=== PATIENT | female | born 1965 | race Hispanic/Latino ===

== ENCOUNTER 2017-02-19 20:52 | Observation (INO) | payer MEDICARE, MEDICAID ==
[2017-02-19 20:52] VITALS: BMI 30.9
[2017-02-19] MEDS ORDERED: Oxycodone/Acetaminophen 5/325 mg Tab PO STA (22:34)
[2017-02-19] MEDS ORDERED: Albuterol-Ipratrop 3 mg / 0.5 (3 ml) UD INH STA ×2 (22:35→23:42)
[2017-02-19] MEDS ORDERED: Oxycodone/Acetaminophen 5/325 mg Tab ONE (22:56)
[2017-02-19 23:09] LABS: BASO % 0.3 % (0.0-2.0); EOS # 0.6 K/uL (0.0-0.7); EOS % 5.7 % (0.0-4.0); LYMPH # 0.7 K/uL (1.0-4.3); LYMPH % 6.2 % (20.0-40.0); MEAN CORPUSCULAR HGB CONC 32.5 g/dL (33.0-37.0); MEAN PLATELET VOLUME 7.1 fL (7.2-11.7); MONO # 0.9 K/uL (0.0-0.8); MONO % 8.3 % (0.0-10.0); RED CELL DISTRIBUTION WIDTH 14.9 % (11.5-14.5)
[2017-02-19 23:12] LABS: CHLORIDE 90 mmol/L (98-107); INR 6.5; SODIUM 133 mmol/L (132-148)
[2017-02-19 23:13] LABS: POTASSIUM 3.2 mmol/L (3.6-5.2)
[2017-02-19 23:14] LABS: MEAN CELL VOLUME 83.1 fL (81.0-99.0); PLATELET COUNT 343 K/uL (130-400); WHITE BLOOD COUNT 11.1 K/uL (4.8-10.8)
[2017-02-19 23:15] LABS: ALKALINE PHOSPHATASE 54 U/L (38-126); ALT/SGPT 61 U/L (9-52); AST/SGOT 49 U/L (14-36); BILIRUBIN,TOTAL 0.8 mg/dL (0.2-1.3); BLOOD UREA NITROGEN 14 mg/dL (7-17); CALCIUM 8.7 mg/dl (8.6-10.4); CARBON DIOXIDE 32 mmol/L (22-30); GFR AFRICAN-AMERICAN > 60; GLUCOSE,RANDOM 78 mg/dL (65-105); TOTAL PROTEIN 7.8 g/dL (6.3-8.3)
--- NOTE | 2017-02-19 23:17 | C.PDOC ---
History Of Present Illness 51 year old female pt c/o RLQ abdominal pain for 2 days. Pt had a CT scan today and was referred by Dr. Quiñones to ED for possible bleeding. Pt has a 10 by 10 cm hematoma in the lower abdominal wall. Pt denies any nausea, vomiting, diarrhea, fever, chills, or any other complaints. Time Seen by Provider: 02/19/17 22:29 Chief Complaint (Nursing): Abdominal Pain History Per: Patient Onset/Duration Of Symptoms: Days Current Symptoms Are (Timing): Still Present Severity: Mild Location Of Pain/Discomfort: RLQ Associated Symptoms: denies: Fever, Chills, Nausea, Vomiting, Diarrhea Past Medical History Reviewed: Historical Data, Nursing Documentation, Vital Signs Vital Signs: Last Vital Signs Temp 97.9 F 02/20/17 01:01 Pulse 73 02/20/17 01:01 Resp 18 02/20/17 01:01 BP 108/73 02/20/17 01:01 Pulse Ox 96 02/20/17 01:01 - Medical History PMH: Anxiety (Per pt off medication), Arthritis, Asthma, Back Problems, Depression (per pt off medication), Deep Vein Thrombosis (2011), Fibromyalgia, HTN, Pulmonary Embolism (2011) Denies: Chronic Kidney Disease - [facility] Procedures ARTIF RUPT MEMBRANES NEC (05/12/99) DIATHER/CRYO TURBINECTOM (11/10/13) ESOPHAGOGASTRODUODENOSCOPY [EGD] W/CLOSED BIOPSY (03/28/14) ETHMOIDECTOMY (11/10/13) FASCIOTOMY (01/19/14) INTRANASAL ANTROTOMY (11/10/13) LAPAROSCOP APPENDECTOMY (03/16/05) LOW CERVICAL (05/12/99) UMBIL HERNIA REPAIR-GRFT (03/16/05) Family History: States: Unknown Family Hx - Social History Hx Tobacco Use: No Hx Alcohol Use: Yes Hx Substance Use: No - Immunization History Hx Tetanus Toxoid Vaccination: Yes Hx Influenza Vaccination: Yes Hx Pneumococcal Vaccination: Yes Review Of Systems Except As Marked, All Systems Reviewed And Found Negative. Constitutional: Negative for: Fever, Chills Gastrointestinal: Positive for: Abdominal Pain (RLQ pain. 10/10 hematoma lower abdominal wall). Negative for: Nausea, Vomiting, Diarrhea Physical Exam - Physical Exam Appears: Non-toxic, No Acute Distress Skin: Warm, Dry Head: Atraumatic, Normacephalic Cardiovascular: Rhythm Regular Respiratory: Normal Breath Sounds, No Rales, No Rhonchi, No Wheezing Gastrointestinal/Abdominal: Tenderness (Right lower pannicular area), Other ( Obese abdomen) Neurological/Psych: Oriented x3, Normal Speech ED Course And Treatment - Laboratory Results Result Diagrams: 02/19/17 22:58 02/19/17 22:58 O2 Sat by Pulse Oximetry: 96 (Room air) Pulse Ox Interpretation: Normal Medical Decision Making Medical Decision Making: impression: 51 year old female referred by Dr. Quiñones c/o RLQ abdominal pain. Plan: -EKG -Labs -CXR -Oxycodone -SOLU-Medrol -Albuterol -Nebulizer treatment -Reassess and disposition Disposition Doctor Will See Patient In The: Hospital Counseled Patient/Family Regarding: Studies Performed, Diagnosis - Disposition Disposition: HOSPITALIZED Disposition Time: 23:00 Condition: GOOD - Clinical Impression Clinical Impression: Abdominal wall hematoma, Poisoning by warfarin sodium - Scribe Statement The provider has reviewed the documentation as recorded by the Scribmary ellen wyatt All medical record entries made by the Cherriibmary ellen were at my direction and personally dictated by me. I have reviewed the chart and agree that the record accurately reflects my personal performance of the history, physical exam, medical decision making, and the department course for this patient. I have also personally directed, reviewed, and agree with the discharge instructions and disposition.
[2017-02-19] MEDS ORDERED: Albuterol-Ipratrop 3 mg / 0.5 (3 ml) UD ONE (23:50)
[2017-02-19 23:53] LABS: EOSINOPHIL 6 % (0-4); MYELOCYTE 1 % (0-0); NEUTROPHIL 75 % (50-75); TOTAL CELLS COUNTED 100
[2017-02-20] MEDS: Azithromycin 500mg/250ML NS 250 ML IVPB SCH ×2 (01:34→23:12)
[2017-02-20 01:52] LABS: RBC URINE 3 /hpf (0-3); URINE BACTERIA FEW (<OCC); URINE BILIRUBIN NEGATIVE (NEGATIVE); URINE BLOOD 2+ (NEGATIVE); URINE COLOR Yellow (YELLOW); URINE GLUCOSE (UA) NORMAL (Normal); URINE KETONE NEGATIVE (NEGATIVE); URINE LEUKOCYTE ESTERASE NEG Leu/uL (Negative); URINE PROTEIN NEGATIVE (NEGATIVE); URINE UROBILINOGEN NORMAL mg/dL (0.2-1.0); WBC URINE 2 /hpf (0-5)
[2017-02-20] MEDS: Oxymetazoline 0.05% Nasal Spray (30 ml) NS SCH ×3 (02:23→23:14)
[2017-02-20 07:21] LABS: CHLORIDE 90 mmol/L (98-107)
[2017-02-20 07:22] LABS: HEMATOCRIT 27.6 % (34.0-47.0); MEAN CELL VOLUME 83.2 fL (81.0-99.0); MEAN CORPUSCULAR HGB CONC 32.5 g/dL (33.0-37.0); MEAN PLATELET VOLUME 7.1 fL (7.2-11.7); POTASSIUM 3.6 mmol/L (3.6-5.2); RED CELL DISTRIBUTION WIDTH 15.1 % (11.5-14.5); SODIUM 134 mmol/L (132-148); WHITE BLOOD COUNT 8.6 K/uL (4.8-10.8)
[2017-02-20 07:24] LABS: AST/SGOT 36 U/L (14-36); BILIRUBIN,TOTAL 0.9 mg/dL (0.2-1.3); CARBON DIOXIDE 32 mmol/L (22-30); GFR AFRICAN-AMERICAN > 60
[2017-02-20 07:25] LABS: ALB/GLOB RATIO 1.2 (1.0-2.1); ALKALINE PHOSPHATASE 62 U/L (38-126); ALT/SGPT 44 U/L (9-52); BLOOD UREA NITROGEN 14 mg/dL (7-17); GLUCOSE,RANDOM 119 mg/dL (65-105); TOTAL PROTEIN 6.8 g/dL (6.3-8.3)
[2017-02-20 07:36] LABS: INR 3.6
[2017-02-20] MEDS: Fluticasone Nasal 50 mcg/Spray NS SCH (10:40)
[2017-02-20] MEDS: MethylPREDNISolone 40 mg Vial IVP SCH (10:40)
[2017-02-20] MEDS: Vitamin B Complex/Vitamin C Tab PO SCH (10:40)
[2017-02-20] MEDS: Oxybutynin XL 10 mg Tab PO SCH (10:42)
--- NOTE | 2017-02-20 14:27 | RAD ---
PROCEDURE: CHEST RADIOGRAPH, 1 VIEW HISTORY: abd pain COMPARISON: 02/19/2017 at 10:05 a.m. FINDINGS: LUNGS: Clear. PLEURA: No pneumothorax or pleural fluid seen. CARDIOVASCULAR: Normal. OSSEOUS STRUCTURES: No significant abnormalities. VISUALIZED UPPER ABDOMEN: Normal. OTHER FINDINGS: None. IMPRESSION: No active disease.
--- NOTE | 2017-02-20 23:41 | CP.PCM.HP ---
History of Present Illness - History of Present Illness History of Present Illness: Chief complaint: Abdominal pain History present illness: 51-year-old female with a history of lupus disease, hypercoagulable state, on antibiotic regulation, history of DVT PE, hypertension, hypercoagulable state, fibromyalgia, bronchial asthma, reactive airway disease, came to the office with the symptoms of cough. Patient was being managed as an outpatient for possibility of acute bronchitis, with antibiotic of Zithromax as well as broncho-dilators. But the patient's cough progressively got worse, associate with the increasing abdominal discomfort. Patient came to the office with the lower abdominal pain, and the swelling, noted to have a large masslike lesions in the lower abdominal area, I advised the patient go to the emergency room. During the evaluation, patient was noted to have a possibility of hematoma in the lower abdominal area. Patient needed further management She still continues to cough, mostly progressively worsening, associated with a dry cough, but the mucus production noted the mildly. She does have any fever, no chills noted, denies any nausea vomiting, but lower abdominal pain noted Past medical history as noted above Past surgical history: IVC filter. Currently on anticoagulation Allergies: No known drug allergy Personal history: Lifelong nonsmoker nonalcoholic Family history noncontributory Review of system: Denies any headache, no visual symptom, and cough noted, with the chest pain associated with the cough. Mucus production mild Lower abdominal pain noted, urine discomfort negative, bowel movements are normal On examination: Vital signs stable, chest bilateral good air entry no wheezing noted, regular heart sound, abdomen lower abdominal masslike lesions noted in the right lower quadrant region, associated with tenderness. The consistency is firm Labs reviewed Elevated INR noted, 6.7. Hemoglobin is stable otherwise Assessment and recommendation: 51-year-old female admitted to the hospital with the possibility of acute hematoma, from the anticoagulation, with the uncontrolled to Coumadin toxicity. Possibility that antibiotic made it worse. Patient is currently off anticoagulation, will monitor the INR. FFP given today. We'll continue to monitor. Hemoglobin to be monitored. We'll start the patient on anti-biotic. CT of the chest ordered and will follow the patient. Present on Admission - Present on Admission Any Indicators Present on Admission: No History of DVT/PE: No History of Uncontrolled Diabetes: No Urinary Catheter: No Decubitus Ulcer Present: No Past Patient History - Past Medical History & Family History Past Medical History?: Yes - Past Social History Smoking Status: Never Smoked - CARDIAC Hx Hypertension: Yes - PULMONARY Hx Asthma: Yes Hx Pulmonary Embolism: Yes (2011) - NEUROLOGICAL Hx Neurological Disorder: No - HEENT Hx HEENT Problems: Yes (NASAL SEPTUM REPAIR) Other/Comment: uses glasses - RENAL Hx Chronic Kidney Disease: No - ENDOCRINE/METABOLIC Hx Endocrine Disorders: Yes Hx Systemic Lupus Erythematosus: Yes - HEMATOLOGICAL/ONCOLOGICAL Hx Blood Disorders: No - INTEGUMENTARY Hx Dermatological Problems: Yes (ULCER ON SCALP) - MUSCULOSKELETAL/RHEUMATOLOGICAL Hx Arthritis: Yes Hx Falls: No - GASTROINTESTINAL Hx Gastrointestinal Disorders: Yes (GASTRIC BANDING 2009/ HIATAL HERNIA REPAIR) Hx Gastroesophageal Reflux: Yes - GENITOURINARY/GYNECOLOGICAL Hx Incontinence: Yes (OVER ACTIVE BLADDER) - PSYCHIATRIC Hx Anxiety: Yes (Per pt off medication) Hx Depression: Yes (per pt off medication) Hx Substance Use: No - SURGICAL HISTORY Hx Surgeries: Yes Hx Section: Yes (x2) - ANESTHESIA Hx Anesthesia: Yes Hx Anesthesia Reactions: No Hx Malignant Hyperthermia: No Has any member of the family had a problem w/ anesthesia?: No Meds Allergies/Adverse Reactions: Allergies Allergy/AdvReac Type Severity Reaction Status Date / Time No Known Allergies Allergy Verified 02/19/17 21:19 Results - Vital Signs Recent Vital Signs: Last Vital Signs Temp 98.1 F 02/20/17 16:10 Pulse 93 H 02/20/17 16:10 Resp 20 02/20/17 16:10 BP 118/76 02/20/17 16:10 Pulse Ox 94 L 02/20/17 16:10 - Labs Result Diagrams: 02/21/17 20:05 02/20/17 07:08 Labs: Laboratory Results - last 24 hr 02/19/17 02/20/17 02/20/17 23:41 00:41 01:45 WBC RBC Hgb Hct MCV MCH MCHC RDW Plt Count MPV PT INR APTT Sodium Potassium Chloride Carbon Dioxide Anion Gap BUN Creatinine Est GFR ( Amer) Est GFR (Non-Af Amer) Random Glucose Calcium Total Bilirubin AST ALT Alkaline Phosphatase Total Protein Albumin Globulin Albumin/Globulin Ratio Urine Color Yellow Urine Clarity Hazy Urine pH 6.0 Ur Specific [place] 1.008 Urine Protein Negative Urine Glucose (UA) Normal Urine Ketones Negative Urine Blood 2+ H Urine Nitrate Negative Urine Bilirubin Negative Urine Urobilinogen Normal Ur Leukocyte Esterase Neg Urine WBC (Auto) 2 Urine RBC (Auto) 3 Ur Squamous Epith Cells 35 H Urine Bacteria Few H Blood Type B POSITIVE Blood Type Confirm B POSITIVE Antibody Screen Negative 02/20/17 07:08 WBC 8.6 RBC 3.32 L Hgb 9.0 L Hct 27.6 L MCV 83.2 MCH 27.0 MCHC 32.5 L RDW 15.1 H Plt Count 278 MPV 7.1 L PT 42.0 H* D INR 3.6 D APTT 56 H D Sodium 134 Potassium 3.6 Chloride 90 L Carbon Dioxide 32 H Anion Gap 16 BUN 14 Creatinine 0.6 L Est GFR ( Amer) > 60 Est GFR (Non-Af Amer) > 60 Random Glucose 119 H Calcium 8.0 L Total Bilirubin 0.9 AST 36 D ALT 44 Alkaline Phosphatase 62 Total Protein 6.8 Albumin 3.7 Globulin 3.1 Albumin/Globulin Ratio 1.2 Urine Color Urine Clarity Urine pH Ur Specific [place] Urine Protein Urine Glucose (UA) Urine Ketones Urine Blood Urine Nitrate Urine Bilirubin Urine Urobilinogen Ur Leukocyte Esterase Urine WBC (Auto) Urine RBC (Auto) Ur Squamous Epith Cells Urine Bacteria Blood Type Blood Type Confirm Antibody Screen
--- NOTE | 2017-02-20 23:47 | CP.PCM.PN ---
Subjective - Date & Time of Evaluation Date of Evaluation: 02/20/17 Time of Evaluation: 23:41 - Subjective Subjective: pt got 2 units of ffp abd pain noted still having cough and no mucus no fever Temp Pulse Resp BP Pulse Ox 98.1 F 93 H 20 118/76 94 L 02/20/17 16:10 02/20/17 16:10 02/20/17 16:10 02/20/17 16:10 02/20/17 16:10 chest good air entry regular hs abd soft lower abd swelling noted hematoma noted will check the pt and inr 02/20/17 07:08 02/20/17 07:08 inr 3.4 will monitor the inr abd hematoma coagulopathy coumadin toxicity pneumonia continue the zithromax and steroid check hb Objective - Vital Signs/Intake and Output Vital Signs (last 24 hours): Temp Pulse Resp BP Pulse Ox 98.1 F 93 H 20 118/76 94 L 02/20/17 16:10 02/20/17 16:10 02/20/17 16:10 02/20/17 16:10 02/20/17 16:10 Intake and Output: 02/20/17 02/21/17 18:59 06:59 Intake Total 480 Balance 480 - Medications Medications: Current Medications Duloxetine HCl (Cymbalta) 30 mg PO DAILY [facility] Last Admin: 02/20/17 10:40 Dose: 30 mg Fluticasone Propionate (Flonase) 1 spr NS DAILY [facility] Last Admin: 02/20/17 10:40 Dose: 1 spr Hydrochlorothiazide (Hydrodiuril) 25 mg PO DAILY [facility] Last Admin: 02/20/17 10:41 Dose: 25 mg Hydroxychloroquine Sulfate (Plaquenil) 400 mg PO DAILY [facility] Last Admin: 02/20/17 10:41 Dose: 400 mg Azithromycin (Zithromax 500mg In Ns Addvantage) 250 mls @ 167 mls/hr IVPB Q24H [facility] Last Admin: 02/20/17 23:12 Dose: 167 mls/hr Methylprednisolone (Solu-Medrol) 40 mg IVP DAILY [facility] Last Admin: 02/20/17 10:40 Dose: 40 mg Montelukast Sodium (Singulair) 10 mg PO DAILY [facility] Last Admin: 02/20/17 10:41 Dose: 10 mg Oxybutynin Chloride (Ditropan Xl) 10 mg PO DAILY [facility] Last Admin: 02/20/17 10:42 Dose: 10 mg Oxymetazoline HCl (Afrin 0.05%) 1 ml NS Q12H [facility] Last Admin: 02/20/17 23:14 Dose: 1 drop Pregabalin (Lyrica) 75 mg PO TID [facility] Last Admin: 02/20/17 17:17 Dose: 75 mg Vitamin B Complex/Vitamin C (Berocca) 1 tab PO DAILY [facility] Last Admin: 02/20/17 10:40 Dose: 1 tab - Labs Labs: 02/20/17 07:08 02/20/17 07:08 PT 42.0 SECONDS (9.7-12.2) H* D 02/20/17 07:08 INR 3.6 D 02/20/17 07:08 APTT 56 SECONDS (21-34) H D 02/20/17 07:08
[2017-02-21] MEDS ORDERED: Iodixanol 320 MG/ML 100 ML BOTTLE IV ONE (06:44)
[2017-02-21 07:12] LABS: BASO % 0.2 % (0.0-2.0); EOS # 0.2 K/uL (0.0-0.7); EOS % 1.5 % (0.0-4.0); HEMATOCRIT 27.9 % (34.0-47.0); LYMPH # 0.8 K/uL (1.0-4.3); LYMPH % 6.9 % (20.0-40.0); MEAN CELL VOLUME 82.2 fL (81.0-99.0); MEAN CORPUSCULAR HGB CONC 32.9 g/dL (33.0-37.0); MEAN PLATELET VOLUME 7.1 fL (7.2-11.7); MONO # 0.9 K/uL (0.0-0.8); MONO % 7.9 % (0.0-10.0); PLATELET COUNT 321 K/uL (130-400); RED CELL DISTRIBUTION WIDTH 15.2 % (11.5-14.5); WHITE BLOOD COUNT 11.7 K/uL (4.8-10.8)
[2017-02-21 07:35] LABS: INR 4.7
[2017-02-21] MEDS: Promethazine/Cod 6.25mg-10mg/5ml Syr UD PO SCH ×4 (08:25→23:09)
[2017-02-21 09:45] LABS: EOSINOPHIL 1 % (0-4); METAMYELOCYTE 1 % (0-0); NEUTROPHIL 85 % (50-75); TOTAL CELLS COUNTED 100
--- NOTE | 2017-02-21 09:53 | CT ---
PROCEDURE: CT Chest without contrast HISTORY: pneumonia COMPARISON: 07/25/2014 TECHNIQUE: Contiguous axial images were obtained through the chest without intravenous contrast enhancement. Sagittal and coronal reconstructions were performed. Radiation dose (DLP): 446.09 mGy-cm. FINDINGS: LUNGS: Multifocal pulmonary opacities, most prominently in the apical posterior left upper lobe. Lesser opacities are seen throughout all lobes bilaterally. This may represent an infectious or inflammatory process. No bernardo pulmonary mass. MEDIASTINUM: Unremarkable thoracic aorta. No aneurysm. Normal sized heart. Main pulmonary artery unremarkable. No vascular congestion. No lymphadenopathy. Small hiatal hernia. Fluid-filled lower esophagus with air-fluid level. Possible secondary to reflux. PLEURA: No pleural fluid. No pneumothorax. BONES: No fracture. No destructive lesion. UPPER ABDOMEN: Status post gastric band placement. Inferior vena caval filter noted. OTHER FINDINGS: None. IMPRESSION: Multi lobar, multifocal patchy ground-glass opacities bilaterally, nonspecific. This may be a but infectious or inflammatory etiology. Small hiatal hernia. Fluid in distended esophagus may reflect gastroesophageal reflux. Status post gastric band procedure. Inferior vena caval filter.
[2017-02-21] MEDS: Oxybutynin XL 10 mg Tab PO SCH (10:23)
[2017-02-21] MEDS: Fluticasone Nasal 50 mcg/Spray NS SCH (10:23)
[2017-02-21] MEDS: Vitamin B Complex/Vitamin C Tab PO SCH (10:23)
[2017-02-21] MEDS: MethylPREDNISolone 40 mg Vial IVP SCH (10:24)
[2017-02-21] MEDS: Oxymetazoline 0.05% Nasal Spray (30 ml) NS SCH (11:38)
[2017-02-21] MEDS: cefTRIAXone IV 1 gm in Dextros 50 ML IVPB SCH (14:04)
--- NOTE | 2017-02-21 14:35 | US ---
PROCEDURE: Limited abdominal ultrasound exam in a HISTORY: Rectus sheath hematoma on CT examination COMPARISON: CT abdomen/ pelvis 02/19/2017 TECHNIQUE: Limited abdominal ultrasound examination was performed in the right lower anterior abdominal wall FINDINGS: There is a heterogeneous mass/collection identified measuring 10.8 x 6.5 x 8.4 cm corresponding to the rectus sheath hematoma demonstrated on CT examination. The heterogeneity of the echotexture likely reflects blood products. IMPRESSION: Heterogeneous anterior abdominal wall mass/ collection, 10.8 cm greatest dimension.
[2017-02-21 20:22] LABS: HEMATOCRIT 28.1 % (34.0-47.0)
[2017-02-21 23:48] VITALS: O2SAT 99
[2017-02-22] MEDS: Promethazine/Cod 6.25mg-10mg/5ml Syr UD PO SCH ×2 (05:33→12:19)
--- NOTE | 2017-02-22 08:03 | CP.PCM.PN ---
Subjective - Date & Time of Evaluation Date of Evaluation: 02/21/17 Time of Evaluation: 08:02 - Subjective Subjective: Patient still having cough, cough with mucus production. CAT scan was done. Showing evidence of bronchopneumonia. We'll add Rocephin. INR is slightly elevated. Off Coumadin. No anticoagulation. We'll repeat the hemoglobin. Abdominal pain still persistently noted We'll continue to monitor INR, if possible, if it is stable, possible discharge plan tomorrow will follow the patient Objective - Vital Signs/Intake and Output Vital Signs (last 24 hours): Temp Pulse Resp BP Pulse Ox 98.4 F 80 20 120/80 99 02/21/17 23:47 02/22/17 00:00 02/21/17 23:47 02/21/17 23:47 02/21/17 23:47 - Medications Medications: Current Medications Acetaminophen (Tylenol 325mg Tab) 650 mg PO Q6 PRN PRN Reason: Pain, moderate (4-7) Last Admin: 02/21/17 23:10 Dose: 650 mg Duloxetine HCl (Cymbalta) 30 mg PO DAILY [facility] Last Admin: 02/21/17 10:23 Dose: 30 mg Fluticasone Propionate (Flonase) 1 spr NS DAILY [facility] Last Admin: 02/21/17 10:23 Dose: 1 spr Hydrochlorothiazide (Hydrodiuril) 25 mg PO DAILY [facility] Last Admin: 02/21/17 10:23 Dose: 25 mg Hydroxychloroquine Sulfate (Plaquenil) 400 mg PO DAILY [facility] Last Admin: 02/21/17 10:23 Dose: 400 mg Ceftriaxone Sodium (Rocephin Iv 1 Gm Duplex) 50 mls @ 50 mls/30 min IVPB DAILY [facility] Last Admin: 02/21/17 14:04 Dose: 50 mls/30 min Methylprednisolone (Solu-Medrol) 40 mg IVP DAILY [facility] Last Admin: 02/21/17 10:24 Dose: 40 mg Montelukast Sodium (Singulair) 10 mg PO DAILY [facility] Last Admin: 02/21/17 10:24 Dose: 10 mg Oxybutynin Chloride (Ditropan Xl) 10 mg PO DAILY [facility] Last Admin: 02/21/17 10:23 Dose: 10 mg Oxymetazoline HCl (Afrin 0.05%) 1 ml NS Q12H [facility] Last Admin: 02/21/17 11:38 Dose: 1 drop Pregabalin (Lyrica) 75 mg PO TID [facility] Last Admin: 02/21/17 17:19 Dose: 75 mg Promethazine HCl/Codeine (Phenergan/Codeine Oral Syrup) 5 ml PO Q6 [facility] Last Admin: 02/22/17 05:33 Dose: 5 ml Vitamin B Complex/Vitamin C (Berocca) 1 tab PO DAILY [facility] Last Admin: 02/21/17 10:23 Dose: 1 tab - Labs Labs: 02/21/17 20:05 02/20/17 07:08 PT 55.6 SECONDS (9.7-12.2) H* D 02/21/17 06:58 INR 4.7 D 02/21/17 06:58 APTT 50 SECONDS (21-34) H D 02/21/17 06:58
[2017-02-22 08:42] LABS: BASO # 0.1 K/uL (0.0-0.2); BASO % 0.7 % (0.0-2.0); EOS # 0.4 K/uL (0.0-0.7); EOS % 3.1 % (0.0-4.0); HEMATOCRIT 27.3 % (34.0-47.0); LYMPH # 1.1 K/uL (1.0-4.3); LYMPH % 9.4 % (20.0-40.0); MEAN CELL VOLUME 83.1 fL (81.0-99.0); MEAN CORPUSCULAR HEMOGLOBIN 27.6 pg (27.0-31.0); MEAN CORPUSCULAR HGB CONC 33.2 g/dL (33.0-37.0); MEAN PLATELET VOLUME 6.6 fL (7.2-11.7); MONO % 8.4 % (0.0-10.0); PLATELET COUNT 337 K/uL (130-400); RED CELL DISTRIBUTION WIDTH 15.1 % (11.5-14.5)
[2017-02-22 08:53] LABS: INR 3.2
[2017-02-22 08:54] VITALS: BP 110/72; PULSE 76; RESP 18; TEMP 98
[2017-02-22 09:21] LABS: EOSINOPHIL 2 % (0-4); NEUTROPHIL 83 % (50-75); TOTAL CELLS COUNTED 100
[2017-02-22] MEDS: Vitamin B Complex/Vitamin C Tab PO SCH (09:44)
[2017-02-22] MEDS: MethylPREDNISolone 40 mg Vial IVP SCH (09:44)
[2017-02-22] MEDS: Oxybutynin XL 10 mg Tab PO SCH (09:44)
[2017-02-22] MEDS: cefTRIAXone IV 1 gm in Dextros 50 ML IVPB SCH (09:45)
[2017-02-22] MEDS: Fluticasone Nasal 50 mcg/Spray NS SCH (09:45)
[2017-02-22] MEDS: Oxymetazoline 0.05% Nasal Spray (30 ml) NS SCH (12:20)
== END 2017-02-22 14:52 | disposition home or self-care (01) ==
LOC: C.ER 20:52 → C.5T 23:26
PROVIDERS: ADMIT Internal Medicine; ATTEND Internal Medicine
DX: T42.0X5A Adverse effect of hydantoin derivatives, initial encounter (principal); J45.909 Unspecified asthma, uncomplicated; I10 Essential (primary) hypertension
CPT/HCPCS: 36415; 36430; 71010; 71250; 76705; 80053; 81001; 83690; 84484; 85014; 85018; 85025; 85027; 85610; 85730; 86850; 86900; 94640; 96374; 99285; G0378; J0456; J0696; J2920; J2930; P9017

== ENCOUNTER 2017-09-16 06:50 | Day surgery (SDC) | payer MEDICARE, MEDICAID ==
[2017-09-16 07:38] VITALS: BMI 35.4
[2017-09-16] MEDS ORDERED: Propofol 10 mg/ml Inj (20 ML) ONE ×4 (08:41→10:28)
[2017-09-16] MEDS ORDERED: Midazolam 2 MG/2 ML VIAL ONE ×2 (08:41→10:12)
--- NOTE | 2017-09-16 08:46 | CP.SDSHP ---
Same Day Surgery H & P - History Proposed Procedure: endoscopy, colonosocpy - Previous Medical/Surgical History Comments: SLE, DVT - Allergies Allergies: Allergies No Known Allergies Allergy (Verified 02/19/17 21:19) - Physical Exam Vital Signs: Vital Signs 09/16/17 08:06 Temperature 97 F L Pulse Rate 80 Respiratory 16 Rate Blood Pressure 142/79 O2 Sat by Pulse 98 Oximetry Mental Status: Alert & Oriented x3 Neuro: WNL Heart: WNL Lungs: WNL GI: WNL - {Optional Preform as Required} Abdomen: WNL - Impression Impression: reflux, screen Pt. Evaluated Today:Candidate for Anesthesia & Procedure: Yes - Date & Time Date: 09/16/17 Time: 08:47 Short Stay Discharge - Short Stay Discharge Admitting Diagnosis/Reason for Visit: SCREENING / ESOPHAGEAL REFLUX Disposition: HOME/ ROUTINE Referrals: Myles Quiñones MD [Primary Care Provider] -
[2017-09-16 09:18] LABS: INR 1.2
[2017-09-16 12:31] VITALS: TEMP 97.1; O2SAT 100
[2017-09-16 12:50] VITALS: BP 128/73; PULSE 77; RESP 16
== END 2017-09-16 12:30 | disposition home or self-care (01) ==
LOC: C.ENDO 06:50
PROVIDERS: ATTEND Internal Medicine Gastroenterology
DX: D12.0 Benign neoplasm of cecum (principal); K64.8 Other hemorrhoids; K57.90 Diverticulosis of intestine, part unspecified, without perforation or abscess without bleeding; K29.70 Gastritis, unspecified, without bleeding
CPT/HCPCS: 36415; 43239; 45388; 84703; 85610; 88305; 88342; J2250; J2704; J3010

== ENCOUNTER 2017-11-01 09:21 | Inpatient (IN) | payer MEDICARE, MEDICAID ==
[2017-11-01 09:22] VITALS: BMI 35.4
[2017-11-01] MEDS ORDERED: Lactated Ringer's 1,000 ML IV STA (10:09)
--- NOTE | 2017-11-01 10:09 | C.PDOC ---
History Of Present Illness 52 year old female with a PMHx of Asthma presents to the ED with complaints of persistent cough and subjective fever for 2 weeks. Patient also reports right pleuritic pain. Patient was referred to the ED by PMD for admission for persistent cough that has not improved with ZPAK, unknown other anitibiotics, or Prednisone for 2 weeks. Patient is status post CT chest on 10/28/2017 and pneumonia. Patient denies sick contacts, recent travel, leg swelling, or other complaints at this time. REFERRED BY PMD FOR ADMISSION. PS PERSIST COUGH X 2 WEEKS, NO IMPROVE W ZPAK, UNK OTHER ABX AND PREDNISONE X 2 WEEKS. SUBJ FEVER. HO ASTHMA. +R PLEURITIC PAIN. S/P CT CHEST 10/28 +PNEUMONIA EXAM MILD DIST NONTOXIC HEENT NEG LUNGS +RHONCHI L SIDE +WET COUGH +RETRACTION CV RRR SINUS TACH REMAINDER NEG Time Seen by Provider: 11/01/17 09:47 Chief Complaint (Nursing): Cough, Cold, Congestion History Per: Patient History/Exam Limitations: no limitations Onset/Duration Of Symptoms: Persistent (2 weeks ) Current Symptoms Are (Timing): Still Present Sick Contacts (Context): None Associated Symptoms: Fever (subjective), Cough. denies: Vomiting, Diarrhea Ear Symptoms: Bilateral: None Recent travel outside of the [place]: No Additional History Per: Prior Records (PMD records) Past Medical History Reviewed: Historical Data, Nursing Documentation, Vital Signs Vital Signs: Last Vital Signs Temp 98.7 F 11/01/17 09:31 Pulse 94 H 11/01/17 10:54 Resp 19 11/01/17 10:54 BP 110/61 11/01/17 10:54 Pulse Ox 94 L 11/01/17 10:54 - Medical History PMH: Arthritis, Asthma, Back Problems, Colonic Polyps, Deep Vein Thrombosis ( 2011), Fibromyalgia, HTN, Pulmonary Embolism (2011), Sleep Apnea (ON CPAP AT HOME) Surgical History: Appendectomy, Endoscopy - [facility] Procedures ARTIF RUPT MEMBRANES NEC (05/12/99) DIATHER/CRYO TURBINECTOM (11/10/13) ESOPHAGOGASTRODUODENOSCOPY [EGD] W/CLOSED BIOPSY (03/28/14) ETHMOIDECTOMY (11/10/13) FASCIOTOMY (01/19/14) INTRANASAL ANTROTOMY (11/10/13) LAPAROSCOP APPENDECTOMY (03/16/05) LOW CERVICAL (05/12/99) UMBIL HERNIA REPAIR-GRFT (03/16/05) Family History: States: Unknown Family Hx - Social History Hx Tobacco Use: No Hx Alcohol Use: No Hx Substance Use: No - Immunization History Hx Tetanus Toxoid Vaccination: No Hx Influenza Vaccination: Yes Hx Pneumococcal Vaccination: No Review Of Systems Constitutional: Positive for: Fever (subjective fever). Negative for: Chills Cardiovascular: Positive for: Other (right pleuritic pain). Negative for: Palpitations Respiratory: Positive for: Cough. Negative for: Shortness of Breath Gastrointestinal: Negative for: Nausea, Vomiting, Abdominal Pain Neurological: Negative for: Weakness, Numbness Physical Exam - Physical Exam Appears: Non-toxic, In Acute Distress Skin: Warm, Dry, No Rash Head: Atraumatic, Normacephalic, No Tenderness Eye(s): bilateral: Normal Inspection, PERRL, EOMI Ear(s): Bilateral: Normal Nose: Normal, No Discharge Oral Mucosa: Moist Throat: Normal, No Erythema, No Exudate Neck: Supple Chest: Symmetrical, No Deformity Cardiovascular: Rhythm Regular, No Murmur, Other (Patient is tachycardic ) Respiratory: Rhonchi (left sided ), Other (+ retraction; + wet cough) Gastrointestinal/Abdominal: Soft, No Tenderness, No Distention, No Guarding, No Rebound Extremity: Normal ROM, No Tenderness, No Pedal Edema, No Calf Tenderness, Capillary Refill (<2 seconds ), No Deformity, No Swelling Neurological/Psych: Oriented x3, Normal Speech, Normal Cognition, Normal Cranial Nerves, No Cerebellar Signs ED Course And Treatment - Laboratory Results Result Diagrams: 11/01/17 10:26 11/01/17 10:26 ECG: Interpreted By Me, Viewed By Me ECG Rhythm: Sinus Rhythm Rate From EC O2 Sat by Pulse Oximetry: 93 Pulse Ox Interpretation: Abnormal - Radiology CXR: Interpreted by Me, Viewed By Me CXR Interpretation: Yes: Infiltrates (left infiltrate ) Progress Note: EKG, VBG, CXR, labs, and blood work were ordered. Patient was given Toradol, Vancomycin, Zosyn, and Lactated Ringer's Solution. Progress - Re-Evaluation Re-evaluation Note: 11/01/17 10:35 d/sumanth quiñones will admit - Data Reviewed Data Reviewed: Lab, Diagnostic imaging, EKG, Old records Disposition Counseled Patient/Family Regarding: Studies Performed, Diagnosis - Disposition Disposition: HOSPITALIZED Disposition Time: 10:36 Condition: STABLE - POA Present On Arrival: None - Clinical Impression Clinical Impression: Pneumonia, Hypoxia - Scribe Statement The provider has reviewed the documentation as recorded by the Scribe Patricia Moran All medical record entries made by the Scribe were at my direction and personally dictated by me. I have reviewed the chart and agree that the record accurately reflects my personal performance of the history, physical exam, medical decision making, and the department course for this patient. I have also personally directed, reviewed, and agree with the discharge instructions and disposition. Decision To Admit - Pt Status Changed To: Hospital Disposition Of: Inpatient - Admit Certification Admit to Inpatient:: After my assessment, the patient will require hospitalization for at least two midnights. This is because of the severity of symptoms shown, intensity of services needed, and/or the medical risk in this patient being treated as an outpatient. - InPatient: Physician Admission Certification: I certify that this patient requires 2 or more midnights of care for the following reason:: SEE NOTE - . Bed Request Type: Regular Admitting Physician: Myles Quiñones Patient Diagnosis: Pneumonia, Hypoxia
[2017-11-01] MEDS ORDERED: Lactated Ringer's 1,000 ML IV ONE (10:11)
[2017-11-01] MEDS ORDERED: Piperacill/Tazo 3.375gm in Dex 3.375 GM/50 ML BAG IV STA (10:20)
[2017-11-01] MEDS ORDERED: Lactated Ringer's 1,000 ML ONE ×2 (10:31→12:02)
[2017-11-01 10:34] LABS: HEMATOCRIT 36.1 % (34.0-47.0); MEAN CELL VOLUME 83.7 fL (81.0-99.0); MEAN CORPUSCULAR HEMOGLOBIN 27.5 pg (27.0-31.0); MEAN CORPUSCULAR HGB CONC 32.9 g/dL (33.0-37.0); MEAN PLATELET VOLUME 6.9 fL (7.2-11.7); PLATELET COUNT 301 K/uL (130-400); RED CELL DISTRIBUTION WIDTH 15.9 % (11.5-14.5)
[2017-11-01 10:37] LABS: URINE BILIRUBIN NEGATIVE (NEGATIVE); URINE BLOOD 1+ (NEGATIVE); URINE COLOR Yellow (YELLOW); URINE GLUCOSE (UA) NORMAL (Normal); URINE KETONE NEGATIVE (NEGATIVE); URINE LEUKOCYTE ESTERASE NEG Leu/uL (Negative); URINE PROTEIN NEGATIVE (NEGATIVE); URINE UROBILINOGEN NORMAL mg/dL (0.2-1.0)
[2017-11-01 10:42] LABS: WHITE BLOOD COUNT 21.5 K/uL (4.8-10.8)
[2017-11-01 10:54] LABS: RBC URINE 1 /hpf (0-3)
[2017-11-01 10:57] LABS: ALKALINE PHOSPHATASE 58 U/L (38-126); ALT/SGPT 34 U/L (9-52); AST/SGOT 29 U/L (14-36); BILIRUBIN,TOTAL 0.6 mg/dL (0.2-1.3); BLOOD UREA NITROGEN 17 mg/dL (7-17); CALCIUM 8.3 mg/dl (8.6-10.4); CARBON DIOXIDE 28 mmol/L (22-30); CHLORIDE 98 mmol/L (98-107); GFR AFRICAN-AMERICAN > 60; GLUCOSE,RANDOM 113 mg/dL (65-105); POTASSIUM 3.5 mmol/L (3.6-5.2); SODIUM 134 mmol/L (132-148); TOTAL PROTEIN 7.4 g/dL (6.3-8.3)
[2017-11-01 11:01] LABS: LYMPH # 0.2 K/uL (1.0-4.3); MONO # 0.2 K/uL (0.0-0.8)
[2017-11-01 11:03] LABS: VENOUS BLOOD GAS BASE EXCESS 5.8 mmol/L (0.0-2.0); VENOUS BLOOD GAS PCO2 40 mmHg (40-60); VENOUS BLOOD PH 7.48 (7.32-7.43)
--- NOTE | 2017-11-01 11:03 | RAD ---
HISTORY: Pneumonia COMPARISON: Chest x-ray performed 07/30/17 TECHNIQUE: Chest PA and lateral FINDINGS: LUNGS: Patchy left lower lobe opacity compute stent with pneumonia. Mild interstitial prominence may reflect infection or edema. Please note that chest x-ray has limited sensitivity for the detection of pulmonary masses. PLEURA: No significant pleural effusion identified. No definite pneumothorax . CARDIOVASCULAR: Cardiomegaly. OSSEOUS STRUCTURES: Degenerative changes. VISUALIZED UPPER ABDOMEN: Unremarkable. OTHER FINDINGS: None. IMPRESSION: Patchy left lower lobe opacity compute stent with pneumonia. Mild interstitial prominence may reflect infection or edema.
[2017-11-01 11:07] LABS: NEUTROPHIL 89 % (50-75); TOTAL CELLS COUNTED 100
[2017-11-01 11:27] LABS: INR 3.9
[2017-11-01] MEDS: Albuterol-Ipratrop 3 mg / 0.5 (3 ml) UD INH SCH ×2 (13:39→19:20)
[2017-11-01] MEDS: Promethazine/Cod 6.25mg-10mg/5ml Syr UD PO PRN ×2 (14:50→20:07)
[2017-11-01] MEDS: Pantoprazole 40 mg EC Tab PO SCH (17:54)
[2017-11-01] MEDS: Fluticasone Nasal 50 mcg/Spray NAS SCH (17:54)
--- NOTE | 2017-11-01 18:49 | CP.PCM.HP ---
History of Present Illness - History of Present Illness History of Present Illness: Chief complaint: progressively worsening cough History present illness: 52-year-old female with a history of lupus disease, hypercoagulable state, on antibiotic regulation, history of DVT PE, hypertension, hypercoagulable state, fibromyalgia, bronchial asthma, reactive airway disease, came to the office with the symptoms of cough. Patient was seen by me in the office almost to 3 weeks ago for the similar symptoms. Patient was given outpatient antibiotic treatment, including prednisone. And also receiving intravenous corticosteroid, without any improvement. Mild improvement in the beginning, but she started having increasing cough, especially at nighttime. Cough associated with some wheezing, and shortness of breath, and dizziness. In January 2017 patient had a similar problem, and at that time she developed significant hematoma involving the right groin region and also elevated INR. Patient underwent outpatient CAT scan returned showing significant pneumonia, and I advised the patient to go to the emergency room father possible intravenous antibiotic, and further management. Patient finally came to the emergency room today, with increasing cough, and hypoxia. Highly elevated WBC also noted. Still feeling not well, cough noted, sore throat present. Wheezing present. No fever. No diarrhea She still continues to cough, mostly progressively worsening, associated with a dry cough, but the mucus production noted the mildly also mild hemoptysis also noted She does have any fever, no chills noted, denies any nausea vomiting, but lower abdominal pain noted Past medical history as noted above Past surgical history: IVC filter. Currently on anticoagulation Allergies: No known drug allergy Personal history: Lifelong nonsmoker nonalcoholic Family history noncontributory Review of system: Denies any headache, no visual symptom, and cough noted, with the chest pain associated with the cough. Mucus production mild Lower abdominal pain noted, urine discomfort negative, bowel movements are normal On examination: Vital signs stable, hypoxia Vital signs reviewed No neck vein distention noted chest bilateral wheezing CVS regular heart sound, no murmur noted Abdomen soft, nontender. 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 WBC elevated CAT scan of the chest is showing diffuse pneumonia, involving left lung. Hemoglobin is stable otherwise Assessment and recommendation: 52-year-old female admitted to the hospital with the possibility of acute pneumonia, involving left lung, and also bronchopneumonia. Atypical pneumonia. Hemoptysis, associated bladder cannot be ruled out. Patient is hypercoagulable state. She is on anti-coagulation. Hypertension. Will continue to monitor the oxygen. Hypoxia. We'll start the patient on antibiotic, intravenous corticosteroid. Bronchodilators. Cough medication. Will follow the patient.. Present on Admission - Present on Admission Any Indicators Present on Admission: No History of DVT/PE: No History of Uncontrolled Diabetes: No Urinary Catheter: No Decubitus Ulcer Present: No Past Patient History - Past Medical History & Family History Past Medical History?: Yes - Past Social History Smoking Status: Never Smoked - CARDIAC Hx Hypertension: Yes Hx Peripheral Edema: Yes - PULMONARY Hx Asthma: Yes Hx Pulmonary Embolism: Yes (2011) Hx Sleep Apnea: Yes (ON CPAP AT HOME) - NEUROLOGICAL Hx Neurological Disorder: Yes - HEENT Hx HEENT Problems: Yes - RENAL Hx Chronic Kidney Disease: No - ENDOCRINE/METABOLIC Hx Endocrine Disorders: Yes Hx Systemic Lupus Erythematosus: Yes - HEMATOLOGICAL/ONCOLOGICAL Hx Blood Disorders: No - INTEGUMENTARY Hx Dermatological Problems: No - MUSCULOSKELETAL/RHEUMATOLOGICAL Hx Arthritis: Yes Hx Falls: No Hx Herniated Disk: Yes - GASTROINTESTINAL Hx Gastrointestinal Disorders: Yes Hx Gastroesophageal Reflux: Yes - GENITOURINARY/GYNECOLOGICAL Hx Genitourinary Disorders: Yes Hx Incontinence: Yes (OVER ACTIVE BLADDER) - PSYCHIATRIC Hx Depression: Yes (post depression) Hx Substance Use: No - SURGICAL HISTORY Hx Appendectomy: Yes Hx Section: Yes (x2) Other/Comment: IVC filter - ANESTHESIA Hx Anesthesia: Yes Hx Anesthesia Reactions: No Hx Malignant Hyperthermia: No Meds Allergies/Adverse Reactions: Allergies Allergy/AdvReac Type Severity Reaction Status Date / Time No Known Allergies Allergy Verified 11/01/17 09:34 Results - Vital Signs Recent Vital Signs: Last Vital Signs Temp 97.9 F 11/01/17 15:00 Pulse 80 11/01/17 15:00 Resp 21 11/01/17 15:00 BP 104/70 11/01/17 15:00 Pulse Ox 96 11/01/17 15:00 - Labs Result Diagrams: 11/01/17 10:26 11/01/17 10:26 Labs: Laboratory Results - last 24 hr 11/01/17 11/01/17 11/01/17 10:26 10:26 10:26 WBC 21.5 H D RBC 4.32 Hgb 11.9 Hct 36.1 MCV 83.7 MCH 27.5 MCHC 32.9 L RDW 15.9 H Plt Count 301 MPV 6.9 L Neut % (Auto) 98.0 H Lymph % (Auto) 1.0 L [place] % (Auto) 1.0 Eos % (Auto) 0.0 Baso % (Auto) 0.0 Neut # 21.0 H Lymph # 0.2 L [place] # 0.2 Eos # 0.0 Baso # 0.0 Neutrophils % (Manual) 89 H Band Neutrophils % 10 H Lymphocytes % (Manual) 1 L Monocytes % (Manual) TEST NOT PERFORMED Platelet Estimate Normal Polychromasia Slight Hypochromasia (manual) Slight Anisocytosis (manual) Slight Ovalocytes Slight PT INR APTT pO2 VBG pH VBG pCO2 VBG HCO3 VBG Total CO2 VBG O2 Sat (Calc) VBG Base Excess VBG Potassium Glucose Lactate Sodium 134 Potassium 3.5 L Chloride 98 Carbon Dioxide 28 Anion Gap 12 BUN 17 Creatinine 0.8 Est GFR ( Amer) > 60 Est GFR (Non-Af Amer) > 60 Random Glucose 113 H Calcium 8.3 L Total Bilirubin 0.6 AST 29 ALT 34 Alkaline Phosphatase 58 Lactate Dehydrogenase 630 H Total Protein 7.4 Albumin 3.7 Globulin 3.7 Albumin/Globulin Ratio 1.0 Venous Blood Potassium Urine Color Yellow Urine Clarity Clear Urine pH 7.0 Ur Specific [place] 1.008 Urine Protein Negative Urine Glucose (UA) Normal Urine Ketones Negative Urine Blood 1+ H Urine Nitrate Negative Urine Bilirubin Negative Urine Urobilinogen Normal Ur Leukocyte Esterase Neg Urine RBC (Auto) 1 11/01/17 11/01/17 10:45 11:12 WBC RBC Hgb Hct MCV MCH MCHC RDW Plt Count MPV Neut % (Auto) Lymph % (Auto) [place] % (Auto) Eos % (Auto) Baso % (Auto) Neut # Lymph # [place] # Eos # Baso # Neutrophils % (Manual) Band Neutrophils % Lymphocytes % (Manual) Monocytes % (Manual) Platelet Estimate Polychromasia Hypochromasia (manual) Anisocytosis (manual) Ovalocytes PT 47.0 H* INR 3.9 APTT 44 H pO2 52 VBG pH 7.48 H VBG pCO2 40 VBG HCO3 29.2 VBG Total CO2 31.0 H VBG O2 Sat (Calc) 93.3 H VBG Base Excess 5.8 H VBG Potassium 3.4 L Glucose 120 H Lactate 1.1 Sodium 137.0 Potassium Chloride 102.0 Carbon Dioxide Anion Gap BUN Creatinine Est GFR ( Amer) Est GFR (Non-Af Amer) Random Glucose Calcium Total Bilirubin AST ALT Alkaline Phosphatase Lactate Dehydrogenase Total Protein Albumin Globulin Albumin/Globulin Ratio Venous Blood Potassium 3.4 L Urine Color Urine Clarity Urine pH Ur Specific [place] Urine Protein Urine Glucose (UA) Urine Ketones Urine Blood Urine Nitrate Urine Bilirubin Urine Urobilinogen Ur Leukocyte Esterase Urine RBC (Auto)
[2017-11-01] MEDS: Piperacill/Tazo 2.25gm in Dex 2.25 GM/50 ML BAG IVPB SCH (21:58)
[2017-11-02 00:46] VITALS: RESP 20
[2017-11-02] MEDS: Albuterol-Ipratrop 3 mg / 0.5 (3 ml) UD INH SCH ×4 (01:23→20:40)
[2017-11-02] MEDS: Piperacill/Tazo 2.25gm in Dex 2.25 GM/50 ML BAG IVPB SCH ×4 (01:34→19:14)
[2017-11-02] MEDS: Promethazine/Cod 6.25mg-10mg/5ml Syr UD PO PRN ×3 (03:39→19:14)
[2017-11-02] MEDS: Fluticasone Nasal 50 mcg/Spray NAS SCH (09:00)
[2017-11-02] MEDS: Pantoprazole 40 mg EC Tab PO SCH ×2 (09:08→18:10)
[2017-11-02] MEDS: Oxybutynin XL 10 mg Tab PO SCH (09:09)
[2017-11-02 11:33] LABS: BASO % 0.2 % (0.0-2.0); EOS # 0.4 K/uL (0.0-0.7); EOS % 3.4 % (0.0-4.0); LYMPH # 0.5 K/uL (1.0-4.3); LYMPH % 4.8 % (20.0-40.0); MEAN CELL VOLUME 82.4 fL (81.0-99.0); MEAN CORPUSCULAR HEMOGLOBIN 27.4 pg (27.0-31.0); MEAN CORPUSCULAR HGB CONC 33.2 g/dL (33.0-37.0); MEAN PLATELET VOLUME 6.9 fL (7.2-11.7); MONO # 0.4 K/uL (0.0-0.8); MONO % 3.8 % (0.0-10.0); PLATELET COUNT 263 K/uL (130-400); RED CELL DISTRIBUTION WIDTH 16.3 % (11.5-14.5); WHITE BLOOD COUNT 10.8 K/uL (4.8-10.8)
[2017-11-02 11:45] LABS: ALB/GLOB RATIO 1.3 (1.0-2.1); ALKALINE PHOSPHATASE 59 U/L (38-126); ALT/SGPT 36 U/L (9-52); AST/SGOT 24 U/L (14-36); BILIRUBIN,TOTAL 0.7 mg/dL (0.2-1.3); BLOOD UREA NITROGEN 13 mg/dL (7-17); CALCIUM 7.6 mg/dl (8.6-10.4); CARBON DIOXIDE 33 mmol/L (22-30); CHLORIDE 99 mmol/L (98-107); GFR AFRICAN-AMERICAN > 60; GLUCOSE,RANDOM 97 mg/dL (65-105); POTASSIUM 3.4 mmol/L (3.6-5.2); SODIUM 136 mmol/L (132-148); TOTAL PROTEIN 5.6 g/dL (6.3-8.3)
[2017-11-02 11:47] LABS: INR 3.2
[2017-11-02 12:13] LABS: BASOPHIL 1 % (0-2); EOSINOPHIL 3 % (0-4); NEUTROPHIL 83 % (50-75); TOTAL CELLS COUNTED 100
--- NOTE | 2017-11-02 21:56 | CARD ---
APPROVED REPORT EKG Measurement Heart [id number] <Conclusion> Normal sinus rhythm Normal ECG
[2017-11-03] MEDS: Piperacill/Tazo 2.25gm in Dex 2.25 GM/50 ML BAG IVPB SCH ×4 (01:00→20:34)
[2017-11-03] MEDS: Albuterol-Ipratrop 3 mg / 0.5 (3 ml) UD INH SCH ×4 (02:22→19:20)
[2017-11-03 06:37] LABS: ALB/GLOB RATIO 1.2 (1.0-2.1); ALKALINE PHOSPHATASE 49 U/L (38-126); ALT/SGPT 37 U/L (9-52); AST/SGOT 19 U/L (14-36); BILIRUBIN,TOTAL 0.8 mg/dL (0.2-1.3); BLOOD UREA NITROGEN 11 mg/dL (7-17); CALCIUM 7.7 mg/dl (8.6-10.4); CARBON DIOXIDE 34 mmol/L (22-30); CHLORIDE 99 mmol/L (98-107); GFR AFRICAN-AMERICAN > 60; GLUCOSE,RANDOM 86 mg/dL (65-105); POTASSIUM 3.6 mmol/L (3.6-5.2); SODIUM 138 mmol/L (132-148); TOTAL PROTEIN 6.3 g/dL (6.3-8.3)
[2017-11-03 06:46] LABS: BASO % 0.2 % (0.0-2.0); EOS # 0.4 K/uL (0.0-0.7); EOS % 5.3 % (0.0-4.0); HEMATOCRIT 34.2 % (34.0-47.0); LYMPH # 0.5 K/uL (1.0-4.3); LYMPH % 7.2 % (20.0-40.0); MEAN CELL VOLUME 83.1 fL (81.0-99.0); MEAN CORPUSCULAR HEMOGLOBIN 27.4 pg (27.0-31.0); MEAN CORPUSCULAR HGB CONC 32.9 g/dL (33.0-37.0); MEAN PLATELET VOLUME 6.9 fL (7.2-11.7); MONO # 0.5 K/uL (0.0-0.8); MONO % 7.5 % (0.0-10.0); PLATELET COUNT 297 K/uL (130-400); RED CELL DISTRIBUTION WIDTH 15.7 % (11.5-14.5)
[2017-11-03 06:49] LABS: INR 2.2
[2017-11-03] MEDS: Fluticasone Nasal 50 mcg/Spray NAS SCH (07:50)
[2017-11-03] MEDS: Oxybutynin XL 10 mg Tab PO SCH (09:45)
[2017-11-03] MEDS: Pantoprazole 40 mg EC Tab PO SCH ×2 (09:46→18:13)
[2017-11-03 10:08] LABS: EOSINOPHIL 5 % (0-4); NEUTROPHIL 80 % (50-75); TOTAL CELLS COUNTED 100
[2017-11-03] MEDS: Promethazine/Cod 6.25mg-10mg/5ml Syr UD PO PRN (20:31)
[2017-11-04] MEDS: Piperacill/Tazo 2.25gm in Dex 2.25 GM/50 ML BAG IVPB SCH ×3 (01:03→14:10)
[2017-11-04] MEDS: Promethazine/Cod 6.25mg-10mg/5ml Syr UD PO PRN ×2 (01:08→08:14)
[2017-11-04] MEDS ORDERED: Vancomycin 1 gm/NS 200 ml 1 GM/200 ML BAG IVPB SCH (01:15)
[2017-11-04 07:35] LABS: INR 1.6
[2017-11-04] MEDS: Albuterol-Ipratrop 3 mg / 0.5 (3 ml) UD INH SCH ×2 (07:41→13:41)
[2017-11-04] MEDS: Fluticasone Nasal 50 mcg/Spray NAS SCH (08:18)
[2017-11-04] MEDS: Pantoprazole 40 mg EC Tab PO SCH (09:20)
[2017-11-04] MEDS: Oxybutynin XL 10 mg Tab PO SCH (09:20)
[2017-11-04] MEDS ORDERED: Enoxaparin 80 mg Syringe SC ONE (09:30)
[2017-11-04] MEDS ORDERED: MethylPREDNISolone 40 mg Vial IVP SCH (10:00)
[2017-11-04] MEDS ORDERED: Pneumococcal 23-Valent Vaccine IM ONE (10:00)
[2017-11-04 16:55] VITALS: BP 118/79; PULSE 78; TEMP 98.1; O2SAT 99
--- NOTE | 2017-11-04 17:28 | CP.PCM.PN ---
Subjective - Date & Time of Evaluation Date of Evaluation: 11/04/17 Time of Evaluation: 11:00 - Subjective Subjective: Alert, orientedx3, no sob or chest pains , no wheezing, NAD. Objective - Vital Signs/Intake and Output Vital Signs (last 24 hours): Temp Pulse Resp BP Pulse Ox 98.1 F 78 20 118/79 99 11/04/17 16:53 11/04/17 16:53 11/04/17 16:53 11/04/17 16:53 11/04/17 16:53 Intake and Output: 11/04/17 11/04/17 06:59 18:59 Intake Total 950 Balance 950 - Medications Medications: Current Medications Albuterol/Ipratropium (Duoneb 3 Mg/0.5 Mg (3 Ml) Ud) 3 ml INH RQ6 [facility] Last Admin: 11/04/17 13:41 Dose: 3 ml Amlodipine Besylate (Norvasc) 5 mg PO DAILY [facility] Last Admin: 11/04/17 09:20 Dose: 5 mg Duloxetine HCl (Cymbalta) 30 mg PO DAILY [facility] Last Admin: 11/04/17 09:19 Dose: 30 mg Fluticasone Propionate (Flonase) 1 spr VIRGILIO RQD [facility] Last Admin: 11/04/17 08:18 Dose: 1 spray Hydroxychloroquine Sulfate (Plaquenil) 200 mg PO BID [facility] Last Admin: 11/04/17 09:20 Dose: 200 mg Piperacillin Sod/Tazobactam Sod (Zosyn 2.25 Gm Iv Premix) 2.25 gm in 50 mls @ 100 mls/hr IVPB Q6H [facility] Last Admin: 11/04/17 14:10 Dose: 100 mls/hr Loratadine (Claritin) 10 mg PO DAILY [facility] Last Admin: 11/04/17 09:19 Dose: 10 mg Methylprednisolone (Solu-Medrol) 40 mg IVP BID [facility] Last Admin: 11/04/17 09:21 Dose: 40 mg Montelukast Sodium (Singulair) 10 mg PO HS [facility] Last Admin: 11/03/17 22:03 Dose: 10 mg Oxybutynin Chloride (Ditropan Xl) 10 mg PO DAILY [facility] Last Admin: 11/04/17 09:20 Dose: 10 mg Pantoprazole Sodium (Protonix Ec Tab) 40 mg PO BID [facility] Last Admin: 11/04/17 09:20 Dose: 40 mg Pregabalin (Lyrica) 75 mg PO TID [facility] Last Admin: 11/04/17 14:10 Dose: 75 mg Promethazine HCl/Codeine (Phenergan/Codeine Oral Syrup) 5 ml PO Q4 PRN PRN Reason: Cough Last Admin: 11/04/17 08:14 Dose: 5 ml Sucralfate (Carafate Tab) 1 gm PO QID [facility] Last Admin: 11/04/17 14:10 Dose: 1 gm Warfarin Sodium (Coumadin) 7.5 mg PO 1800 [facility] Stop: 11/04/17 18:01 - Labs Labs: 11/03/17 06:16 11/03/17 06:16 PT 18.0 SECONDS (9.7-12.2) H D 11/04/17 06:57 INR 1.6 D 11/04/17 06:57 APTT 42 SECONDS (21-34) H 11/04/17 06:57 Assessment and Plan - Assessment and Plan (Free Text) Assessment: Patient is seen and examined. Alert and orientedx3, says feeling much better, no sob or wheezing. Cough is improving, O2 sats 95% on room air. D/W DR Quiñones, plan to discharge home on augmentin, bacid , diflucan and tapering dose of prednisone. Advised to follow up in the office in 1 week.
--- NOTE | 2017-11-05 19:58 | CP.PCM.PN ---
Subjective - Date & Time of Evaluation Date of Evaluation: 11/02/17 Time of Evaluation: 19:58 Objective - Vital Signs/Intake and Output Vital Signs (last 24 hours): Temp Pulse Resp BP Pulse Ox 98.1 F 78 20 118/79 99 11/04/17 16:53 11/04/17 16:53 11/04/17 16:53 11/04/17 16:53 11/04/17 16:53 - Labs Labs: 11/03/17 06:16 11/03/17 06:16 PT 18.0 SECONDS (9.7-12.2) H D 11/04/17 06:57 INR 1.6 D 11/04/17 06:57 APTT 42 SECONDS (21-34) H 11/04/17 06:57
--- NOTE | 2017-11-05 19:59 | CP.PCM.DIS ---
Provider - Provider Date of Admission: 11/01/17 10:36 Attending physician: Myles Quiñones MD Hospital Course - Lab Results Lab Results: Micro Results 11/01/17 10:25 Blood Blood Culture - Preliminary NO GROWTH AFTER 4 DAYS 11/01/17 10:05 Blood Blood Culture - Preliminary NO GROWTH AFTER 4 DAYS 11/02/17 11:30 Sputum Gram Stain - Final 11/02/17 11:30 Sputum Sputum Culture - Final Yeast Species 11/01/17 10:09 Urine Urine Culture - Final No Growth (<1,000 CFU/ML) Most Recent Lab Values WBC 7.0 K/uL (4.8-10.8) 11/03/17 06:16 RBC 4.12 Mil/uL (3.80-5.20) 11/03/17 06:16 Hgb 11.3 g/dL (11.0-16.0) 11/03/17 06:16 Hct 34.2 % (34.0-47.0) 11/03/17 06:16 MCV 83.1 fL (81.0-99.0) 11/03/17 06:16 MCH 27.4 pg (27.0-31.0) 11/03/17 06:16 MCHC 32.9 g/dL (33.0-37.0) L 11/03/17 06:16 RDW 15.7 % (11.5-14.5) H 11/03/17 06:16 Plt Count 297 K/uL (130-400) 11/03/17 06:16 MPV 6.9 fL (7.2-11.7) L 11/03/17 06:16 Neut % (Auto) 79.8 % (50.0-75.0) H 11/03/17 06:16 Lymph % (Auto) 7.2 % (20.0-40.0) L 11/03/17 06:16 [place] % (Auto) 7.5 % (0.0-10.0) 11/03/17 06:16 Eos % (Auto) 5.3 % (0.0-4.0) H 11/03/17 06:16 Baso % (Auto) 0.2 % (0.0-2.0) 11/03/17 06:16 Neut # 5.6 K/uL (1.8-7.0) 11/03/17 06:16 Lymph # 0.5 K/uL (1.0-4.3) L 11/03/17 06:16 [place] # 0.5 K/uL (0.0-0.8) 11/03/17 06:16 Eos # 0.4 K/uL (0.0-0.7) 11/03/17 06:16 Baso # 0.0 K/uL (0.0-0.2) 11/03/17 06:16 Neutrophils % (Manual) 80 % (50-75) H 11/03/17 06:16 Band Neutrophils % 5 % (0-2) H 11/02/17 11:19 Lymphocytes % (Manual) 10 % (20-40) L 11/03/17 06:16 Monocytes % (Manual) 5 % (0-10) 11/03/17 06:16 Eosinophils % (Manual) 5 % (0-4) H 11/03/17 06:16 Basophils % (Manual) 1 % (0-2) 11/02/17 11:19 Platelet Estimate Normal (NORMAL) 11/03/17 06:16 Polychromasia Slight 11/01/17 10:26 Hypochromasia (manual) Slight 11/01/17 10:26 Anisocytosis (manual) Slight 11/03/17 06:16 Ovalocytes Slight 11/01/17 10:26 PT 18.0 SECONDS (9.7-12.2) H D 11/04/17 06:57 INR 1.6 D 11/04/17 06:57 APTT 42 SECONDS (21-34) H 11/04/17 06:57 pO2 52 mm/Hg (30-55) 11/01/17 10:45 VBG pH 7.48 (7.32-7.43) H 11/01/17 10:45 VBG pCO2 40 mmHg (40-60) 11/01/17 10:45 VBG HCO3 29.2 mmol/L 11/01/17 10:45 VBG Total CO2 31.0 mmol/L (22-28) H 11/01/17 10:45 VBG O2 Sat (Calc) 93.3 % (40-65) H 11/01/17 10:45 VBG Base Excess 5.8 mmol/L (0.0-2.0) H 11/01/17 10:45 VBG Potassium 3.4 mmol/L (3.6-5.2) L 11/01/17 10:45 Sodium 137.0 mmol/l (132-148) 11/01/17 10:45 Chloride 102.0 mmol/L (98-107) 11/01/17 10:45 Glucose 120 mg/dl (65-105) H 11/01/17 10:45 Lactate 1.1 mmol/L (0.7-2.1) 11/01/17 10:45 Sodium 138 mmol/L (132-148) 11/03/17 06:16 Potassium 3.6 mmol/L (3.6-5.2) 11/03/17 06:16 Chloride 99 mmol/L (98-107) 11/03/17 06:16 Carbon Dioxide 34 mmol/L (22-30) H 11/03/17 06:16 Anion Gap 9 (10-20) L 11/03/17 06:16 BUN 11 mg/dL (7-17) 11/03/17 06:16 Creatinine 0.8 mg/dL (0.7-1.2) 11/03/17 06:16 Est GFR ( Amer) > 60 11/03/17 06:16 Est GFR (Non-Af Amer) > 60 11/03/17 06:16 Random Glucose 86 mg/dL (65-105) 11/03/17 06:16 Calcium 7.7 mg/dl (8.6-10.4) L 11/03/17 06:16 Total Bilirubin 0.8 mg/dL (0.2-1.3) 11/03/17 06:16 AST 19 U/L (14-36) 11/03/17 06:16 ALT 37 U/L (9-52) 11/03/17 06:16 Alkaline Phosphatase 49 U/L (38-126) 11/03/17 06:16 Lactate Dehydrogenase 630 U/L (313-618) H 11/01/17 10:26 Total Protein 6.3 g/dL (6.3-8.3) 11/03/17 06:16 Albumin 3.5 g/dL (3.5-5.0) 11/03/17 06:16 Globulin 2.8 gm/dL (2.2-3.9) 11/03/17 06:16 Albumin/Globulin Ratio 1.2 (1.0-2.1) 11/03/17 06:16 Venous Blood Potassium 3.4 mmol/L (3.6-5.2) L 11/01/17 10:45 Urine Color Yellow (YELLOW) 11/01/17 10:26 Urine Clarity Clear (Clear) 11/01/17 10:26 Urine pH 7.0 (5.0-8.0) 11/01/17 10:26 Ur Specific [place] 1.008 (1.003-1.030) 11/01/17 10:26 Urine Protein Negative mg/dL (NEGATIVE) 11/01/17 10:26 Urine Glucose (UA) Normal mg/dL (Normal) 11/01/17 10:26 Urine Ketones Negative mg/dL (NEGATIVE) 11/01/17 10:26 Urine Blood 1+ (NEGATIVE) H 11/01/17 10:26 Urine Nitrate Negative (NEGATIVE) 11/01/17 10:26 Urine Bilirubin Negative (NEGATIVE) 11/01/17 10:26 Urine Urobilinogen Normal mg/dL (0.2-1.0) 11/01/17 10:26 Ur Leukocyte Esterase Neg [place]/uL (Negative) 11/01/17 10:26 Urine RBC (Auto) 1 /hpf (0-3) 11/01/17 10:26 Vancomycin Trough < 5.0 ug/mL (5.0-10.0) L 11/04/17 00:30 Discharge Plan - Discharge Medications Prescriptions: Amoxicillin/Clavulanate [Augmentin 875 MG-125 MG] 1 tab PO BID #14 tab Lactobacillus Acidophilus [Bacid Acidophilus] 0 cap PO BID #14 cap Fluconazole [Diflucan] 100 mg PO DAILY #7 tab predniSONE [Prednisone] 10 mg PO DAILY #19 tab - Follow Up Plan Condition: STABLE Disposition: HOME/ ROUTINE Instructions: Prednisone (By mouth), Amoxicillin/Clavulanate Potassium (By mouth), Fluconazole (By mouth), Hypoxia (GEN), Pneumonia (DC) Referrals: Myles Quiñones MD [Staff Provider] -
--- NOTE | 2017-11-05 19:59 | CP.PCM.PN ---
Subjective - Date & Time of Evaluation Date of Evaluation: 11/03/17 Time of Evaluation: 19:58 Objective - Vital Signs/Intake and Output Vital Signs (last 24 hours): Temp Pulse Resp BP Pulse Ox 98.1 F 78 20 118/79 99 11/04/17 16:53 11/04/17 16:53 11/04/17 16:53 11/04/17 16:53 11/04/17 16:53 - Labs Labs: 11/03/17 06:16 11/03/17 06:16 PT 18.0 SECONDS (9.7-12.2) H D 11/04/17 06:57 INR 1.6 D 11/04/17 06:57 APTT 42 SECONDS (21-34) H 11/04/17 06:57
== END 2017-11-04 18:35 | disposition home or self-care (01) | DRG 194 ==
LOC: C.ER 09:21 → C.9E 10:36 → C.3T 12:32
PROVIDERS: ADMIT Internal Medicine; ATTEND Internal Medicine
DX: J18.0 Bronchopneumonia, unspecified organism (principal); D68.59 Other primary thrombophilia; M32.9 Systemic lupus erythematosus, unspecified; J45.909 Unspecified asthma, uncomplicated; I10 Essential (primary) hypertension; Z86.718 Personal history of other venous thrombosis and embolism; Z86.711 Personal history of pulmonary embolism; R09.02 Hypoxemia; M79.7 Fibromyalgia

== ENCOUNTER 2018-04-05 08:53 | Inpatient (IN) | payer MEDICARE, MEDICAID ==
[2018-04-05 08:53] VITALS: BMI 35.4
[2018-04-05 10:20] LABS: BASO % 0.3 % (0.0-2.0); EOS # 0.1 K/uL (0.0-0.7); EOS % 0.5 % (0.0-4.0); HEMOGLOBIN 12.8 g/dL (11.0-16.0); LYMPH # 0.2 K/uL (1.0-4.3); LYMPH % 1.7 % (20.0-40.0); MEAN CORPUSCULAR HEMOGLOBIN 27.6 pg (27.0-31.0); MEAN CORPUSCULAR HGB CONC 34.3 g/dL (33.0-37.0); MEAN PLATELET VOLUME 7.2 fL (7.2-11.7); MONO # 0.4 K/uL (0.0-0.8); MONO % 3.4 % (0.0-10.0); NEUT # 10.2 K/uL (1.8-7.0); NEUT % 94.1 % (50.0-75.0); NRBC % 0.1 % (0.0-2.0); PLATELET COUNT 258 K/uL (130-400); RBC 4.64 Mil/uL (3.80-5.20); RED CELL DISTRIBUTION WIDTH 15.5 % (11.5-14.5)
[2018-04-05 10:21] LABS: MEAN CELL VOLUME 80.6 fL (81.0-99.0); WHITE BLOOD COUNT 10.8 K/uL (4.8-10.8)
[2018-04-05 10:37] LABS: INR 1.6; PROTHROMBIN TIME 17.6 SECONDS (9.7-12.2)
[2018-04-05 10:45] LABS: ALB/GLOB RATIO 1.2 (1.0-2.1); ALBUMIN 4.2 g/dL (3.5-5.0); ALT/SGPT 37 U/L (9-52); AST/SGOT 41 U/L (14-36); BLOOD UREA NITROGEN 20 mg/dL (7-17); CALCIUM 9.2 mg/dl (8.6-10.4); GFR AFRICAN-AMERICAN > 60; GFR NON-AFRICAN AMERICAN > 60
[2018-04-05 10:53] LABS: ANISOCYTOSIS SLIGHT; BANDS 16 % (0-2); BASOPHIL 1 % (0-2); EOSINOPHIL 1 % (0-4); LYMPHOCYTE 2 % (20-40); MONOCYTE 3 % (0-10); NEUTROPHIL 77 % (50-75); OVALOCYTES SLIGHT; PLATELET ESTIMATE NORMAL (NORMAL); TOTAL CELLS COUNTED 100
[2018-04-05 10:55] LABS: B-TYPE NATRIURETIC PEPTIDE 35.7 pg/mL (0-900); CK-MB 1.89 ng/mL (0.0-3.38)
[2018-04-05] MEDS ORDERED: Iodixanol 320 MG/ML 100 ML BOTTLE IV ONE (11:24)
--- NOTE | 2018-04-05 12:13 | C.PDOC ---
History Of Present Illness 52-year-old female, PMHx includes PE and DVT, presents to the emergency department with complaints shortness of breath for the last two days with an associated non-productive cough for the past few weeks. Patient also notes associated pleuritic right sided chest pain that is non-radiating. Patient has an IVC filter. Time Seen by Provider: 04/05/18 09:08 Chief Complaint (Nursing): Shortness Of Breath History Per: Patient History/Exam Limitations: no limitations Current Symptoms Are (Timing): Still Present Past Medical History Reviewed: Historical Data, Nursing Documentation, Vital Signs Vital Signs: Last Vital Signs Temp 97.9 F 04/05/18 08:58 Pulse 86 04/05/18 09:05 Resp 22 04/05/18 09:05 BP 138/75 04/05/18 09:05 Pulse Ox 96 04/05/18 12:19 - Medical History PMH: Arthritis, Asthma, Back Problems, Colonic Polyps, Depression (post depression), Deep Vein Thrombosis (2011), Fibromyalgia, HTN, Peripheral Edema, Pulmonary Embolism (2011), Sleep Apnea Denies: Chronic Kidney Disease Surgical History: Appendectomy, Endoscopy - [facility] Procedures ARTIF RUPT MEMBRANES NEC (05/12/99) DIATHER/CRYO TURBINECTOM (11/10/13) ESOPHAGOGASTRODUODENOSCOPY [EGD] W/CLOSED BIOPSY (03/28/14) ETHMOIDECTOMY (11/10/13) FASCIOTOMY (01/19/14) INTRANASAL ANTROTOMY (11/10/13) LAPAROSCOP APPENDECTOMY (03/16/05) LOW CERVICAL (05/12/99) UMBIL HERNIA REPAIR-GRFT (03/16/05) Family History: States: No Known Family Hx - Social History Hx Tobacco Use: No Hx Alcohol Use: No Hx Substance Use: No - Immunization History Hx Tetanus Toxoid Vaccination: No Hx Influenza Vaccination: Yes Hx Pneumococcal Vaccination: Yes (2016) Review Of Systems Constitutional: Negative for: Fever Cardiovascular: Negative for: Chest Pain Respiratory: Positive for: Cough, Shortness of Breath, Pleuritic Pain Gastrointestinal: Negative for: Nausea, Vomiting, Abdominal Pain Physical Exam - Physical Exam Appears: Non-toxic, No Acute Distress, Other (speaking in full sentences) Skin: Warm, Dry, No Rash Head: Normacephalic Eye(s): bilateral: PERRL Nose: Normal Oral Mucosa: Moist Lips: Normal Appearing Neck: Normal ROM Cardiovascular: Rhythm Regular, No Murmur Respiratory: No Accessory Muscle Use, No Rales, No Rhonchi, Wheezing (Mild, expiratory) Gastrointestinal/Abdominal: Soft, No Tenderness, No Distention, No Guarding, No Rebound Extremity: Normal ROM, Pedal Edema (+1), No Deformity, Other (chronic skin changes to lower extremity.) Neurological/Psych: Oriented x3, Normal Speech ED Course And Treatment - Laboratory Results Result Diagrams: 04/05/18 10:16 04/05/18 10:16 O2 Sat by Pulse Oximetry: 96 (RA) Pulse Ox Interpretation: Normal Progress Note: CT Chest and bloodwork ordered and reviewed Disposition - Disposition Forms: [employer] (Fijian) - Scribe Statement The provider has reviewed the documentation as recorded by the Scribe (Eladia Ross) All medical record entries made by the Scribe were at my direction and personally dictated by me. I have reviewed the chart and agree that the record accurately reflects my personal performance of the history, physical exam, medical decision making, and the department course for this patient. I have also personally directed, reviewed, and agree with the discharge instructions and disposition.
--- NOTE | 2018-04-05 12:31 | CT ---
PROCEDURE: CT Chest with contrast (Pulmonary Angiogram) HISTORY: SOB, H/O PE COMPARISON: 10/28/2017 TECHNIQUE: Axial computed tomography images were obtained of the chest in the pulmonary arterial phase of enhancement. Coronal and sagittal reformatted images were created and reviewed. Intravenous contrast dose: 100 mL Visipaque 320 Radiation dose: Total exam DLP = 550.61 mGy-cm. This CT exam was performed using one or more of the following dose reduction techniques: Automated exposure control, adjustment of the mA and/or kV according to patient size, and/or use of iterative reconstruction technique. FINDINGS: PULMONARY ARTERIES: Unremarkable. No pulmonary embolism. AORTA: No acute findings. No thoracic aortic aneurysm. LUNGS: Extensive patchy multi lobar pulmonary infiltrates involving right upper, middle and lower lobe and left lower lobe. Left upper lobe spared. No pulmonary mass. PLEURAL SPACES: Unremarkable. No effusion or pneuomothorax. HEART: Unremarkable. No cardiomegaly. No significant pericardial effusion. The esophagus is distended with fluid. This may be due to the gastric band noted at the gastroesophageal junction level. LYMPH NODES: Mediastinal and right hilar lymphadenopathy. BONES, CHEST WALL: Unremarkable. No fracture or destructive lesion OTHER FINDINGS: Unremarkable. IMPRESSION: Multilobar pulmonary infiltrates. No evidence pulmonary embolism. Fluid-distended esophagus possibly due to gastric band.
[2018-04-05] MEDS ORDERED: cefTRIAXone IV 1 gm in Dextros 50 ML IV STA (14:14)
[2018-04-05] MEDS ORDERED: Azithromycin 500 MG in Sodium Chloride 0.9% 250 ML IVPB STA (14:15)
[2018-04-05] MEDS ORDERED: cefTRIAXone IV 1 gm in Dextros 50 ML IVPB ONE (14:48)
--- NOTE | 2018-04-05 17:45 | CP.PCM.HP ---
History of Present Illness - History of Present Illness History of Present Illness: Chief come and go Cough shortness of breath HPI: 52-year-old female with a history of lupus, hypertension, DVT, pulmonary embolism, hypercoagulable state, on anticoagulations with the Coumadin, fibromyalgia, bronchial asthma, reactive airway disease. Patient also has a chronic sinusitis, recently hospitalized 6 months ago with the non-resolving pneumonia, symptoms got better after intravenous antibiotic and prednisone. Patient started having the symptoms again for the last 1-2 weeks, as an outpatient I suggested to have a CAT scan, but the patient was unable to do it, and her symptoms started worsening. Patient came to the emergency room with increasing symptoms of cough, shortness of breath, cough associated with mucus percussion, but very scanty. She did not have any fever. Shortness of breath on exertion noted. Denies any chest pain. Unable to sleep because of the cough. No blood in the mucus noted, patient had a history of hemoptysis in the past. Patient came to the emergency room, and in the emergency room patient had a CT of the chest with contrast, no pulmonary embolism but evidence of diffuse interstitial lung changes noted, underlying pneumonia likely, and she needed hospitalization. Present on Admission - Present on Admission Any Indicators Present on Admission: No History of DVT/PE: Yes History of Uncontrolled Diabetes: No Urinary Catheter: No Decubitus Ulcer Present: No Review of Systems - Review of Systems All systems: reviewed and no additional remarkable complaints except Review of Systems: Denies any headache, no visual symptom, and cough noted, with the chest pain associated with the cough. Mucus production mild Lower abdominal pain noted, urine discomfort negative, bowel movements are normal Past Patient History - Infectious Disease Hx of Infectious Diseases: None - Tetanus Immunizations Tetanus Immunization: Up to Date - Past Medical History & Family History Past Medical History?: Yes - Past Social History Smoking Status: Never Smoked Chewing Tobacco Use: No Cigar Use: No Alcohol: None Drugs: Denies Home Situation {Lives}: With Family - CARDIAC Hx Hypertension: Yes Hx Peripheral Edema: Yes - PULMONARY Hx Asthma: Yes Hx Pulmonary Embolism: Yes (2011) Hx Sleep Apnea: Yes - NEUROLOGICAL Hx Neurological Disorder: Yes - HEENT Hx HEENT Problems: Yes - RENAL Hx Chronic Kidney Disease: No - ENDOCRINE/METABOLIC Hx Endocrine Disorders: Yes Hx Systemic Lupus Erythematosus: Yes - HEMATOLOGICAL/ONCOLOGICAL Hx Blood Disorders: No - INTEGUMENTARY Hx Dermatological Problems: No - MUSCULOSKELETAL/RHEUMATOLOGICAL Hx Arthritis: Yes - GASTROINTESTINAL Hx Gastrointestinal Disorders: Yes Hx Gastroesophageal Reflux: Yes - GENITOURINARY/GYNECOLOGICAL Hx Genitourinary Disorders: Yes Hx Incontinence: Yes (OVER ACTIVE BLADDER) - PSYCHIATRIC Hx Depression: Yes (post depression) Hx Substance Use: No - SURGICAL HISTORY Hx Appendectomy: Yes - ANESTHESIA Hx Anesthesia: Yes Hx Anesthesia Reactions: No Hx Malignant Hyperthermia: No Meds Allergies/Adverse Reactions: Allergies Allergy/AdvReac Type Severity Reaction Status Date / Time No Known Allergies Allergy Verified 04/05/18 08:58 Physical Exam - Constitutional Additional comments: Vital signs stable, hypoxia Vital signs reviewed No neck vein distention noted chest bilateral wheezing CVS regular heart sound, no murmur noted Abdomen soft, nontender. Extremities no pedal edema [employer] alert awake oriented -3, no functional neurological deficit Results - Vital Signs Recent Vital Signs: Last Vital Signs Temp 99 F 04/05/18 17:35 Pulse 90 04/05/18 17:35 Resp 20 04/05/18 17:35 BP 132/77 04/05/18 17:35 Pulse Ox 94 L 04/05/18 17:35 - Labs Result Diagrams: 04/05/18 10:16 04/05/18 10:16 Labs: Laboratory Results - last 24 hr 04/05/18 04/05/18 04/05/18 10:16 10:16 10:16 WBC 10.8 D RBC 4.64 Hgb 12.8 Hct 37.4 MCV 80.6 L D MCH 27.6 MCHC 34.3 RDW 15.5 H Plt Count 258 MPV 7.2 Neut % (Auto) 94.1 H Lymph % (Auto) 1.7 L [place] % (Auto) 3.4 Eos % (Auto) 0.5 Baso % (Auto) 0.3 Neut # (Auto) 10.2 H Lymph # (Auto) 0.2 L [place] # (Auto) 0.4 Eos # (Auto) 0.1 Baso # (Auto) 0.0 Neutrophils % (Manual) 77 H Band Neutrophils % 16 H* Lymphocytes % (Manual) 2 L Monocytes % (Manual) 3 Eosinophils % (Manual) 1 Basophils % (Manual) 1 Platelet Estimate Normal Anisocytosis (manual) Slight Ovalocytes Slight PT 17.6 H INR 1.6 APTT 67 H Sodium 140 Potassium 3.8 Chloride 97 L Carbon Dioxide 29 Anion Gap 17 BUN 20 H Creatinine 0.8 Est GFR ( Amer) > 60 Est GFR (Non-Af Amer) > 60 Random Glucose 96 Calcium 9.2 Total Bilirubin 0.6 AST 41 H D ALT 37 Alkaline Phosphatase 70 Total Creatine Kinase 123 CK-MB (Mass) 1.89 Troponin I 0.0140 NT-Pro-B Natriuret Pep 35.7 Total Protein 7.9 Albumin 4.2 Globulin 3.7 Albumin/Globulin Ratio 1.2 - Impressions Impression: CAT scan of the chest is showing evidence of diffuse pulmonary infiltrative changes, I'll complain mostly in the lower lung hawkins bronchopneumonia type noted. No PE Assessment & Plan (1) Acute bronchopneumonia Assessment and Plan: 52-year-old female admitted to the hospital with the possibility of acute pneumonia, involving left lung, and also bronchopneumonia. Atypical pneumonia. Hemoptysis, associated bladder cannot be ruled out. Patient is hypercoagulable state. She is on anti-coagulation. Hypertension. Will continue to monitor the oxygen. Hypoxia. We'll start the patient on antibiotic, intravenous corticosteroid. Bronchodilators. Cough medication. Will follow the patient.. Status: Acute (2) Interstitial pneumonitis Status: Acute (3) Lupus (systemic lupus erythematosus) Status: Acute
[2018-04-05] MEDS ORDERED: Promethazine 6.25 MG/5 ML CUP PO PRN (19:09)
[2018-04-05] MEDS ORDERED: Fluticasone-Salmeterol 250-50mcg Diskus INH SCH (20:00)
[2018-04-05] MEDS: Albuterol-Ipratrop 3 mg / 0.5 (3 ml) UD INH SCH (20:01)
[2018-04-06] MEDS: Albuterol-Ipratrop 3 mg / 0.5 (3 ml) UD INH SCH ×3 (01:12→13:21)
[2018-04-06 06:20] LABS: BASO % 0.1 % (0.0-2.0); EOS # 0.2 K/uL (0.0-0.7); HEMOGLOBIN 11.1 g/dL (11.0-16.0); LYMPH # 0.5 K/uL (1.0-4.3); LYMPH % 4.9 % (20.0-40.0); MEAN CELL VOLUME 80.7 fL (81.0-99.0); MEAN CORPUSCULAR HEMOGLOBIN 27.1 pg (27.0-31.0); MEAN CORPUSCULAR HGB CONC 33.6 g/dL (33.0-37.0); MEAN PLATELET VOLUME 7.3 fL (7.2-11.7); MONO # 0.7 K/uL (0.0-0.8); MONO % 5.9 % (0.0-10.0); NEUT # 9.8 K/uL (1.8-7.0); NEUT % 87.1 % (50.0-75.0); PLATELET COUNT 213 K/uL (130-400); RED CELL DISTRIBUTION WIDTH 15.9 % (11.5-14.5); WHITE BLOOD COUNT 11.2 K/uL (4.8-10.8)
[2018-04-06 06:49] LABS: INR 2.5; PROTHROMBIN TIME 27.8 SECONDS (9.7-12.2)
[2018-04-06 06:57] LABS: ALB/GLOB RATIO 1.1 (1.0-2.1); ALBUMIN 3.5 g/dL (3.5-5.0); ALT/SGPT 33 U/L (9-52); AST/SGOT 27 U/L (14-36); BLOOD UREA NITROGEN 10 mg/dL (7-17); CALCIUM 8.4 mg/dl (8.6-10.4); GFR AFRICAN-AMERICAN > 60; GFR NON-AFRICAN AMERICAN > 60
[2018-04-06 07:56] VITALS: BP 121/78; PULSE 77; RESP 18; TEMP 97.5; O2SAT 96
[2018-04-06] MEDS ORDERED: Azithromycin 500 MG in Sodium Chloride 0.9% 250 ML IVPB SCH ×2 (08:00→10:00)
[2018-04-06 08:21] LABS: LYMPHOCYTE 7 % (20-40); MONOCYTE 5 % (0-10); NEUTROPHIL 88 % (50-75); PLATELET ESTIMATE NORMAL (NORMAL); TOTAL CELLS COUNTED 100
[2018-04-06 08:32] LABS: ANISOCYTOSIS SLIGHT; HYPOCHROMIC SLIGHT; POIKILOCYTOSIS SLIGHT
[2018-04-06] MEDS ORDERED: Oxybutynin XL 10 mg Tab PO SCH (10:00)
[2018-04-06] MEDS ORDERED: Fluticasone Nasal 50 mcg/Spray NS SCH (10:00)
[2018-04-06] MEDS ORDERED: Pantoprazole 40 mg EC Tab PO SCH (10:00)
--- NOTE | 2018-04-06 12:30 | CP.PCM.PN ---
Subjective - Date & Time of Evaluation Date of Evaluation: 04/06/18 Time of Evaluation: 12:29 - Subjective Subjective: PT SEEN BY DR. MESSER THIS MORNING AND CLEARED FOR D/C HOME THIS AFTERNOON. RX GIVEN FOR LEVAQUIN AND PREDNISONE, BOTH X7 DAYS PER DR. BURGESS. PT WILL F/U WITH DR. BURGESS IN THE OFFICE ON WEDNESDAY, SHE ALREADY HAS A SCHEDULED APPT. PT VERBALIZES UNDERSTANDING OF ALL MEDS, D/C AND F/U PLAN AND SHE IS IN AGREEMENT. NO FURTHER ORDERS AT THIS TIME. -FOLLOW UP WITH DR. MESSER IN THE OFFICE ALREADY SCHEDULED FOR THIS WEDNESDAY AT 5:30 PM. -CONTINUE YOUR HOME MEDICATIONS USUAL. -NEW MEDICATIONS SENT TO YOUR PHARMACY INCLUDE THE FOLLOWIN) LEVAQUIN (ANTIBIOTIC) 750 MG (TAKE 1 TABLET) BY MOUTH ONCE A DAY FOR 7 DAYS- --START THIS ON 04/07/18. 2) PREDNISONE (STEROID) 40 MG (TAKE 2 TABLETS OF 20 MG) BY MOUTH ONCE A DAY FOR 7 DAYS---START THIS ON 04/07/18. -FOR FURTHER CONCERNS OR QUESTIONS, CONTACT DR. MESSER'S OFFICE. Objective - Vital Signs/Intake and Output Vital Signs (last 24 hours): Temp Pulse Resp BP Pulse Ox 97.5 F L 77 18 121/78 96 04/06/18 07:00 04/06/18 07:00 04/06/18 07:00 04/06/18 07:00 04/06/18 07:00 Intake and Output: 04/06/18 04/06/18 06:59 18:59 Intake Total 570 Balance 570 - Medications Medications: Current Medications Albuterol/Ipratropium (Duoneb 3 Mg/0.5 Mg (3 Ml) Ud) 3 ml INH RQ6 [facility] Last Admin: 04/06/18 07:30 Dose: 3 ml Amlodipine Besylate (Norvasc) 5 mg PO DAILY [facility] Last Admin: 04/06/18 10:47 Dose: 5 mg Fluticasone Propionate (Flonase) 1 spr NS DAILY [facility] Last Admin: 04/06/18 10:50 Dose: 1 spray Hydroxychloroquine Sulfate (Plaquenil) 200 mg PO DAILY [facility]; Protocol PRN Reason: Taper Ceftriaxone Sodium 1 gm/ (Sodium Chloride) 100 mls @ 100 mls/hr IVPB Q12H [facility] PRN Reason: Protocol Last Admin: 04/06/18 06:05 Dose: 100 mls/hr Azithromycin 500 mg/ Sodium (Chloride) 250 mls @ 250 mls/hr IVPB DAILY [facility] PRN Reason: Protocol Last Admin: 04/06/18 10:51 Dose: 250 mls/hr Montelukast Sodium (Singulair) 10 mg PO DAILY [facility] Last Admin: 04/06/18 10:47 Dose: 10 mg Oxybutynin Chloride (Ditropan Xl) 10 mg PO DAILY [facility] Last Admin: 04/06/18 10:47 Dose: 10 mg Pantoprazole Sodium (Protonix Ec Tab) 40 mg PO DAILY [facility] Last Admin: 04/06/18 10:47 Dose: 40 mg Pregabalin (Lyrica) 75 mg PO Q12 [facility] Last Admin: 04/06/18 10:47 Dose: 75 mg Promethazine HCl (Phenergan Syrup) 6.25 mg PO Q6 PRN PRN Reason: Cough Last Admin: 04/05/18 19:46 Dose: 6.25 mg Fluticasone/Salmeterol (Advair Diskus 250/50) 1 puff INH RQ12 [facility] - Labs Labs: 04/06/18 06:14 04/06/18 06:14 PT 27.8 SECONDS (9.7-12.2) H D 04/06/18 06:14 INR 2.5 D 04/06/18 06:14 APTT 56 SECONDS (21-34) H D 04/06/18 06:14
--- NOTE | 2018-04-06 19:21 | CARD ---
APPROVED REPORT EKG Measurement Heart [id number] <Conclusion> Normal sinus rhythm Normal ECG
== END 2018-04-06 14:07 | disposition home or self-care (01) | DRG 194 ==
LOC: C.ER 08:53 → C.6T 14:20 → C.9E 14:20
PROVIDERS: ADMIT Internal Medicine; ATTEND Internal Medicine
DX: J18.0 Bronchopneumonia, unspecified organism (principal); J84.89 Other specified interstitial pulmonary diseases; R09.02 Hypoxemia; D68.59 Other primary thrombophilia; J32.9 Chronic sinusitis, unspecified; J45.909 Unspecified asthma, uncomplicated; I10 Essential (primary) hypertension; M32.9 Systemic lupus erythematosus, unspecified; M79.7 Fibromyalgia; G47.30 Sleep apnea, unspecified; K21.9 Gastro-esophageal reflux disease without esophagitis; N32.81 Overactive bladder; Z79.01 Long term (current) use of anticoagulants; Z86.711 Personal history of pulmonary embolism; Z86.718 Personal history of other venous thrombosis and embolism; Z86.010 Personal history of colon polyps; Z90.49 Acquired absence of other specified parts of digestive tract

== ENCOUNTER 2018-04-29 23:19 | Inpatient (IN) | payer MEDICARE, MEDICAID ==
[2018-04-29 23:20] VITALS: BMI 35.4
--- NOTE | 2018-04-29 23:59 | C.PDOC ---
History Of Present Illness <MarioWolfgangRandell - Last Filed: 04/30/18 01:36> <Sharmaine Rene - Last Filed: 04/30/18 05:32> 52 year old female presents to the emergency department after being referred by Dr. Quiñones after her CXR from this morning showed free air under right hemodiaphragm. Patient denies abdominal pain, and states that she has been eating normally today. Patient has a history of anticoagulation for DVT and lupus. (Dave Martin) History Per: Patient History/Exam Limitations: no limitations Onset/Duration Of Symptoms: Hrs Associated Symptoms: denies: Other (abdominal pain) <MarioWolfgangRandell - Last Filed: 04/30/18 01:36> <Sharmaine Rene - Last Filed: 04/30/18 05:32> Time Seen by Provider: 04/29/18 23:52 Chief Complaint (Nursing): Shortness Of Breath Past Medical History Reviewed: Historical Data, Nursing Documentation, Vital Signs - Medical History PMH: Arthritis, Asthma, Back Problems, Bronchitis, Colonic Polyps, Depression ( post depression), Deep Vein Thrombosis (2011), Fibromyalgia, HTN, Migraine, Peripheral Edema, Pneumonia ("multiple times"), Pulmonary Embolism ( 2011), Sleep Apnea Denies: Chronic Kidney Disease Surgical History: Appendectomy, Endoscopy Family History: States: No Known Family Hx - Social History Hx Tobacco Use: No Hx Alcohol Use: No Hx Substance Use: No - Immunization History Hx Tetanus Toxoid Vaccination: No Hx Influenza Vaccination: Yes Hx Pneumococcal Vaccination: Yes (2016) <MarioWolfgangRandell - Last Filed: 04/30/18 01:36> Vital Signs: Last Vital Signs Temp 98.5 F 04/29/18 23:27 Pulse 86 04/29/18 23:27 Resp 18 04/29/18 23:46 BP 136/81 04/29/18 23:27 Pulse Ox 95 04/30/18 01:40 - [facility] Procedures ARTIF RUPT MEMBRANES NEC (05/12/99) DIATHER/CRYO TURBINECTOM (11/10/13) ESOPHAGOGASTRODUODENOSCOPY [EGD] W/CLOSED BIOPSY (03/28/14) ETHMOIDECTOMY (11/10/13) FASCIOTOMY (01/19/14) INTRANASAL ANTROTOMY (11/10/13) LAPAROSCOP APPENDECTOMY (03/16/05) LOW CERVICAL (05/12/99) UMBIL HERNIA REPAIR-GRFT (03/16/05) Review Of Systems Except As Marked, All Systems Reviewed And Found Negative. Gastrointestinal: Negative for: Abdominal Pain <Dave Martin Last Filed: 04/30/18 01:36> Physical Exam - Physical Exam Appears: Non-toxic, No Acute Distress, Other (obese white female) Skin: Warm, Dry Head: Atraumatic, Normacephalic Eye(s): bilateral: Normal Inspection Oral Mucosa: Moist Neck: Normal, Supple Chest: Symmetrical Cardiovascular: Rhythm Regular, No Murmur Respiratory: Normal Breath Sounds, No Rales, No Rhonchi, No Wheezing Gastrointestinal/Abdominal: Soft, No Tenderness, No Guarding, No Rebound, Other (obese) Extremity: Normal ROM Extremity: Bilateral: Atraumatic Neurological/Psych: Oriented x3, Normal Speech, Normal Cognition <Dave Martin Last Filed: 04/30/18 01:36> ED Course And Treatment - Laboratory Results Result Diagrams: 04/29/18 11:58 04/29/18 11:58 Lab Interpretation: Normal O2 Sat by Pulse Oximetry: 95 (RA) Pulse Ox Interpretation: Normal - Radiology CXR: Interpreted by Sd CXR Interpretation: Yes: No Acute Disease (free air under R HD from 10 AM today) , Other Reevaluation Time: 00:26 Reassessment Condition: Improved - Physician Consult Information Outcome Of Conversation: d/w Surgical Miky- will consult. 2330: d/w Dr. Shaw prior to pt arrival. <Dave Martin - Last Filed: 04/30/18 01:36> - Laboratory Results Result Diagrams: 04/29/18 11:58 04/29/18 11:58 Pulse Ox Interpretation: Normal <Sharmaine Rene - Last Filed: 04/30/18 05:32> Medical Decision Making <Dave Martin - Last Filed: 04/30/18 01:36> <Sharmaine Rene - Last Filed: 04/30/18 05:32> Medical Decision Making: free air under R HD prob related to gastric sleeve CT ABD pending. Plan: CT Abdomen and Pelvis with IV Contrast CMP Lipase CBC INR Ancef 500mg IVBP Urinalysis (Dave Martin) Disposition - Disposition Disposition Time: 01:00 <Dave Martin - Last Filed: 04/30/18 01:36> Discussed With DrKarlo: Myles Quiñones Comment: accepted the pt on his service and took over the care at 5:30 AM Doctor Will See Patient In The: Hospital Counseled Patient/Family Regarding: Studies Performed, Diagnosis <Sharmaine Rene - Last Filed: 04/30/18 05:32> - Disposition Disposition: HOSPITALIZED Condition: CRITICAL Forms: [facility] (Telugu) - Clinical Impression Clinical Impression: Intra-abdominal free air of unknown etiology - Scribe Statement The provider has reviewed the documentation as recorded by the Scribe (Ken Ottvi) <Dave Martin - Last Filed: 04/30/18 01:36> <Sharmaine Rene - Last Filed: 04/30/18 05:32> - Scribe Statement Provider Attestation: All medical record entries made by the Scribe were at my direction and personally dictated by me. I have reviewed the chart and agree that the record accurately reflects my personal performance of the history, physical exam, medical decision making, and the department course for this patient. I have also personally directed, reviewed, and agree with the discharge instructions and disposition. (Dave Martin) Physician Patient Turnover Patient Signed Over To: Sharmaine Rene Handoff Comments: follow-up CT and adm to Dr. Morgan <Dave Martin - Last Filed: 04/30/18 01:36> Decision To Admit <Dave Martin - Last Filed: 04/30/18 01:36> - Pt Status Changed To: Hospital Disposition Of: Inpatient - Admit Certification Admit to Inpatient:: After my assessment, the patient will require hospitalization for at least two midnights. This is because of the severity of symptoms shown, intensity of services needed, and/or the medical risk in this patient being treated as an outpatient. - InPatient: Physician Admission Certification: I certify that this patient requires 2 or more midnights of care for the following reason:: After my assessment, the patient will require hospitalization for at least two midnights. This is because of the severity of symptoms shown, intensity of services needed, and/or the medical risk in this patient being treated as an outpatient. - . Bed Request Type: Regular Admitting Physician: Myles Quiñones <Sharmaine Rene - Last Filed: 04/30/18 05:32> - . Patient Diagnosis: Intra-abdominal free air of unknown etiology
[2018-04-30 00:01] LABS: BASO % 0.2 % (0.0-2.0); EOS % 0.2 % (0.0-4.0); HEMOGLOBIN 11.8 g/dL (11.0-16.0); LYMPH # 0.2 K/uL (1.0-4.3); LYMPH % 2.1 % (20.0-40.0); MEAN CELL VOLUME 81.1 fL (81.0-99.0); MEAN CORPUSCULAR HEMOGLOBIN 27.4 pg (27.0-31.0); MEAN CORPUSCULAR HGB CONC 33.8 g/dL (33.0-37.0); MEAN PLATELET VOLUME 6.9 fL (7.2-11.7); MONO # 0.4 K/uL (0.0-0.8); MONO % 4.9 % (0.0-10.0); NEUT # 8.3 K/uL (1.8-7.0); NEUT % 92.6 % (50.0-75.0); PLATELET COUNT 256 K/uL (130-400); RBC 4.29 Mil/uL (3.80-5.20); RED CELL DISTRIBUTION WIDTH 16.5 % (11.5-14.5)
[2018-04-30 00:14] LABS: ALB/GLOB RATIO 1.1 (1.0-2.1); ALBUMIN 3.6 g/dL (3.5-5.0); ALT/SGPT 32 U/L (9-52); AST/SGOT 44 U/L (14-36); BLOOD UREA NITROGEN 17 mg/dL (7-17); CALCIUM 8.7 mg/dl (8.6-10.4); GFR AFRICAN-AMERICAN > 60; GFR NON-AFRICAN AMERICAN > 60; LIPASE 74 U/L (23-300)
[2018-04-30] MEDS ORDERED: Iohexol 240 (50 ml) PO ONE (00:29)
--- NOTE | 2018-04-30 01:13 | CP.PCM.PN ---
<Kee Strauss - Last Filed: 04/30/18 01:04> Subjective - Date & Time of Evaluation Date of Evaluation: 04/30/18 Time of Evaluation: 01:05 - Subjective Subjective: General Surgery Consult Note for Dr. Brown This is a 52F with a PMH of SLE, Hypercoaguable state, PE, a chronic DVT on coumadin since 2012, HTN, Fibromyalgia, Asthma and reactive airway disease. She went to her Primary care doctor for management of her chronic pneumonia. At that time her PCP ordered a Chest x-ray which was significant for free air under the diaphragm. The patient denies any abdominal pain, any nausea, vomiting , fevers. However she does report chills. She reports she has not passed gas in over a week and that her last BM was 3 days ago. PMH: SLE, Hypercoaguable state, PE, a chronic DVT on coumadin since 2012, HTN, Fibromyalgia, Asthma and reactive airway disease PSH: Lap Luciana, Lap Appy, Laparoscopic Banding (10 years ago), C- Section, Umbilical hernia repair ALL: NKDA Social: Denies any drugs, etoh, or tobacco Objective - Vital Signs/Intake and Output Vital Signs (last 24 hours): Temp Pulse Resp BP Pulse Ox 98.5 F 86 18 136/81 95 04/29/18 23:27 04/29/18 23:27 04/29/18 23:46 04/29/18 23:27 04/30/18 00:30 - Labs Labs: 04/29/18 11:58 04/29/18 11:58 - Constitutional Appears: Non-toxic, No Acute Distress - Head Exam Head Exam: ATRAUMATIC, NORMOCEPHALIC - Eye Exam Eye Exam: EOMI, Normal appearance - ENT Exam ENT Exam: Mucous Membranes Moist - Respiratory Exam Respiratory Exam: NORMAL BREATHING PATTERN - Cardiovascular Exam Cardiovascular Exam: REGULAR RHYTHM, +S1, +S2 - GI/Abdominal Exam GI & Abdominal Exam: Soft. absent: Distended, Firm, Guarding, Rigid, Tenderness - Neurological Exam Neurological Exam: Alert, Awake - Psychiatric Exam Psychiatric exam: Normal Affect, Normal Mood - Skin Skin Exam: Dry, Intact Assessment and Plan - Assessment and Plan (Free Text) Assessment: This is a 52F presenting with free air in the abdomen Patient is Normocardic, Normotensive Labs WNL Plan: NPO IVF ABX F/U CT Scan Serial Abdominal Exams F/U Coags Further recommendations per Dr. Brown Kee Strauss PGY2 <Karlos Brown - Last Filed: 05/02/18 19:44> Objective - Vital Signs/Intake and Output Vital Signs (last 24 hours): Temp Pulse Resp BP Pulse Ox 98.1 F 83 20 131/87 95 05/02/18 15:05 05/02/18 15:05 05/02/18 15:05 05/02/18 15:05 05/02/18 15:05 Intake and Output: 05/02/18 05/03/18 18:59 06:59 Intake Total 250 Balance 250 - Medications Medications: Current Medications Albuterol/Ipratropium (Duoneb 3 Mg/0.5 Mg (3 Ml) Ud) 3 ml INH RQ6 [facility] Last Admin: 05/02/18 13:46 Dose: Not Given Fluticasone Propionate (Flonase) 1 spr NS DAILY [facility] Last Admin: 05/02/18 09:12 Dose: 1 spray Meropenem 1 gm/ Sodium (Chloride) 100 mls @ 100 mls/hr IVPB Q8H [facility] PRN Reason: Protocol Last Admin: 05/02/18 14:20 Dose: 100 mls/hr Lactated Ringer's (Lactated Ringer's) 1,000 mls @ 75 mls/hr IV .[id number] [facility] Last Admin: 05/02/18 14:23 Dose: 75 mls/hr Heparin Sodium/Sodium Chloride (Heparin 86189 Units/250ml 1/2 Normal Saline) 25 ,000 units in 250 mls @ 10.007 mls/hr IV .Q24H PRN; Protocol; 10.71 UNITS/KG/HR PRN Reason: PROTOCOL Last Admin: 05/02/18 16:51 Dose: 10.71 units/kg/hr, 10.007 mls/hr Methylprednisolone (Solu-Medrol) 20 mg IVP Q12 [facility] Last Admin: 05/02/18 09:14 Dose: 20 mg Pantoprazole Sodium (Protonix Inj) 40 mg IVP DAILY [facility] Last Admin: 05/02/18 09:12 Dose: 40 mg - Labs Labs: 05/01/18 06:40 05/01/18 06:40 PT 13.3 SECONDS (9.7-12.2) H 05/02/18 16:49 INR 1.2 D 05/02/18 16:49 APTT 78 SECONDS (21-34) H D 05/02/18 16:49 Attending/Attestation - Attestation I have personally seen and examined this patient.: Yes I have fully participated in the care of the patient.: Yes I have reviewed all pertinent clinical information, including history, physical exam and plan: Yes Notes (Text): Pt was seen and examined at bedside Agree with above note and assessment Pt with incidental free air in abdomen PMH of Pneumonia Abdomen: Soft, NT, ND Labs and radiology reviewed Ass: Pneumatosis of Right side on colon Plan: Pt is asymptomatic at present No clinical evidence of sepsis Serial abdominal exam repeat AXR in am Conner jordan pt in detail Risk and benefit explained in detail.
[2018-04-30 01:20] LABS: INR 1.7; PROTHROMBIN TIME 18.2 SECONDS (9.7-12.2)
[2018-04-30 01:42] LABS: ANISOCYTOSIS SLIGHT; LYMPHOCYTE 3 % (20-40); MONOCYTE 5 % (0-10); NEUTROPHIL 92 % (50-75); PLATELET ESTIMATE NORMAL (NORMAL); TOTAL CELLS COUNTED 100
[2018-04-30] MEDS ORDERED: Iohexol 240 (50 ml) ONE (01:45)
[2018-04-30] MEDS ORDERED: ceFAZolin 1 gm in NS 0 GM/0 ML BAG IVPB ONE (01:46)
[2018-04-30] MEDS ORDERED: Iohexol 240 (50 ml) PO STA (01:46)
[2018-04-30] MEDS ORDERED: Iodixanol 320 MG/ML 100 ML BOTTLE IV ONE (03:50)
--- NOTE | 2018-04-30 05:04 | CT ---
EXAM: CT Abdomen and Pelvis With Intravenous Contrast CLINICAL HISTORY: 52 years old, female; Pain; Abdominal pain and other: Free air; Patient HX: 3-24-17 TECHNIQUE: Axial computed tomography images of the abdomen and pelvis with intravenous contrast. All CT scans at this facility use one or more dose reduction techniques, viz.: automated exposure control; ma/kV adjustment per patient size (including targeted exams where dose is matched to indication; i.e. head); or iterative reconstruction technique. 705 images are submitted. Axial images are submitted in soft tissue and lung windows. Oral contrast was administered. Coronal and sagittal reformatted images were created and reviewed. Axial reformatted images were created and reviewed. CONTRAST: 100 mL of 100 ML [id number] administered intravenously. COMPARISON: No relevant prior studies available. FINDINGS: Lung bases: There is right middle lobe bilateral lower lobe nodular parenchymal infiltrates suspicious for pneumonia versus aspiration pneumonia. ABDOMEN: Liver: Enlarged fatty liver. Hepatic calcification. Gallbladder and bile ducts: Contracted gallbladder. Pancreas: Unremarkable. No mass. No ductal dilation. Spleen: Unremarkable. No splenomegaly. Adrenals: Unremarkable. No mass. Kidneys and ureters: Unremarkable. No solid mass. No hydronephrosis. Stomach and bowel: There is right colonic distention with stool and gas demonstrated extensive pneumatosis with surrounding free intraperitoneal air suspicious for right colonic perforation. Nonspecific gastric thickening likely due to under distention. Correlation with clinical data is recommended if gastritis is suspected. There is gastric banding procedure representing bariatric surgery. No contrast transited into the stomach and proximal small bowel. Diverticulosis. Large amount of stool in the colon. Correlation with patient's clinical history of constipation is recommended. There is moderate hiatal hernia with delayed emptying versus gastroesophageal reflux versus stasis. PELVIS: Appendix: The appendix not identified with complete certainty due to unopacified cecum and distal small bowel. There is lack of intra-abdominal fat. If clinical concern remains, a repeat study with thin sections after an appropriate time interval may allow oral contrast to opacify the cecum. Bladder: Bladder distention. Correlation with patient's voiding status is recommended. Reproductive: Uterus is seen. ABDOMEN and PELVIS: Intraperitoneal space: There is free intraperitoneal air. No significant fluid collection. Bones/joints: No acute fracture. No dislocation. Left-sided lumbar scoliosis. Soft tissues: Unremarkable Vasculature: Infrarenal IVC filter. No abdominal aortic aneurysm. Lymph nodes: Subcentimeter para-aortic lymph nodes. Tubes, lines and devices: The bariatric device port is in the left midabdomen subcutaneous soft tissues. IMPRESSION: 1. There is free intraperitoneal air. 2. There is right colonic distention with stool and gas demonstrated extensive pneumatosis with surrounding free intraperitoneal air suspicious for right colonic perforation. 3. There is right middle lobe bilateral lower lobe nodular parenchymal infiltrates suspicious for pneumonia versus aspiration pneumonia. Correlation with surgical clinical evaluation and history and further workup or followup as recommended by patient's clinical data.
[2018-04-30] MEDS ORDERED: Piperacillin/Tazobact 3.375 gm 100 ML IVPB STA (05:32)
[2018-04-30 06:10] LABS: VENOUS BLOOD GAS BASE EXCESS 6.5 mmol/L (0.0-2.0); VENOUS BLOOD GAS PCO2 53 mmHg (40-60); VENOUS BLOOD GAS PO2 29 mm/Hg (30-55)
[2018-04-30] MEDS: Lactated Ringer's 1,000 ML IV SCH ×3 (06:40→21:22)
--- NOTE | 2018-04-30 08:31 | CP.PCM.HP ---
History of Present Illness - History of Present Illness History of Present Illness: Chief complaints: Abnormal chest x-ray History of present illness: 52-year-old female with multiple medical history including hypertension, hypercholesterolemia Lupus disease DVT, PE, status post IVC filter Hypercoagulable state Sleep apnea, fibromyalgia Obesity, bronchial asthma,. Patient is currently being followed up by me for non-resolving pneumonia. Patient recently admitted in October,, at the time patient received intravenous antibiotic and Solu-Medrol, patient symptoms got better, until a month ago. Patient again started having similar cough, shortness of breath, and the mucus production with the sometimes blood, and again she was hospitalized, and this started on IV antibiotic and bronchodilators with Solu-Medrol, initially patient showed is some improvement, but again she started having worsening symptoms once the patient finishes the corticosteroid. So I was in the process of getting a lung biopsy to rule out underlying lupus lung disease, CHRONIC NON-RESOLVING PNEUMONIA. MEANWHILE REGULAR X-RAY WHICH WAS DONE ON WEDNESDAY SHOWING EVIDENCE OF FREE AIR UNDER DIAPHRAGM. SO IMMEDIATELY CALL THE PATIENT to go to the emergency room. In the emergency room patient underwent a CT scan of the abdomen, showing questionable perforation involving the right colon [place]. But patient does not have any symptoms of nausea, no vomiting, no abdominal pain , she is not feeling sick. Patient has a cough. Mostly dry cough noted Past medical history as noted able Allergy: No known drug allergy Personal history: Nonsmoker nonalcoholic Surgical history: Cholecystectomy, appendectomy. LAP-BAND. . Umbilical hernia repair. Recent colonoscopy Family history noncontributory Review of system: Patient is having some headache. Cough progressively worsening Mucus production occasionally noted, also having some mild blood in the sputum. No abdominal pain. Ration is having regular bowel movements. Because of the steroid the patient is having increasing leg swelling, facial swelling. Weight gain recently noted On examination: Patient is not in any distress. Chest good air entry bilaterally Wheezing noted Regular heart sound Abdomen soft and nontender. Edema 1+ noted bilaterally Skin changes noted, Patient's labs reviewed Nonspecific. CAT scan of the abdomen and pelvis showing evidence of pneumatosis involving the right side of the colon, free air under diaphragm noted slight improvement compared to the x-ray of the morning. I spoke to the general surgery, surgical consultation. As the patient does not have any symptoms of any acute illness, very close monitoring recommended at this time. As the patient is having lupus disease, chronic steroid use an antibiotic probably contributed the problems. Assessment/recommendation: 52-year-old female with a history of lupus, hypercoagulable state, DVT PE, IVC filter, hypertension. Sleep apnea Fibromyalgia Admitted to the hospital with suspected chronic perforation, pneumatosis. He had under diaphragm. As the patient is currently asymptomatic, close monitoring recommended. As per the surgery patient will be needed to keep on nothing by mouth IV fluid Antibiotic Patient was on Coumadin, converted to the heparin drip She may need a surgical intervention at any time. We'll follow the patient. I spoke to the patient in details about the plan. close monitoring and observation. Present on Admission - Present on Admission Any Indicators Present on Admission: No History of DVT/PE: No History of Uncontrolled Diabetes: No Urinary Catheter: No Decubitus Ulcer Present: No Past Patient History - Infectious Disease Hx of Infectious Diseases: None - Tetanus Immunizations Tetanus Immunization: Up to Date - Past Medical History & Family History Past Medical History?: Yes - Past Social History Smoking Status: Never Smoked - CARDIAC Hx Hypertension: Yes Hx Peripheral Edema: Yes - PULMONARY Hx Asthma: Yes Hx Bronchitis: Yes Hx Pneumonia: Yes ("multiple times") Hx Pulmonary Embolism: Yes (2011) Hx Sleep Apnea: Yes - NEUROLOGICAL Hx Migraine: Yes - HEENT Hx HEENT Problems: Yes Other/Comment: wear glasses for vision - RENAL Hx Chronic Kidney Disease: No - ENDOCRINE/METABOLIC Hx Endocrine Disorders: Yes Hx Systemic Lupus Erythematosus: Yes (w/ antibody) - HEMATOLOGICAL/ONCOLOGICAL Hx Blood Disorders: No - INTEGUMENTARY Hx Dermatological Problems: Yes Other/Comment: discoploration of lower legs/pigmentation - MUSCULOSKELETAL/RHEUMATOLOGICAL Hx Arthritis: Yes - GASTROINTESTINAL Hx Gastrointestinal Disorders: Yes Hx Gastroesophageal Reflux: Yes - GENITOURINARY/GYNECOLOGICAL Hx Genitourinary Disorders: Yes Hx Incontinence: Yes (OVER ACTIVE BLADDER) - PSYCHIATRIC Hx Depression: Yes (post depression) Hx Substance Use: No - SURGICAL HISTORY Hx Appendectomy: Yes - ANESTHESIA Hx Anesthesia: Yes Hx Anesthesia Reactions: No Hx Malignant Hyperthermia: No Meds Allergies/Adverse Reactions: Allergies Allergy/AdvReac Type Severity Reaction Status Date / Time No Known Allergies Allergy Verified 04/29/18 23:30 Results - Vital Signs Recent Vital Signs: Last Vital Signs Temp 97.8 F 04/30/18 07:00 Pulse 73 04/30/18 07:00 Resp 20 06/02/18 07:00 BP 139/83 04/30/18 07:00 Pulse Ox 95 04/30/18 07:00 - Labs Result Diagrams: 05/01/18 06:40 05/01/18 06:40 Labs: Laboratory Results - last 24 hr 04/29/18 04/29/18 04/30/18 11:58 11:58 00:11 WBC 9.0 RBC 4.29 Hgb 11.8 Hct 34.8 MCV 81.1 MCH 27.4 MCHC 33.8 RDW 16.5 H Plt Count 256 MPV 6.9 L Neut % (Auto) 92.6 H Lymph % (Auto) 2.1 L [place] % (Auto) 4.9 Eos % (Auto) 0.2 Baso % (Auto) 0.2 Neut # (Auto) 8.3 H Lymph # (Auto) 0.2 L [place] # (Auto) 0.4 Eos # (Auto) 0.0 Baso # (Auto) 0.0 Neutrophils % (Manual) 92 H Lymphocytes % (Manual) 3 L Monocytes % (Manual) 5 Platelet Estimate Normal Anisocytosis (manual) Slight PT 18.2 H INR 1.7 pO2 VBG pH VBG pCO2 VBG HCO3 VBG Total CO2 VBG O2 Sat (Calc) VBG Base Excess VBG Potassium Glucose Lactate Crit Value Called To Crit Value Called By Crit Value Read Back Blood Gas Notified Time Sodium 141 Potassium 3.8 Chloride 101 Carbon Dioxide 26 Anion Gap 18 BUN 17 Creatinine 0.7 Est GFR ( Amer) > 60 Est GFR (Non-Af Amer) > 60 Random Glucose 132 H Calcium 8.7 Total Bilirubin 0.8 AST 44 H D ALT 32 Alkaline Phosphatase 54 Total Protein 7.1 Albumin 3.6 Globulin 3.4 Albumin/Globulin Ratio 1.1 Lipase 74 Venous Blood Potassium 04/30/18 06:01 WBC RBC Hgb Hct MCV MCH MCHC RDW Plt Count MPV Neut % (Auto) Lymph % (Auto) [place] % (Auto) Eos % (Auto) Baso % (Auto) Neut # (Auto) Lymph # (Auto) [place] # (Auto) Eos # (Auto) Baso # (Auto) Neutrophils % (Manual) Lymphocytes % (Manual) Monocytes % (Manual) Platelet Estimate Anisocytosis (manual) PT INR pO2 29 L VBG pH 7.40 VBG pCO2 53 VBG HCO3 28.8 VBG Total CO2 34.4 H VBG O2 Sat (Calc) 63.0 VBG Base Excess 6.5 H VBG Potassium 3.1 L Glucose 100 Lactate 0.8 Crit Value Called To Annita figueroa strap maker Crit Value Called By Dominique watson rt Crit Value Read Back Y Blood Gas Notified Time 612 Sodium 139.0 Potassium Chloride 105.0 Carbon Dioxide Anion Gap BUN Creatinine Est GFR ( Amer) Est GFR (Non-Af Amer) Random Glucose Calcium Total Bilirubin AST ALT Alkaline Phosphatase Total Protein Albumin Globulin Albumin/Globulin Ratio Lipase Venous Blood Potassium 3.1 L
[2018-04-30] MEDS: Fluticasone Nasal 50 mcg/Spray NS SCH (09:34)
[2018-04-30] MEDS ORDERED: MethylPREDNISolone 40 mg Vial IVP SCH (10:00)
[2018-04-30] MEDS ORDERED: metroNIDAZOLE IV 500 mg/100 ml 500 MG/100 ML BAG IVPB SCH (10:00)
[2018-04-30 11:39] LABS: HEMOGLOBIN 10.8 g/dL (11.0-16.0); MEAN CELL VOLUME 81.5 fL (81.0-99.0); MEAN CORPUSCULAR HEMOGLOBIN 27.3 pg (27.0-31.0); MEAN CORPUSCULAR HGB CONC 33.5 g/dL (33.0-37.0); MEAN PLATELET VOLUME 6.9 fL (7.2-11.7); RBC 3.97 Mil/uL (3.80-5.20); RED CELL DISTRIBUTION WIDTH 16.5 % (11.5-14.5); WHITE BLOOD COUNT 6.2 K/uL (4.8-10.8)
[2018-04-30] MEDS: Albuterol-Ipratrop 3 mg / 0.5 (3 ml) UD INH SCH ×3 (12:00→20:27)
[2018-04-30 12:09] LABS: ALT/SGPT 36 U/L (9-52); AST/SGOT 31 U/L (14-36); BLOOD UREA NITROGEN 14 mg/dL (7-17); CALCIUM 8.2 mg/dl (8.6-10.4); GFR AFRICAN-AMERICAN > 60; GFR NON-AFRICAN AMERICAN > 60
[2018-04-30] MEDS ORDERED: Heparin25000 units/250ml 1/2NS 25,000 UNITS/250 ML BAG IV PRN ×3 (12:14→23:28)
--- NOTE | 2018-04-30 13:03 | RAD ---
Chest x-ray two views History: Free air. Comparison: CT scan dated 04/30/2018 Findings: Persistent lucency underneath the right hemidiaphragm consistent with free intraperitoneal air. In correlation with the recent CT some pneumatosis noted within the visualized bowel. Prominent consolidative opacifications seen throughout the right lung as well as at the left lung base. Cardiomegaly. Degenerative changes spine. Impression: Persistent lucency underneath the right hemidiaphragm consistent with free intraperitoneal air. In correlation with the recent CT some pneumatosis noted within the visualized bowel. Prominent consolidative opacifications seen throughout the right lung as well as at the left lung base. Cardiomegaly.
[2018-04-30] MEDS: MethylPREDNISolone 40 mg Vial IVP SCH ×2 (13:30→21:42)
[2018-04-30] MEDS: Meropenem 1 GM in Sodium Chloride 0.9% 100 ML IVPB SCH ×2 (14:41→21:47)
--- NOTE | 2018-04-30 17:46 | CP.PCM.CON ---
<Kee Strauss - Last Filed: 04/30/18 17:48> History of Present Illness - History of Present Illness History of Present Illness: General Surgery Consult Note for Dr. Brown This is a 52F with a PMH of SLE, Hypercoaguable state, PE, a chronic DVT on coumadin since 2012, HTN, Fibromyalgia, Asthma and reactive airway disease. She went to her Primary care doctor for management of her chronic pneumonia. At that time her PCP ordered a Chest x-ray which was significant for free air under the diaphragm. The patient denies any abdominal pain, any nausea, vomiting , fevers. However she does report chills. She reports she has not passed gas in over a week and that her last BM was 3 days ago. PMH: SLE, Hypercoaguable state, PE, a chronic DVT on coumadin since 2012, HTN, Fibromyalgia, Asthma and reactive airway disease PSH: Lap Luciana, Lap Appy, Laparoscopic Banding (10 years ago), C- Section, Umbilical hernia repair ALL: NKDA Social: Denies any drugs, etoh, or tobacco Review of Systems - Review of Systems All systems: reviewed and no additional remarkable complaints except - Constitutional Constitutional: absent: Anorexia, Chills - EENT Eyes: absent: Blurred Vision, Change in Vision - Respiratory Respiratory: Cough. absent: Dyspnea - Gastrointestinal Gastrointestinal: Constipation. absent: Abdominal Pain, Bloating, Coffee Ground Emesis, Cramping, Dysphagia, Heartburn, Loose Stools, Melena, Nausea, Vomiting - Genitourinary Genitourinary: absent: Difficulty Urinating, Dysuria - Hematologic/Lymphatic Hematologic: As Per HPI, Other Past Patient History - Infectious Disease Hx of Infectious Diseases: None - Tetanus Immunizations Tetanus Immunization: Up to Date - Past Medical History & Family History Past Medical History?: Yes - Past Social History Smoking Status: Never Smoked - CARDIAC Hx Hypertension: Yes Hx Peripheral Edema: Yes - PULMONARY Hx Asthma: Yes Hx Bronchitis: Yes Hx Pneumonia: Yes ("multiple times") Hx Pulmonary Embolism: Yes (2011) Hx Sleep Apnea: Yes - NEUROLOGICAL Hx Migraine: Yes - HEENT Hx HEENT Problems: Yes Other/Comment: wear glasses for vision - RENAL Hx Chronic Kidney Disease: No - ENDOCRINE/METABOLIC Hx Endocrine Disorders: Yes Hx Systemic Lupus Erythematosus: Yes (w/ antibody) - HEMATOLOGICAL/ONCOLOGICAL Hx Blood Disorders: No - INTEGUMENTARY Hx Dermatological Problems: Yes Other/Comment: discoploration of lower legs/pigmentation - MUSCULOSKELETAL/RHEUMATOLOGICAL Hx Arthritis: Yes - GASTROINTESTINAL Hx Gastrointestinal Disorders: Yes Hx Gastroesophageal Reflux: Yes - GENITOURINARY/GYNECOLOGICAL Hx Genitourinary Disorders: Yes Hx Incontinence: Yes (OVER ACTIVE BLADDER) - PSYCHIATRIC Hx Depression: Yes (post depression) Hx Substance Use: No - SURGICAL HISTORY Hx Appendectomy: Yes - ANESTHESIA Hx Anesthesia: Yes Hx Anesthesia Reactions: No Hx Malignant Hyperthermia: No Meds Allergies/Adverse Reactions: Allergies Allergy/AdvReac Type Severity Reaction Status Date / Time No Known Allergies Allergy Verified 04/29/18 23:30 - Medications Medications: Current Medications Albuterol/Ipratropium (Duoneb 3 Mg/0.5 Mg (3 Ml) Ud) 3 ml INH RQ6 [facility] Last Admin: 04/30/18 13:35 Dose: 3 ml Fluticasone Propionate (Flonase) 1 spr NS DAILY [facility] Last Admin: 04/30/18 09:34 Dose: 1 spray Lactated Ringer's (Lactated Ringer's) 1,000 mls @ 125 mls/hr IV .Q8H [facility] Last Admin: 04/30/18 14:02 Dose: Not Given Meropenem 1 gm/ Sodium (Chloride) 100 mls @ 100 mls/hr IVPB Q8H [facility] PRN Reason: Protocol Last Admin: 04/30/18 14:41 Dose: 100 mls/hr Heparin Sodium/Sodium Chloride (Heparin 17327 Units/250ml 1/2 Normal Saline) 25 ,000 units in 250 mls @ 16.819 mls/hr IV .[id number] PRN; Protocol; 18 UNITS/KG/HR PRN Reason: PROTOCOL Last Admin: 04/30/18 14:11 Dose: 18 units/kg/hr, 16.819 mls/hr Methylprednisolone (Solu-Medrol) 20 mg IVP Q12 [facility] Last Admin: 04/30/18 13:30 Dose: 20 mg Pantoprazole Sodium (Protonix Inj) 40 mg IVP DAILY [facility] Last Admin: 04/30/18 09:21 Dose: 40 mg Physical Exam - Constitutional Appears: Non-toxic, No Acute Distress Additional comments: - Constitutional Appears: Non-toxic, No Acute Distress - Head Exam Head Exam: ATRAUMATIC, NORMOCEPHALIC - Eye Exam Eye Exam: EOMI, Normal appearance - ENT Exam ENT Exam: Mucous Membranes Moist - Respiratory Exam Respiratory Exam: NORMAL BREATHING PATTERN - Cardiovascular Exam Cardiovascular Exam: REGULAR RHYTHM, +S1, +S2 - GI/Abdominal Exam GI & Abdominal Exam: Soft. absent: Distended, Firm, Guarding, Rigid, Tenderness - Neurological Exam Neurological Exam: Alert, Awake - Psychiatric Exam Psychiatric exam: Normal Affect, Normal Mood - Skin Skin Exam: Dry, Intact Results - Vital Signs Recent Vital Signs: Last Vital Signs Temp 98.3 F 04/30/18 16:00 Pulse 62 04/30/18 16:00 Resp 18 04/30/18 16:00 BP 153/86 H 04/30/18 16:00 Pulse Ox 97 04/30/18 16:00 - Labs Result Diagrams: 04/30/18 11:25 04/30/18 11:25 Labs: Laboratory Results - last 24 hr 04/29/18 04/29/18 04/30/18 11:58 11:58 00:11 WBC 9.0 RBC 4.29 Hgb 11.8 Hct 34.8 MCV 81.1 MCH 27.4 MCHC 33.8 RDW 16.5 H Plt Count 256 MPV 6.9 L Neut % (Auto) 92.6 H Lymph % (Auto) 2.1 L [place] % (Auto) 4.9 Eos % (Auto) 0.2 Baso % (Auto) 0.2 Neut # (Auto) 8.3 H Lymph # (Auto) 0.2 L [place] # (Auto) 0.4 Eos # (Auto) 0.0 Baso # (Auto) 0.0 Neutrophils % (Manual) 92 H Lymphocytes % (Manual) 3 L Monocytes % (Manual) 5 Platelet Estimate Normal Anisocytosis (manual) Slight PT 18.2 H INR 1.7 pO2 VBG pH VBG pCO2 VBG HCO3 VBG Total CO2 VBG O2 Sat (Calc) VBG Base Excess VBG Potassium Glucose Lactate Crit Value Called To Crit Value Called By Crit Value Read Back Blood Gas Notified Time Sodium 141 Potassium 3.8 Chloride 101 Carbon Dioxide 26 Anion Gap 18 BUN 17 Creatinine 0.7 Est GFR ( Amer) > 60 Est GFR (Non-Af Amer) > 60 Random Glucose 132 H Lactic Acid Calcium 8.7 Total Bilirubin 0.8 AST 44 H D ALT 32 Alkaline Phosphatase 54 Total Protein 7.1 Albumin 3.6 Globulin 3.4 Albumin/Globulin Ratio 1.1 Lipase 74 Venous Blood Potassium 04/30/18 04/30/18 04/30/18 06:01 11:25 11:25 WBC 6.2 RBC 3.97 Hgb 10.8 L Hct 32.4 L MCV 81.5 MCH 27.3 MCHC 33.5 RDW 16.5 H Plt Count 220 MPV 6.9 L Neut % (Auto) Lymph % (Auto) [place] % (Auto) Eos % (Auto) Baso % (Auto) Neut # (Auto) Lymph # (Auto) [place] # (Auto) Eos # (Auto) Baso # (Auto) Neutrophils % (Manual) Lymphocytes % (Manual) Monocytes % (Manual) Platelet Estimate Anisocytosis (manual) PT INR pO2 29 L VBG pH 7.40 VBG pCO2 53 VBG HCO3 28.8 VBG Total CO2 34.4 H VBG O2 Sat (Calc) 63.0 VBG Base Excess 6.5 H VBG Potassium 3.1 L Glucose 100 Lactate 0.8 Crit Value Called To Annita figueroa watershed engineer Crit Value Called By Dominique watson rt Crit Value Read Back Y Blood Gas Notified Time 612 Sodium 139.0 139 Potassium 3.5 L Chloride 105.0 102 Carbon Dioxide 32 H Anion Gap 10 BUN 14 Creatinine 0.7 Est GFR ( Amer) > 60 Est GFR (Non-Af Amer) > 60 Random Glucose 95 Lactic Acid Calcium 8.2 L Total Bilirubin 0.7 AST 31 ALT 36 Alkaline Phosphatase 48 Total Protein 5.9 L Albumin 3.0 L Globulin 2.9 Albumin/Globulin Ratio 1.0 Lipase Venous Blood Potassium 3.1 L 04/30/18 11:25 WBC RBC Hgb Hct MCV MCH MCHC RDW Plt Count MPV Neut % (Auto) Lymph % (Auto) [place] % (Auto) Eos % (Auto) Baso % (Auto) Neut # (Auto) Lymph # (Auto) [place] # (Auto) Eos # (Auto) Baso # (Auto) Neutrophils % (Manual) Lymphocytes % (Manual) Monocytes % (Manual) Platelet Estimate Anisocytosis (manual) PT INR pO2 VBG pH VBG pCO2 VBG HCO3 VBG Total CO2 VBG O2 Sat (Calc) VBG Base Excess VBG Potassium Glucose Lactate Crit Value Called To Crit Value Called By Crit Value Read Back Blood Gas Notified Time Sodium Potassium Chloride Carbon Dioxide Anion Gap BUN Creatinine Est GFR ( Amer) Est GFR (Non-Af Amer) Random Glucose Lactic Acid 0.8 Calcium Total Bilirubin AST ALT Alkaline Phosphatase Total Protein Albumin Globulin Albumin/Globulin Ratio Lipase Venous Blood Potassium Assessment & Plan - Assessment and Plan (Free Text) Assessment: This is a 52F presenting with free air in the abdomen Patient is Normocardic, Normotensive Labs WNL Plan: NPO IVF ABX F/U CT Scan Serial Abdominal Exams F/U Coags Further recommendations per Dr. Stephanie Sweet Maximnakul PGY2 - Date & Time Date: 04/30/18 Time: 01:04 <Karlos Brown - Last Filed: 05/02/18 20:05> Meds - Medications Medications: Current Medications Albuterol/Ipratropium (Duoneb 3 Mg/0.5 Mg (3 Ml) Ud) 3 ml INH RQ6 [facility] Last Admin: 05/02/18 13:46 Dose: Not Given Fluticasone Propionate (Flonase) 1 spr NS DAILY [facility] Last Admin: 05/02/18 09:12 Dose: 1 spray Meropenem 1 gm/ Sodium (Chloride) 100 mls @ 100 mls/hr IVPB Q8H [facility] PRN Reason: Protocol Last Admin: 05/02/18 14:20 Dose: 100 mls/hr Lactated Ringer's (Lactated Ringer's) 1,000 mls @ 75 mls/hr IV .[id number] [facility] Last Admin: 05/02/18 14:23 Dose: 75 mls/hr Heparin Sodium/Sodium Chloride (Heparin 06781 Units/250ml 1/2 Normal Saline) 25 ,000 units in 250 mls @ 10.007 mls/hr IV .Q24H PRN; Protocol; 10.71 UNITS/KG/HR PRN Reason: PROTOCOL Last Admin: 05/02/18 16:51 Dose: 10.71 units/kg/hr, 10.007 mls/hr Methylprednisolone (Solu-Medrol) 20 mg IVP Q12 [facility] Last Admin: 05/02/18 09:14 Dose: 20 mg Pantoprazole Sodium (Protonix Inj) 40 mg IVP DAILY [facility] Last Admin: 05/02/18 09:12 Dose: 40 mg Results - Vital Signs Recent Vital Signs: Last Vital Signs Temp 98.1 F 05/02/18 15:05 Pulse 83 05/02/18 15:05 Resp 20 05/02/18 15:05 BP 131/87 05/02/18 15:05 Pulse Ox 95 05/02/18 15:05 - Labs Result Diagrams: 05/01/18 06:40 05/01/18 06:40 Labs: Laboratory Results - last 24 hr 05/02/18 16:49 PT 13.3 H INR 1.2 D APTT 78 H D Attending/Attestation - Attestation I have personally seen and examined this patient.: Yes I have fully participated in the care of the patient.: Yes I have reviewed all pertinent clinical information: Yes Notes (Text): Pt was seen and examined at bedside Agree with above note and assessment Pt with incidental free air in abdomen PMH of Pneumonia Abdomen: Soft, NT, ND Labs and radiology reviewed Ass: Pneumatosis of Right side on colon Plan: Pt is asymptomatic at present No clinical evidence of sepsis Serial abdominal exam repeat AXR in am Conner leonw Dr. Ishmael leonw pt in detail Risk and benefit explained in detail.
[2018-04-30 17:47] LABS: SQUAMOUS EPITHIAL 3 /hpf (0-5); URINE BACTERIA RARE (<OCC); URINE BILIRUBIN NEGATIVE (NEGATIVE); URINE BLOOD NEGATIVE (NEGATIVE); URINE CLARITY Clear (Clear); URINE COLOR Yellow (YELLOW); URINE GLUCOSE (UA) NORMAL (Normal); URINE LEUKOCYTE ESTERASE NEG Leu/uL (Negative); URINE PROTEIN NEGATIVE (NEGATIVE); URINE UROBILINOGEN NORMAL mg/dL (0.2-1.0)
[2018-05-01] MEDS: Meropenem 1 GM in Sodium Chloride 0.9% 100 ML IVPB SCH ×3 (05:36→22:12)
[2018-05-01] MEDS: Lactated Ringer's 1,000 ML IV SCH ×3 (05:36→20:57)
[2018-05-01 06:40] LABS: VENOUS BLOOD GAS BASE EXCESS 10.7 mmol/L (0.0-2.0); VENOUS BLOOD GAS PCO2 56 mmHg (40-60); VENOUS BLOOD GAS PO2 21 mm/Hg (30-55); VENOUS BLOOD PH 7.43 (7.32-7.43)
[2018-05-01 06:44] LABS: BASO % 0.1 % (0.0-2.0); MEAN PLATELET VOLUME 6.9 fL (7.2-11.7); MONO # 0.4 K/uL (0.0-0.8); NEUT % 89.2 % (50.0-75.0)
[2018-05-01 07:03] LABS: ALB/GLOB RATIO 1.2 (1.0-2.1); ALBUMIN 3.6 g/dL (3.5-5.0); ALT/SGPT 37 U/L (9-52); AST/SGOT 30 U/L (14-36); BLOOD UREA NITROGEN 14 mg/dL (7-17); CALCIUM 8.9 mg/dl (8.6-10.4); GFR AFRICAN-AMERICAN > 60; GFR NON-AFRICAN AMERICAN > 60
[2018-05-01 07:05] LABS: HEMOGLOBIN 12.8 g/dL (11.0-16.0); LYMPH # 0.3 K/uL (1.0-4.3); LYMPH % 4.8 % (20.0-40.0); MEAN CELL VOLUME 81.6 fL (81.0-99.0); MEAN CORPUSCULAR HEMOGLOBIN 27.1 pg (27.0-31.0); MEAN CORPUSCULAR HGB CONC 33.2 g/dL (33.0-37.0); MONO % 5.9 % (0.0-10.0); PLATELET COUNT 269 K/uL (130-400); RED CELL DISTRIBUTION WIDTH 16.6 % (11.5-14.5); WHITE BLOOD COUNT 6.7 K/uL (4.8-10.8)
[2018-05-01] MEDS: Albuterol-Ipratrop 3 mg / 0.5 (3 ml) UD INH SCH ×3 (08:05→19:55)
[2018-05-01 08:21] LABS: ANISOCYTOSIS SLIGHT; LYMPHOCYTE 2 % (20-40); MONOCYTE 2 % (0-10); NEUTROPHIL 96 % (50-75); PLATELET ESTIMATE NORMAL (NORMAL); TOTAL CELLS COUNTED 100
--- NOTE | 2018-05-01 08:27 | CP.PCM.PN ---
Subjective - Date & Time of Evaluation Date of Evaluation: 05/01/18 Time of Evaluation: 08:27 - Subjective Subjective: I discussed case with the surgical corsetier multiple times, and extensively. I also spoke to the patient in details about the overall condition. Patient is currently having increasing episodes of pneumatosis involving the cecum and ascending colon. Patient is being closely monitored. She is n.p.o. Is receiving IV fluid and antibiotic. Seen by infectious specialist also. I spoke to the patient in details about the possibility of surgical intervention. We will repeat the CAT scan tomorrow. And will follow-up Objective - Vital Signs/Intake and Output Vital Signs (last 24 hours): Temp Pulse Resp BP Pulse Ox 99.1 F 62 18 175/92 H 95 05/01/18 07:00 05/01/18 07:00 05/01/18 07:00 05/01/18 07:00 05/01/18 07:00 Intake and Output: 05/01/18 05/01/18 06:59 18:59 Intake Total 1379 Balance 1379 - Medications Medications: Current Medications Albuterol/Ipratropium (Duoneb 3 Mg/0.5 Mg (3 Ml) Ud) 3 ml INH RQ6 [facility] Last Admin: 04/30/18 20:27 Dose: 3 ml Fluticasone Propionate (Flonase) 1 spr NS DAILY [facility] Last Admin: 04/30/18 09:34 Dose: 1 spray Meropenem 1 gm/ Sodium (Chloride) 100 mls @ 100 mls/hr IVPB Q8H [facility] PRN Reason: Protocol Last Admin: 05/01/18 05:36 Dose: 100 mls/hr Heparin Sodium/Sodium Chloride (Heparin 36233 Units/250ml 1/2 Normal Saline) 25 ,000 units in 250 mls @ 14.016 mls/hr IV .[id number] PRN; Protocol; 15 UNITS/KG/HR PRN Reason: PROTOCOL Last Admin: 04/30/18 23:42 Dose: 10.7 units/kg/hr, 10 mls/hr Lactated Ringer's (Lactated Ringer's) 1,000 mls @ 75 mls/hr IV .[id number] [facility] Methylprednisolone (Solu-Medrol) 20 mg IVP Q12 [facility] Last Admin: 04/30/18 21:42 Dose: 20 mg Pantoprazole Sodium (Protonix Inj) 40 mg IVP DAILY [facility] Last Admin: 04/30/18 09:21 Dose: 40 mg - Labs Labs: 05/01/18 06:40 05/01/18 06:40 PT 18.2 SECONDS (9.7-12.2) H 04/30/18 00:11 INR 1.7 04/30/18 00:11 APTT 46 SECONDS (21-34) H D 05/01/18 07:58
--- NOTE | 2018-05-01 08:55 | CP.PCM.PN ---
<Janet Mcgregor - Last Filed: 05/01/18 08:53> Subjective - Date & Time of Evaluation Date of Evaluation: 05/01/18 Time of Evaluation: 08:53 - Subjective Subjective: Surgery: Dr. Brown Pt seen and examined. No acute overnight events. Pt continues to do well clinically, states she is feeling ok & hasn't had any abdominal pain. Pt admits to having a regular bowel movement yesterday afternoon with + flatus. Denies N/V , F/C. Objective - Vital Signs/Intake and Output Vital Signs (last 24 hours): Temp Pulse Resp BP Pulse Ox 99.1 F 62 18 175/92 H 95 05/01/18 07:00 05/01/18 07:00 05/01/18 07:00 05/01/18 07:00 05/01/18 07:00 Intake and Output: 05/01/18 05/01/18 06:59 18:59 Intake Total 1379 Balance 1379 - Medications Medications: Current Medications Albuterol/Ipratropium (Duoneb 3 Mg/0.5 Mg (3 Ml) Ud) 3 ml INH RQ6 [facility]OC Last Admin: 04/30/18 20:27 Dose: 3 ml Fluticasone Propionate (Flonase) 1 spr NS DAILY [facility] Last Admin: 04/30/18 09:34 Dose: 1 spray Meropenem 1 gm/ Sodium (Chloride) 100 mls @ 100 mls/hr IVPB Q8H [facility] PRN Reason: Protocol Last Admin: 05/01/18 05:36 Dose: 100 mls/hr Heparin Sodium/Sodium Chloride (Heparin 39824 Units/250ml 1/2 Normal Saline) 25 ,000 units in 250 mls @ 14.016 mls/hr IV .[id number] PRN; Protocol; 15 UNITS/KG/HR PRN Reason: PROTOCOL Last Admin: 04/30/18 23:42 Dose: 10.7 units/kg/hr, 10 mls/hr Lactated Ringer's (Lactated Ringer's) 1,000 mls @ 75 mls/hr IV .[id number] [facility] Last Admin: 05/01/18 08:37 Dose: 75 mls/hr Methylprednisolone (Solu-Medrol) 20 mg IVP Q12 [facility] Last Admin: 04/30/18 21:42 Dose: 20 mg Pantoprazole Sodium (Protonix Inj) 40 mg IVP DAILY [facility] Last Admin: 04/30/18 09:21 Dose: 40 mg - Labs Labs: 05/01/18 06:40 05/01/18 06:40 PT 18.2 SECONDS (9.7-12.2) H 04/30/18 00:11 INR 1.7 04/30/18 00:11 APTT 46 SECONDS (21-34) H D 05/01/18 07:58 - Constitutional Appears: Well, No Acute Distress - Head Exam Head Exam: ATRAUMATIC, NORMOCEPHALIC - Eye Exam Eye Exam: Normal appearance - ENT Exam ENT Exam: Mucous Membranes Moist - Respiratory Exam Respiratory Exam: NORMAL BREATHING PATTERN - Cardiovascular Exam Cardiovascular Exam: RRR - GI/Abdominal Exam GI & Abdominal Exam: Soft. absent: Distended, Guarding, Tenderness, Rebound - Neurological Exam Neurological Exam: Alert, Awake, Oriented x3 - Skin Skin Exam: Dry, Intact, Warm Assessment and Plan - Assessment and Plan (Free Text) Assessment: 52F with incidental finding of free air; as seen on CXR & subsequent CT scan Plan: - cont to monitor pt closely with serial abdominal exams - cont broad spectrum IV ABX - Keep NPO with IVF - Due to pt being completely asymptomatic & having stable vitals & labs, will cont conservative management at this time - d/w Dr. Stephanie Mcgregor, PGY-3 <Karlos Brown - Last Filed: 05/02/18 20:15> Objective - Vital Signs/Intake and Output Vital Signs (last 24 hours): Temp Pulse Resp BP Pulse Ox 98.1 F 83 20 131/87 95 05/02/18 15:05 05/02/18 15:05 05/02/18 15:05 05/02/18 15:05 05/02/18 15:05 Intake and Output: 05/02/18 05/03/18 18:59 06:59 Intake Total 250 Balance 250 - Medications Medications: Current Medications Albuterol/Ipratropium (Duoneb 3 Mg/0.5 Mg (3 Ml) Ud) 3 ml INH RQ6 [facility] Last Admin: 05/02/18 20:08 Dose: 3 ml Fluticasone Propionate (Flonase) 1 spr NS DAILY [facility] Last Admin: 05/02/18 09:12 Dose: 1 spray Meropenem 1 gm/ Sodium (Chloride) 100 mls @ 100 mls/hr IVPB Q8H [facility] PRN Reason: Protocol Last Admin: 05/02/18 14:20 Dose: 100 mls/hr Lactated Ringer's (Lactated Ringer's) 1,000 mls @ 75 mls/hr IV .[id number] [facility] Last Admin: 05/02/18 14:23 Dose: 75 mls/hr Heparin Sodium/Sodium Chloride (Heparin 02555 Units/250ml 1/2 Normal Saline) 25 ,000 units in 250 mls @ 10.007 mls/hr IV .Q24H PRN; Protocol; 10.71 UNITS/KG/HR PRN Reason: PROTOCOL Last Admin: 05/02/18 16:51 Dose: 10.71 units/kg/hr, 10.007 mls/hr Methylprednisolone (Solu-Medrol) 20 mg IVP Q12 [facility] Last Admin: 05/02/18 09:14 Dose: 20 mg Pantoprazole Sodium (Protonix Inj) 40 mg IVP DAILY [facility] Last Admin: 05/02/18 09:12 Dose: 40 mg - Labs Labs: 05/01/18 06:40 05/01/18 06:40 PT 13.3 SECONDS (9.7-12.2) H 05/02/18 16:49 INR 1.2 D 05/02/18 16:49 APTT 78 SECONDS (21-34) H D 05/02/18 16:49 Attending/Attestation - Attestation I have fully participated in the care of the patient.: Yes I have reviewed all pertinent clinical information, including history, physical exam and plan: Yes Notes (Text): Pt with Pneumatosis of Right side on colon Pt is asymptomatic at present No clinical evidence of sepsis Serial abdominal exam repeat CT scan of A/P in am Plan d.w pt in detail
[2018-05-01] MEDS: MethylPREDNISolone 40 mg Vial IVP SCH ×2 (09:01→21:45)
[2018-05-01] MEDS: Fluticasone Nasal 50 mcg/Spray NS SCH (09:02)
--- NOTE | 2018-05-01 09:48 | RAD ---
Abdomen two views History: Pneumatosis. Bowel perforation. Comparison: CT scan dated 04/30/2018 Findings: Persistent pneumatosis in the right hemicolon. Persistent free air underneath the right hemidiaphragm. Retained contrast within the left hemicolon. IVC filter in place. Gastric band apparatus device in place. Degenerative changes in the spine. Patchy increased markings at the lung bases. Impression: Persistent pneumatosis in the right hemicolon. Persistent free air underneath the right hemidiaphragm. Retained contrast within the left hemicolon. IVC filter in place. Gastric band apparatus device in place. Degenerative changes in the spine. Patchy increased markings at the lung bases.
[2018-05-01] MEDS ORDERED: Enoxaparin 100 mg Syringe SC SCH (10:00)
[2018-05-01] MEDS: Heparin25000 units/250ml 1/2NS 25,000 UNITS/250 ML BAG IV PRN (14:03)
--- NOTE | 2018-05-01 17:31 | CP.PCM.CON ---
History of Present Illness - History of Present Illness History of Present Illness: This is a 52F went to her Primary care doctor for management of her pneumonia. At that time her PCP ordered a Chest x-ray which was significant for free air under the diaphragm. The patient denies any abdominal pain, any nausea , vomiting, fevers. However she does report chills. She reports she has not passed gas in over a week and that her last BM was 3 days ago. PMH: SLE, Hypercoaguable state, PE, a chronic DVT on coumadin since 2012, HTN, Fibromyalgia, Asthma and reactive airway disease PSH: Lap Luciana, Lap Appy, Laparoscopic Banding (10 years ago), C- Section, Umbilical hernia repair ALL: NKDA Social: Denies any drugs, etoh, or tobacco Review of Systems - Review of Systems All systems: reviewed and no additional remarkable complaints except - Constitutional Constitutional: absent: Anorexia, Chills - EENT Eyes: absent: Blurred Vision, Change in Vision - Respiratory Respiratory: Cough. absent: Dyspnea - Gastrointestinal Gastrointestinal: Constipation. absent: Abdominal Pain, Bloating, Coffee Ground Emesis, Cramping, Dysphagia, Heartburn, Loose Stools, Melena, Nausea, Vomiting - Genitourinary Genitourinary: absent: Difficulty Urinating, Dysuria - Hematologic/Lymphatic Hematologic: As Per HPI, Other Past Patient History - Infectious Disease Hx of Infectious Diseases: None - Tetanus Immunizations Tetanus Immunization: Up to Date - Past Medical History & Family History Past Medical History?: Yes - Past Social History Smoking Status: Never Smoked - CARDIAC Hx Hypertension: Yes Hx Peripheral Edema: Yes - PULMONARY Hx Asthma: Yes Hx Bronchitis: Yes Hx Pneumonia: Yes ("multiple times") Hx Pulmonary Embolism: Yes (2011) Hx Sleep Apnea: Yes - NEUROLOGICAL Hx Migraine: Yes - HEENT Hx HEENT Problems: Yes Other/Comment: wear glasses for vision - RENAL Hx Chronic Kidney Disease: No - ENDOCRINE/METABOLIC Hx Endocrine Disorders: Yes Hx Systemic Lupus Erythematosus: Yes (w/ antibody) - HEMATOLOGICAL/ONCOLOGICAL Hx Blood Disorders: No Past Patient History - Infectious Disease Hx of Infectious Diseases: None - Tetanus Immunizations Tetanus Immunization: Up to Date - Past Medical History & Family History Past Medical History?: Yes - Past Social History Smoking Status: Never Smoked - CARDIAC Hx Hypertension: Yes Hx Peripheral Edema: Yes - PULMONARY Hx Asthma: Yes Hx Bronchitis: Yes Hx Pneumonia: Yes ("multiple times") Hx Pulmonary Embolism: Yes (2011) Hx Sleep Apnea: Yes - NEUROLOGICAL Hx Migraine: Yes - HEENT Hx HEENT Problems: Yes Other/Comment: wear glasses for vision - RENAL Hx Chronic Kidney Disease: No - ENDOCRINE/METABOLIC Hx Endocrine Disorders: Yes Hx Systemic Lupus Erythematosus: Yes (w/ antibody) - HEMATOLOGICAL/ONCOLOGICAL Hx Blood Disorders: No - INTEGUMENTARY Hx Dermatological Problems: Yes Other/Comment: discoploration of lower legs/pigmentation - MUSCULOSKELETAL/RHEUMATOLOGICAL Hx Arthritis: Yes - GASTROINTESTINAL Hx Gastrointestinal Disorders: Yes Hx Gastroesophageal Reflux: Yes - GENITOURINARY/GYNECOLOGICAL Hx Genitourinary Disorders: Yes Hx Incontinence: Yes (OVER ACTIVE BLADDER) - PSYCHIATRIC Hx Depression: Yes (post depression) Hx Substance Use: No - SURGICAL HISTORY Hx Appendectomy: Yes - ANESTHESIA Hx Anesthesia: Yes Hx Anesthesia Reactions: No Hx Malignant Hyperthermia: No Meds Allergies/Adverse Reactions: Allergies Allergy/AdvReac Type Severity Reaction Status Date / Time No Known Allergies Allergy Verified 04/29/18 23:30 - Medications Medications: Current Medications Albuterol/Ipratropium (Duoneb 3 Mg/0.5 Mg (3 Ml) Ud) 3 ml INH RQ6 [facility] Last Admin: 05/01/18 13:40 Dose: 3 ml Fluticasone Propionate (Flonase) 1 spr NS DAILY [facility] Last Admin: 05/01/18 09:02 Dose: 1 spray Meropenem 1 gm/ Sodium (Chloride) 100 mls @ 100 mls/hr IVPB Q8H [facility]OC PRN Reason: Protocol Last Admin: 05/01/18 13:42 Dose: 100 mls/hr Lactated Ringer's (Lactated Ringer's) 1,000 mls @ 75 mls/hr IV .[id number] ENOC Last Admin: 05/01/18 08:37 Dose: 75 mls/hr Heparin Sodium/Sodium Chloride (Heparin 30608 Units/250ml 1/2 Normal Saline) 25 ,000 units in 250 mls @ 10.007 mls/hr IV .Q24H PRN; Protocol; 10.71 UNITS/KG/HR PRN Reason: PROTOCOL Last Admin: 05/01/18 14:03 Dose: 10.71 units/kg/hr, 10.007 mls/hr Methylprednisolone (Solu-Medrol) 20 mg IVP Q12 ENOC Last Admin: 05/01/18 09:01 Dose: 20 mg Pantoprazole Sodium (Protonix Inj) 40 mg IVP DAILY [facility] Last Admin: 05/01/18 09:01 Dose: 40 mg Physical Exam - Constitutional Appears: No Acute Distress - Head Exam Head Exam: ATRAUMATIC, NORMOCEPHALIC - Eye Exam Eye Exam: PERRL - ENT Exam ENT Exam: Mucous Membranes Dry - Neck Exam Neck exam: Negative for: Thyromegaly - Respiratory Exam Respiratory Exam: Decreased Breath Sounds - Cardiovascular Exam Cardiovascular Exam: REGULAR RHYTHM - GI/Abdominal Exam GI & Abdominal Exam: Diminished Bowel Sounds, Distended, Soft. absent: Guarding , Rigid, Tenderness - Rectal Exam Rectal Exam: Deferred - Exam Exam: NORMAL INSPECTION - Extremities Exam Extremities exam: Positive for: pedal edema, pedal pulses present. Negative for : calf tenderness - Back Exam Back exam: absent: CVA tenderness (L), CVA tenderness (R) - Neurological Exam Neurological exam: Alert, CN II-XII Intact, Oriented x3, Reflexes Normal - Psychiatric Exam Psychiatric exam: Normal Mood - Skin Skin Exam: Dry Results - Vital Signs Recent Vital Signs: Last Vital Signs Temp 98.1 F 05/01/18 15:00 Pulse 66 05/01/18 15:00 Resp 18 05/01/18 15:00 BP 150/82 05/01/18 15:00 Pulse Ox 95 05/01/18 15:00 - Labs Result Diagrams: 05/01/18 06:40 05/01/18 06:40 Labs: Laboratory Results - last 24 hr 04/30/18 04/30/18 05/01/18 17:27 20:49 06:35 WBC RBC Hgb Hct MCV MCH MCHC RDW Plt Count MPV Neut % (Auto) Lymph % (Auto) [place] % (Auto) Eos % (Auto) Baso % (Auto) Neut # (Auto) Lymph # (Auto) [place] # (Auto) Eos # (Auto) Baso # (Auto) Neutrophils % (Manual) Lymphocytes % (Manual) Monocytes % (Manual) Platelet Estimate Anisocytosis (manual) APTT > 400 H* pO2 21 L VBG pH 7.43 VBG pCO2 56 VBG HCO3 31.6 VBG Total CO2 38.9 H VBG O2 Sat (Calc) 35.7 L VBG Base Excess 10.7 H VBG Potassium 3.9 Sodium 137.0 Chloride 102.0 Glucose 98 Lactate 1.1 Potassium Carbon Dioxide Anion Gap BUN Creatinine Est GFR ( Amer) Est GFR (Non-Af Amer) Random Glucose Calcium Total Bilirubin AST ALT Alkaline Phosphatase Total Protein Albumin Globulin Albumin/Globulin Ratio Venous Blood Potassium 3.9 Urine Color Yellow Urine Clarity Clear Urine pH 6.0 Ur Specific [place] 1.031 H Urine Protein Negative Urine Glucose (UA) Normal Urine Ketones Negative Urine Blood Negative Urine Nitrate Negative Urine Bilirubin Negative Urine Urobilinogen Normal Ur Leukocyte Esterase Neg Urine WBC (Auto) 7 H Urine RBC (Auto) 7 H Ur Squamous Epith Cells 3 Urine Bacteria Rare 05/01/18 05/01/18 05/01/18 06:40 06:40 07:58 WBC 6.7 RBC 4.70 Hgb 12.8 D Hct 38.4 MCV 81.6 MCH 27.1 MCHC 33.2 RDW 16.6 H Plt Count 269 MPV 6.9 L Neut % (Auto) 89.2 H Lymph % (Auto) 4.8 L [place] % (Auto) 5.9 Eos % (Auto) 0.0 Baso % (Auto) 0.1 Neut # (Auto) 6.0 Lymph # (Auto) 0.3 L [place] # (Auto) 0.4 Eos # (Auto) 0.0 Baso # (Auto) 0.0 Neutrophils % (Manual) 96 H Lymphocytes % (Manual) 2 L Monocytes % (Manual) 2 Platelet Estimate Normal Anisocytosis (manual) Slight APTT 46 H D pO2 VBG pH VBG pCO2 VBG HCO3 VBG Total CO2 VBG O2 Sat (Calc) VBG Base Excess VBG Potassium Sodium 140 Chloride 98 Glucose Lactate Potassium 4.3 Carbon Dioxide 33 H Anion Gap 14 BUN 14 Creatinine 0.6 L Est GFR ( Amer) > 60 Est GFR (Non-Af Amer) > 60 Random Glucose 95 Calcium 8.9 Total Bilirubin 0.4 AST 30 ALT 37 Alkaline Phosphatase 46 Total Protein 6.7 Albumin 3.6 Globulin 3.1 Albumin/Globulin Ratio 1.2 Venous Blood Potassium Urine Color Urine Clarity Urine pH Ur Specific [place] Urine Protein Urine Glucose (UA) Urine Ketones Urine Blood Urine Nitrate Urine Bilirubin Urine Urobilinogen Ur Leukocyte Esterase Urine WBC (Auto) Urine RBC (Auto) Ur Squamous Epith Cells Urine Bacteria Assessment & Plan (1) Intra-abdominal free air of unknown etiology Status: Acute - Assessment and Plan (Free Text) Assessment: r/o ruptured diverticulum given hx cont conservative management IV antibiotics
[2018-05-02] MEDS: Albuterol-Ipratrop 3 mg / 0.5 (3 ml) UD INH SCH ×4 (01:39→20:08)
[2018-05-02] MEDS: Meropenem 1 GM in Sodium Chloride 0.9% 100 ML IVPB SCH ×3 (06:00→21:56)
[2018-05-02] MEDS: Fluticasone Nasal 50 mcg/Spray NS SCH (09:12)
[2018-05-02] MEDS: MethylPREDNISolone 40 mg Vial IVP SCH ×2 (09:14→21:56)
[2018-05-02] MEDS: Lactated Ringer's 1,000 ML IV SCH ×2 (10:30→14:23)
--- NOTE | 2018-05-02 10:56 | CP.PCM.PN ---
Subjective - Date & Time of Evaluation Date of Evaluation: 05/02/18 Time of Evaluation: 08:00 - Subjective Subjective: cultures neg thus far no abd pain Objective - Vital Signs/Intake and Output Vital Signs (last 24 hours): Temp Pulse Resp BP Pulse Ox 97.9 F 60 18 131/79 95 05/02/18 08:17 05/02/18 08:17 05/02/18 08:17 05/02/18 08:17 05/02/18 08:17 Intake and Output: 05/02/18 05/02/18 06:59 18:59 Intake Total 1330 Balance 1330 - Medications Medications: Current Medications Albuterol/Ipratropium (Duoneb 3 Mg/0.5 Mg (3 Ml) Ud) 3 ml INH RQ6 [facility] Last Admin: 05/02/18 08:01 Dose: 3 ml Fluticasone Propionate (Flonase) 1 spr NS DAILY [facility] Last Admin: 05/02/18 09:12 Dose: 1 spray Meropenem 1 gm/ Sodium (Chloride) 100 mls @ 100 mls/hr IVPB Q8H ENOC PRN Reason: Protocol Last Admin: 05/02/18 06:00 Dose: 100 mls/hr Lactated Ringer's (Lactated Ringer's) 1,000 mls @ 75 mls/hr IV .[id number] [facility] Last Admin: 05/01/18 20:57 Dose: 75 mls/hr Heparin Sodium/Sodium Chloride (Heparin 78500 Units/250ml 1/2 Normal Saline) 25 ,000 units in 250 mls @ 10.007 mls/hr IV .Q24H PRN; Protocol; 10.71 UNITS/KG/HR PRN Reason: PROTOCOL Last Admin: 05/01/18 14:03 Dose: 10.71 units/kg/hr, 10.007 mls/hr Methylprednisolone (Solu-Medrol) 20 mg IVP Q12 [facility] Last Admin: 05/02/18 09:14 Dose: 20 mg Pantoprazole Sodium (Protonix Inj) 40 mg IVP DAILY [facility] Last Admin: 05/02/18 09:12 Dose: 40 mg - Labs Labs: 05/01/18 06:40 05/01/18 06:40 PT 18.2 SECONDS (9.7-12.2) H 04/30/18 00:11 INR 1.7 04/30/18 00:11 APTT 73 SECONDS (21-34) H D 05/01/18 17:30 - Constitutional Appears: Non-toxic, Chronically Ill - Head Exam Head Exam: NORMOCEPHALIC - Eye Exam Eye Exam: PERRL - ENT Exam ENT Exam: Mucous Membranes Dry - Neck Exam Neck Exam: absent: Lymphadenopathy - Respiratory Exam Respiratory Exam: Decreased Breath Sounds - Cardiovascular Exam Cardiovascular Exam: REGULAR RHYTHM - GI/Abdominal Exam GI & Abdominal Exam: Distended Assessment and Plan (1) Intra-abdominal free air of unknown etiology Status: Acute - Assessment and Plan (Free Text) Assessment: cont iv rx
--- NOTE | 2018-05-02 11:23 | CP.PCM.PN ---
<Kee Strauss - Last Filed: 05/02/18 11:20> Subjective - Date & Time of Evaluation Date of Evaluation: 05/02/18 Time of Evaluation: 11:20 - Subjective Subjective: General Surgery Progress Note for Dr. Brown This 52F was seen and evaluated this AM at bedside she reports no acute events overnight. She is moving her bowels and passing gas. She denies any pain. She reports that she also feels as though her pneumonia is improving. Objective - Vital Signs/Intake and Output Vital Signs (last 24 hours): Temp Pulse Resp BP Pulse Ox 97.9 F 60 18 131/79 95 05/02/18 08:17 05/02/18 08:17 05/02/18 08:17 05/02/18 08:17 05/02/18 08:17 Intake and Output: 05/02/18 05/02/18 06:59 18:59 Intake Total 1330 Balance 1330 - Medications Medications: Current Medications Albuterol/Ipratropium (Duoneb 3 Mg/0.5 Mg (3 Ml) Ud) 3 ml INH RQ6 [facility] Last Admin: 05/02/18 08:01 Dose: 3 ml Fluticasone Propionate (Flonase) 1 spr NS DAILY [facility] Last Admin: 05/02/18 09:12 Dose: 1 spray Meropenem 1 gm/ Sodium (Chloride) 100 mls @ 100 mls/hr IVPB Q8H [facility] PRN Reason: Protocol Last Admin: 05/02/18 06:00 Dose: 100 mls/hr Lactated Ringer's (Lactated Ringer's) 1,000 mls @ 75 mls/hr IV .[id number] [facility] Last Admin: 05/01/18 20:57 Dose: 75 mls/hr Heparin Sodium/Sodium Chloride (Heparin 95007 Units/250ml 1/2 Normal Saline) 25 ,000 units in 250 mls @ 10.007 mls/hr IV .Q24H PRN; Protocol; 10.71 UNITS/KG/HR PRN Reason: PROTOCOL Last Admin: 05/01/18 14:03 Dose: 10.71 units/kg/hr, 10.007 mls/hr Methylprednisolone (Solu-Medrol) 20 mg IVP Q12 [facility] Last Admin: 05/02/18 09:14 Dose: 20 mg Pantoprazole Sodium (Protonix Inj) 40 mg IVP DAILY [facility] Last Admin: 05/02/18 09:12 Dose: 40 mg - Labs Labs: 05/01/18 06:40 05/01/18 06:40 PT 18.2 SECONDS (9.7-12.2) H 04/30/18 00:11 INR 1.7 04/30/18 00:11 APTT 73 SECONDS (21-34) H D 05/01/18 17:30 - Constitutional Appears: Non-toxic, No Acute Distress - Head Exam Head Exam: ATRAUMATIC, NORMOCEPHALIC - Eye Exam Eye Exam: EOMI - ENT Exam ENT Exam: Mucous Membranes Moist - Respiratory Exam Respiratory Exam: NORMAL BREATHING PATTERN. absent: Accessory Muscle Use - Cardiovascular Exam Cardiovascular Exam: +S1, +S2 - GI/Abdominal Exam GI & Abdominal Exam: Soft. absent: Distended, Firm, Guarding, Rigid, Tenderness - Neurological Exam Neurological Exam: Alert - Psychiatric Exam Psychiatric exam: Normal Affect, Normal Mood - Skin Skin Exam: Dry, Normal Color Assessment and Plan - Assessment and Plan (Free Text) Assessment: 52F with incidental finding of free air; as seen on CXR & subsequent CT scan Plan: - NPO - IVF - Serial Abdominal Exams - Repeat CT with PO and IV contrast - IV ABX - D/W Dr. Stephanie Strauss PGY2 <Karlos Brown - Last Filed: 05/02/18 20:19> Objective - Vital Signs/Intake and Output Vital Signs (last 24 hours): Temp Pulse Resp BP Pulse Ox 98.1 F 83 20 131/87 95 05/02/18 15:05 05/02/18 15:05 05/02/18 15:05 05/02/18 15:05 05/02/18 15:05 Intake and Output: 05/02/18 05/03/18 18:59 06:59 Intake Total 250 Balance 250 - Medications Medications: Current Medications Albuterol/Ipratropium (Duoneb 3 Mg/0.5 Mg (3 Ml) Ud) 3 ml INH RQ6 [facility] Last Admin: 05/02/18 20:08 Dose: 3 ml Fluticasone Propionate (Flonase) 1 spr NS DAILY [facility] Last Admin: 05/02/18 09:12 Dose: 1 spray Meropenem 1 gm/ Sodium (Chloride) 100 mls @ 100 mls/hr IVPB Q8H [facility] PRN Reason: Protocol Last Admin: 05/02/18 14:20 Dose: 100 mls/hr Lactated Ringer's (Lactated Ringer's) 1,000 mls @ 75 mls/hr IV .[id number] [facility] Last Admin: 05/02/18 14:23 Dose: 75 mls/hr Heparin Sodium/Sodium Chloride (Heparin 53130 Units/250ml 1/2 Normal Saline) 25 ,000 units in 250 mls @ 10.007 mls/hr IV .Q24H PRN; Protocol; 10.71 UNITS/KG/HR PRN Reason: PROTOCOL Last Admin: 05/02/18 16:51 Dose: 10.71 units/kg/hr, 10.007 mls/hr Methylprednisolone (Solu-Medrol) 20 mg IVP Q12 [facility] Last Admin: 05/02/18 09:14 Dose: 20 mg Pantoprazole Sodium (Protonix Inj) 40 mg IVP DAILY [facility] Last Admin: 05/02/18 09:12 Dose: 40 mg - Labs Labs: 05/01/18 06:40 05/01/18 06:40 PT 13.3 SECONDS (9.7-12.2) H 05/02/18 16:49 INR 1.2 D 05/02/18 16:49 APTT 78 SECONDS (21-34) H D 05/02/18 16:49 Attending/Attestation - Attestation I have personally seen and examined this patient.: Yes I have fully participated in the care of the patient.: Yes I have reviewed all pertinent clinical information, including history, physical exam and plan: Yes Notes (Text): Pt was seen and examined at bedside Agree with above note and assessment Pt with Pneumatosis of Right side on colon Pt is asymptomatic at present No clinical evidence of sepsis Serial abdominal exam repeat CT scan of A/P Conner jordan pt in detail Risk and benefit explained in detail.
--- NOTE | 2018-05-02 12:37 | RAD ---
HISTORY: Compare previous film COMPARISON: Comparison made with prior chest radiograph dated 04/30/2018 TECHNIQUE: Chest PA and lateral FINDINGS: LUNGS: Interval improvement previously noted patchy infiltrate both lower lobes, right-sided which was more significant than the left. PLEURA: No significant pleural effusion identified. No pneumothorax apparent. CARDIOVASCULAR: Heart size unchanged OSSEOUS STRUCTURES: No significant abnormalities. VISUALIZED UPPER ABDOMEN: Previously noted free air under the right robles diaphragmatic surface not visible on the current exam. Clinical correlation recommended. In situ IVC filter noted OTHER FINDINGS: None. IMPRESSION: Interval improvement previously noted patchy infiltrate both lower lobes, right-sided which was more significant than the left.
--- NOTE | 2018-05-02 13:12 | RAD ---
HISTORY: ileus COMPARISON: May 01, 2018. 04/30/2018 CT abdomen and pelvis. Summary of findings on the comparison examination: Free intraperitoneal air. FINDINGS: BOWEL: Trace free air under the right hemidiaphragm/ subhepatic space. Stable pneumatosis. BONES: Normal. OTHER FINDINGS: Stable cardiac trigger paraphernalia. Stable IVC filter. IMPRESSION: No significant interval change compared to the prior examination(s).
--- NOTE | 2018-05-02 14:14 | RAD ---
HISTORY: PICC Insertion COMPARISON: Comparison made with earlier study same day as well as prior chest radiograph 04/30/2018. FINDINGS: Interval placement right-sided PICC line with tip in the SVC/RA junction. LUNGS: Previously noted patchy infiltrates both lower lobes right greater than left on prior chest radiograph dated 04/30/2018 improved. PLEURA: No significant pleural effusion identified, no pneumothorax apparent. CARDIOVASCULAR: Normal. OSSEOUS STRUCTURES: No significant abnormalities. VISUALIZED UPPER ABDOMEN: No evidence of free intraperitoneal air seen under the diaphragmatic surfaces. OTHER FINDINGS: None. IMPRESSION: Interval placement right-sided PICC line. . Previously noted patchy infiltrates both lower lobes right greater than left on prior chest radiograph dated 04/30/2018 improved.
[2018-05-02] MEDS ORDERED: Iohexol 240 (50 ml) PO STA (14:23)
[2018-05-02] MEDS: Heparin25000 units/250ml 1/2NS 25,000 UNITS/250 ML BAG IV PRN (16:51)
[2018-05-02 17:00] LABS: PROTHROMBIN TIME 13.3 SECONDS (9.7-12.2)
[2018-05-02 17:06] LABS: INR 1.2
[2018-05-02] MEDS ORDERED: Iodixanol 320 MG/ML 100 ML BOTTLE IV ONE (22:56)
--- NOTE | 2018-05-02 23:11 | CARD ---
APPROVED REPORT EKG Measurement Heart [id number] <Conclusion> Sinus bradycardia Otherwise normal ECG
--- NOTE | 2018-05-03 00:20 | CT ---
EXAM: CT Abdomen and Pelvis With Intravenous Contrast EXAM DATE/TIME: 05/02/2018 10:54 AM CLINICAL HISTORY: 52 years old, female; Pain and signs and symptoms; Other: Free air; Abdominal pain; Patient HX: 6-2-18 TECHNIQUE: Axial computed tomography images of the abdomen and pelvis with intravenous contrast. All CT scans at this facility use one or more dose reduction techniques, viz.: automated exposure control; ma/kV adjustment per patient size (including targeted exams where dose is matched to indication; i.e. head); or iterative reconstruction technique. Coronal and sagittal reformatted images were created and reviewed. CONTRAST: 100 mL of [id number] administered intravenously. COMPARISON: Prior CT abdomen and pelvis of 2018-04-30 FINDINGS: LUNG BASES: Patchy groundglass consolidation in the lung bases bilaterally, decreased compared to the previous exam. This could be due to pneumonia versus pulmonary edema. MEDIASTINUM: Wall thickening of the distal esophagus. This was also seen on the previous exam, and could be secondary to esophagitis. ABDOMEN: LIVER: No acute abnormality of the liver identified. GALLBLADDER AND BILE DUCTS: High density in the gallbladder lumen. This could represent sludge versus vicariously excreted IV contrast.. No CT evidence of acute cholecystitis. PANCREAS: No CT evidence of acute pancreatitis. SPLEEN: No acute abnormality of the spleen identified. ADRENALS: No acute abnormality of the adrenal glands identified. KIDNEYS AND URETERS: No acute abnormality of the kidneys identified. No evidence of significant hydrouereteronephrosis. STOMACH AND BOWEL: Extensive pneumatosis involving the cecum and ascending colon again seen, increased in amount compared to the previous exam. Patient is status post gastric banding procedure. Gastric band apparatus appears grossly intact. Otherwise, no significant abnormality of the bowel is identified. No evidence of significant colonic wall thickening. No acute abnormality of the stomach or duodenum identified. No evidence of bowel obstruction. PELVIS: APPENDIX: Normal appendix is not seen, and there are postsurgical changes near the cecum, which are likely from prior appendectomy. Recommend clinical correlation. BLADDER: No acute abnormality of the bladder identified. REPRODUCTIVE:No acute abnormality of the reproductive organs is seen. No acute abnormality of the uterus identified. No evidence of large adnexal masses. ABDOMEN and PELVIS: INTRAPERITONEAL SPACE: Free intraperitoneal air is again seen in the abdomen, small to moderate amount, not significantly changed in amount compared to the prior CT. No evidence of significant free fluid. BONES/JOINTS: No acute fractures or other acute bony abnormality noted. SOFT TISSUES: No acute abnormality of the visualized soft tissues is seen. VASCULATURE: IVC filter in place. No evidence of abdominal aortic aneurysm or dissection. LYMPH NODES: No evidence of diffuse lymphadenopathy. IMPRESSION: - Compared to a CT done 2 days prior, there is increasing pneumatosis intestinalis involving the cecum and ascending colon. - Improving/decreased patchy consolidation in the lung bases bilaterally. - Otherwise, no significant change seen. - Persistent but stable free intraperitoneal air, compatible with a bowel perforation, in the absence of recent surgery. - See above for remaining findings.
[2018-05-03] MEDS: Albuterol-Ipratrop 3 mg / 0.5 (3 ml) UD INH SCH ×4 (01:09→19:54)
[2018-05-03] MEDS: Meropenem 1 GM in Sodium Chloride 0.9% 100 ML IVPB SCH ×3 (05:25→22:06)
[2018-05-03 06:45] LABS: BASO % 0.1 % (0.0-2.0); EOS # 0.1 K/uL (0.0-0.7); EOS % 0.5 % (0.0-4.0); HEMOGLOBIN 13.7 g/dL (11.0-16.0); LYMPH # 0.3 K/uL (1.0-4.3); LYMPH % 2.8 % (20.0-40.0); MEAN CELL VOLUME 80.3 fL (81.0-99.0); MEAN CORPUSCULAR HEMOGLOBIN 27.4 pg (27.0-31.0); MEAN CORPUSCULAR HGB CONC 34.2 g/dL (33.0-37.0); MEAN PLATELET VOLUME 6.8 fL (7.2-11.7); MONO # 0.3 K/uL (0.0-0.8); MONO % 2.7 % (0.0-10.0); NEUT # 9.8 K/uL (1.8-7.0); NEUT % 93.9 % (50.0-75.0); NRBC % 0.3 % (0.0-2.0); PLATELET COUNT 210 K/uL (130-400); RBC 4.99 Mil/uL (3.80-5.20); RED CELL DISTRIBUTION WIDTH 16.1 % (11.5-14.5); WHITE BLOOD COUNT 10.4 K/uL (4.8-10.8)
[2018-05-03 06:51] LABS: ALB/GLOB RATIO 1.1 (1.0-2.1); ALBUMIN 3.7 g/dL (3.5-5.0); ALT/SGPT 38 U/L (9-52); AST/SGOT 30 U/L (14-36); BLOOD UREA NITROGEN 19 mg/dL (7-17); GFR AFRICAN-AMERICAN > 60; GFR NON-AFRICAN AMERICAN > 60
[2018-05-03 08:53] LABS: ANISOCYTOSIS SLIGHT; BANDS 1 % (0-2); LYMPHOCYTE 1 % (20-40); MONOCYTE 1 % (0-10); NEUTROPHIL 97 % (50-75); PLATELET ESTIMATE NORMAL (NORMAL); TOTAL CELLS COUNTED 100
[2018-05-03 08:54] LABS: OVALOCYTES SLIGHT
[2018-05-03] MEDS: MethylPREDNISolone 40 mg Vial IVP SCH (09:56)
[2018-05-03] MEDS: Fluticasone Nasal 50 mcg/Spray NS SCH (10:00)
--- NOTE | 2018-05-03 11:10 | CP.PCM.PN ---
Subjective - Date & Time of Evaluation Date of Evaluation: 05/03/18 Time of Evaluation: 09:00 - Subjective Subjective: improving cont rx pneumonia / perf diverticulum? will need GI follow up for endoscopy when resolved Objective - Vital Signs/Intake and Output Vital Signs (last 24 hours): Temp Pulse Resp BP Pulse Ox 98.0 F 78 20 139/95 H 94 L 05/03/18 07:05 05/03/18 07:05 05/03/18 07:05 05/03/18 07:05 05/03/18 07:05 Intake and Output: 05/03/18 05/03/18 06:59 18:59 Intake Total 1567 Balance 1567 - Medications Medications: Current Medications Albuterol/Ipratropium (Duoneb 3 Mg/0.5 Mg (3 Ml) Ud) 3 ml INH RQ6 [facility] Last Admin: 05/03/18 07:55 Dose: 3 ml Fluticasone Propionate (Flonase) 1 spr NS DAILY [facility] Last Admin: 05/03/18 10:00 Dose: 1 spray Meropenem 1 gm/ Sodium (Chloride) 100 mls @ 100 mls/hr IVPB Q8H [facility] PRN Reason: Protocol Last Admin: 05/03/18 05:25 Dose: 100 mls/hr Lactated Ringer's (Lactated Ringer's) 1,000 mls @ 75 mls/hr IV .[id number] [facility] Last Admin: 05/02/18 14:23 Dose: 75 mls/hr Methylprednisolone (Solu-Medrol) 20 mg IVP Q12 [facility]OC Last Admin: 05/03/18 09:56 Dose: 20 mg Pantoprazole Sodium (Protonix Inj) 40 mg IVP DAILY [facility] Last Admin: 05/03/18 09:56 Dose: 40 mg - Labs Labs: 05/03/18 06:24 05/03/18 06:24 PT 13.3 SECONDS (9.7-12.2) H 05/02/18 16:49 INR 1.2 D 05/02/18 16:49 APTT 92 SECONDS (21-34) H D 05/03/18 06:24 - Constitutional Appears: Non-toxic, Chronically Ill - Head Exam Head Exam: NORMOCEPHALIC - Eye Exam Eye Exam: PERRL - ENT Exam ENT Exam: Mucous Membranes Dry - Neck Exam Neck Exam: absent: Lymphadenopathy - Respiratory Exam Respiratory Exam: Decreased Breath Sounds - Cardiovascular Exam Cardiovascular Exam: REGULAR RHYTHM - GI/Abdominal Exam GI & Abdominal Exam: Distended - Rectal Exam Rectal Exam: Deferred - Exam Exam: NORMAL INSPECTION Assessment and Plan (1) Intra-abdominal free air of unknown etiology Status: Acute - Assessment and Plan (Free Text) Assessment: cont rx pneumonia / perf diverticulum? will need GI follow up for endoscopy when resolved
[2018-05-03 12:20] LABS: INR 1.2; PROTHROMBIN TIME 13.2 SECONDS (9.7-12.2)
[2018-05-03] MEDS ORDERED: Propofol 10 mg/ml Inj (20 ML) ONE (14:51)
[2018-05-03] MEDS ORDERED: Midazolam 2 MG/2 ML VIAL ONE (14:51)
[2018-05-03] MEDS ORDERED: BUPIVACAINE 0.125%/0.9% NACL 600 ML IJ ONE ×2 (15:00)
[2018-05-03] MEDS ORDERED: metroNIDAZOLE IV 500 mg/100 ml 500 MG/100 ML BAG ONE (15:30)
[2018-05-03] MEDS ORDERED: ceFAZolin IV 2 gm in Dextrose 2 GM/50 ML BAG IVPB ONE (15:30)
[2018-05-03] MEDS ORDERED: Rocuronium 10 mg/ml (5 ml) ONE (15:57)
[2018-05-03] MEDS ORDERED: Morphine 4 MG/ML VIAL ONE (16:21)
[2018-05-03] MEDS ORDERED: Bupivacaine HCl 0.25% PF (30 ml) Inj ONE (16:56)
[2018-05-03] MEDS ORDERED: Phenylephrine 10 mg/ml Inj ONE (17:28)
[2018-05-03] MEDS ORDERED: Neostigmine Methylsulfate 3mg/3ml Syringe IV ONE (17:28)
--- NOTE | 2018-05-03 18:39 | PCM.SURG1 ---
Surgeon's Initial Post Op Note - Surgeon's Notes Surgeon: Dr. Brown Speed Reading Teacher: Elton Johnson PGY2, Carlos A PGY2 Type of Anesthesia: General Endo Pre-Operative Diagnosis: pneumatosis coli Operative Findings: pneumatosis coli Post-Operative Diagnosis: mesenteric air on R colon, gastric band Operation Performed: exploratoy laparotomy R hemicolectomy with anastomosis, omentectomy, Lysis of adhesion, On-Q placement Specimen/Specimens Removed: omentum, R colon Estimated Blood Loss: EBL {In ML}: 200 Blood Products Given: FFP Drains Used: Ari Post-Op Condition: Good Date of Surgery/Procedure: 05/03/18 Time of Surgery/Procedure: 18:40
[2018-05-03] MEDS: HYDROmorphone 0.5 mg/0.5 ml ISec IVP PRN ×4 (18:43→19:09)
[2018-05-03] MEDS ORDERED: Sodium Chloride 0.9% 500 ML IV ONE (19:00)
[2018-05-03] MEDS ORDERED: Acetaminophen IV 1,000 MG in Premixed IV 1 EA IV STA (19:13)
[2018-05-03] MEDS: Lactated Ringer's 1,000 ML IV SCH ×2 (20:05→20:55)
--- NOTE | 2018-05-03 21:39 | CP.PCM.CON ---
History of Present Illness - History of Present Illness History of Present Illness: 52-year-old female with h/o hypertension, hypercholesterolemia,Lupus disease,DVT , PE, status post IVC filter,Hypercoagulable state,Sleep apnea, fibromyalgia, Obesity (s/p lap band), bronchial asthma, non-resolving pneumonia. admitted with free air under the diaphragm as seen on CXR & subsequent CT scan .Patient had right robles-colectomy ,lysis of adhesions and omentectomy today. c/o back pain(chronic) Review of Systems - Constitutional Constitutional: absent: Chills, Fever - EENT Eyes: absent: Blurred Vision, Itchy Eyes Ears: absent: Decreased Hearing Nose/Mouth/Throat: absent: Nasal Discharge, Neck Pain - Cardiovascular Cardiovascular: absent: Chest Pain, Dyspnea, Leg Edema - Respiratory Respiratory: absent: Cough, Dyspnea - Gastrointestinal Gastrointestinal: Abdominal Pain. absent: Nausea, Vomiting - Genitourinary Genitourinary: absent: Dysuria - Musculoskeletal Musculoskeletal: Back Pain - Integumentary Integumentary: absent: Bleeding Lesions, Swelling - Neurological Neurological: absent: Dizziness - Endocrine Endocrine: absent: Polydipsia, Polyphagia Past Patient History - Infectious Disease Hx of Infectious Diseases: None - Tetanus Immunizations Tetanus Immunization: Up to Date - Past Medical History & Family History Past Medical History?: Yes - Past Social History Smoking Status: Never Smoked - CARDIAC Hx Hypertension: Yes Hx Peripheral Edema: Yes - PULMONARY Hx Asthma: Yes Hx Bronchitis: Yes Hx Pneumonia: Yes ("multiple times") Hx Pulmonary Embolism: Yes (2011) Hx Sleep Apnea: Yes - NEUROLOGICAL Hx Migraine: Yes - HEENT Hx HEENT Problems: Yes Other/Comment: wear glasses for vision - RENAL Hx Chronic Kidney Disease: No - ENDOCRINE/METABOLIC Hx Endocrine Disorders: Yes Hx Systemic Lupus Erythematosus: Yes (w/ antibody) - HEMATOLOGICAL/ONCOLOGICAL Hx Blood Disorders: No - INTEGUMENTARY Hx Dermatological Problems: Yes Other/Comment: discoploration of lower legs/pigmentation - MUSCULOSKELETAL/RHEUMATOLOGICAL Hx Arthritis: Yes - GASTROINTESTINAL Hx Gastrointestinal Disorders: Yes Hx Gastroesophageal Reflux: Yes - GENITOURINARY/GYNECOLOGICAL Hx Genitourinary Disorders: Yes Hx Incontinence: Yes (OVER ACTIVE BLADDER) - PSYCHIATRIC Hx Depression: Yes (post depression) Hx Substance Use: No - SURGICAL HISTORY Hx Appendectomy: Yes - ANESTHESIA Hx Anesthesia: Yes Hx Anesthesia Reactions: No Hx Malignant Hyperthermia: No Meds Allergies/Adverse Reactions: Allergies Allergy/AdvReac Type Severity Reaction Status Date / Time No Known Allergies Allergy Verified 04/29/18 23:30 - Medications Medications: Current Medications Acetaminophen (Tylenol 650 Mg Supp) 650 mg FL Q4 PRN PRN Reason: Fever >100.4 F Albuterol/Ipratropium (Duoneb 3 Mg/0.5 Mg (3 Ml) Ud) 3 ml INH RQ6 [facility] Last Admin: 05/03/18 19:54 Dose: Not Given Enoxaparin Sodium (Lovenox) 40 mg SC DAILY [facility] Fluticasone Propionate (Flonase) 1 spr NS DAILY [facility] Last Admin: 05/03/18 10:00 Dose: 1 spray Hydromorphone HCl (Dilaudid) 1 mg IVP Q4H PRN PRN Reason: Pain, severe (8-10) Meropenem 1 gm/ Sodium (Chloride) 100 mls @ 100 mls/hr IVPB Q8H [facility] PRN Reason: Protocol Last Admin: 05/03/18 13:37 Dose: 100 mls/hr BUPIVACAINE 0.125%/0.9% NACL (Bupivacaine-Ns 0.125% On-Q Fortune Teller) 600 mls @ 4 mls/ hr IJ ONCE ONE Stop: 05/09/18 20:59 BUPIVACAINE 0.125%/0.9% NACL (Bupivacaine-Ns 0.125% On-Q Fortune Teller) 600 mls @ 4 mls/ hr IJ ONCE ONE Stop: 05/09/18 20:59 Lactated Ringer's (Lactated Ringer's) 1,000 mls @ 125 mls/hr IV .Q8H [facility] Last Admin: 05/03/18 20:55 Dose: 125 mls/hr Methylprednisolone (Solu-Medrol) 20 mg IVP DAILY [facility] Pantoprazole Sodium (Protonix Inj) 40 mg IVP DAILY [facility] Last Admin: 05/03/18 09:56 Dose: 40 mg Physical Exam - Constitutional Appears: No Acute Distress - Head Exam Head Exam: ATRAUMATIC, NORMAL INSPECTION, NORMOCEPHALIC - Eye Exam Eye Exam: EOMI, PERRL Pupil Exam: NORMAL ACCOMODATION - Neck Exam Neck exam: Positive for: Full Rom, Normal Inspection - Respiratory Exam Respiratory Exam: Clear to Auscultation Bilateral, NORMAL BREATHING PATTERN - Cardiovascular Exam Cardiovascular Exam: REGULAR RHYTHM - GI/Abdominal Exam GI & Abdominal Exam: Soft Additional comments: tender in surgical area,no bowel sounds - Extremities Exam Extremities exam: Positive for: normal inspection. Negative for: pedal edema - Back Exam Back exam: NORMAL INSPECTION - Neurological Exam Neurological exam: Alert, Oriented x3 - Skin Skin Exam: Normal Color Results - Vital Signs Recent Vital Signs: Last Vital Signs Temp 98 F 05/03/18 20:00 Pulse 99 H 05/03/18 20:30 Resp 16 05/03/18 20:30 BP 120/74 05/03/18 20:22 Pulse Ox 98 05/03/18 20:30 - Labs Result Diagrams: 05/03/18 06:24 05/03/18 06:24 Labs: Laboratory Results - last 24 hr 05/03/18 05/03/18 05/03/18 06:24 06:24 06:24 WBC 10.4 D RBC 4.99 Hgb 13.7 Hct 40.1 MCV 80.3 L MCH 27.4 MCHC 34.2 RDW 16.1 H Plt Count 210 MPV 6.8 L Neut % (Auto) 93.9 H Lymph % (Auto) 2.8 L [place] % (Auto) 2.7 Eos % (Auto) 0.5 Baso % (Auto) 0.1 Neut # (Auto) 9.8 H Lymph # (Auto) 0.3 L [place] # (Auto) 0.3 Eos # (Auto) 0.1 Baso # (Auto) 0.0 Neutrophils % (Manual) 97 H Band Neutrophils % 1 Lymphocytes % (Manual) 1 L Monocytes % (Manual) 1 Platelet Estimate Normal Anisocytosis (manual) Slight Ovalocytes Slight PT INR APTT 92 H D Sodium 136 Potassium 4.3 Chloride 96 L Carbon Dioxide 28 Anion Gap 16 BUN 19 H Creatinine 0.7 Est GFR ( Amer) > 60 Est GFR (Non-Af Amer) > 60 Random Glucose 88 Calcium 9.0 Total Bilirubin 1.4 H AST 30 ALT 38 Alkaline Phosphatase 54 Total Protein 7.1 Albumin 3.7 Globulin 3.4 Albumin/Globulin Ratio 1.1 Beta HCG, Quant < 2.39 Blood Type Antibody Screen 05/03/18 05/03/18 10:14 12:09 WBC RBC Hgb Hct MCV MCH MCHC RDW Plt Count MPV Neut % (Auto) Lymph % (Auto) [place] % (Auto) Eos % (Auto) Baso % (Auto) Neut # (Auto) Lymph # (Auto) [place] # (Auto) Eos # (Auto) Baso # (Auto) Neutrophils % (Manual) Band Neutrophils % Lymphocytes % (Manual) Monocytes % (Manual) Platelet Estimate Anisocytosis (manual) Ovalocytes PT 13.2 H INR 1.2 APTT 34 D Sodium Potassium Chloride Carbon Dioxide Anion Gap BUN Creatinine Est GFR ( Amer) Est GFR (Non-Af Amer) Random Glucose Calcium Total Bilirubin AST ALT Alkaline Phosphatase Total Protein Albumin Globulin Albumin/Globulin Ratio Beta HCG, Quant Blood Type B POSITIVE Antibody Screen Negative - Imaging and Cardiology Chest x-ray Status: Image reviewed by me, Report reviewed by me Assessment & Plan - Assessment and Plan (Free Text) Assessment: 1.52F with incidental finding of free air as seen on CXR & subsequent CT scan had Right hemicolectomy today IVF pain meds continue antibiotics 2.HTN/Hyperlipidemia monitor BP.pt NPO 3.Lupus disease ,hypercoagulable state with h/o DVT and PE Was on coumadin.will need to restart anticoagulation tomorrow. 4.Obesity/lapband 5.Asthma/pneumonia bronchodilators,antibiotics
[2018-05-03 22:30] LABS: BASO # 0.2 K/uL (0.0-0.2); BASO % 0.6 % (0.0-2.0); HEMOGLOBIN 13.2 g/dL (11.0-16.0); LYMPH # 0.2 K/uL (1.0-4.3); LYMPH % 0.6 % (20.0-40.0); MEAN CELL VOLUME 80.7 fL (81.0-99.0); MEAN CORPUSCULAR HEMOGLOBIN 26.8 pg (27.0-31.0); MEAN CORPUSCULAR HGB CONC 33.2 g/dL (33.0-37.0); MEAN PLATELET VOLUME 6.5 fL (7.2-11.7); MONO # 1.3 K/uL (0.0-0.8); MONO % 5.2 % (0.0-10.0); NEUT # 24.5 K/uL (1.8-7.0); NEUT % 93.6 % (50.0-75.0); PLATELET COUNT 155 K/uL (130-400); RBC 4.92 Mil/uL (3.80-5.20); RED CELL DISTRIBUTION WIDTH 16.2 % (11.5-14.5); WHITE BLOOD COUNT 26.2 K/uL (4.8-10.8)
[2018-05-03 22:44] LABS: ALB/GLOB RATIO 1.1 (1.0-2.1); ALBUMIN 3.5 g/dL (3.5-5.0); ALT/SGPT 41 U/L (9-52); AST/SGOT 30 U/L (14-36); BLOOD UREA NITROGEN 20 mg/dL (7-17); CALCIUM 8.6 mg/dl (8.6-10.4); GFR AFRICAN-AMERICAN > 60; GFR NON-AFRICAN AMERICAN > 60
[2018-05-03 22:54] LABS: ANISOCYTOSIS SLIGHT; LYMPHOCYTE 1 % (20-40); MONOCYTE 4 % (0-10); NEUTROPHIL 95 % (50-75); PLATELET ESTIMATE NORMAL (NORMAL); TOTAL CELLS COUNTED 100
[2018-05-03 22:55] LABS: MICROCYTOSIS SLIGHT; POIKILOCYTOSIS SLIGHT
--- NOTE | 2018-05-03 22:55 | CP.PCM.PN ---
Subjective - Date & Time of Evaluation Date of Evaluation: 05/02/18 Time of Evaluation: 22:54 - Subjective Subjective: Patient has no symptoms yet. She has no nausea vomiting. But feeling hungry. Also having bowel movements very small amount. Currently on heparin drip. Repeat chest x-ray, abdominal x-ray showing evidence of air under diaphragm, and pneumatosis involving the right side of the colon. Repeat CAT scan is currently pending. Depending upon the CAT scan report patient will be scheduled to have surgical intervention possibly tomorrow. I spoke to the patient, and also surgery team Objective - Vital Signs/Intake and Output Vital Signs (last 24 hours): Temp Pulse Resp BP Pulse Ox 98 F 99 H 16 120/74 98 05/03/18 20:00 05/03/18 20:30 05/03/18 20:30 05/03/18 20:22 05/03/18 20:30 Intake and Output: 05/03/18 05/04/18 18:59 06:59 Intake Total 2100 460 Output Total 415 210 Balance 1685 250 - Medications Medications: Current Medications Acetaminophen (Tylenol 650 Mg Supp) [address] Q4 PRN PRN Reason: Fever >100.4 F Albuterol/Ipratropium (Duoneb 3 Mg/0.5 Mg (3 Ml) Ud) 3 ml INH RQ6 [facility] Last Admin: 05/03/18 19:54 Dose: Not Given Enoxaparin Sodium (Lovenox) 40 mg SC DAILY [facility] Fluticasone Propionate (Flonase) 1 spr NS DAILY [facility] Last Admin: 05/03/18 10:00 Dose: 1 spray Hydromorphone HCl (Dilaudid) 1 mg IVP Q4H PRN PRN Reason: Pain, severe (8-10) Meropenem 1 gm/ Sodium (Chloride) 100 mls @ 100 mls/hr IVPB Q8H [facility] PRN Reason: Protocol Last Admin: 05/03/18 22:06 Dose: 100 mls/hr BUPIVACAINE 0.125%/0.9% NACL (Bupivacaine-Ns 0.125% On-Q Wreath Maker) 600 mls @ 4 mls/ hr IJ ONCE ONE Stop: 05/09/18 20:59 BUPIVACAINE 0.125%/0.9% NACL (Bupivacaine-Ns 0.125% On-Q Wreath Maker) 600 mls @ 4 mls/ hr IJ ONCE ONE Stop: 05/09/18 20:59 Lactated Ringer's (Lactated Ringer's) 1,000 mls @ 125 mls/hr IV .Q8H [facility] Last Admin: 05/03/18 20:55 Dose: 125 mls/hr Methylprednisolone (Solu-Medrol) 20 mg IVP DAILY [facility] Pantoprazole Sodium (Protonix Inj) 40 mg IVP DAILY [facility] Last Admin: 05/03/18 09:56 Dose: 40 mg - Labs Labs: 05/03/18 22:31 05/03/18 22:20 PT 13.2 SECONDS (9.7-12.2) H 05/03/18 12:09 INR 1.2 05/03/18 12:09 APTT 34 SECONDS (21-34) D 05/03/18 12:09
--- NOTE | 2018-05-03 22:56 | CP.PCM.PN ---
Subjective - Date & Time of Evaluation Date of Evaluation: 05/03/18 Time of Evaluation: 22:55 - Subjective Subjective: Patient today underwent a right hemicolectomy, and anastomosis. During the surgery patient had some minimal blood loss. I spoke to the surgeon. Postoperatively patient was in the PACU. Complaining of increasing lower back pain. But no abdominal pain noted. Vital signs stable. NG tube in place. Patient is making urine. Currently the anticoagulation is off until the surgery is clears in the morning. Patient will be closely monitored in the intensive care unit because of the ongoing multiple medical problems including pneumonia, lupus lung disease, and hypertension, sleep apnea. Will closely monitor and will follow the patient Objective - Vital Signs/Intake and Output Vital Signs (last 24 hours): Temp Pulse Resp BP Pulse Ox 98 F 99 H 16 120/74 98 05/03/18 20:00 05/03/18 20:30 05/03/18 20:30 05/03/18 20:22 05/03/18 20:30 Intake and Output: 05/03/18 05/04/18 18:59 06:59 Intake Total 2100 460 Output Total 415 210 Balance 1685 250 - Medications Medications: Current Medications Acetaminophen (Tylenol 650 Mg Supp) 650 mg [place] Q4 PRN PRN Reason: Fever >100.4 F Albuterol/Ipratropium (Duoneb 3 Mg/0.5 Mg (3 Ml) Ud) 3 ml INH RQ6 [facility] Last Admin: 05/03/18 19:54 Dose: Not Given Enoxaparin Sodium (Lovenox) 40 mg SC DAILY [facility] Fluticasone Propionate (Flonase) 1 spr NS DAILY [facility] Last Admin: 05/03/18 10:00 Dose: 1 spray Hydromorphone HCl (Dilaudid) 1 mg IVP Q4H PRN PRN Reason: Pain, severe (8-10) Meropenem 1 gm/ Sodium (Chloride) 100 mls @ 100 mls/hr IVPB Q8H [facility] PRN Reason: Protocol Last Admin: 05/03/18 22:06 Dose: 100 mls/hr BUPIVACAINE 0.125%/0.9% NACL (Bupivacaine-Ns 0.125% On-Q Lodge Attendant) 600 mls @ 4 mls/ hr IJ ONCE ONE Stop: 05/09/18 20:59 BUPIVACAINE 0.125%/0.9% NACL (Bupivacaine-Ns 0.125% On-Q Lodge Attendant) 600 mls @ 4 mls/ hr IJ ONCE ONE Stop: 05/09/18 20:59 Lactated Ringer's (Lactated Ringer's) 1,000 mls @ 125 mls/hr IV .Q8H [facility] Last Admin: 05/03/18 20:55 Dose: 125 mls/hr Methylprednisolone (Solu-Medrol) 20 mg IVP DAILY [facility] Pantoprazole Sodium (Protonix Inj) 40 mg IVP DAILY [facility] Last Admin: 05/03/18 09:56 Dose: 40 mg - Labs Labs: 05/03/18 22:31 05/03/18 22:20 PT 13.2 SECONDS (9.7-12.2) H 05/03/18 12:09 INR 1.2 05/03/18 12:09 APTT 34 SECONDS (21-34) D 05/03/18 12:09
[2018-05-04] MEDS ORDERED: Acetaminophen IV 1,000 MG in Premixed IV 1 EA IV ONE (01:14)
[2018-05-04] MEDS: Albuterol-Ipratrop 3 mg / 0.5 (3 ml) UD INH SCH ×4 (01:39→19:51)
[2018-05-04] MEDS: HYDROmorphone 1 mg/ml ISec IVP PRN ×4 (02:25→20:00)
[2018-05-04] MEDS: Lactated Ringer's 1,000 ML IV SCH ×4 (05:45→19:30)
[2018-05-04] MEDS: Meropenem 1 GM in Sodium Chloride 0.9% 100 ML IVPB SCH ×3 (05:59→22:00)
[2018-05-04 06:16] LABS: SQUAMOUS EPITHIAL < 1 /hpf (0-5); URINE BILIRUBIN NEGATIVE (NEGATIVE); URINE BLOOD 1+ (NEGATIVE); URINE CLARITY Hazy (Clear); URINE COLOR Amber (YELLOW); URINE GLUCOSE (UA) NORMAL (Normal); URINE HYALINE CAST 0-2 /lpf (0-2); URINE LEUKOCYTE ESTERASE NEG Leu/uL (Negative); URINE PROTEIN NEGATIVE (NEGATIVE); URINE UROBILINOGEN NORMAL mg/dL (0.2-1.0)
[2018-05-04 06:22] LABS: BASO % 0.2 % (0.0-2.0); EOS # 0.2 K/uL (0.0-0.7); EOS % 1.1 % (0.0-4.0); HEMOGLOBIN 12.6 g/dL (11.0-16.0); LYMPH # 0.5 K/uL (1.0-4.3); LYMPH % 3.6 % (20.0-40.0); MEAN CELL VOLUME 81.4 fL (81.0-99.0); MEAN CORPUSCULAR HEMOGLOBIN 27.1 pg (27.0-31.0); MEAN CORPUSCULAR HGB CONC 33.4 g/dL (33.0-37.0); MEAN PLATELET VOLUME 6.5 fL (7.2-11.7); MONO # 0.9 K/uL (0.0-0.8); MONO % 6.5 % (0.0-10.0); NEUT # 12.9 K/uL (1.8-7.0); NEUT % 88.6 % (50.0-75.0); PLATELET COUNT 136 K/uL (130-400); RBC 4.64 Mil/uL (3.80-5.20); RED CELL DISTRIBUTION WIDTH 16.5 % (11.5-14.5); WHITE BLOOD COUNT 14.5 K/uL (4.8-10.8)
[2018-05-04 06:37] LABS: ALB/GLOB RATIO 1.1 (1.0-2.1); ALBUMIN 3.3 g/dL (3.5-5.0); ALT/SGPT 32 U/L (9-52); AST/SGOT 32 U/L (14-36); BLOOD UREA NITROGEN 18 mg/dL (7-17); CALCIUM 8.5 mg/dl (8.6-10.4); GFR AFRICAN-AMERICAN > 60; GFR NON-AFRICAN AMERICAN > 60
--- NOTE | 2018-05-04 06:51 | OP ---
PROCEDURE DATE: 05/03/2018 PREOPERATIVE DIAGNOSES: 1. Pneumatosis of right colon. 2. Chronic steroid therapy. 3. Lupus. 4. Morbid obesity, status post gastric band placement. 5. Open umbilical hernia repair with a mesh. PROCEDURES DONE: 1. Exploratory laparotomy. 2. Right hemicolectomy. 3. Omentectomy. 4. Extensive enterolysis and lysis of adhesion. 5. Removal of old mesh, partial. 6. On-Q pain catheter pump placement. POSTOPERATIVE DIAGNOSES: 1. Pneumatosis of right colon. 2. Chronic steroid therapy. 3. Lupus. 4. Morbid obesity, status post gastric band placement. 5. Open umbilical hernia repair with a mesh. 6. Extensive postoperative adhesion in the midline from previous hernia surgery. SURGEON: Karlos Brown MD ANESTHESIA: General endotracheal tube anesthesia. ESTIMATED BLOOD LOSS: Around 200 mL. DRAINS: A 19-Martiniquais Ari drain was placed. COMPLICATIONS: None. PATHOLOGY: 1. The right side of the colon with a part of the ileum was sent for the pathology. 2. Omentum. 3. Part of the old mesh, was sent to the pathology. INTRAOPERATIVE FINDINGS: The patient had pneumatosis of the cecum as well as ascending colon. The patient also had extensive post operative adhesions due to the previous gastric band as well as the open umbilical hernia, and the patient has extensive adhesion of the small bowel as well as omentum to the entry of the abdominal wall. An extensive lysis of adhesion was done. The gastric band appeared to be intact, and it was from other intestine, and it was placed back into the position. Intraop bariatric surgery consult was called for Gastric band. Dr. Da Silva saw pt and advised not to do anything with band at present and leave it as it is. DESCRIPTION OF THE PROCEDURE: On intraoperative steps, this is a 52-year-old female who was diagnosed with pneumatosis of the colon and after initial conservative management, the repeat CT scan was suggestive of increase in the pneumatosis of the colon, and the patient was consented for exploratory laparotomy. the colon resection, possible ostomy, brought to the OR, placed supine on the operating table. After induction of anesthesia, the abdomen was prepped and draped in the usual sterile fashion. The midline laparotomy incision was made after incising the skin, subcutaneous tissue, and the fascia. The peritoneal cavity was entered. The patient was found to have extensive omental adhesion as well as small bowel adhesion. An extensive enterolysis was done. The first part of the mesh was removed, and now the Bookwalter retractor was applied. The cecum appeared to be extremely thick and edematous, and there was air in the wall of the cecum as well as ascending colon. The first right colon was mobilized. The lesser sac mobilization of the colon was also done. The omentum was resected,and then the transverse colon was resected by MILAGROS. The small bowel was resected with MILAGROS at the level of ilium, and the mesocolon was resected with LigaSure. The small bowel to transverse colon anastomosis was done with the MILAGROS. The anastomosis was viable. There was a good blood supply and was not in tension. After proper anastomosis, the abdominal cavity was washed out. A 19-Martiniquais Ari drain was placed. The peritoneal cavity was closed after placement of the On-Q pain catheters on the both sides. After that, the peritoneal cavity was closed with #1 PDS as well as 0 Prolene interrupted suture. The wound was packed, and a dry sterile dressing was applied. Karlos Brown MD SAAD
[2018-05-04 08:08] LABS: BANDS 2 % (0-2); EOSINOPHIL 3 % (0-4); LYMPHOCYTE 6 % (20-40); MONOCYTE 8 % (0-10); NEUTROPHIL 81 % (50-75); TOTAL CELLS COUNTED 100
[2018-05-04 08:09] LABS: ANISOCYTOSIS SLIGHT; PLATELET ESTIMATE NORMAL (NORMAL)
[2018-05-04] MEDS ORDERED: MethylPREDNISolone 40 mg Vial IVP SCH (10:00)
[2018-05-04] MEDS: Fluticasone Nasal 50 mcg/Spray NS SCH (10:26)
--- NOTE | 2018-05-04 10:27 | CP.CCUPN ---
<Janki Velasquez - Last Filed: 05/04/18 10:42> CCU Subjective - Physician Review Subjective (Free Text): Patient was seen and examined at bedside. NGT in place with minimum output. POD #1, S/P exploratory laparotomy R hemicolectomy with anastomosis, omentectomy, Lysis of adhesion, On-Q placement, with KENIA drain in place. CCU Objective - Vital Signs / Intake & Output Vital Signs (Last 4 hours): Vital Signs Pulse Resp BP Pulse Ox 05/04/18 08:00 78 12 98 05/04/18 07:56 75 12 150/76 98 05/04/18 07:00 80 12 97 05/04/18 06:56 76 11 L 148/76 97 Intake and Output (Last 8hrs): Intake & Output 05/03/18 05/04/18 05/04/18 22:59 06:59 14:59 Intake Total 1560 1125 Output Total 625 460 Balance 935 665 Weight 220 lb 7.396 oz Intake: IV 1100 Intake, IV Amount 250 1125 Right Upper arm 250 1125 Blood Product 210 Output: Drainage 25 35 Right Abdomen 35 Urine 600 325 Urethral (Moran) 100 325 Other 100 - Physical Exam Head: Positive for: Atraumatic, Normocephalic Pupils: Positive for: PERRL Extroacular Muscles: Positive for: EOMI Conjunctiva: Positive for: Normal Mouth: Positive for: Moist Mucous Membranes, Other (NGT in place ) Pharnyx: Positive for: Normal Nose (Internal): Positive for: Normal Inspection Neck: Positive for: Normal Range of Motion Respiratory/Chest: Positive for: Clear to Auscultation. Negative for: Wheezes Cardiovascular: Positive for: Regular Rate and Rhythm, Normal S1, S2. Negative for: Murmurs Abdomen: Positive for: Normal Bowel Sounds. Negative for: Tenderness Upper Extremity: Positive for: Normal Inspection, Normal ROM, NORMAL PULSES Lower Extremity: Positive for: Normal Inspection, NORMAL PULSES Neurological: Positive for: GCS=15, CN II-XII Intact Skin: Positive for: Warm, Dry, Normal Color Psychiatric: Positive for: Alert, Oriented x 3 - Medications Active Medications: Active Medications Generic Name Dose Route Start Last Admin Trade Name Freq PRN Reason Stop Dose Admin Acetaminophen 650 mg 05/04/18 09:54 Tylenol 325mg Tab PO Q6 PRN Pain, Mild (1-3) Albuterol/Ipratropium 3 ml 04/30/18 11:45 05/04/18 08:57 Duoneb 3 Mg/0.5 Mg (3 Ml) Ud INH Not Given RQ6 ENOC Enoxaparin Sodium 40 mg 05/05/18 10:00 Lovenox SC DAILY ENOC Fluticasone Propionate 1 spr 04/30/18 10:00 05/03/18 10:00 Flonase NS 1 spray DAILY ENOC Administration Hydromorphone HCl 1 mg 05/03/18 18:45 05/04/18 09:11 Dilaudid IVP 1 mg Q4H PRN Administration Pain, severe (8-10) Meropenem 1 gm/ Sodium 100 mls @ 100 mls/hr 04/30/18 14:30 05/04/18 05:59 Chloride IVPB 100 mls/hr Q8H ENOC Administration Protocol BUPIVACAINE 0.125%/0.9% NACL 600 mls @ 4 mls/hr 05/03/18 15:00 Bupivacaine-Ns 0.125% On-Q Inspector Missile IJ 05/09/18 20:59 ONCE ONE BUPIVACAINE 0.125%/0.9% NACL 600 mls @ 4 mls/hr 05/03/18 15:00 Bupivacaine-Ns 0.125% On-Q Inspector Missile IJ 05/09/18 20:59 ONCE ONE Lactated Ringer's 1,000 mls @ 125 mls/hr 05/03/18 19:24 05/04/18 05:50 Lactated Ringer's IV 125 mls/hr .Q8H ENOC Administration Methylprednisolone 20 mg 05/04/18 10:00 05/04/18 09:14 Solu-Medrol IVP 20 mg DAILY ENOC Administration Pantoprazole Sodium 40 mg 04/30/18 10:00 05/04/18 09:13 Protonix Inj IVP 40 mg DAILY ENOC Administration - Patient Studies Lab Studies: Lab Studies 05/04/18 05/04/18 05/04/18 Range/Units 06:14 06:13 06:09 WBC 14.5 H (4.8-10.8) K/uL RBC 4.64 (3.80-5.20) Mil/uL Hgb 12.6 (11.0-16.0) g/dL Hct 37.8 (34.0-47.0) % MCV 81.4 (81.0-99.0) fL MCH 27.1 (27.0-31.0) pg MCHC 33.4 (33.0-37.0) g/dL RDW 16.5 H (11.5-14.5) % Plt Count 136 (130-400) K/uL MPV 6.5 L (7.2-11.7) fL Neut % (Auto) 88.6 H (50.0-75.0) % Lymph % (Auto) 3.6 L (20.0-40.0) % [place] % (Auto) 6.5 (0.0-10.0) % Eos % (Auto) 1.1 (0.0-4.0) % Baso % (Auto) 0.2 (0.0-2.0) % Neut # (Auto) 12.9 H (1.8-7.0) K/uL Lymph # (Auto) 0.5 L (1.0-4.3) K/uL [place] # (Auto) 0.9 H (0.0-0.8) K/uL Eos # (Auto) 0.2 (0.0-0.7) K/uL Baso # (Auto) 0.0 (0.0-0.2) K/uL Neutrophils % (Manual) 81 H (50-75) % Band Neutrophils % 2 (0-2) % Lymphocytes % (Manual) 6 L (20-40) % Monocytes % (Manual) 8 (0-10) % Eosinophils % (Manual) 3 (0-4) % Platelet Estimate Normal (NORMAL) Poikilocytosis (manual Anisocytosis (manual) Slight Microcytosis (manual) PT (9.7-12.2) SECONDS INR APTT (21-34) SECONDS Sodium 137 (132-148) mmol/L Potassium 4.2 (3.6-5.2) mmol/L Chloride 98 (98-107) mmol/L Carbon Dioxide 28 (22-30) mmol/L Anion Gap 15 (10-20) BUN 18 H (7-17) mg/dL Creatinine 0.6 L (0.7-1.2) mg/dL Est GFR ( Amer) > 60 Est GFR (Non-Af Amer) > 60 Random Glucose 98 (65-105) mg/dL Calcium 8.5 L (8.6-10.4) mg/dl Phosphorus 2.9 (2.5-4.5) mg/dL Magnesium 2.0 (1.6-2.3) mg/dL Total Bilirubin 1.2 (0.2-1.3) mg/dL AST 32 (14-36) U/L ALT 32 (9-52) U/L Alkaline Phosphatase 42 (38-126) U/L Total Protein 6.3 (6.3-8.3) g/dL Albumin 3.3 L (3.5-5.0) g/dL Globulin 3.0 (2.2-3.9) gm/dL Albumin/Globulin Ratio 1.1 (1.0-2.1) Beta HCG, Quant mIU/ML Urine Color Josseline (YELLOW) Urine Clarity Hazy (Clear) Urine pH 5.0 (5.0-8.0) Ur Specific Premier 1.034 H (1.003-1.030) Urine Protein Negative (NEGATIVE) mg/dL Urine Glucose (UA) Normal (Normal) mg/dL Urine Ketones 1+ H (NEGATIVE) mg/dL Urine Blood 1+ H (NEGATIVE) Urine Nitrate Negative (NEGATIVE) Urine Bilirubin Negative (NEGATIVE) Urine Urobilinogen Normal (0.2-1.0) mg/dL Ur Leukocyte Esterase Neg (Negative) Rufino/uL Urine WBC (Auto) 1 (0-5) /hpf Urine RBC (Auto) 10 H (0-3) /hpf Ur Squamous Epith Cells < 1 (0-5) /hpf Hyaline Casts 0-2 (0-2) /lpf Blood Type Antibody Screen 05/03/18 05/03/18 05/03/18 Range/Units 22:31 22:20 12:09 WBC 26.2 H D (4.8-10.8) K/uL RBC 4.92 (3.80-5.20) Mil/uL Hgb 13.2 (11.0-16.0) g/dL Hct 39.7 (34.0-47.0) % MCV 80.7 L (81.0-99.0) fL MCH 26.8 L (27.0-31.0) pg MCHC 33.2 (33.0-37.0) g/dL RDW 16.2 H (11.5-14.5) % Plt Count 155 (130-400) K/uL MPV 6.5 L (7.2-11.7) fL Neut % (Auto) 93.6 H (50.0-75.0) % Lymph % (Auto) 0.6 L (20.0-40.0) % [place] % (Auto) 5.2 (0.0-10.0) % Eos % (Auto) 0.0 (0.0-4.0) % Baso % (Auto) 0.6 (0.0-2.0) % Neut # (Auto) 24.5 H (1.8-7.0) K/uL Lymph # (Auto) 0.2 L (1.0-4.3) K/uL [place] # (Auto) 1.3 H (0.0-0.8) K/uL Eos # (Auto) 0.0 (0.0-0.7) K/uL Baso # (Auto) 0.2 (0.0-0.2) K/uL Neutrophils % (Manual) 95 H (50-75) % Band Neutrophils % (0-2) % Lymphocytes % (Manual) 1 L (20-40) % Monocytes % (Manual) 4 (0-10) % Eosinophils % (Manual) (0-4) % Platelet Estimate Normal (NORMAL) Poikilocytosis (manual Slight Anisocytosis (manual) Slight Microcytosis (manual) Slight PT 13.2 H (9.7-12.2) SECONDS INR 1.2 APTT 34 D (21-34) SECONDS Sodium 134 (132-148) mmol/L Potassium 4.4 (3.6-5.2) mmol/L Chloride 98 (98-107) mmol/L Carbon Dioxide 24 (22-30) mmol/L Anion Gap 16 (10-20) BUN 20 H (7-17) mg/dL Creatinine 0.8 (0.7-1.2) mg/dL Est GFR ( Amer) > 60 Est GFR (Non-Af Amer) > 60 Random Glucose 124 H (65-105) mg/dL Calcium 8.6 (8.6-10.4) mg/dl Phosphorus (2.5-4.5) mg/dL Magnesium 1.8 (1.6-2.3) mg/dL Total Bilirubin 1.1 (0.2-1.3) mg/dL AST 30 (14-36) U/L ALT 41 (9-52) U/L Alkaline Phosphatase 50 (38-126) U/L Total Protein 6.7 (6.3-8.3) g/dL Albumin 3.5 (3.5-5.0) g/dL Globulin 3.2 (2.2-3.9) gm/dL Albumin/Globulin Ratio 1.1 (1.0-2.1) Beta HCG, Quant mIU/ML Urine Color (YELLOW) Urine Clarity (Clear) Urine pH (5.0-8.0) Ur Specific Premier (1.003-1.030) Urine Protein (NEGATIVE) mg/dL Urine Glucose (UA) (Normal) mg/dL Urine Ketones (NEGATIVE) mg/dL Urine Blood (NEGATIVE) Urine Nitrate (NEGATIVE) Urine Bilirubin (NEGATIVE) Urine Urobilinogen (0.2-1.0) mg/dL Ur Leukocyte Esterase (Negative) Rufino/uL Urine WBC (Auto) (0-5) /hpf Urine RBC (Auto) (0-3) /hpf Ur Squamous Epith Cells (0-5) /hpf Hyaline Casts (0-2) /lpf Blood Type Antibody Screen 05/03/18 05/03/18 Range/Units 10:14 06:24 WBC (4.8-10.8) K/uL RBC (3.80-5.20) Mil/uL Hgb (11.0-16.0) g/dL Hct (34.0-47.0) % MCV (81.0-99.0) fL MCH (27.0-31.0) pg MCHC (33.0-37.0) g/dL RDW (11.5-14.5) % Plt Count (130-400) K/uL MPV (7.2-11.7) fL Neut % (Auto) (50.0-75.0) % Lymph % (Auto) (20.0-40.0) % [place] % (Auto) (0.0-10.0) % Eos % (Auto) (0.0-4.0) % Baso % (Auto) (0.0-2.0) % Neut # (Auto) (1.8-7.0) K/uL Lymph # (Auto) (1.0-4.3) K/uL [place] # (Auto) (0.0-0.8) K/uL Eos # (Auto) (0.0-0.7) K/uL Baso # (Auto) (0.0-0.2) K/uL Neutrophils % (Manual) (50-75) % Band Neutrophils % (0-2) % Lymphocytes % (Manual) (20-40) % Monocytes % (Manual) (0-10) % Eosinophils % (Manual) (0-4) % Platelet Estimate (NORMAL) Poikilocytosis (manual Anisocytosis (manual) Microcytosis (manual) PT (9.7-12.2) SECONDS INR APTT (21-34) SECONDS Sodium 136 (132-148) mmol/L Potassium 4.3 (3.6-5.2) mmol/L Chloride 96 L (98-107) mmol/L Carbon Dioxide 28 (22-30) mmol/L Anion Gap 16 (10-20) BUN 19 H (7-17) mg/dL Creatinine 0.7 (0.7-1.2) mg/dL Est GFR ( Amer) > 60 Est GFR (Non-Af Amer) > 60 Random Glucose 88 (65-105) mg/dL Calcium 9.0 (8.6-10.4) mg/dl Phosphorus (2.5-4.5) mg/dL Magnesium (1.6-2.3) mg/dL Total Bilirubin 1.4 H (0.2-1.3) mg/dL AST 30 (14-36) U/L ALT 38 (9-52) U/L Alkaline Phosphatase 54 (38-126) U/L Total Protein 7.1 (6.3-8.3) g/dL Albumin 3.7 (3.5-5.0) g/dL Globulin 3.4 (2.2-3.9) gm/dL Albumin/Globulin Ratio 1.1 (1.0-2.1) Beta HCG, Quant < 2.39 mIU/ML Urine Color (YELLOW) Urine Clarity (Clear) Urine pH (5.0-8.0) Ur Specific Premier (1.003-1.030) Urine Protein (NEGATIVE) mg/dL Urine Glucose (UA) (Normal) mg/dL Urine Ketones (NEGATIVE) mg/dL Urine Blood (NEGATIVE) Urine Nitrate (NEGATIVE) Urine Bilirubin (NEGATIVE) Urine Urobilinogen (0.2-1.0) mg/dL Ur Leukocyte Esterase (Negative) Rufino/uL Urine WBC (Auto) (0-5) /hpf Urine RBC (Auto) (0-3) /hpf Ur Squamous Epith Cells (0-5) /hpf Hyaline Casts (0-2) /lpf Blood Type B POSITIVE Antibody Screen Negative Laboratory Results - last 24 hr 05/03/18 05/03/18 05/03/18 06:24 10:14 12:09 WBC RBC Hgb Hct MCV MCH MCHC RDW Plt Count MPV Neut % (Auto) Lymph % (Auto) [place] % (Auto) Eos % (Auto) Baso % (Auto) Neut # (Auto) Lymph # (Auto) [place] # (Auto) Eos # (Auto) Baso # (Auto) Neutrophils % (Manual) Band Neutrophils % Lymphocytes % (Manual) Monocytes % (Manual) Eosinophils % (Manual) Platelet Estimate Poikilocytosis (manual Anisocytosis (manual) Microcytosis (manual) PT 13.2 H INR 1.2 APTT 34 D Sodium 136 Potassium 4.3 Chloride 96 L Carbon Dioxide 28 Anion Gap 16 BUN 19 H Creatinine 0.7 Est GFR ( Amer) > 60 Est GFR (Non-Af Amer) > 60 Random Glucose 88 Calcium 9.0 Phosphorus Magnesium Total Bilirubin 1.4 H AST 30 ALT 38 Alkaline Phosphatase 54 Total Protein 7.1 Albumin 3.7 Globulin 3.4 Albumin/Globulin Ratio 1.1 Beta HCG, Quant < 2.39 Urine Color Urine Clarity Urine pH Ur Specific Premier Urine Protein Urine Glucose (UA) Urine Ketones Urine Blood Urine Nitrate Urine Bilirubin Urine Urobilinogen Ur Leukocyte Esterase Urine WBC (Auto) Urine RBC (Auto) Ur Squamous Epith Cells Hyaline Casts Blood Type B POSITIVE Antibody Screen Negative 05/03/18 05/03/18 05/04/18 22:20 22:31 06:09 WBC 26.2 H D RBC 4.92 Hgb 13.2 Hct 39.7 MCV 80.7 L MCH 26.8 L MCHC 33.2 RDW 16.2 H Plt Count 155 MPV 6.5 L Neut % (Auto) 93.6 H Lymph % (Auto) 0.6 L [place] % (Auto) 5.2 Eos % (Auto) 0.0 Baso % (Auto) 0.6 Neut # (Auto) 24.5 H Lymph # (Auto) 0.2 L [place] # (Auto) 1.3 H Eos # (Auto) 0.0 Baso # (Auto) 0.2 Neutrophils % (Manual) 95 H Band Neutrophils % Lymphocytes % (Manual) 1 L Monocytes % (Manual) 4 Eosinophils % (Manual) Platelet Estimate Normal Poikilocytosis (manual Slight Anisocytosis (manual) Slight Microcytosis (manual) Slight PT INR APTT Sodium 134 Potassium 4.4 Chloride 98 Carbon Dioxide 24 Anion Gap 16 BUN 20 H Creatinine 0.8 Est GFR ( Amer) > 60 Est GFR (Non-Af Amer) > 60 Random Glucose 124 H Calcium 8.6 Phosphorus Magnesium 1.8 Total Bilirubin 1.1 AST 30 ALT 41 Alkaline Phosphatase 50 Total Protein 6.7 Albumin 3.5 Globulin 3.2 Albumin/Globulin Ratio 1.1 Beta HCG, Quant Urine Color Josseline Urine Clarity Hazy Urine pH 5.0 Ur Specific Premier 1.034 H Urine Protein Negative Urine Glucose (UA) Normal Urine Ketones 1+ H Urine Blood 1+ H Urine Nitrate Negative Urine Bilirubin Negative Urine Urobilinogen Normal Ur Leukocyte Esterase Neg Urine WBC (Auto) 1 Urine RBC (Auto) 10 H Ur Squamous Epith Cells < 1 Hyaline Casts 0-2 Blood Type Antibody Screen 05/04/18 05/04/18 06:13 06:14 WBC 14.5 H RBC 4.64 Hgb 12.6 Hct 37.8 MCV 81.4 MCH 27.1 MCHC 33.4 RDW 16.5 H Plt Count 136 MPV 6.5 L Neut % (Auto) 88.6 H Lymph % (Auto) 3.6 L [place] % (Auto) 6.5 Eos % (Auto) 1.1 Baso % (Auto) 0.2 Neut # (Auto) 12.9 H Lymph # (Auto) 0.5 L [place] # (Auto) 0.9 H Eos # (Auto) 0.2 Baso # (Auto) 0.0 Neutrophils % (Manual) 81 H Band Neutrophils % 2 Lymphocytes % (Manual) 6 L Monocytes % (Manual) 8 Eosinophils % (Manual) 3 Platelet Estimate Normal Poikilocytosis (manual Anisocytosis (manual) Slight Microcytosis (manual) PT INR APTT Sodium 137 Potassium 4.2 Chloride 98 Carbon Dioxide 28 Anion Gap 15 BUN 18 H Creatinine 0.6 L Est GFR ( Amer) > 60 Est GFR (Non-Af Amer) > 60 Random Glucose 98 Calcium 8.5 L Phosphorus 2.9 Magnesium 2.0 Total Bilirubin 1.2 AST 32 ALT 32 Alkaline Phosphatase 42 Total Protein 6.3 Albumin 3.3 L Globulin 3.0 Albumin/Globulin Ratio 1.1 Beta HCG, Quant Urine Color Urine Clarity Urine pH Ur Specific Premier Urine Protein Urine Glucose (UA) Urine Ketones Urine Blood Urine Nitrate Urine Bilirubin Urine Urobilinogen Ur Leukocyte Esterase Urine WBC (Auto) Urine RBC (Auto) Ur Squamous Epith Cells Hyaline Casts Blood Type Antibody Screen Critical Care Progress Note - Nutrition Nutrition: Nutrition Category Date Time Status NPO Diet [DIET] Diets 04/30/18 Breakfast Active Assessment/Plan - Assessment and Plan (Free Text) Plan: This is a 52 year old female with PMHx of HTN, HLD, Lupus, DVT, PE, s/p IVC filter, SANJANA, Fibromyalgia, Obesity, Bronchial Asthma, Hypercoagulable, non- resolving PNA (x 1-2 months) on CXR found to have free air under the diaphragm. CT abdomen/pelvis: evidence of pneumatosis involving the right side of the colon, free air under diaphragm. POD #1 s/p exploratoy laparotomy R hemicolectomy with anastomosis, omentectomy, Lysis of adhesion, On-Q placement on 05/03/18 POD #1, S/P exploratory laparotomy R hemicolectomy with anastomosis, omentectomy, Lysis of adhesion, On-Q placement, with KENIA drain in place. Patient takes coumadin at home will need to resume. Disposition: Patient transferred to med/ surg. Janki Bailey Dr., DO, PGY-1 <Wally Ramirez - Last Filed: 05/04/18 18:19> CCU Objective - Vital Signs / Intake & Output Intake and Output (Last 8hrs): Intake & Output 05/04/18 05/04/18 05/04/18 06:59 14:59 22:59 Intake Total 1125 850 Output Total 460 345 Balance 665 505 Weight 220 lb 7.396 oz Intake: Intake, IV Amount 1125 850 Right Upper arm 1125 850 Output: Drainage 35 Right Abdomen 35 Urine 325 345 Urethral (Moran) 325 345 Urine, Voided 0 Other 100 Other: # Voids Urine, Voided 1 - Medications Active Medications: Active Medications Generic Name Dose Route Start Last Admin Trade Name Freq PRN Reason Stop Dose Admin Acetaminophen 650 mg 05/04/18 09:54 Tylenol 325mg Tab PO Q6 PRN Pain, Mild (1-3) Albuterol/Ipratropium 3 ml 04/30/18 11:45 05/04/18 13:20 Duoneb 3 Mg/0.5 Mg (3 Ml) Ud INH 3 ml RQ6 ENOC Administration Enoxaparin Sodium 40 mg 05/05/18 10:00 Lovenox SC DAILY ENOC Fluticasone Propionate 1 spr 04/30/18 10:00 05/04/18 10:26 Flonase NS 1 spray DAILY ENOC Administration Hydromorphone HCl 1 mg 05/03/18 18:45 05/04/18 13:36 Dilaudid IVP 1 mg Q4H PRN Administration Pain, severe (8-10) Meropenem 1 gm/ Sodium 100 mls @ 100 mls/hr 04/30/18 14:30 05/04/18 13:34 Chloride IVPB 100 mls/hr Q8H ENOC Administration Protocol BUPIVACAINE 0.125%/0.9% NACL 600 mls @ 4 mls/hr 05/03/18 15:00 Bupivacaine-Ns 0.125% On-Q Inspector Missile IJ 05/09/18 20:59 ONCE ONE BUPIVACAINE 0.125%/0.9% NACL 600 mls @ 4 mls/hr 05/03/18 15:00 Bupivacaine-Ns 0.125% On-Q Inspector Missile IJ 05/09/18 20:59 ONCE ONE Lactated Ringer's 1,000 mls @ 125 mls/hr 05/03/18 19:24 05/04/18 17:21 Lactated Ringer's IV 125 mls/hr .Q8H ENOC Administration Methylprednisolone 20 mg 05/04/18 10:00 05/04/18 09:14 Solu-Medrol IVP 20 mg DAILY ENOC Administration Ondansetron HCl 4 mg 05/04/18 16:57 Zofran Inj IVP Q4 PRN Nausea/Vomiting Pantoprazole Sodium 40 mg 04/30/18 10:00 05/04/18 09:13 Protonix Inj IVP 40 mg DAILY ENOC Administration - Patient Studies Lab Studies: Lab Studies 05/04/18 05/04/18 05/04/18 Range/Units 06:14 06:13 06:09 WBC 14.5 H (4.8-10.8) K/uL RBC 4.64 (3.80-5.20) Mil/uL Hgb 12.6 (11.0-16.0) g/dL Hct 37.8 (34.0-47.0) % MCV 81.4 (81.0-99.0) fL MCH 27.1 (27.0-31.0) pg MCHC 33.4 (33.0-37.0) g/dL RDW 16.5 H (11.5-14.5) % Plt Count 136 (130-400) K/uL MPV 6.5 L (7.2-11.7) fL Neut % (Auto) 88.6 H (50.0-75.0) % Lymph % (Auto) 3.6 L (20.0-40.0) % [place] % (Auto) 6.5 (0.0-10.0) % Eos % (Auto) 1.1 (0.0-4.0) % Baso % (Auto) 0.2 (0.0-2.0) % Neut # (Auto) 12.9 H (1.8-7.0) K/uL Lymph # (Auto) 0.5 L (1.0-4.3) K/uL [place] # (Auto) 0.9 H (0.0-0.8) K/uL Eos # (Auto) 0.2 (0.0-0.7) K/uL Baso # (Auto) 0.0 (0.0-0.2) K/uL Neutrophils % (Manual) 81 H (50-75) % Band Neutrophils % 2 (0-2) % Lymphocytes % (Manual) 6 L (20-40) % Monocytes % (Manual) 8 (0-10) % Eosinophils % (Manual) 3 (0-4) % Platelet Estimate Normal (NORMAL) Poikilocytosis (manual Anisocytosis (manual) Slight Microcytosis (manual) Sodium 137 (132-148) mmol/L Potassium 4.2 (3.6-5.2) mmol/L Chloride 98 (98-107) mmol/L Carbon Dioxide 28 (22-30) mmol/L Anion Gap 15 (10-20) BUN 18 H (7-17) mg/dL Creatinine 0.6 L (0.7-1.2) mg/dL Est GFR ( Amer) > 60 Est GFR (Non-Af Amer) > 60 Random Glucose 98 (65-105) mg/dL Calcium 8.5 L (8.6-10.4) mg/dl Phosphorus 2.9 (2.5-4.5) mg/dL Magnesium 2.0 (1.6-2.3) mg/dL Total Bilirubin 1.2 (0.2-1.3) mg/dL AST 32 (14-36) U/L ALT 32 (9-52) U/L Alkaline Phosphatase 42 (38-126) U/L Total Protein 6.3 (6.3-8.3) g/dL Albumin 3.3 L (3.5-5.0) g/dL Globulin 3.0 (2.2-3.9) gm/dL Albumin/Globulin Ratio 1.1 (1.0-2.1) Urine Color Josseline (YELLOW) Urine Clarity Hazy (Clear) Urine pH 5.0 (5.0-8.0) Ur Specific Premier 1.034 H (1.003-1.030) Urine Protein Negative (NEGATIVE) mg/dL Urine Glucose (UA) Normal (Normal) mg/dL Urine Ketones 1+ H (NEGATIVE) mg/dL Urine Blood 1+ H (NEGATIVE) Urine Nitrate Negative (NEGATIVE) Urine Bilirubin Negative (NEGATIVE) Urine Urobilinogen Normal (0.2-1.0) mg/dL Ur Leukocyte Esterase Neg (Negative) Rufino/uL Urine WBC (Auto) 1 (0-5) /hpf Urine RBC (Auto) 10 H (0-3) /hpf Ur Squamous Epith Cells < 1 (0-5) /hpf Hyaline Casts 0-2 (0-2) /lpf 05/03/18 05/03/18 Range/Units 22:31 22:20 WBC 26.2 H D (4.8-10.8) K/uL RBC 4.92 (3.80-5.20) Mil/uL Hgb 13.2 (11.0-16.0) g/dL Hct 39.7 (34.0-47.0) % MCV 80.7 L (81.0-99.0) fL MCH 26.8 L (27.0-31.0) pg MCHC 33.2 (33.0-37.0) g/dL RDW 16.2 H (11.5-14.5) % Plt Count 155 (130-400) K/uL MPV 6.5 L (7.2-11.7) fL Neut % (Auto) 93.6 H (50.0-75.0) % Lymph % (Auto) 0.6 L (20.0-40.0) % [place] % (Auto) 5.2 (0.0-10.0) % Eos % (Auto) 0.0 (0.0-4.0) % Baso % (Auto) 0.6 (0.0-2.0) % Neut # (Auto) 24.5 H (1.8-7.0) K/uL Lymph # (Auto) 0.2 L (1.0-4.3) K/uL [place] # (Auto) 1.3 H (0.0-0.8) K/uL Eos # (Auto) 0.0 (0.0-0.7) K/uL Baso # (Auto) 0.2 (0.0-0.2) K/uL Neutrophils % (Manual) 95 H (50-75) % Band Neutrophils % (0-2) % Lymphocytes % (Manual) 1 L (20-40) % Monocytes % (Manual) 4 (0-10) % Eosinophils % (Manual) (0-4) % Platelet Estimate Normal (NORMAL) Poikilocytosis (manual Slight Anisocytosis (manual) Slight Microcytosis (manual) Slight Sodium 134 (132-148) mmol/L Potassium 4.4 (3.6-5.2) mmol/L Chloride 98 (98-107) mmol/L Carbon Dioxide 24 (22-30) mmol/L Anion Gap 16 (10-20) BUN 20 H (7-17) mg/dL Creatinine 0.8 (0.7-1.2) mg/dL Est GFR ( Amer) > 60 Est GFR (Non-Af Amer) > 60 Random Glucose 124 H (65-105) mg/dL Calcium 8.6 (8.6-10.4) mg/dl Phosphorus (2.5-4.5) mg/dL Magnesium 1.8 (1.6-2.3) mg/dL Total Bilirubin 1.1 (0.2-1.3) mg/dL AST 30 (14-36) U/L ALT 41 (9-52) U/L Alkaline Phosphatase 50 (38-126) U/L Total Protein 6.7 (6.3-8.3) g/dL Albumin 3.5 (3.5-5.0) g/dL Globulin 3.2 (2.2-3.9) gm/dL Albumin/Globulin Ratio 1.1 (1.0-2.1) Urine Color (YELLOW) Urine Clarity (Clear) Urine pH (5.0-8.0) Ur Specific Premier (1.003-1.030) Urine Protein (NEGATIVE) mg/dL Urine Glucose (UA) (Normal) mg/dL Urine Ketones (NEGATIVE) mg/dL Urine Blood (NEGATIVE) Urine Nitrate (NEGATIVE) Urine Bilirubin (NEGATIVE) Urine Urobilinogen (0.2-1.0) mg/dL Ur Leukocyte Esterase (Negative) Ruf[place]/uL Urine WBC (Auto) (0-5) /hpf Urine RBC (Auto) (0-3) /hpf Ur Squamous Epith Cells (0-5) /hpf Hyaline Casts (0-2) /lpf Laboratory Results - last 24 hr 05/03/18 05/03/18 05/04/18 22:20 22:31 06:09 WBC 26.2 H D RBC 4.92 Hgb 13.2 Hct 39.7 MCV 80.7 L MCH 26.8 L MCHC 33.2 RDW 16.2 H Plt Count 155 MPV 6.5 L Neut % (Auto) 93.6 H Lymph % (Auto) 0.6 L [place] % (Auto) 5.2 Eos % (Auto) 0.0 Baso % (Auto) 0.6 Neut # (Auto) 24.5 H Lymph # (Auto) 0.2 L [place] # (Auto) 1.3 H Eos # (Auto) 0.0 Baso # (Auto) 0.2 Neutrophils % (Manual) 95 H Band Neutrophils % Lymphocytes % (Manual) 1 L Monocytes % (Manual) 4 Eosinophils % (Manual) Platelet Estimate Normal Poikilocytosis (manual Slight Anisocytosis (manual) Slight Microcytosis (manual) Slight Sodium 134 Potassium 4.4 Chloride 98 Carbon Dioxide 24 Anion Gap 16 BUN 20 H Creatinine 0.8 Est GFR ( Amer) > 60 Est GFR (Non-Af Amer) > 60 Random Glucose 124 H Calcium 8.6 Phosphorus Magnesium 1.8 Total Bilirubin 1.1 AST 30 ALT 41 Alkaline Phosphatase 50 Total Protein 6.7 Albumin 3.5 Globulin 3.2 Albumin/Globulin Ratio 1.1 Urine Color Josseline Urine Clarity Hazy Urine pH 5.0 Ur Specific Premier 1.034 H Urine Protein Negative Urine Glucose (UA) Normal Urine Ketones 1+ H Urine Blood 1+ H Urine Nitrate Negative Urine Bilirubin Negative Urine Urobilinogen Normal Ur Leukocyte Esterase Neg Urine WBC (Auto) 1 Urine RBC (Auto) 10 H Ur Squamous Epith Cells < 1 Hyaline Casts 0-2 05/04/18 05/04/18 06:13 06:14 WBC 14.5 H RBC 4.64 Hgb 12.6 Hct 37.8 MCV 81.4 MCH 27.1 MCHC 33.4 RDW 16.5 H Plt Count 136 MPV 6.5 L Neut % (Auto) 88.6 H Lymph % (Auto) 3.6 L [place] % (Auto) 6.5 Eos % (Auto) 1.1 Baso % (Auto) 0.2 Neut # (Auto) 12.9 H Lymph # (Auto) 0.5 L [place] # (Auto) 0.9 H Eos # (Auto) 0.2 Baso # (Auto) 0.0 Neutrophils % (Manual) 81 H Band Neutrophils % 2 Lymphocytes % (Manual) 6 L Monocytes % (Manual) 8 Eosinophils % (Manual) 3 Platelet Estimate Normal Poikilocytosis (manual Anisocytosis (manual) Slight Microcytosis (manual) Sodium 137 Potassium 4.2 Chloride 98 Carbon Dioxide 28 Anion Gap 15 BUN 18 H Creatinine 0.6 L Est GFR ( Amer) > 60 Est GFR (Non-Af Amer) > 60 Random Glucose 98 Calcium 8.5 L Phosphorus 2.9 Magnesium 2.0 Total Bilirubin 1.2 AST 32 ALT 32 Alkaline Phosphatase 42 Total Protein 6.3 Albumin 3.3 L Globulin 3.0 Albumin/Globulin Ratio 1.1 Urine Color Urine Clarity Urine pH Ur Specific Premier Urine Protein Urine Glucose (UA) Urine Ketones Urine Blood Urine Nitrate Urine Bilirubin Urine Urobilinogen Ur Leukocyte Esterase Urine WBC (Auto) Urine RBC (Auto) Ur Squamous Epith Cells Hyaline Casts Critical Care Progress Note - Nutrition Nutrition: Nutrition Category Date Time Status NPO Diet [DIET] Diets 04/30/18 Breakfast Active Attending/Attestation - Attestation I have personally seen and examined this patient.: Yes I have fully participated in the care of the patient.: Yes I have reviewed all pertinent clinical information: Yes Notes (Text): 05/04/18 18:18 patient seen and examined in the intensive care unit. POD #1, S/P exploratory laparotomy R hemicolectomy with anastomosis, omentectomy , Lysis of adhesion, On-Q placement, with KENIA drain in place. sTABLE FOR TRANSFER TO FLOOR Start heparin drip from tomorrow
--- NOTE | 2018-05-04 17:01 | CP.PCM.PN ---
<AlexElton - Last Filed: 05/04/18 16:58> Subjective - Date & Time of Evaluation Date of Evaluation: 05/04/18 Time of Evaluation: 16:58 - Subjective Subjective: Surgery Pt seen and examined. Pt underwent surgery yesterday. Tolerated it well. Pain controlled. Denies nausea. + amb. No flatus. Objective - Vital Signs/Intake and Output Vital Signs (last 24 hours): Temp Pulse Resp BP Pulse Ox 97.7 F 105 H 16 159/102 H 98 05/04/18 12:00 05/04/18 14:00 05/04/18 14:00 05/04/18 13:56 05/04/18 12:00 Intake and Output: 05/04/18 05/04/18 06:59 18:59 Intake Total 1585 850 Output Total 670 345 Balance 915 505 - Medications Medications: Current Medications Acetaminophen (Tylenol 325mg Tab) 650 mg PO Q6 PRN PRN Reason: Pain, Mild (1-3) Albuterol/Ipratropium (Duoneb 3 Mg/0.5 Mg (3 Ml) Ud) 3 ml INH RQ6 [facility] Last Admin: 05/04/18 13:20 Dose: 3 ml Enoxaparin Sodium (Lovenox) 40 mg SC DAILY [facility] Fluticasone Propionate (Flonase) 1 spr NS DAILY [facility] Last Admin: 05/04/18 10:26 Dose: 1 spray Hydromorphone HCl (Dilaudid) 1 mg IVP Q4H PRN PRN Reason: Pain, severe (8-10) Last Admin: 05/04/18 13:36 Dose: 1 mg Meropenem 1 gm/ Sodium (Chloride) 100 mls @ 100 mls/hr IVPB Q8H [facility] PRN Reason: Protocol Last Admin: 05/04/18 13:34 Dose: 100 mls/hr BUPIVACAINE 0.125%/0.9% NACL (Bupivacaine-Ns 0.125% On-Q Caustic Room Operator) 600 mls @ 4 mls/ hr IJ ONCE ONE Stop: 05/09/18 20:59 BUPIVACAINE 0.125%/0.9% NACL (Bupivacaine-Ns 0.125% On-Q Caustic Room Operator) 600 mls @ 4 mls/ hr IJ ONCE ONE Stop: 05/09/18 20:59 Lactated Ringer's (Lactated Ringer's) 1,000 mls @ 125 mls/hr IV .Q8H [facility] Last Admin: 05/04/18 05:50 Dose: 125 mls/hr Methylprednisolone (Solu-Medrol) 20 mg IVP DAILY [facility] Last Admin: 05/04/18 09:14 Dose: 20 mg Ondansetron HCl (Zofran Inj) 4 mg IVP Q4 PRN PRN Reason: Nausea/Vomiting Pantoprazole Sodium (Protonix Inj) 40 mg IVP DAILY [facility] Last Admin: 05/04/18 09:13 Dose: 40 mg - Labs Labs: 05/04/18 06:14 05/04/18 06:13 PT 13.2 SECONDS (9.7-12.2) H 05/03/18 12:09 INR 1.2 05/03/18 12:09 APTT 34 SECONDS (21-34) D 05/03/18 12:09 - Constitutional Appears: No Acute Distress - Head Exam Head Exam: ATRAUMATIC, NORMAL INSPECTION, NORMOCEPHALIC - Eye Exam Eye Exam: EOMI, Normal appearance, PERRL Pupil Exam: NORMAL ACCOMODATION, PERRL - ENT Exam ENT Exam: Mucous Membranes Moist, Normal Exam - Neck Exam Neck Exam: Full ROM, Normal Inspection. absent: Lymphadenopathy - Respiratory Exam Respiratory Exam: Clear to Ausculation Bilateral, NORMAL BREATHING PATTERN - Cardiovascular Exam Cardiovascular Exam: REGULAR RHYTHM, +S1, +S2. absent: Murmur - GI/Abdominal Exam GI & Abdominal Exam: Soft, Tenderness, Normal Bowel Sounds. absent: Distended, Firm, Guarding, Rigid Additional comments: TTP. Dressing in place. Drain in place. 60cc ss - Extremities Exam Extremities Exam: Full ROM, Normal Capillary Refill, Normal Inspection. absent : Joint Swelling, Pedal Edema - Back Exam Back Exam: NORMAL INSPECTION - Neurological Exam Neurological Exam: Alert, Awake, CN II-XII Intact, Normal Gait, Oriented x3 - Psychiatric Exam Psychiatric exam: Normal Affect, Normal Mood - Skin Skin Exam: Dry, Intact, Normal Color, Warm Assessment and Plan - Assessment and Plan (Free Text) Assessment: POD 1 s/p ex lap R colectomy -NGT DCed -NPO -Awaiting bowel function -Medical management EMMANUEL Huddleston <Karlos Brown B - Last Filed: 05/04/18 20:20> Objective - Vital Signs/Intake and Output Vital Signs (last 24 hours): Temp Pulse Resp BP Pulse Ox 97.7 F 105 H 16 159/102 H 98 05/04/18 12:00 05/04/18 14:00 05/04/18 14:00 05/04/18 13:56 05/04/18 12:00 Intake and Output: 05/04/18 05/05/18 18:59 06:59 Intake Total 1350 125 Output Total 490 Balance 860 125 - Medications Medications: Current Medications Acetaminophen (Tylenol 325mg Tab) 650 mg PO Q6 PRN PRN Reason: Pain, Mild (1-3) Albuterol/Ipratropium (Duoneb 3 Mg/0.5 Mg (3 Ml) Ud) 3 ml INH RQ6 [facility] Last Admin: 05/04/18 19:51 Dose: 3 ml Enoxaparin Sodium (Lovenox) 40 mg SC DAILY [facility] Fluticasone Propionate (Flonase) 1 spr NS DAILY [facility] Last Admin: 05/04/18 10:26 Dose: 1 spray Hydromorphone HCl (Dilaudid) 1 mg IVP Q4H PRN PRN Reason: Pain, severe (8-10) Last Admin: 05/04/18 20:00 Dose: 1 mg Meropenem 1 gm/ Sodium (Chloride) 100 mls @ 100 mls/hr IVPB Q8H [facility] PRN Reason: Protocol Last Admin: 05/04/18 13:34 Dose: 100 mls/hr BUPIVACAINE 0.125%/0.9% NACL (Bupivacaine-Ns 0.125% On-Q Caustic Room Operator) 600 mls @ 4 mls/ hr IJ ONCE ONE Stop: 05/09/18 20:59 BUPIVACAINE 0.125%/0.9% NACL (Bupivacaine-Ns 0.125% On-Q Caustic Room Operator) 600 mls @ 4 mls/ hr IJ ONCE ONE Stop: 05/09/18 20:59 Lactated Ringer's (Lactated Ringer's) 1,000 mls @ 125 mls/hr IV .Q8H [facility] Last Admin: 05/04/18 19:30 Dose: Not Given Methylprednisolone (Solu-Medrol) 20 mg IVP DAILY [facility] Last Admin: 05/04/18 09:14 Dose: 20 mg Ondansetron HCl (Zofran Inj) 4 mg IVP Q4 PRN PRN Reason: Nausea/Vomiting Pantoprazole Sodium (Protonix Inj) 40 mg IVP DAILY [facility] Last Admin: 05/04/18 09:13 Dose: 40 mg - Labs Labs: 05/04/18 06:14 05/04/18 06:13 PT 13.2 SECONDS (9.7-12.2) H 05/03/18 12:09 INR 1.2 05/03/18 12:09 APTT 34 SECONDS (21-34) D 05/03/18 12:09 Attending/Attestation - Attestation I have personally seen and examined this patient.: Yes I have fully participated in the care of the patient.: Yes I have reviewed all pertinent clinical information, including history, physical exam and plan: Yes Notes (Text): Pt was seen and examined at bedside Agree with above note and assessment Pt is improving clinically DC NG, Moran Start Heparin drip tomorrow OOB NPO, IVF Plan d.w pt in detail Risk and benefit explained in detail.
--- NOTE | 2018-05-04 18:25 | CP.PCM.PN ---
Subjective - Date & Time of Evaluation Date of Evaluation: 05/04/18 Time of Evaluation: 09:00 - Subjective Subjective: POD #1, S/P exploratory laparotomy R hemicolectomy with anastomosis, omentectomy, Lysis of adhesion, On-Q placement, with KENIA drain in place. Objective - Vital Signs/Intake and Output Vital Signs (last 24 hours): Temp Pulse Resp BP Pulse Ox 97.7 F 105 H 16 159/102 H 98 05/04/18 12:00 05/04/18 14:00 05/04/18 14:00 05/04/18 13:56 05/04/18 12:00 Intake and Output: 05/04/18 05/04/18 06:59 18:59 Intake Total 1585 850 Output Total 670 345 Balance 915 505 - Medications Medications: Current Medications Acetaminophen (Tylenol 325mg Tab) 650 mg PO Q6 PRN PRN Reason: Pain, Mild (1-3) Albuterol/Ipratropium (Duoneb 3 Mg/0.5 Mg (3 Ml) Ud) 3 ml INH RQ6 [facility] Last Admin: 05/04/18 13:20 Dose: 3 ml Enoxaparin Sodium (Lovenox) 40 mg SC DAILY [facility] Fluticasone Propionate (Flonase) 1 spr NS DAILY [facility] Last Admin: 05/04/18 10:26 Dose: 1 spray Hydromorphone HCl (Dilaudid) 1 mg IVP Q4H PRN PRN Reason: Pain, severe (8-10) Last Admin: 05/04/18 13:36 Dose: 1 mg Meropenem 1 gm/ Sodium (Chloride) 100 mls @ 100 mls/hr IVPB Q8H [facility] PRN Reason: Protocol Last Admin: 05/04/18 13:34 Dose: 100 mls/hr BUPIVACAINE 0.125%/0.9% NACL (Bupivacaine-Ns 0.125% On-Q Construction Laborer) 600 mls @ 4 mls/ hr IJ ONCE ONE Stop: 05/09/18 20:59 BUPIVACAINE 0.125%/0.9% NACL (Bupivacaine-Ns 0.125% On-Q Construction Laborer) 600 mls @ 4 mls/ hr IJ ONCE ONE Stop: 05/09/18 20:59 Lactated Ringer's (Lactated Ringer's) 1,000 mls @ 125 mls/hr IV .Q8H [facility] Last Admin: 05/04/18 17:21 Dose: 125 mls/hr Methylprednisolone (Solu-Medrol) 20 mg IVP DAILY [facility] Last Admin: 05/04/18 09:14 Dose: 20 mg Ondansetron HCl (Zofran Inj) 4 mg IVP Q4 PRN PRN Reason: Nausea/Vomiting Pantoprazole Sodium (Protonix Inj) 40 mg IVP DAILY [facility] Last Admin: 05/04/18 09:13 Dose: 40 mg - Labs Labs: 05/04/18 06:14 05/04/18 06:13 PT 13.2 SECONDS (9.7-12.2) H 05/03/18 12:09 INR 1.2 05/03/18 12:09 APTT 34 SECONDS (21-34) D 05/03/18 12:09 - Constitutional Appears: Non-toxic, Chronically Ill - Head Exam Head Exam: NORMOCEPHALIC - Eye Exam Eye Exam: absent: Scleral icterus - ENT Exam ENT Exam: Mucous Membranes Dry - Neck Exam Neck Exam: absent: Lymphadenopathy - Respiratory Exam Respiratory Exam: Decreased Breath Sounds - Cardiovascular Exam Cardiovascular Exam: REGULAR RHYTHM - GI/Abdominal Exam GI & Abdominal Exam: Distended - Rectal Exam Rectal Exam: Deferred - Exam Exam: NORMAL INSPECTION - Extremities Exam Extremities Exam: absent: Pedal Edema - Back Exam Back Exam: absent: CVA tenderness (L), CVA tenderness (R) - Neurological Exam Neurological Exam: Awake - Psychiatric Exam Psychiatric exam: Depressed Assessment and Plan (1) Intra-abdominal free air of unknown etiology Status: Acute - Assessment and Plan (Free Text) Assessment: POD #1, S/P exploratory laparotomy R hemicolectomy with anastomosis, omentectomy, Lysis of adhesion, On-Q placement, with KENIA drain in place.
--- NOTE | 2018-05-04 22:36 | CP.PCM.PN ---
Subjective - Date & Time of Evaluation Date of Evaluation: 05/04/18 Time of Evaluation: 22:34 - Subjective Subjective: Patient postoperative day one. Status post a right hemicolectomy. Currently patient is feeling much better, she is sitting up. Making urine. Patient denies any nausea vomiting. Still having no bowel habits or bowel movements. On IV fluid. On pain management. Patient has a less cough. On examination: Vital signs stable. Chest good air entry. Regular heart sound. Postoperative abdomen. Edema bilaterally 1+ noted Labs noted normal. Spoke to the surgery team. Patient is currently off heparin drip . As per surgery heparin drip can be resumed tomorrow. Assessment and recommendation: 52-year-old female with a history of lupus. Disease, hypercoagulable state on heparin drip. Admitted with the nonspecific colon distention. Pneumatosis. Impending perforation, status post right hemicolectomy. Currently doing well. Continue to monitor. Labs. Possible restarting heparin drip tomorrow. Bronchodilator and will follow-up the patient Objective - Vital Signs/Intake and Output Vital Signs (last 24 hours): Temp Pulse Resp BP Pulse Ox 97.7 F 105 H 16 159/102 H 98 05/04/18 12:00 05/04/18 14:00 05/04/18 14:00 05/04/18 13:56 05/04/18 12:00 Intake and Output: 05/04/18 05/05/18 18:59 06:59 Intake Total 1350 125 Output Total 490 Balance 860 125 - Medications Medications: Current Medications Acetaminophen (Tylenol 325mg Tab) 650 mg PO Q6 PRN PRN Reason: Pain, Mild (1-3) Albuterol/Ipratropium (Duoneb 3 Mg/0.5 Mg (3 Ml) Ud) 3 ml INH RQ6 [facility] Last Admin: 05/04/18 19:51 Dose: 3 ml Enoxaparin Sodium (Lovenox) 40 mg SC DAILY [facility] Fluticasone Propionate (Flonase) 1 spr NS DAILY [facility] Last Admin: 05/04/18 10:26 Dose: 1 spray Hydromorphone HCl (Dilaudid) 1 mg IVP Q4H PRN PRN Reason: Pain, severe (8-10) Last Admin: 05/04/18 20:00 Dose: 1 mg Meropenem 1 gm/ Sodium (Chloride) 100 mls @ 100 mls/hr IVPB Q8H [facility] PRN Reason: Protocol Last Admin: 05/04/18 22:00 Dose: 100 mls/hr BUPIVACAINE 0.125%/0.9% NACL (Bupivacaine-Ns 0.125% On-Q Machine Inspector) 600 mls @ 4 mls/ hr IJ ONCE ONE Stop: 05/09/18 20:59 BUPIVACAINE 0.125%/0.9% NACL (Bupivacaine-Ns 0.125% On-Q Machine Inspector) 600 mls @ 4 mls/ hr IJ ONCE ONE Stop: 05/09/18 20:59 Lactated Ringer's (Lactated Ringer's) 1,000 mls @ 125 mls/hr IV .Q8H [facility] Last Admin: 05/04/18 19:30 Dose: Not Given Methylprednisolone (Solu-Medrol) 20 mg IVP DAILY [facility] Last Admin: 05/04/18 09:14 Dose: 20 mg Ondansetron HCl (Zofran Inj) 4 mg IVP Q4 PRN PRN Reason: Nausea/Vomiting Pantoprazole Sodium (Protonix Inj) 40 mg IVP DAILY [facility] Last Admin: 05/04/18 09:13 Dose: 40 mg - Labs Labs: 05/04/18 06:14 05/04/18 06:13 PT 13.2 SECONDS (9.7-12.2) H 05/03/18 12:09 INR 1.2 05/03/18 12:09 APTT 34 SECONDS (21-34) D 05/03/18 12:09
[2018-05-05] MEDS: Albuterol-Ipratrop 3 mg / 0.5 (3 ml) UD INH SCH ×4 (01:34→19:12)
[2018-05-05] MEDS: HYDROmorphone 1 mg/ml ISec IVP PRN (02:00)
[2018-05-05] MEDS: Lactated Ringer's 1,000 ML IV SCH (03:30)
[2018-05-05 04:31] LABS: BASO % 0.3 % (0.0-2.0); EOS # 0.4 K/uL (0.0-0.7); EOS % 2.8 % (0.0-4.0); HEMOGLOBIN 12.9 g/dL (11.0-16.0); LYMPH # 0.5 K/uL (1.0-4.3); LYMPH % 3.6 % (20.0-40.0); MEAN CELL VOLUME 80.6 fL (81.0-99.0); MEAN CORPUSCULAR HEMOGLOBIN 27.5 pg (27.0-31.0); MEAN CORPUSCULAR HGB CONC 34.1 g/dL (33.0-37.0); MEAN PLATELET VOLUME 6.8 fL (7.2-11.7); MONO % 7.1 % (0.0-10.0); NEUT # 11.9 K/uL (1.8-7.0); NEUT % 86.2 % (50.0-75.0); PLATELET COUNT 143 K/uL (130-400); RBC 4.71 Mil/uL (3.80-5.20); RED CELL DISTRIBUTION WIDTH 16.4 % (11.5-14.5); WHITE BLOOD COUNT 13.8 K/uL (4.8-10.8)
[2018-05-05 04:56] LABS: ALB/GLOB RATIO 1.1 (1.0-2.1); ALBUMIN 3.6 g/dL (3.5-5.0); ALT/SGPT 41 U/L (9-52); AST/SGOT 38 U/L (14-36); BLOOD UREA NITROGEN 12 mg/dL (7-17); CALCIUM 8.6 mg/dl (8.6-10.4); GFR AFRICAN-AMERICAN > 60; GFR NON-AFRICAN AMERICAN > 60
[2018-05-05 05:13] LABS: BANDS 1 % (0-2); EOSINOPHIL 2 % (0-4); LYMPHOCYTE 3 % (20-40); MONOCYTE 7 % (0-10); NEUTROPHIL 87 % (50-75); TOTAL CELLS COUNTED 100
[2018-05-05 05:14] LABS: PLATELET ESTIMATE NORMAL (NORMAL)
[2018-05-05] MEDS: Meropenem 1 GM in Sodium Chloride 0.9% 100 ML IVPB SCH ×3 (05:59→22:04)
--- NOTE | 2018-05-05 07:42 | CP.PCM.PN ---
Subjective - Date & Time of Evaluation Date of Evaluation: 05/05/18 Time of Evaluation: 07:42 - Subjective Subjective: Patient is currently feeling slightly better, but complaining of lower back pain. Patient is still n.p.o. On IV fluid. KENIA drainage is less No nausea vomiting. Patient went to the bathroom, patient looks like passed a slight gas. On examination: Vital signs stable. Chest good air entry minimal expiratory wheezing regular heart sound abdomen postoperative day 2 Leg edema 1+ noted Patient's labs reviewed Nonspecific. Hemoglobin is stable otherwise Assessment and recommendation: 52-year-old female with a history of lupus disease, DVT, hypercoagulable state, anticardiolipin antibody positive, lupus nephritis, lupus lung disease, history of on Coumadin, currently no anticoagulation, admitted to the hospital with acute changes in the right colon, imaging studies. Underwent right hemicolectomy following the extensive pneumatosis. I discussed with the surgery, agreed for anticoagulation, we will start the patient on heparin drip, closely monitor. We will follow the patient. Objective - Vital Signs/Intake and Output Vital Signs (last 24 hours): Temp Pulse Resp BP Pulse Ox 98.3 F 98 H 20 129/81 94 L 05/05/18 07:00 05/05/18 07:00 05/05/18 07:00 05/05/18 07:00 05/05/18 07:00 Intake and Output: 05/05/18 05/05/18 06:59 18:59 Intake Total 1350 Output Total 20 Balance 1330 - Medications Medications: Current Medications Acetaminophen (Tylenol 325mg Tab) 650 mg PO Q6 PRN PRN Reason: Pain, Mild (1-3) Albuterol/Ipratropium (Duoneb 3 Mg/0.5 Mg (3 Ml) Ud) 3 ml INH RQ6 [facility] Last Admin: 05/05/18 07:21 Dose: 3 ml Enoxaparin Sodium (Lovenox) 40 mg SC DAILY [facility] Fluticasone Propionate (Flonase) 1 spr NS DAILY [facility] Last Admin: 05/04/18 10:26 Dose: 1 spray Hydromorphone HCl (Dilaudid) 1 mg IVP Q4H PRN PRN Reason: Pain, severe (8-10) Last Admin: 05/05/18 02:00 Dose: 1 mg Meropenem 1 gm/ Sodium (Chloride) 100 mls @ 100 mls/hr IVPB Q8H [facility] PRN Reason: Protocol Last Admin: 05/05/18 05:59 Dose: 100 mls/hr BUPIVACAINE 0.125%/0.9% NACL (Bupivacaine-Ns 0.125% On-Q Answering Service Operator) 600 mls @ 4 mls/ hr IJ ONCE ONE Stop: 05/09/18 20:59 BUPIVACAINE 0.125%/0.9% NACL (Bupivacaine-Ns 0.125% On-Q Answering Service Operator) 600 mls @ 4 mls/ hr IJ ONCE ONE Stop: 05/09/18 20:59 Lactated Ringer's (Lactated Ringer's) 1,000 mls @ 125 mls/hr IV .Q8H [facility] Last Admin: 05/05/18 03:30 Dose: 125 mls/hr Methylprednisolone (Solu-Medrol) 20 mg IVP DAILY [facility] Last Admin: 05/04/18 09:14 Dose: 20 mg Ondansetron HCl (Zofran Inj) 4 mg IVP Q4 PRN PRN Reason: Nausea/Vomiting Pantoprazole Sodium (Protonix Inj) 40 mg IVP DAILY [facility] Last Admin: 05/04/18 09:13 Dose: 40 mg - Labs Labs: 05/05/18 04:13 05/05/18 04:13 PT 13.2 SECONDS (9.7-12.2) H 05/03/18 12:09 INR 1.2 05/03/18 12:09 APTT 34 SECONDS (21-34) D 05/03/18 12:09
[2018-05-05] MEDS ORDERED: Heparin25000 units/250ml 1/2NS 25,000 UNITS/250 ML BAG IV PRN ×2 (08:00→19:53)
--- NOTE | 2018-05-05 08:41 | CP.PCM.PN ---
<AlexElton - Last Filed: 05/05/18 08:46> Subjective - Date & Time of Evaluation Date of Evaluation: 05/05/18 Time of Evaluation: 08:39 - Subjective Subjective: Surgery Pt seen and examined. No acute events. Pain controlled. OOB. + void. + flatus. no BM. Denies nausea. Objective - Vital Signs/Intake and Output Vital Signs (last 24 hours): Temp Pulse Resp BP Pulse Ox 98.3 F 98 H 20 129/81 94 L 05/05/18 07:00 05/05/18 07:00 05/05/18 07:00 05/05/18 07:00 05/05/18 07:00 Intake and Output: 05/05/18 05/05/18 06:59 18:59 Intake Total 1350 Output Total 20 Balance 1330 - Medications Medications: Current Medications Acetaminophen (Tylenol 325mg Tab) 650 mg PO Q6 PRN PRN Reason: Pain, Mild (1-3) Albuterol/Ipratropium (Duoneb 3 Mg/0.5 Mg (3 Ml) Ud) 3 ml INH RQ6 [facility] Last Admin: 05/05/18 07:21 Dose: 3 ml Fluticasone Propionate (Flonase) 1 spr NS DAILY [facility] Last Admin: 05/04/18 10:26 Dose: 1 spray Hydromorphone HCl (Dilaudid) 1 mg IVP Q4H PRN PRN Reason: Pain, severe (8-10) Meropenem 1 gm/ Sodium (Chloride) 100 mls @ 100 mls/hr IVPB Q8H [facility] PRN Reason: Protocol Last Admin: 05/05/18 05:59 Dose: 100 mls/hr BUPIVACAINE 0.125%/0.9% NACL (Bupivacaine-Ns 0.125% On-Q Hardware Design Engineer) 600 mls @ 4 mls/ hr IJ ONCE ONE Stop: 05/09/18 20:59 BUPIVACAINE 0.125%/0.9% NACL (Bupivacaine-Ns 0.125% On-Q Hardware Design Engineer) 600 mls @ 4 mls/ hr IJ ONCE ONE Stop: 05/09/18 20:59 Lactated Ringer's (Lactated Ringer's) 1,000 mls @ 125 mls/hr IV .Q8H [facility] Last Admin: 05/05/18 03:30 Dose: 125 mls/hr Heparin Sodium/Sodium Chloride (Heparin 01141 Units/250ml 1/2 Normal Saline) 25 ,000 units in 250 mls @ 0 mls/hr IV .Q0M PRN; Protocol; Per Protocol PRN Reason: PROTOCOL Methylprednisolone (Solu-Medrol) 20 mg IVP QOD6 [facility] Ondansetron HCl (Zofran Inj) 4 mg IVP Q4 PRN PRN Reason: Nausea/Vomiting Pantoprazole Sodium (Protonix Inj) 40 mg IVP DAILY [facility] Last Admin: 05/04/18 09:13 Dose: 40 mg - Labs Labs: 05/05/18 04:13 05/05/18 04:13 PT 13.2 SECONDS (9.7-12.2) H 05/03/18 12:09 INR 1.2 05/03/18 12:09 APTT 34 SECONDS (21-34) D 05/03/18 12:09 - Constitutional Appears: No Acute Distress - Head Exam Head Exam: ATRAUMATIC, NORMAL INSPECTION, NORMOCEPHALIC - Eye Exam Eye Exam: EOMI, Normal appearance, PERRL Pupil Exam: NORMAL ACCOMODATION, PERRL - ENT Exam ENT Exam: Mucous Membranes Moist, Normal Exam - Neck Exam Neck Exam: Full ROM, Normal Inspection. absent: Lymphadenopathy - Respiratory Exam Respiratory Exam: Clear to Ausculation Bilateral, NORMAL BREATHING PATTERN - Cardiovascular Exam Cardiovascular Exam: REGULAR RHYTHM, +S1, +S2. absent: Murmur - GI/Abdominal Exam GI & Abdominal Exam: Soft, Normal Bowel Sounds. absent: Distended, Firm, Guarding, Rigid, Tenderness Additional comments: Drain in place SS. Dressing intact. On Q in place. - Extremities Exam Extremities Exam: Full ROM, Normal Capillary Refill, Normal Inspection. absent : Joint Swelling, Pedal Edema - Back Exam Back Exam: NORMAL INSPECTION - Neurological Exam Neurological Exam: Alert, Awake, CN II-XII Intact, Normal Gait, Oriented x3 - Psychiatric Exam Psychiatric exam: Normal Affect, Normal Mood - Skin Skin Exam: Dry, Intact, Normal Color, Warm Assessment and Plan - Assessment and Plan (Free Text) Assessment: POD 2 sp ex lap colectomy Drain 65 ss -NPO possible advance diet today -IVF -PTX -DVT/Gi ppx - AMbulate Will EMMANUEL Brown <Karlos Brown - Last Filed: 05/08/18 19:22> Objective - Vital Signs/Intake and Output Vital Signs (last 24 hours): Temp Pulse Resp BP Pulse Ox 98.1 F 92 H 20 131/81 95 05/08/18 15:00 05/08/18 15:00 05/08/18 15:00 05/08/18 15:00 05/08/18 15:00 Intake and Output: 05/08/18 05/09/18 18:59 06:59 Output Total 10 Balance -10 - Labs Labs: 05/08/18 06:38 05/08/18 06:38 PT 14.6 SECONDS (9.7-12.2) H 05/05/18 09:22 INR 1.3 05/05/18 09:22 APTT 78 SECONDS (21-34) H D 05/07/18 23:14 Attending/Attestation - Attestation I have personally seen and examined this patient.: Yes I have fully participated in the care of the patient.: Yes I have reviewed all pertinent clinical information, including history, physical exam and plan: Yes Notes (Text): Pt was see and examined at bedside Agree with above note and assessment Pt is improving clinically Passing flatus, No BM C.w liquid diet Plan d.w pt in detail
[2018-05-05] MEDS: Dextrose 5%/0.45% NS 1,000 ML IV SCH ×3 (09:10→22:12)
--- NOTE | 2018-05-05 09:11 | RAD ---
HISTORY: pneumonia COMPARISON: 05/02/2018 FINDINGS: LUNGS: Interval triangular opacity compatible with left basal infiltrate and/or atelectasis. Interval left inferolateral horizontal discoid atelectasis. PLEURA: No significant pleural effusion identified, no pneumothorax apparent. CARDIOVASCULAR: .Right-sided PICC line with tip in the SVC/RA junction. Mild cardiomegaly -likely accentuated given the more shallow current lung volume apparent OSSEOUS STRUCTURES: No significant abnormalities. VISUALIZED UPPER ABDOMEN: Partially visualized faint IVC filter in tubing apparently relating to the gastric band device. Faint residual bowel contrast present as well OTHER FINDINGS: None. IMPRESSION: Interval triangular consolidation- left basal atelectasis and/or infiltrate . Interval thinner discoid atelectasis left lateral lung base
[2018-05-05] MEDS: Fluticasone Nasal 50 mcg/Spray NS SCH (09:19)
[2018-05-05 09:40] LABS: INR 1.3; PROTHROMBIN TIME 14.6 SECONDS (9.7-12.2)
[2018-05-05] MEDS ORDERED: Enoxaparin 40 mg Syringe SC SCH (10:00)
[2018-05-05] MEDS: Heparin25000 units/250ml 1/2NS 25,000 UNITS/250 ML BAG IV PRN ×3 (10:31→20:17)
[2018-05-05] MEDS: HYDROmorphone 0.5 mg/0.5 ml ISec IVP PRN ×3 (10:47→22:07)
[2018-05-05] MEDS: Lidocaine 5% Patch TD SCH (13:09)
[2018-05-05] MEDS: MethylPREDNISolone 40 mg Vial IVP SCH (17:36)
[2018-05-06] MEDS: Albuterol-Ipratrop 3 mg / 0.5 (3 ml) UD INH SCH ×4 (01:36→20:17)
[2018-05-06] MEDS: Meropenem 1 GM in Sodium Chloride 0.9% 100 ML IVPB SCH ×3 (05:48→22:14)
[2018-05-06] MEDS: Dextrose 5%/0.45% NS 1,000 ML IV SCH (05:53)
[2018-05-06 07:46] LABS: ALBUMIN 2.8 g/dL (3.5-5.0); ALT/SGPT 42 U/L (9-52); AST/SGOT 32 U/L (14-36); BLOOD UREA NITROGEN 7 mg/dL (7-17); CALCIUM 8.3 mg/dl (8.6-10.4); GFR AFRICAN-AMERICAN > 60; GFR NON-AFRICAN AMERICAN > 60
[2018-05-06] MEDS: HYDROmorphone 0.5 mg/0.5 ml ISec IVP PRN ×4 (08:41→22:18)
[2018-05-06 09:18] LABS: BASO # 0.1 K/uL (0.0-0.2); EOS # 0.2 K/uL (0.0-0.7); LYMPH # 0.4 K/uL (1.0-4.3)
[2018-05-06 09:26] LABS: EOS % 1.9 % (0.0-4.0); LYMPH % 3.9 % (20.0-40.0); MEAN CELL VOLUME 80.2 fL (81.0-99.0); MEAN CORPUSCULAR HEMOGLOBIN 26.7 pg (27.0-31.0); MEAN CORPUSCULAR HGB CONC 33.3 g/dL (33.0-37.0); MONO # 0.7 K/uL (0.0-0.8); MONO % 7.4 % (0.0-10.0); NEUT # 7.9 K/uL (1.8-7.0); NEUT % 85.8 % (50.0-75.0); RBC 3.99 Mil/uL (3.80-5.20); RED CELL DISTRIBUTION WIDTH 16.2 % (11.5-14.5); WHITE BLOOD COUNT 9.2 K/uL (4.8-10.8)
[2018-05-06] MEDS: Lidocaine 5% Patch TD SCH (09:26)
[2018-05-06] MEDS: Fluticasone Nasal 50 mcg/Spray NS SCH (09:27)
[2018-05-06 09:28] LABS: PLATELET COUNT 113 K/uL (130-400)
[2018-05-06 09:31] LABS: HEMOGLOBIN 10.7 g/dL (11.0-16.0)
--- NOTE | 2018-05-06 09:39 | CP.PCM.PN ---
Subjective - Date & Time of Evaluation Date of Evaluation: 05/06/18 Time of Evaluation: 09:39 - Subjective Subjective: Patient this morning doing well. KENIA drain still noted. Minimal drain noted. Nontender abdomen. Breathing is better, coughing is better. Denies any nausea vomiting. No bowel movements, but passing gas On examination: Tolerating the liquid diet so far. On IV fluid. Chest good air entry regular heart sound abdomen soft extremities edema negative Afebrile pulse 92 saturation is 94 in room air Today labs reviewed Phosphorus is on the low side, potassium is low side albumin is also low. Hemoglobin is stable. Assessment and recognition: 52-year-old female with a history of lupus lung disease, chronic lupus disease hypertension obesity hypoventilation bronchial asthma admitted with acute pneumonia. Lupus lung disease. Also now admitted with acute intestinal problems intestinal pneumatosis status post right hemicolectomy stable. We will continue to monitor IV fluid supplement phosphorus. Will follow the patient Objective - Vital Signs/Intake and Output Vital Signs (last 24 hours): Temp Pulse Resp BP Pulse Ox 97.4 F L 80 20 110/75 94 L 05/06/18 07:00 05/06/18 07:00 05/06/18 07:00 05/06/18 07:00 05/06/18 07:00 Intake and Output: 05/06/18 05/06/18 06:59 18:59 Intake Total 2721 Output Total 73 Balance 2648 - Medications Medications: Current Medications Acetaminophen (Tylenol 325mg Tab) 650 mg PO Q6 PRN PRN Reason: Pain, Mild (1-3) Albuterol/Ipratropium (Duoneb 3 Mg/0.5 Mg (3 Ml) Ud) 3 ml INH RQ6 [facility] Last Admin: 05/06/18 07:23 Dose: 3 ml Fluticasone Propionate (Flonase) 1 spr NS DAILY [facility] Last Admin: 05/06/18 09:27 Dose: 1 spray Hydromorphone HCl (Dilaudid) 1 mg IVP Q4H PRN PRN Reason: Pain, severe (8-10) Last Admin: 05/06/18 08:41 Dose: 1 mg Meropenem 1 gm/ Sodium (Chloride) 100 mls @ 100 mls/hr IVPB Q8H [facility] PRN Reason: Protocol Last Admin: 05/06/18 05:48 Dose: 100 mls/hr BUPIVACAINE 0.125%/0.9% NACL (Bupivacaine-Ns 0.125% On-Q [place]) 600 mls @ 4 mls/ hr IJ ONCE ONE Stop: 05/09/18 20:59 BUPIVACAINE 0.125%/0.9% NACL (Bupivacaine-Ns 0.125% On-Q [place]) 600 mls @ 4 mls/ hr IJ ONCE ONE Stop: 05/09/18 20:59 Dextrose/Sodium Chloride (Dextrose 5%/0.45% Ns 1000 Ml) 1,000 mls @ 150 mls/hr IV .Q6H40M [facility] Last Admin: 05/06/18 05:53 Dose: 150 mls/hr Heparin Sodium/Sodium Chloride (Heparin 38469 Units/250ml 1/2 Normal Saline) 25 ,000 units in 250 mls @ 10 mls/hr IV .Q24H PRN; Protocol; 10 UNITS/KG/HR PRN Reason: PROTOCOL Last Admin: 05/05/18 20:17 Dose: 8 units/kg/hr, 8 mls/hr Heparin Sodium/Sodium Chloride (Heparin 42121 Units/250ml 1/2 Normal Saline) 25 ,000 units in 250 mls @ 8 mls/hr IV .Q24H PRN; Protocol; 8 UNITS/KG/HR PRN Reason: PROTOCOL Lidocaine (Lidoderm) 1 ea TD DAILY [facility] Last Admin: 05/06/18 09:26 Dose: 1 ea Methylprednisolone (Solu-Medrol) 20 mg IVP QOD6 [facility] Last Admin: 05/05/18 17:36 Dose: 20 mg Ondansetron HCl (Zofran Inj) 4 mg IVP Q4 PRN PRN Reason: Nausea/Vomiting Pantoprazole Sodium (Protonix Inj) 40 mg IVP DAILY [facility] Last Admin: 05/06/18 09:26 Dose: 40 mg - Labs Labs: 05/06/18 09:14 05/06/18 05:58 PT 14.6 SECONDS (9.7-12.2) H 05/05/18 09:22 INR 1.3 05/05/18 09:22 APTT 40 SECONDS (21-34) H D 05/06/18 09:14
[2018-05-06 09:56] LABS: ANISOCYTOSIS SLIGHT; LYMPHOCYTE 3 % (20-40); MONOCYTE 5 % (0-10); NEUTROPHIL 92 % (50-75); PLATELET ESTIMATE SLIGHTLY DECREASED (NORMAL); TOTAL CELLS COUNTED 100
[2018-05-06 09:57] LABS: HYPOCHROMIC SLIGHT; OVALOCYTES SLIGHT
[2018-05-06] MEDS ORDERED: Potassium Phosphate 15 MMOLE in Sodium Chloride 0.9% 250 ML IVPB ONE (11:00)
[2018-05-06] MEDS: Heparin25000 units/250ml 1/2NS 25,000 UNITS/250 ML BAG IV PRN ×2 (11:19→18:46)
--- NOTE | 2018-05-06 13:40 | CP.PCM.PN ---
<Kee Strauss - Last Filed: 05/06/18 13:35> Subjective - Date & Time of Evaluation Date of Evaluation: 05/06/18 Time of Evaluation: 07:00 - Subjective Subjective: General Surgery Progress Note for Dr. Brown This 52F was seen and evalautated this AM at bedside no acute events overnight. She reports she is ambulating atleast once every 2 hours. She reports he pain is well under control. She is tolerating her clear liquid diet. She denies nausea vomiting chest pain or shortness of breath. She reports flatus denies BM. Packing removed after rounds and sterile dressing reapplied. Objective - Vital Signs/Intake and Output Vital Signs (last 24 hours): Temp Pulse Resp BP Pulse Ox 97.4 F L 80 20 110/75 94 L 05/06/18 07:00 05/06/18 07:00 05/06/18 07:00 05/06/18 07:00 05/06/18 07:00 Intake and Output: 05/06/18 05/06/18 06:59 18:59 Intake Total 2721 Output Total 73 Balance 2648 - Medications Medications: Current Medications Acetaminophen (Tylenol 325mg Tab) 650 mg PO Q6 PRN PRN Reason: Pain, Mild (1-3) Albuterol/Ipratropium (Duoneb 3 Mg/0.5 Mg (3 Ml) Ud) 3 ml INH RQ6 ENOC Last Admin: 05/06/18 13:14 Dose: 3 ml Fluticasone Propionate (Flonase) 1 spr NS DAILY [facility] Last Admin: 05/06/18 09:27 Dose: 1 spray Hydromorphone HCl (Dilaudid) 1 mg IVP Q4H PRN PRN Reason: Pain, severe (8-10) Last Admin: 05/06/18 12:56 Dose: 1 mg Meropenem 1 gm/ Sodium (Chloride) 100 mls @ 100 mls/hr IVPB Q8H ENOC PRN Reason: Protocol Last Admin: 05/06/18 05:48 Dose: 100 mls/hr BUPIVACAINE 0.125%/0.9% NACL (Bupivacaine-Ns 0.125% On-Q Activities Therapist) 600 mls @ 4 mls/ hr IJ ONCE ONE Stop: 05/09/18 20:59 BUPIVACAINE 0.125%/0.9% NACL (Bupivacaine-Ns 0.125% On-Q Activities Therapist) 600 mls @ 4 mls/ hr IJ ONCE ONE Stop: 05/09/18 20:59 Potassium Phosphate 15 mmole/ (Sodium Chloride) 255 mls @ 42.5 mls/hr IVPB ONCE ONE Stop: 05/06/18 16:59 Last Admin: 05/06/18 12:00 Dose: 42.5 mls/hr Heparin Sodium/Sodium Chloride (Heparin 92049 Units/250ml 1/2 Normal Saline) 25 ,000 units in 250 mls @ 10 mls/hr IV .Q24H PRN; Protocol; 10 UNITS/KG/HR PRN Reason: PROTOCOL Last Admin: 05/06/18 11:19 Dose: 10 units/kg/hr, 10 mls/hr Potassium Chloride 40 meq/ (Sodium Chloride) 1,020 mls @ 50 mls/hr IV .[id number] [facility] Lidocaine (Lidoderm) 1 ea TD DAILY [facility] Last Admin: 05/06/18 09:26 Dose: 1 ea Methylprednisolone (Solu-Medrol) 20 mg IVP QOD6 [facility] Last Admin: 05/05/18 17:36 Dose: 20 mg Ondansetron HCl (Zofran Inj) 4 mg IVP Q4 PRN PRN Reason: Nausea/Vomiting Pantoprazole Sodium (Protonix Inj) 40 mg IVP DAILY [facility] Last Admin: 05/06/18 09:26 Dose: 40 mg - Labs Labs: 05/06/18 09:14 05/06/18 05:58 PT 14.6 SECONDS (9.7-12.2) H 05/05/18 09:22 INR 1.3 05/05/18 09:22 APTT 40 SECONDS (21-34) H D 05/06/18 09:14 - Constitutional Appears: Non-toxic, No Acute Distress - Head Exam Head Exam: ATRAUMATIC, NORMOCEPHALIC - Eye Exam Eye Exam: EOMI, Normal appearance - ENT Exam ENT Exam: Mucous Membranes Moist - Respiratory Exam Respiratory Exam: NORMAL BREATHING PATTERN - Cardiovascular Exam Cardiovascular Exam: +S1, +S2 - GI/Abdominal Exam GI & Abdominal Exam: Soft. absent: Firm, Guarding, Rigid, Tenderness - Neurological Exam Neurological Exam: Alert, Awake - Psychiatric Exam Psychiatric exam: Normal Affect, Normal Mood - Skin Skin Exam: Dry, Intact Assessment and Plan - Assessment and Plan (Free Text) Assessment: 52F POD#3 s/p open right colectomy and doing well Plan: Full liquid diet monitor drain output ambulate pain control monitor bowel function further recs per Dr. Stephanie Strauss PGY2 <Karlos Brown B - Last Filed: 05/08/18 19:30> Objective - Vital Signs/Intake and Output Vital Signs (last 24 hours): Temp Pulse Resp BP Pulse Ox 98.1 F 92 H 20 131/81 95 05/08/18 15:00 05/08/18 15:00 05/08/18 15:00 05/08/18 15:00 05/08/18 15:00 Intake and Output: 05/08/18 05/09/18 18:59 06:59 Output Total 10 Balance -10 - Labs Labs: 05/08/18 06:38 05/08/18 06:38 PT 14.6 SECONDS (9.7-12.2) H 05/05/18 09:22 INR 1.3 05/05/18 09:22 APTT 78 SECONDS (21-34) H D 05/07/18 23:14 Attending/Attestation - Attestation I have personally seen and examined this patient.: Yes I have fully participated in the care of the patient.: Yes I have reviewed all pertinent clinical information, including history, physical exam and plan: Yes Notes (Text): Pt was see and examined at bedside Agree with above note and assessment Pt is proving clinically Passing flatus, No BM C.w liquid diet Can be DC home if Passing BM OOB to walk Plan d.w pt in detail Risk and benefit explained in detail.
--- NOTE | 2018-05-06 19:05 | CP.PCM.PN ---
Subjective - Date & Time of Evaluation Date of Evaluation: 05/06/18 Time of Evaluation: 09:00 - Subjective Subjective: improving on IV rx cultures neg path noted Objective - Vital Signs/Intake and Output Vital Signs (last 24 hours): Temp Pulse Resp BP Pulse Ox 97.8 F 90 20 131/74 98 05/06/18 15:05 05/06/18 15:05 05/06/18 15:05 05/06/18 15:05 05/06/18 15:05 Intake and Output: 05/06/18 05/07/18 18:59 06:59 Intake Total 1241.3 Output Total 25 Balance 1216.3 - Medications Medications: Current Medications Acetaminophen (Tylenol 325mg Tab) 650 mg PO Q6 PRN PRN Reason: Pain, Mild (1-3) Albuterol/Ipratropium (Duoneb 3 Mg/0.5 Mg (3 Ml) Ud) 3 ml INH RQ6 [facility] Last Admin: 05/06/18 13:14 Dose: 3 ml Fluticasone Propionate (Flonase) 1 spr NS DAILY [facility] Last Admin: 05/06/18 09:27 Dose: 1 spray Hydromorphone HCl (Dilaudid) 1 mg IVP Q4H PRN PRN Reason: Pain, severe (8-10) Last Admin: 05/06/18 17:03 Dose: 1 mg Meropenem 1 gm/ Sodium (Chloride) 100 mls @ 100 mls/hr IVPB Q8H ENOC PRN Reason: Protocol Last Admin: 05/06/18 14:09 Dose: 100 mls/hr BUPIVACAINE 0.125%/0.9% NACL (Bupivacaine-Ns 0.125% On-Q [place]arder Cook) 600 mls @ 4 mls/ hr IJ ONCE ONE Stop: 05/09/18 20:59 BUPIVACAINE 0.125%/0.9% NACL (Bupivacaine-Ns 0.125% On-Q [place] Cook) 600 mls @ 4 mls/ hr IJ ONCE ONE Stop: 05/09/18 20:59 Heparin Sodium/Sodium Chloride (Heparin 75218 Units/250ml 1/2 Normal Saline) 25 ,000 units in 250 mls @ 10 mls/hr IV .Q24H PRN; Protocol; 10 UNITS/KG/HR PRN Reason: PROTOCOL Last Admin: 05/06/18 18:46 Dose: 8 units/kg/hr, 8 mls/hr Potassium Chloride 40 meq/ (Sodium Chloride) 1,020 mls @ 50 mls/hr IV .[id number] [facility] Last Admin: 05/06/18 16:57 Dose: 50 mls/hr Lidocaine (Lidoderm) 1 ea TD DAILY [facility] Last Admin: 05/06/18 09:26 Dose: 1 ea Methylprednisolone (Solu-Medrol) 20 mg IVP QOD6 [facility] Last Admin: 05/05/18 17:36 Dose: 20 mg Ondansetron HCl (Zofran Inj) 4 mg IVP Q4 PRN PRN Reason: Nausea/Vomiting Pantoprazole Sodium (Protonix Inj) 40 mg IVP DAILY [facility] Last Admin: 05/06/18 09:26 Dose: 40 mg - Labs Labs: 05/06/18 09:14 05/06/18 05:58 PT 14.6 SECONDS (9.7-12.2) H 05/05/18 09:22 INR 1.3 05/05/18 09:22 APTT 97 SECONDS (21-34) H D 05/06/18 16:35 - Constitutional Appears: Non-toxic - Head Exam Head Exam: NORMOCEPHALIC - ENT Exam ENT Exam: Mucous Membranes Dry - Neck Exam Neck Exam: absent: Lymphadenopathy - Respiratory Exam Respiratory Exam: Decreased Breath Sounds - Cardiovascular Exam Cardiovascular Exam: REGULAR RHYTHM - GI/Abdominal Exam GI & Abdominal Exam: Distended Assessment and Plan (1) Intra-abdominal free air of unknown etiology Status: Acute
[2018-05-07] MEDS: Albuterol-Ipratrop 3 mg / 0.5 (3 ml) UD INH SCH ×4 (01:34→18:59)
[2018-05-07] MEDS ORDERED: Heparin25000 units/250ml 1/2NS 25,000 UNITS/250 ML BAG IV PRN (01:42)
[2018-05-07] MEDS: HYDROmorphone 0.5 mg/0.5 ml ISec IVP PRN ×2 (02:10→08:29)
--- NOTE | 2018-05-07 05:26 | CP.PCM.PN ---
<Kee Strauss - Last Filed: 05/07/18 06:28> Subjective - Date & Time of Evaluation Date of Evaluation: 05/07/18 Time of Evaluation: 05:25 - Subjective Subjective: General Surgery Progress Note for Dr. Brown This 52F was seen and evaluated this AM at bedside no acute events reported overnight. Patient reports pain is well tolerated ambulating regularly, she is tolerating full liquid diet. Passing gas no bowel movments, she denies any chest pain, or SOB that differs from her baseline respiratory issues. Objective - Vital Signs/Intake and Output Vital Signs (last 24 hours): Temp Pulse Resp BP Pulse Ox 98 F 100 H 18 130/78 98 05/07/18 02:15 05/07/18 02:15 05/07/18 02:15 05/07/18 02:15 05/07/18 02:15 Intake and Output: 05/06/18 05/07/18 18:59 06:59 Intake Total 1241.3 592.3 Output Total 25 25 Balance 1216.3 567.3 - Medications Medications: Current Medications Acetaminophen (Tylenol 325mg Tab) 650 mg PO Q6 PRN PRN Reason: Pain, Mild (1-3) Albuterol/Ipratropium (Duoneb 3 Mg/0.5 Mg (3 Ml) Ud) 3 ml INH RQ6 [facility] Last Admin: 05/07/18 01:34 Dose: 3 ml Fluticasone Propionate (Flonase) 1 spr NS DAILY [facility] Last Admin: 05/06/18 09:27 Dose: 1 spray Hydromorphone HCl (Dilaudid) 1 mg IVP Q4H PRN PRN Reason: Pain, severe (8-10) Last Admin: 05/07/18 02:10 Dose: 1 mg Meropenem 1 gm/ Sodium (Chloride) 100 mls @ 100 mls/hr IVPB Q8H ENOC PRN Reason: Protocol Last Admin: 05/06/18 22:14 Dose: 100 mls/hr BUPIVACAINE 0.125%/0.9% NACL (Bupivacaine-Ns 0.125% On-Q Veterinary Technologist) 600 mls @ 4 mls/ hr IJ ONCE ONE Stop: 05/09/18 20:59 BUPIVACAINE 0.125%/0.9% NACL (Bupivacaine-Ns 0.125% On-Q Veterinary Technologist) 600 mls @ 4 mls/ hr IJ ONCE ONE Stop: 05/09/18 20:59 Potassium Chloride 40 meq/ (Sodium Chloride) 1,020 mls @ 50 mls/hr IV .[id number] [facility] Last Admin: 05/06/18 16:57 Dose: 50 mls/hr Heparin Sodium/Sodium Chloride (Heparin 30194 Units/250ml 1/2 Normal Saline) 25 ,000 units in 250 mls @ 12 mls/hr IV .[id number] PRN; Protocol; 12 UNITS/KG/HR PRN Reason: PROTOCOL Last Admin: 05/07/18 02:05 Dose: 12 units/kg/hr, 12 mls/hr Lidocaine (Lidoderm) 1 ea TD DAILY [facility] Last Admin: 05/06/18 09:26 Dose: 1 ea Methylprednisolone (Solu-Medrol) 20 mg IVP QOD6 [facility] Last Admin: 05/05/18 17:36 Dose: 20 mg Ondansetron HCl (Zofran Inj) 4 mg IVP Q4 PRN PRN Reason: Nausea/Vomiting Pantoprazole Sodium (Protonix Inj) 40 mg IVP DAILY [facility] Last Admin: 05/06/18 09:26 Dose: 40 mg - Labs Labs: 05/06/18 09:14 05/06/18 05:58 PT 14.6 SECONDS (9.7-12.2) H 05/05/18 09:22 INR 1.3 05/05/18 09:22 APTT 40 SECONDS (21-34) H D 05/07/18 01:12 - Constitutional Appears: Non-toxic, No Acute Distress - Head Exam Head Exam: ATRAUMATIC, NORMOCEPHALIC - Eye Exam Eye Exam: EOMI - ENT Exam ENT Exam: Mucous Membranes Moist - Respiratory Exam Respiratory Exam: NORMAL BREATHING PATTERN - Cardiovascular Exam Cardiovascular Exam: +S1, +S2 - GI/Abdominal Exam GI & Abdominal Exam: Soft. absent: Distended, Firm, Guarding, Rigid, Tenderness Additional comments: Dressings intact with serosanguinous strike through, drain with 50cc serosanguinous output. - Neurological Exam Neurological Exam: Alert, Awake Assessment and Plan - Assessment and Plan (Free Text) Assessment: 52F POD#4 s/p open right colectomy and doing well Plan: Full Liquid Diet monitor drain output ambulate pain control monitor bowel function further recs per Dr. Stephanie Strauss PGY2 <Karlos Brown - Last Filed: 05/08/18 19:36> Objective - Vital Signs/Intake and Output Vital Signs (last 24 hours): Temp Pulse Resp BP Pulse Ox 98.1 F 92 H 20 131/81 95 05/08/18 15:00 05/08/18 15:00 05/08/18 15:00 05/08/18 15:00 05/08/18 15:00 Intake and Output: 05/08/18 05/09/18 18:59 06:59 Output Total 10 Balance -10 - Labs Labs: 05/08/18 06:38 05/08/18 06:38 PT 14.6 SECONDS (9.7-12.2) H 05/05/18 09:22 INR 1.3 05/05/18 09:22 APTT 78 SECONDS (21-34) H D 05/07/18 23:14 Attending/Attestation - Attestation I have fully participated in the care of the patient.: Yes I have reviewed all pertinent clinical information, including history, physical exam and plan: Yes Notes (Text): Pt is doing well C.w liquid diet C/w current mx Plan d.w pt in detail
[2018-05-07] MEDS: Meropenem 1 GM in Sodium Chloride 0.9% 100 ML IVPB SCH ×3 (05:41→22:48)
[2018-05-07 07:45] VITALS: RESP 20
[2018-05-07 08:49] LABS: BASO % 0.6 % (0.0-2.0); EOS # 0.6 K/uL (0.0-0.7); EOS % 9.3 % (0.0-4.0); HEMOGLOBIN 9.8 g/dL (11.0-16.0); LYMPH # 0.5 K/uL (1.0-4.3); LYMPH % 7.6 % (20.0-40.0); MEAN CORPUSCULAR HEMOGLOBIN 27.2 pg (27.0-31.0); MEAN CORPUSCULAR HGB CONC 33.6 g/dL (33.0-37.0); MEAN PLATELET VOLUME 7.8 fL (7.2-11.7); MONO # 0.5 K/uL (0.0-0.8); MONO % 8.6 % (0.0-10.0); NEUT # 4.7 K/uL (1.8-7.0); NEUT % 73.9 % (50.0-75.0); PLATELET COUNT 117 K/uL (130-400); RBC 3.62 Mil/uL (3.80-5.20); RED CELL DISTRIBUTION WIDTH 16.4 % (11.5-14.5); WHITE BLOOD COUNT 6.4 K/uL (4.8-10.8)
[2018-05-07] MEDS: Lidocaine 5% Patch TD SCH (09:29)
[2018-05-07] MEDS: Fluticasone Nasal 50 mcg/Spray NS SCH (09:29)
[2018-05-07 09:42] LABS: ALBUMIN 2.8 g/dL (3.5-5.0); ALT/SGPT 37 U/L (9-52); AST/SGOT 33 U/L (14-36); BLOOD UREA NITROGEN 7 mg/dL (7-17); CALCIUM 8.4 mg/dl (8.6-10.4); GFR AFRICAN-AMERICAN > 60; GFR NON-AFRICAN AMERICAN > 60
[2018-05-07 09:53] LABS: LYMPHOCYTE 1 % (20-40); MONOCYTE 5 % (0-10)
[2018-05-07 09:54] LABS: EOSINOPHIL 8 % (0-4); NEUTROPHIL 86 % (50-75); TOTAL CELLS COUNTED 100
[2018-05-07 09:55] LABS: MICROCYTOSIS SLIGHT; PLATELET ESTIMATE SLIGHTLY DECREASED (NORMAL); POIKILOCYTOSIS SLIGHT
[2018-05-07 09:56] LABS: ANISOCYTOSIS SLIGHT
[2018-05-07 09:57] LABS: OVALOCYTES SLIGHT; TEARDROP CELLS SLIGHT
[2018-05-07] MEDS: Heparin25000 units/250ml 1/2NS 25,000 UNITS/250 ML BAG IV PRN (10:28)
--- NOTE | 2018-05-07 12:58 | CP.PCM.PN ---
Subjective - Date & Time of Evaluation Date of Evaluation: 05/07/18 Time of Evaluation: 12:57 - Subjective Subjective: Patient is having some increasing in cough today. Otherwise she is comfortable. On heparin IV drip. Eating only liquid diet now. Tolerating. No BM yet. On examination: Vital signs stable. Chest good air entry bilaterally regular heart sound. Nontender abdomen. Room air oxygen saturation is 95%. No recent labs, elevated PTT heparin drip is being adjusted Assessment and recommendation: 52-year-old female with a history of anticardiolipin antibody positive, lupus positive, hypercoagulable state on heparin drip now. Admitted with acute abdomen. Perforated colon. Status post a right hemicolectomy. Acute non-resolving pneumonia. Improving. We will continue the current treatment. Discussed with the surgery. Possibly will change heparin to Lovenox. Continue with antibiotic. Also she is on Medrol Every other day low-dose. Objective - Vital Signs/Intake and Output Vital Signs (last 24 hours): Temp Pulse Resp BP Pulse Ox 98.1 F 83 20 120/79 95 05/07/18 07:00 05/07/18 07:00 05/07/18 07:00 05/07/18 07:00 05/07/18 07:00 Intake and Output: 05/07/18 05/07/18 06:59 18:59 Intake Total 592.3 Output Total 25 Balance 567.3 - Medications Medications: Current Medications Acetaminophen (Tylenol 325mg Tab) 650 mg PO Q6 PRN PRN Reason: Pain, Mild (1-3) Albuterol/Ipratropium (Duoneb 3 Mg/0.5 Mg (3 Ml) Ud) 3 ml INH RQ6 [facility] Last Admin: 05/07/18 07:14 Dose: 3 ml Docusate Sodium (Colace) 100 mg PO DAILY [facility] Last Admin: 05/07/18 09:29 Dose: 100 mg Fluticasone Propionate (Flonase) 1 spr NS DAILY [facility] Last Admin: 05/07/18 09:29 Dose: 1 spray Meropenem 1 gm/ Sodium (Chloride) 100 mls @ 100 mls/hr IVPB Q8H [facility] PRN Reason: Protocol Last Admin: 05/07/18 05:41 Dose: 100 mls/hr BUPIVACAINE 0.125%/0.9% NACL (Bupivacaine-Ns 0.125% On-Q Dental Aide) 600 mls @ 4 mls/ hr IJ ONCE ONE Stop: 05/09/18 20:59 BUPIVACAINE 0.125%/0.9% NACL (Bupivacaine-Ns 0.125% On-Q Dental Aide) 600 mls @ 4 mls/ hr IJ ONCE ONE Stop: 05/09/18 20:59 Potassium Chloride 40 meq/ (Sodium Chloride) 1,020 mls @ 50 mls/hr IV .[id number] [facility] Last Admin: 05/06/18 16:57 Dose: 50 mls/hr Heparin Sodium/Sodium Chloride (Heparin 57842 Units/250ml 1/2 Normal Saline) 25 ,000 units in 250 mls @ 9 mls/hr IV .Q24H PRN; Protocol; 9 UNITS/KG/HR PRN Reason: PROTOCOL Last Admin: 05/07/18 10:28 Dose: 9 units/kg/hr, 9 mls/hr Lidocaine (Lidoderm) 1 ea TD DAILY [facility] Last Admin: 05/07/18 09:29 Dose: 1 ea Methylprednisolone (Solu-Medrol) 20 mg IVP QOD6 [facility] Last Admin: 05/05/18 17:36 Dose: 20 mg Pantoprazole Sodium (Protonix Inj) 40 mg IVP DAILY [facility] Last Admin: 05/07/18 09:29 Dose: 40 mg - Labs Labs: 05/07/18 08:31 05/07/18 08:31 PT 14.6 SECONDS (9.7-12.2) H 05/05/18 09:22 INR 1.3 05/05/18 09:22 APTT 147 SECONDS (21-34) H* D 05/07/18 08:31
[2018-05-07] MEDS: MethylPREDNISolone 40 mg Vial IVP SCH (17:05)
[2018-05-08] MEDS: Heparin25000 units/250ml 1/2NS 25,000 UNITS/250 ML BAG IV PRN (00:04)
[2018-05-08] MEDS: Albuterol-Ipratrop 3 mg / 0.5 (3 ml) UD INH SCH ×3 (01:23→13:03)
[2018-05-08 02:08] VITALS: TEMP 98.1
[2018-05-08] MEDS: Meropenem 1 GM in Sodium Chloride 0.9% 100 ML IVPB SCH ×2 (06:11→14:38)
[2018-05-08 08:15] LABS: BASO % 0.3 % (0.0-2.0); EOS # 0.1 K/uL (0.0-0.7); EOS % 1.7 % (0.0-4.0); HEMOGLOBIN 10.7 g/dL (11.0-16.0); LYMPH # 0.4 K/uL (1.0-4.3); LYMPH % 5.7 % (20.0-40.0); MEAN CELL VOLUME 80.6 fL (81.0-99.0); MEAN CORPUSCULAR HEMOGLOBIN 27.3 pg (27.0-31.0); MEAN CORPUSCULAR HGB CONC 33.9 g/dL (33.0-37.0); MEAN PLATELET VOLUME 7.9 fL (7.2-11.7); MONO # 0.5 K/uL (0.0-0.8); MONO % 8.1 % (0.0-10.0); NEUT # 5.4 K/uL (1.8-7.0); NEUT % 84.2 % (50.0-75.0); NRBC % 0.1 % (0.0-2.0); PLATELET COUNT 135 K/uL (130-400); RED CELL DISTRIBUTION WIDTH 16.5 % (11.5-14.5); WHITE BLOOD COUNT 6.4 K/uL (4.8-10.8)
[2018-05-08 08:32] LABS: ALBUMIN 3.2 g/dL (3.5-5.0); ALT/SGPT 44 U/L (9-52); AST/SGOT 26 U/L (14-36); BLOOD UREA NITROGEN 8 mg/dL (7-17); GFR AFRICAN-AMERICAN > 60; GFR NON-AFRICAN AMERICAN > 60
--- NOTE | 2018-05-08 08:40 | CP.PCM.PN ---
Subjective - Date & Time of Evaluation Date of Evaluation: 05/08/18 Time of Evaluation: 08:37 - Subjective Subjective: Surgery: Dr. Brown Pt seen and examined. No acute overnight events. Pt states she feels well & her pain is well controlled. She tolerated FLD yesterday & admits to having a Soft BM last night with +flatus. She denies N/V, F/C. Objective - Vital Signs/Intake and Output Vital Signs (last 24 hours): Temp Pulse Resp BP Pulse Ox 98.1 F 83 20 142/89 95 05/07/18 23:00 05/07/18 23:00 05/07/18 23:00 05/07/18 23:00 05/07/18 23:00 Intake and Output: 05/08/18 05/08/18 06:59 18:59 Intake Total 1542 Output Total 10 10 Balance 1532 -10 - Medications Medications: Current Medications Acetaminophen (Tylenol 325mg Tab) 650 mg PO Q6 PRN PRN Reason: Pain, Mild (1-3) Albuterol/Ipratropium (Duoneb 3 Mg/0.5 Mg (3 Ml) Ud) 3 ml INH RQ6 [facility] Last Admin: 05/08/18 07:13 Dose: 3 ml Docusate Sodium (Colace) 100 mg PO DAILY [facility] Last Admin: 05/07/18 09:29 Dose: 100 mg Fluticasone Propionate (Flonase) 1 spr NS DAILY [facility] Last Admin: 05/07/18 09:29 Dose: 1 spray Meropenem 1 gm/ Sodium (Chloride) 100 mls @ 100 mls/hr IVPB Q8H [facility] PRN Reason: Protocol Last Admin: 05/08/18 06:11 Dose: 100 mls/hr BUPIVACAINE 0.125%/0.9% NACL (Bupivacaine-Ns 0.125% On-Q Ese Teacher) 600 mls @ 4 mls/ hr IJ ONCE ONE Stop: 05/09/18 20:59 BUPIVACAINE 0.125%/0.9% NACL (Bupivacaine-Ns 0.125% On-Q Ese Teacher) 600 mls @ 4 mls/ hr IJ ONCE ONE Stop: 05/09/18 20:59 Heparin Sodium/Sodium Chloride (Heparin 14638 Units/250ml 1/2 Normal Saline) 25 ,000 units in 250 mls @ 9 mls/hr IV .Q24H PRN; Protocol; 9 UNITS/KG/HR PRN Reason: PROTOCOL Last Admin: 05/08/18 00:04 Dose: 9 units/kg/hr, 9 mls/hr Lidocaine (Lidoderm) 1 ea TD DAILY [facility] Last Admin: 05/07/18 09:29 Dose: 1 ea Methylprednisolone (Solu-Medrol) 20 mg IVP QOD6 [facility] Last Admin: 05/07/18 17:05 Dose: 20 mg Pantoprazole Sodium (Protonix Inj) 40 mg IVP DAILY [facility] Last Admin: 05/07/18 09:29 Dose: 40 mg - Labs Labs: 05/08/18 06:38 05/08/18 06:38 PT 14.6 SECONDS (9.7-12.2) H 05/05/18 09:22 INR 1.3 05/05/18 09:22 APTT 78 SECONDS (21-34) H D 05/07/18 23:14 - Constitutional Appears: Well, No Acute Distress - Head Exam Head Exam: ATRAUMATIC, NORMOCEPHALIC - Eye Exam Eye Exam: Normal appearance - ENT Exam ENT Exam: Mucous Membranes Moist - Respiratory Exam Respiratory Exam: NORMAL BREATHING PATTERN - Cardiovascular Exam Cardiovascular Exam: RRR - GI/Abdominal Exam GI & Abdominal Exam: Soft, Tenderness (around midline incision, ana in place C/D/I. Ari drain with serous output ). absent: Distended, Guarding, Rebound - Neurological Exam Neurological Exam: Alert, Awake, Oriented x3 - Skin Skin Exam: Dry, Warm Assessment and Plan - Assessment and Plan (Free Text) Assessment: 52F s/p R hemicolectomy; POD#5 Plan: - will advance to soft diet - ari drain with 25cc/24hrs; will discuss removing prior to DC - cont to encourage ambulation/IS use - d/w Dr. Stephanie Mcgregor, PGY-3
[2018-05-08 09:29] LABS: EOSINOPHIL 2 % (0-4); LYMPHOCYTE 4 % (20-40); MONOCYTE 7 % (0-10); NEUTROPHIL 87 % (50-75); TOTAL CELLS COUNTED 100
[2018-05-08 09:30] LABS: ANISOCYTOSIS SLIGHT; OVALOCYTES SLIGHT; PLATELET ESTIMATE NORMAL (NORMAL)
[2018-05-08] MEDS: Lidocaine 5% Patch TD SCH (09:37)
[2018-05-08] MEDS: Fluticasone Nasal 50 mcg/Spray NS SCH (09:38)
--- NOTE | 2018-05-08 13:22 | CP.PCM.DIS ---
Provider - Provider Date of Admission: 04/30/18 05:28 Attending physician: Mylse Quiñones MD Time Spent in preparation of Discharge (in minutes): 45 Hospital Course - Lab Results Lab Results: Micro Results 05/05/18 04:16 Naris MRSA Culture - Final MRSA NOT DETECTED 05/03/18 22:20 Nose MRSA Culture (Admit) - Final MRSA NOT DETECTED 05/04/18 06:09 Urine Urine Culture - Final No Growth (<1,000 CFU/ML) Most Recent Lab Values WBC 6.4 K/uL (4.8-10.8) 05/08/18 06:38 RBC 3.90 Mil/uL (3.80-5.20) 05/08/18 06:38 Hgb 10.7 g/dL (11.0-16.0) L 05/08/18 06:38 Hct 31.4 % (34.0-47.0) L 05/08/18 06:38 MCV 80.6 fL (81.0-99.0) L 05/08/18 06:38 MCH 27.3 pg (27.0-31.0) 05/08/18 06:38 MCHC 33.9 g/dL (33.0-37.0) 05/08/18 06:38 RDW 16.5 % (11.5-14.5) H 05/08/18 06:38 Plt Count 135 K/uL (130-400) 05/08/18 06:38 MPV 7.9 fL (7.2-11.7) 05/08/18 06:38 Neut % (Auto) 84.2 % (50.0-75.0) H 05/08/18 06:38 Lymph % (Auto) 5.7 % (20.0-40.0) L 05/08/18 06:38 Garrett % (Auto) 8.1 % (0.0-10.0) 05/08/18 06:38 Eos % (Auto) 1.7 % (0.0-4.0) 05/08/18 06:38 Baso % (Auto) 0.3 % (0.0-2.0) 05/08/18 06:38 Neut # (Auto) 5.4 K/uL (1.8-7.0) 05/08/18 06:38 Lymph # (Auto) 0.4 K/uL (1.0-4.3) L 05/08/18 06:38 Garrett # (Auto) 0.5 K/uL (0.0-0.8) 05/08/18 06:38 Eos # (Auto) 0.1 K/uL (0.0-0.7) 05/08/18 06:38 Baso # (Auto) 0.0 K/uL (0.0-0.2) 05/08/18 06:38 Neutrophils % (Manual) 87 % (50-75) H 05/08/18 06:38 Band Neutrophils % 1 % (0-2) 05/05/18 04:13 Lymphocytes % (Manual) 4 % (20-40) L 05/08/18 06:38 Monocytes % (Manual) 7 % (0-10) 05/08/18 06:38 Eosinophils % (Manual) 2 % (0-4) 05/08/18 06:38 Platelet Estimate Normal (NORMAL) 05/08/18 06:38 Hypochromasia (manual) Slight 05/06/18 09:14 Poikilocytosis (manual Slight 05/07/18 08:31 Anisocytosis (manual) Slight 05/08/18 06:38 Microcytosis (manual) Slight 05/07/18 08:31 Macrocytosis (manual) Slight 05/07/18 08:31 Tear Drop Cells Slight 05/07/18 08:31 Ovalocytes Slight 05/08/18 06:38 PT 14.6 SECONDS (9.7-12.2) H 05/05/18 09:22 INR 1.3 05/05/18 09:22 APTT 78 SECONDS (21-34) H D 05/07/18 23:14 pO2 21 mm/Hg (30-55) L 05/01/18 06:35 VBG pH 7.43 (7.32-7.43) 05/01/18 06:35 VBG pCO2 56 mmHg (40-60) 05/01/18 06:35 VBG HCO3 31.6 mmol/L 05/01/18 06:35 VBG Total CO2 38.9 mmol/L (22-28) H 05/01/18 06:35 VBG O2 Sat (Calc) 35.7 % (40-65) L 05/01/18 06:35 VBG Base Excess 10.7 mmol/L (0.0-2.0) H 05/01/18 06:35 VBG Potassium 3.9 mmol/L (3.6-5.2) 05/01/18 06:35 Sodium 137.0 mmol/l (132-148) 05/01/18 06:35 Chloride 102.0 mmol/L (98-107) 05/01/18 06:35 Glucose 98 mg/dl (65-105) 05/01/18 06:35 Lactate 1.1 mmol/L (0.7-2.1) 05/01/18 06:35 Crit Value Called To Annita wing rn 04/30/18 06:01 Crit Value Called By Dominique watson rt 04/30/18 06:01 Crit Value Read Back Y 04/30/18 06:01 Blood Gas Notified Time 612 04/30/18 06:01 Sodium 137 mmol/L (132-148) 05/08/18 06:38 Potassium 4.2 mmol/L (3.6-5.2) 05/08/18 06:38 Chloride 99 mmol/L (98-107) 05/08/18 06:38 Carbon Dioxide 31 mmol/L (22-30) H 05/08/18 06:38 Anion Gap 11 (10-20) 05/08/18 06:38 BUN 8 mg/dL (7-17) 05/08/18 06:38 Creatinine 0.6 mg/dL (0.7-1.2) L 05/08/18 06:38 Est GFR ( Amer) > 60 05/08/18 06:38 Est GFR (Non-Af Amer) > 60 05/08/18 06:38 Random Glucose 107 mg/dL (65-105) H 05/08/18 06:38 Lactic Acid 0.8 mmol/L (0.7-2.1) 04/30/18 11:25 Calcium 9.0 mg/dl (8.6-10.4) 05/08/18 06:38 Phosphorus 1.7 mg/dL (2.5-4.5) L 05/06/18 05:58 Magnesium 2.0 mg/dL (1.6-2.3) 05/08/18 06:38 Total Bilirubin 0.7 mg/dL (0.2-1.3) 05/08/18 06:38 AST 26 U/L (14-36) 05/08/18 06:38 ALT 44 U/L (9-52) 05/08/18 06:38 Alkaline Phosphatase 61 U/L (38-126) 05/08/18 06:38 Total Protein 6.3 g/dL (6.3-8.3) 05/08/18 06:38 Albumin 3.2 g/dL (3.5-5.0) L 05/08/18 06:38 Globulin 3.1 gm/dL (2.2-3.9) 05/08/18 06:38 Albumin/Globulin Ratio 1.0 (1.0-2.1) 05/08/18 06:38 Lipase 74 U/L (23-300) 04/29/18 11:58 Beta HCG, Quant < 2.39 mIU/ML 05/03/18 06:24 Venous Blood Potassium 3.9 mmol/L (3.6-5.2) 05/01/18 06:35 Urine Color Josseline (YELLOW) 05/04/18 06:09 Urine Clarity Hazy (Clear) 05/04/18 06:09 Urine pH 5.0 (5.0-8.0) 05/04/18 06:09 Ur Specific [place] 1.034 (1.003-1.030) H 05/04/18 06:09 Urine Protein Negative mg/dL (NEGATIVE) 05/04/18 06:09 Urine Glucose (UA) Normal mg/dL (Normal) 05/04/18 06:09 Urine Ketones 1+ mg/dL (NEGATIVE) H 05/04/18 06:09 Urine Blood 1+ (NEGATIVE) H 05/04/18 06:09 Urine Nitrate Negative (NEGATIVE) 05/04/18 06:09 Urine Bilirubin Negative (NEGATIVE) 05/04/18 06:09 Urine Urobilinogen Normal mg/dL (0.2-1.0) 05/04/18 06:09 Ur Leukocyte Esterase Neg [place]/uL (Negative) 05/04/18 06:09 Urine WBC (Auto) 1 /hpf (0-5) 05/04/18 06:09 Urine RBC (Auto) 10 /hpf (0-3) H 05/04/18 06:09 Ur Squamous Epith Cells < 1 /hpf (0-5) 05/04/18 06:09 Urine Bacteria Rare (<OCC) 04/30/18 17:27 Hyaline Casts 0-2 /lpf (0-2) 05/04/18 06:09 Blood Type B POSITIVE 05/03/18 10:14 Antibody Screen Negative 05/03/18 10:14 - Hospital Course Hospital Course: Chief complaints: Abnormal chest x-ray History of present illness: 52-year-old female with multiple medical history including hypertension, hypercholesterolemia Lupus disease DVT, PE, status post IVC filter Hypercoagulable state Sleep apnea, fibromyalgia Obesity, bronchial asthma,. Patient is currently being followed up by me for non-resolving pneumonia. Patient recently admitted in October,, at the time patient received intravenous antibiotic and Solu-Medrol, patient symptoms got better, until a month ago. Patient again started having similar cough, shortness of breath, and the mucus production with the sometimes blood, and again she was hospitalized, and this started on IV antibiotic and bronchodilators with Solu-Medrol, initially patient showed is some improvement, but again she started having worsening symptoms once the patient finishes the corticosteroid. So I was in the process of getting a lung biopsy to rule out underlying lupus lung disease, CHRONIC NON-RESOLVING PNEUMONIA. MEANWHILE REGULAR X-RAY WHICH WAS DONE ON WEDNESDAY SHOWING EVIDENCE OF FREE AIR UNDER DIAPHRAGM. SO IMMEDIATELY CALL THE PATIENT to go to the emergency room. In the emergency room patient underwent a CT scan of the abdomen, showing questionable perforation involving the right colon [place]. But patient does not have any symptoms of nausea, no vomiting, no abdominal pain , she is not feeling sick. Patient has a cough. Mostly dry cough noted Past medical history as noted able Allergy: No known drug allergy Personal history: Nonsmoker nonalcoholic Surgical history: Cholecystectomy, appendectomy. LAP-BAND. . Umbilical hernia repair. Recent colonoscopy Family history noncontributory Review of system: Patient is having some headache. Cough progressively worsening Mucus production occasionally noted, also having some mild blood in the sputum. No abdominal pain. Ration is having regular bowel movements. Because of the steroid the patient is having increasing leg swelling, facial swelling. Weight gain recently noted On examination: Patient is not in any distress. Chest good air entry bilaterally Wheezing noted Regular heart sound Abdomen soft and nontender. Edema 1+ noted bilaterally Skin changes noted, Patient's labs reviewed Nonspecific. CAT scan of the abdomen and pelvis showing evidence of pneumatosis involving the right side of the colon, free air under diaphragm noted slight improvement compared to the x-ray of the morning. I spoke to the general surgery, surgical consultation. As the patient does not have any symptoms of any acute illness, very close monitoring recommended at this time. As the patient is having lupus disease, chronic steroid use an antibiotic probably contributed the problems. Assessment/recommendation: 52-year-old female with a history of lupus, hypercoagulable state, DVT PE, IVC filter, hypertension. Sleep apnea Fibromyalgia Admitted to the hospital with suspected chronic perforation, pneumatosis. He had under diaphragm. As the patient is currently asymptomatic, close monitoring recommended. As per the surgery patient will be needed to keep on nothing by mouth IV fluid Antibiotic Patient was on Coumadin, converted to the heparin drip She may need a surgical intervention at any time. We'll follow the patient. I spoke to the patient in details about the plan. close monitoring and observation. Course in the Hospital: Patient was admitted to the hospital with a suspected colon dilatation, and a pneumatosis, and air under diaphragm, initial surgical evaluation was called in. I spoke to the surgical team in details about the patient's condition. As per the surgery patient was closely monitored As the patient did not have any symptoms of acute abdominal pain, nausea, other systemic symptoms initially started on intravenous antibiotic, IV fluids, and closely watched. Patient was kept nothing by mouth Repeat CAT scan was done after 2 days, showing no improvement in the cecum and ascending colon findings. Still worsening air noted, and it was decided to go for the surgery. Patient underwent right-sided hemicolectomy on 05/03/2018, postoperatively patient was managed in the intensive care unit Patient continued to recover. Patient was started on IV fluid, antibiotic, and later she started on oral feedings. She was tolerating the feeding well, she was also able to go to the bathroom, BM started. Clinical patient is stable. She is currently still receiving intravenous heparin drip. Clinical stable. She will be discharged home today. She will follow up as an outpatient Final diagnoses impending cecal perforation, status post right hemicolectomy Patient also has a history of lupus disease hypercoagulable state Also non-resolving pneumonia involving the bilateral lungs. But meanwhile during the treatment in the hospital with IV antibiotic and corticosteroid patient started improving in the oxygen. Currently her room air oxygen saturation is 97%. Clinical she is better. She will be discharged home. Patient will continue Levaquin for 7 days. I also advised the patient to start prednisone 20 mg daily She will start Lovenox for 3 days, and then she will convert that into Coumadin , information was given to the patient. She will follow up with the surgeon. And in my office. Final diagnoses acute cecal perforation, and associated with acute abdomen. Lupus pneumonia. Lupus pneumonitis Hypertension Hypercoagulable state. Discharge Exam - Head Exam Head Exam: ATRAUMATIC, NORMOCEPHALIC Discharge Plan - Discharge Medications Prescriptions: Levofloxacin [Levaquin] 500 mg PO DAILY #7 tablet - Follow Up Plan Condition: CRITICAL Disposition: HOME/ ROUTINE Instructions: Colectomy, Open Surgery, Levofloxacin (Systemic) Additional Instructions: 1) Walk-in appointment on Wednesday05/10/[address] Brown for wound check (office number #[phone]) 2) Please take medications as directed 3) May shower then cover dressing with 4x 4 and tape 4) No heavy lifting more than 10lbs Referrals: Hank Robledo Jr., MD [Staff Provider] - Karlos Brown MD [Staff Provider] -
--- NOTE | 2018-05-08 15:52 | CP.PCM.PN ---
Subjective - Date & Time of Evaluation Date of Evaluation: 05/08/18 Time of Evaluation: 09:00 - Subjective Subjective: feels well no fever wound healing Objective - Vital Signs/Intake and Output Vital Signs (last 24 hours): Temp Pulse Resp BP Pulse Ox 98.1 F 81 20 128/76 100 05/08/18 07:05 05/08/18 07:05 05/08/18 07:05 05/08/18 07:05 05/08/18 07:05 Intake and Output: 05/08/18 05/08/18 06:59 18:59 Intake Total 1542 Output Total 10 10 Balance 1532 -10 - Medications Medications: Current Medications Acetaminophen (Tylenol 325mg Tab) 650 mg PO Q6 PRN PRN Reason: Pain, Mild (1-3) Albuterol/Ipratropium (Duoneb 3 Mg/0.5 Mg (3 Ml) Ud) 3 ml INH RQ6 ENOC Last Admin: 05/08/18 13:03 Dose: 3 ml Docusate Sodium (Colace) 100 mg PO DAILY ENOC Last Admin: 05/08/18 09:37 Dose: 100 mg Fluticasone Propionate (Flonase) 1 spr NS DAILY ENOC Last Admin: 05/08/18 09:38 Dose: 1 spray Meropenem 1 gm/ Sodium (Chloride) 100 mls @ 100 mls/hr IVPB Q8H ENOC PRN Reason: Protocol Last Admin: 05/08/18 14:38 Dose: 100 mls/hr BUPIVACAINE 0.125%/0.9% NACL (Bupivacaine-Ns 0.125% On-Q Medical Office Worker) 600 mls @ 4 mls/ hr IJ ONCE ONE Stop: 05/09/18 20:59 BUPIVACAINE 0.125%/0.9% NACL (Bupivacaine-Ns 0.125% On-Q Medical Office Worker) 600 mls @ 4 mls/ hr IJ ONCE ONE Stop: 05/09/18 20:59 Heparin Sodium/Sodium Chloride (Heparin 93868 Units/250ml 1/2 Normal Saline) 25 ,000 units in 250 mls @ 9 mls/hr IV .Q24H PRN; Protocol; 9 UNITS/KG/HR PRN Reason: PROTOCOL Last Admin: 05/08/18 00:04 Dose: 9 units/kg/hr, 9 mls/hr Lidocaine (Lidoderm) 1 ea TD DAILY ENOC Last Admin: 05/08/18 09:37 Dose: 1 ea Methylprednisolone (Solu-Medrol) 20 mg IVP QOD6 ENOC Last Admin: 05/07/18 17:05 Dose: 20 mg Pantoprazole Sodium (Protonix Inj) 40 mg IVP DAILY ENOC Last Admin: 05/08/18 09:37 Dose: 40 mg - Labs Labs: 05/08/18 06:38 05/08/18 06:38 PT 14.6 SECONDS (9.7-12.2) H 05/05/18 09:22 INR 1.3 05/05/18 09:22 APTT 78 SECONDS (21-34) H D 05/07/18 23:14 - Constitutional Appears: Well, Chronically Ill - Head Exam Head Exam: NORMOCEPHALIC - Eye Exam Eye Exam: PERRL. absent: Scleral icterus - ENT Exam ENT Exam: Mucous Membranes Dry - Neck Exam Neck Exam: absent: Lymphadenopathy - Respiratory Exam Respiratory Exam: Decreased Breath Sounds - Cardiovascular Exam Cardiovascular Exam: REGULAR RHYTHM - GI/Abdominal Exam GI & Abdominal Exam: Distended, Soft Assessment and Plan (1) Intra-abdominal free air of unknown etiology Status: Acute - Assessment and Plan (Free Text) Plan: d/c home follow up PMD
[2018-05-08 16:29] VITALS: BP 131/81; PULSE 92; O2SAT 95
--- NOTE | 2018-05-08 16:55 | RAD ---
HISTORY: cough COMPARISON: Comparison is made with 05/05/2018 FINDINGS: LUNGS: Again seen are linear opacities at the left lung base likely scar tissue or atelectasis. No significant interval change noted since the previous exam. PLEURA: Blunting of the left costophrenic angle is noted. CARDIOVASCULAR: Normal. OSSEOUS STRUCTURES: No significant abnormalities. VISUALIZED UPPER ABDOMEN: Normal. OTHER FINDINGS: Right-sided PICC line is again seen in place. IMPRESSION: No significant interval change noted since the previous study.
== END 2018-05-08 18:30 | disposition home or self-care (01) | DRG 329 ==
LOC: C.ER 23:19 → C.9E 04-30 05:28 → C.5S 04-30 06:17 → C.9I 05-03 20:16 → C.5S 05-05 05:03
PROVIDERS: ADMIT Internal Medicine; ATTEND Internal Medicine
PROC: 02HV33Z Insertion of Infusion Device into Superior Vena Cava, Percutaneous Approach (ICD-10-PCS; 2018-04-30)
PROC: B548ZZA Ultrasonography of Superior Vena Cava, Guidance (ICD-10-PCS; 2018-04-30)
PROC: 0DNW0ZZ Release Peritoneum, Open Approach (ICD-10-PCS; 2018-05-03)
PROC: 0DBU0ZZ Excision of Omentum, Open Approach (ICD-10-PCS; 2018-05-03)
PROC: 0WPF0JZ Removal of Synthetic Substitute from Abdominal Wall, Open Approach (ICD-10-PCS; 2018-05-03)
PROC: 30233K1 Transfusion of Nonautologous Frozen Plasma into Peripheral Vein, Percutaneous Approach (ICD-10-PCS; 2018-05-03)
PROC: 0DTG0ZZ Resection of Left Large Intestine, Open Approach (ICD-10-PCS; principal; 2018-05-03 14:30)
DX: K63.1 Perforation of intestine (nontraumatic) (principal); J18.9 Pneumonia, unspecified organism; K63.89 Other specified diseases of intestine; K66.0 Peritoneal adhesions (postprocedural) (postinfection); M32.9 Systemic lupus erythematosus, unspecified; E66.01 Morbid (severe) obesity due to excess calories; E78.00 Pure hypercholesterolemia, unspecified; G47.30 Sleep apnea, unspecified; G89.29 Other chronic pain; I10 Essential (primary) hypertension; K21.9 Gastro-esophageal reflux disease without esophagitis; M79.7 Fibromyalgia; N32.81 Overactive bladder; Z79.01 Long term (current) use of anticoagulants; K42.9 Umbilical hernia without obstruction or gangrene; Z86.711 Personal history of pulmonary embolism; Z86.718 Personal history of other venous thrombosis and embolism; Z79.52 Long term (current) use of systemic steroids; Z98.84 Bariatric surgery status; Z87.01 Personal history of pneumonia (recurrent); Z68.39 Body mass index [BMI] 39.0-39.9, adult

== ENCOUNTER 2018-05-22 07:21 | Emergency (ER) | payer MEDICARE, MEDICAID ==
[2018-05-22 07:22] VITALS: BMI 35.4
[2018-05-22 07:30] VITALS: BP 123/79; PULSE 91; RESP 16; TEMP 98.8; O2SAT 99
--- NOTE | 2018-05-22 08:29 | C.PDOC ---
History Of Present Illness 52 y/o female s/p colon surgery 05/03/18 for perforation comes to ED with drainage from wound sites. pt seen by Dr Bright 3 days ago and had dressing anbd packing changed, and was told to come to ED if drainage persists. pt denies abdominal pain, fever, chills. Time Seen by Provider: 05/22/18 07:59 Chief Complaint (Nursing): Abnormal Skin Integrity History Per: Patient History/Exam Limitations: no limitations Onset/Duration Of Symptoms: Days (3) Current Symptoms Are (Timing): Still Present Quality Of Symptoms: Draining Severity: Mild Past Medical History Reviewed: Historical Data, Nursing Documentation, Vital Signs Vital Signs: Last Vital Signs Temp 98.8 F 05/22/18 07:25 Pulse 91 H 05/22/18 07:25 Resp 16 05/22/18 07:25 BP 123/79 05/22/18 07:25 Pulse Ox 99 05/22/18 08:33 - Medical History PMH: Arthritis, Asthma, Back Problems, Bronchitis, Colonic Polyps, Depression ( post depression), Deep Vein Thrombosis (2011), Fibromyalgia, HTN, Migraine, Peripheral Edema, Pneumonia ("multiple times"), Pulmonary Embolism ( 2011), Sleep Apnea Denies: Chronic Kidney Disease Surgical History: Appendectomy, Endoscopy Other Surgeries: colon resection 05/16 - [facility] (04/30/18) ARTIF RUPT MEMBRANES NEC (05/12/99) DIATHER/CRYO TURBINECTOM (11/10/13) ESOPHAGOGASTRODUODENOSCOPY [EGD] W/CLOSED BIOPSY (03/28/14) ETHMOIDECTOMY (11/10/13) FASCIOTOMY (01/19/14) INSERTION OF INFUSION DEV INTO SUP VENA CAVA, PERC APPROACH (04/30/18) INTRANASAL ANTROTOMY (11/10/13) LAPAROSCOP APPENDECTOMY (03/16/05) LOW CERVICAL (05/12/99) RELEASE PERITONEUM, OPEN APPROACH (04/30/18) REMOVAL OF SYNTHETIC SUBSTITUTE FROM ABD WALL, OPEN APPROACH (04/30/18) RESECTION OF LEFT LARGE INTESTINE, OPEN APPROACH (04/30/18) TRANSFUSE NONAUT FROZEN PLASMA IN PERIPH VEIN, PERC (04/30/18) ULTRASONOGRAPHY OF SUPERIOR VENA CAVA, GUIDANCE (04/30/18) UMBIL HERNIA REPAIR-GRFT (03/16/05) Family History: States: Unknown Family Hx - Social History Hx Tobacco Use: No Hx Alcohol Use: No Hx Substance Use: No - Immunization History Hx Tetanus Toxoid Vaccination: No Hx Influenza Vaccination: Yes Hx Pneumococcal Vaccination: Yes (2017) Review Of Systems Constitutional: Negative for: Fever, Chills Gastrointestinal: Negative for: Nausea, Vomiting, Abdominal Pain Physical Exam - Physical Exam Appears: Non-toxic, No Acute Distress Skin: Warm, Dry, Other (large vertical incision with dehiscence at proximal and distal ends; serous drainage prox end, serosanguinous drainage distal end. ) ED Course And Treatment O2 Sat by Pulse Oximetry: 99 Medical Decision Making Medical Decision Making: s/p colon surgery with wound dehiscence- for hernan consult for wound care. 0845 pt seen by surgical dental assistant Dr Johnson, dressing changed. may be discharged with f/u on as scheduled. Disposition Counseled Patient/Family Regarding: Diagnosis, Need For Followup - Disposition Referrals: Karlos Brown MD [Staff Provider] - Disposition: HOME/ ROUTINE Disposition Time: 08:50 Condition: GOOD Additional Instructions: Please keep wound clean and dry. Follow up with Dr Bright on as scheduled. Return to ER for any concerns. Instructions: Wound Care (DC) Forms: [facility] ([place]), General Discharge Instructions - Clinical Impression Clinical Impression: Visit for wound check
== END 2018-05-22 08:52 | disposition home or self-care (01) ==
LOC: C.ER 07:21
DX: Z48.89 Encounter for other specified surgical aftercare (principal)

== ENCOUNTER 2018-05-25 19:01 | Inpatient (IN) | payer MEDICARE, MEDICAID ==
[2018-05-25 19:01] VITALS: BMI 35.4
[2018-05-25] MEDS ORDERED: Sodium Chloride 0.9% 1,000 ML IV ONE (19:37)
--- NOTE | 2018-05-25 19:37 | C.PDOC ---
History Of Present Illness 52 y/o female presents to the ED with shortness of breath that began today. PMHx is significant for lupus, which has lead her to be coagulopathic, (+) prior DVT and PE, currently on Coumadin. Patient also notes she underwent recent surgery for resection of colon due to questionable colitis on 05/03/18. Patient reports having a cough for the past 3 days and earlier today noted marked SOB, which prompted her to come to the ED. Otherwise she denies chest pain, palpitations, fever, chills, calf pain or swelling. PMD: Dr. Quiñones Time Seen by Provider: 05/25/18 19:30 Chief Complaint (Nursing): Shortness Of Breath History Per: Patient History/Exam Limitations: no limitations Onset/Duration Of Symptoms: Days (x1) Current Symptoms Are (Timing): Still Present Past Medical History Reviewed: Historical Data, Nursing Documentation, Vital Signs Vital Signs: Last Vital Signs Temp 99.1 F 05/25/18 19:17 Pulse 128 H 05/25/18 19:17 Resp 26 H 05/25/18 19:36 BP 151/99 H 05/25/18 19:17 Pulse Ox 77 L 05/25/18 22:03 - Medical History PMH: Arthritis, Asthma, Back Problems, Bronchitis, Colonic Polyps, Depression ( post depression), Deep Vein Thrombosis (2011), Fibromyalgia, HTN, Migraine, Peripheral Edema, Pneumonia ("multiple times"), Pulmonary Embolism ( 2011), Sleep Apnea Denies: Chronic Kidney Disease Surgical History: Appendectomy, Endoscopy Other Surgeries: Colon resection - [facility] (04/30/18) ARTIF RUPT MEMBRANES NEC (05/12/99) DIATHER/CRYO TURBINECTOM (11/10/13) ESOPHAGOGASTRODUODENOSCOPY [EGD] W/CLOSED BIOPSY (03/28/14) ETHMOIDECTOMY (11/10/13) FASCIOTOMY (01/19/14) INSERTION OF INFUSION DEV INTO SUP VENA CAVA, PERC APPROACH (04/30/18) INTRANASAL ANTROTOMY (11/10/13) LAPAROSCOP APPENDECTOMY (03/16/05) LOW CERVICAL (05/12/99) RELEASE PERITONEUM, OPEN APPROACH (04/30/18) REMOVAL OF SYNTHETIC SUBSTITUTE FROM ABD WALL, OPEN APPROACH (04/30/18) RESECTION OF LEFT LARGE INTESTINE, OPEN APPROACH (04/30/18) TRANSFUSE NONAUT FROZEN PLASMA IN PERIPH VEIN, PERC (04/30/18) ULTRASONOGRAPHY OF SUPERIOR VENA CAVA, GUIDANCE (04/30/18) UMBIL HERNIA REPAIR-GRFT (03/16/05) Family History: States: Unknown Family Hx - Social History Hx Tobacco Use: No Hx Alcohol Use: No Hx Substance Use: No - Immunization History Hx Tetanus Toxoid Vaccination: No Hx Influenza Vaccination: Yes Hx Pneumococcal Vaccination: Yes (2017) Review Of Systems Except As Marked, All Systems Reviewed And Found Negative. Constitutional: Negative for: Fever, Chills, Sweats Cardiovascular: Negative for: Chest Pain, Palpitations Respiratory: Positive for: Cough, Shortness of Breath Musculoskeletal: Negative for: Other (calf pain/swelling) Physical Exam - Physical Exam Appears: Non-toxic, Other (all vital signs reviewed, O2sat is 77% on room air, resting pulse of 117bpm) Skin: Normal Color, Warm, Dry Head: Atraumatic, Normacephalic Eye(s): bilateral: Normal Inspection, PERRL, EOMI Nose: Normal Oral Mucosa: Moist Neck: Normal ROM, Supple, No Other (JVD) Chest: Symmetrical, No Deformity Cardiovascular: Rhythm Regular (regular and accelerated rhythm, ranging between 110-120 bpm), No Friction Rub, No Murmur, No Other (thrill) Respiratory: Normal Breath Sounds (Lungs clear to auscultation bilaterally), No Rales, No Rhonchi, No Wheezing, Other (speaking in partial sentences) Gastrointestinal/Abdominal: Soft, No Tenderness, Other (well-healing laparotomy scar with 3 small open areas, draining clear fluid) Extremity: Normal ROM, No Calf Tenderness (or Ho's sign), No Deformity, Other (chronic venous stasis changes to the lower extremities, no edema appreciated) Pulses: Left Dorsalis Pedis: Normal, Right Dorsalis Pedis: Normal Neurological/Psych: Oriented x3, Normal Speech, Normal Cranial Nerves, Other ( No focal deficits) ED Course And Treatment - Laboratory Results Result Diagrams: 05/25/18 19:39 05/25/18 19:39 ECG: Interpreted By Me, Viewed By Me ECG Rhythm: Sinus Tachycardia ECG Interpretation: Abnormal Interpretation Of ECG: Sinus tachy at 115 bpm, no acute ST/T wave changes, no ectopy, + deep S wave in lead 1, minimal Qs in lead 3 with an inverted T wave. Suggestive of acute pulmonary embolism. No old EKGs for comparison. Rate From EC O2 Sat by Pulse Oximetry: 77 (RA) Pulse Ox Interpretation: Abnormal - CT Scan/US CTA Chest Other Rad Studies (CT/US): Read By Radiologist, Radiology Report Reviewed CT/US Interpretation: Name: ANDREA LEPE Age: 52Years F Date: 05/25/2018. Requesting Physician: Annika Dale : 1965. [facility] Procedure Ordered As Accession Number of Images. CTA CHEST CT ANGIO CHEST PE PROTOCOL [id number]. Provided Clinical History: r/o pe. EXAM: CT Angiography Chest With Intravenous Contrast. CLINICAL HISTORY: 52 years old, female; Signs and symptoms; Shortness of breath; Additional info: R/O pe. TECHNIQUE: Axial computed tomographic angiography images of the chest with intravenous contrast using. pulmonary embolism protocol. All CT scans at this facility use at least one of these dose optimization. techniques: automated exposure control; mA and/or kV adjustment per patient size (includes targeted. exams where dose is matched to clinical indication); or iterative reconstruction. MIP reconstructed images were created and reviewed. Coronal and sagittal reformatted images were created and reviewed. COMPARISON: CR - CHEST TWO VIEWS (PA/LAT) 2016-01-18 08:38. FINDINGS: Pulmonary arteries: No filling defects are seen in the pulmonary arteries or in its visualized. tributaries. Aorta: The aorta and the great vessels are normal. Negative for dissection. Inferior vena cava: An inferior vena cava filter is partially visualized. Lungs: Extensive bilateral airspace disease involving multiple segments with areas of groundglass. disease as well. Her bronchograms in the lingula. No mass. Pleural space: Unremarkable. No significant effusion. No pneumothorax. Heart: The cardiac chambers are mildly enlarged without pericardial thickening or effusion. No. evidence of RV dysfunction. Mediastinum: Distal esophagus appears moderately dilated with no significant fluid dilatation of 3.8. cm. Bones/joints: No acute fracture. No dislocation. Soft tissues: The abdominal wall surgical defect is seen. Lymph nodes: There are numerous prominent but non-pathologic lymph nodes in the mediastinum. There are no nodes of pathologic dimensions. There are multiple small nonspecific bilateral hilar. lymph nodes. Stomach and bowel: There has been a previous gastric banding procedure. IMPRESSION: No pulmonary embolism, or dissection. Extensive nonspecific groundglass changes which could. represent multifocal pneumonitis, atelectasis, atypical pneumonia or edema. Airspace disease in overall bronchograms are seen involving the lingula which could represent lobar. pneumonia. Distention of the esophagus. There has been a recent gastric banding procedure. Please correlate. with angle or constrictive strength of the gastric banding apparatus, which may explain the. esophageal distention. Thank you for allowing us to participate in the care of your patient. Dictated and Authenticated by: Edilberto Kaplan MD. 05/25/2018 10:05 PM Eastern Time ([place] & [place]) Medical Decision Making Medical Decision Making: Initial Impression: Patient with known coagulopathy, new-onset SOB, in post-op period. Will consider strong likelihood of PE vs. other lung pathology Plan: --CTA Chest --EKG --Labs --Chest x-ray --IV fluids --Reevaluation Progress/Updates: CXR, as read by me: Shows bilateral diffuse airspace disease, suggestive of pneumonia Will add on ABG. 21:02 Case discussed w/ Dr. Matthews, hospitalist on-call, who requests to wait for CTA result prior to accepting patient for admission. Recommends beginning treatment for pneumonia. Patient started on IV Rocephin and PO Zithromax. Awaiting CTA reading from [facility]. 21:[address] Matthews, who viewed CTA, and accepts patient for admission. Disposition Counseled Patient/Family Regarding: Studies Performed, Diagnosis - Disposition Disposition: HOSPITALIZED Disposition Time: 21:48 Condition: STABLE Forms: [facility] ([place]) - POA Present On Arrival: None - Clinical Impression Clinical Impression: Pneumonia - Scribe Statement The provider has reviewed the documentation as recorded by the Scribe (Kacey Goldstein) Provider Attestation: All medical record entries made by the Scribe were at my direction and personally dictated by me. I have reviewed the chart and agree that the record accurately reflects my personal performance of the history, physical exam, medical decision making, and the department course for this patient. I have also personally directed, reviewed, and agree with the discharge instructions and disposition. Decision To Admit - Pt Status Changed To: Hospital Disposition Of: Inpatient - Admit Certification Admit to Inpatient:: After my assessment, the patient will require hospitalization for at least two midnights. This is because of the severity of symptoms shown, intensity of services needed, and/or the medical risk in this patient being treated as an outpatient. - InPatient: Physician Admission Certification: I certify that this patient requires 2 or more midnights of care for the following reason:: Pneumonia, IV antibiotics - . Bed Request Type: Telemetry Admitting Physician: Carlos Matthews Patient Diagnosis: Pneumonia
[2018-05-25 19:45] LABS: BASO % 0.2 % (0.0-2.0); EOS # 0.2 K/uL (0.0-0.7); EOS % 1.6 % (0.0-4.0); HEMOGLOBIN 10.3 g/dL (11.0-16.0); LYMPH # 0.5 K/uL (1.0-4.3); LYMPH % 3.3 % (20.0-40.0); MEAN CELL VOLUME 79.2 fL (81.0-99.0); MEAN CORPUSCULAR HEMOGLOBIN 26.1 pg (27.0-31.0); MEAN CORPUSCULAR HGB CONC 32.9 g/dL (33.0-37.0); MEAN PLATELET VOLUME 6.8 fL (7.2-11.7); MONO # 0.6 K/uL (0.0-0.8); MONO % 3.7 % (0.0-10.0); NEUT # 13.8 K/uL (1.8-7.0); NEUT % 91.2 % (50.0-75.0); PLATELET COUNT 381 K/uL (130-400); RBC 3.95 Mil/uL (3.80-5.20); RED CELL DISTRIBUTION WIDTH 15.9 % (11.5-14.5); WHITE BLOOD COUNT 15.1 K/uL (4.8-10.8)
[2018-05-25 19:59] LABS: ALB/GLOB RATIO 1.2 (1.0-2.1); ALBUMIN 3.6 g/dL (3.5-5.0); ALT/SGPT 27 U/L (9-52); AST/SGOT 25 U/L (14-36); BLOOD UREA NITROGEN 14 mg/dL (7-17); CALCIUM 8.5 mg/dl (8.6-10.4); GFR AFRICAN-AMERICAN > 60; GFR NON-AFRICAN AMERICAN > 60
[2018-05-25 20:04] LABS: INR 2.9
[2018-05-25 20:11] LABS: PROTHROMBIN TIME 32.3 SECONDS (9.7-12.2)
[2018-05-25 20:18] LABS: ANISOCYTOSIS SLIGHT; BANDS 4 % (0-2); EOSINOPHIL 1 % (0-4); LYMPHOCYTE 5 % (20-40); MONOCYTE 3 % (0-10); NEUTROPHIL 87 % (50-75); PLATELET ESTIMATE NORMAL (NORMAL); POIKILOCYTOSIS SLIGHT; TOTAL CELLS COUNTED 100
[2018-05-25 20:30] LABS: SQUAMOUS EPITHIAL 1 /hpf (0-5); URINE BILIRUBIN NEGATIVE (NEGATIVE); URINE BLOOD NEGATIVE (NEGATIVE); URINE CLARITY Clear (Clear); URINE COLOR Yellow (YELLOW); URINE GLUCOSE (UA) NORMAL (Normal); URINE LEUKOCYTE ESTERASE 1+ Leu/uL (Negative); URINE PROTEIN NEGATIVE (NEGATIVE); URINE UROBILINOGEN NORMAL mg/dL (0.2-1.0)
[2018-05-25] MEDS ORDERED: Iodixanol 320 MG/ML 100 ML BOTTLE IV ONE (20:45)
[2018-05-25] MEDS ORDERED: cefTRIAXone IV 1 gm in Dextros 50 ML IVPB ONE (21:35)
[2018-05-25 21:51] LABS: ABG ALLEN TEST POS; ARTERIAL BLOOD GAS HCO3 27.3 mmol/L (21-28); ARTERIAL BLOOD GAS HEMOGLOBIN 8.8 g/dL (11.7-17.4); ARTERIAL BLOOD GAS O2 SAT 94.4 % (95-98); ARTERIAL BLOOD GAS PCO2 37 mm/Hg (35-45); ARTERIAL BLOOD GAS PH 7.47 (7.35-7.45); ARTERIAL BLOOD GAS PO2 51 mm/Hg (80-100)
[2018-05-25] MEDS ORDERED: MethylPREDNISolone 40 mg Vial IV SCH (22:34)
[2018-05-25] MEDS ORDERED: Albuterol-Ipratrop 3 mg / 0.5 (3 ml) UD INH PRN (22:40)
[2018-05-25] MEDS ORDERED: MethylPREDNISolone 40 mg Vial ONE (22:48)
--- NOTE | 2018-05-25 22:50 | CP.PCM.HP ---
<RkRosaKarlo - Last Filed: 05/25/18 23:19> History of Present Illness - History of Present Illness History of Present Illness: CC: "shortness of breath" HPI: 52 year old female with past medical history as noted before presents to the ER for shortness of breath. She states she was making lunch this afternoon when she felt a bit lightheaded so she decided to lay down and rest. She states she fell asleep and when she woke up she felt like she couldn't breathe. She states her lips were blue and she took her pulse ox which showed it was 50 % on RA. She states at that time her brought her to the ER. When arriving to the ER her pulse ox was 77%RA and patient had a temperature of 101.6. Patient denies chest pain, nausea, vomiting, abdominal pain, fever, chills, diarrhea or constipation. Patient also states she has not been able to use her CPAP machine at home recently because her dog chewed the mask. PMD: Dr. Quiñones Past Medical History: Lupus disease (diagnosed in 2011); DVT (2011), PE (2011), status post IVC filter (2011); Hypercoagulable state; Sleep apnea, fibromyalgia ; Obesity, bronchial asthma, recurrent pneumonia; Colonic perforation 04/2018 Surgical history: (04/2018) exploratoy laparotomy R hemicolectomy with anastomosis, omentectomy. Cholecystectomy, appendectomy. Gastric-BAND placed in [place] 2009. x2. Umbilical hernia repair. Colonoscopy Medications: Warfarin 5mg daily; Amlodipine 5mg daily; Levocetirizine Dihydrochloride 5mg daily; Amitriptyline 100mg daily; Nasnonex; Proair HFa; Symbicort; Protonix 40mg bid; Hydrochlorthiazide 25mg po daily; Lyrica 75mg bid ; Sinngulair 10mg daily; Plaquenil 200mg po bid; Oxybutyin Chloride 10mg po daily; Levofloxacin 750mg daily; completed 5 day course of steroids on May 13 Allergies: NKDA Social History: denies smoking; illicit drug use; and alcohol. Lives with and 2 kids. On disability, previously worked as a [employer]. Present on Admission - Present on Admission Any Indicators Present on Admission: Yes History of DVT/PE: Yes Review of Systems - Constitutional Constitutional: absent: Chills, Fever - Cardiovascular Cardiovascular: Dyspnea, Leg Edema, Lightheadedness. absent: Chest Pain - Respiratory Respiratory: Cough (chronic dry cough ), Dyspnea - Gastrointestinal Gastrointestinal: absent: Abdominal Pain, Constipation, Diarrhea, Nausea, Vomiting - Genitourinary Genitourinary: absent: Dysuria - Musculoskeletal Musculoskeletal: absent: Numbness, Tingling - Neurological Neurological: absent: Dizziness, Headaches Past Patient History - Infectious Disease Hx of Infectious Diseases: None - Tetanus Immunizations Tetanus Immunization: Up to Date - Past Medical History & Family History Past Medical History?: Yes - Past Social History Smoking Status: Never Smoked - CARDIAC Hx Hypertension: Yes Hx Peripheral Edema: Yes - PULMONARY Hx Asthma: Yes Hx Bronchitis: Yes Hx Pneumonia: Yes ("multiple times") Hx Pulmonary Embolism: Yes (2011) Hx Sleep Apnea: Yes - NEUROLOGICAL Hx Migraine: Yes - HEENT Hx HEENT Problems: Yes Other/Comment: wear glasses for vision - RENAL Hx Chronic Kidney Disease: No - ENDOCRINE/METABOLIC Hx Endocrine Disorders: Yes Hx Systemic Lupus Erythematosus: Yes (w/ antibody) - HEMATOLOGICAL/ONCOLOGICAL Hx Blood Disorders: No - INTEGUMENTARY Hx Dermatological Problems: Yes Other/Comment: discoploration of lower legs/pigmentation - MUSCULOSKELETAL/RHEUMATOLOGICAL Hx Arthritis: Yes - GASTROINTESTINAL Hx Gastrointestinal Disorders: Yes Hx Gastroesophageal Reflux: Yes - GENITOURINARY/GYNECOLOGICAL Hx Genitourinary Disorders: Yes Hx Incontinence: Yes (OVER ACTIVE BLADDER) - PSYCHIATRIC Hx Depression: Yes (post depression) Hx Substance Use: No - SURGICAL HISTORY Hx Appendectomy: Yes - ANESTHESIA Hx Anesthesia: Yes Hx Anesthesia Reactions: No Hx Malignant Hyperthermia: No Meds Allergies/Adverse Reactions: Allergies Allergy/AdvReac Type Severity Reaction Status Date / Time No Known Allergies Allergy Verified 05/25/18 19:03 Physical Exam - Constitutional Appears: No Acute Distress - Head Exam Head Exam: ATRAUMATIC, NORMAL INSPECTION - Eye Exam Eye Exam: EOMI, Normal appearance, PERRL Pupil Exam: NORMAL ACCOMODATION - ENT Exam ENT Exam: Mucous Membranes Dry Additional comments: Lips look cracked - Respiratory Exam Respiratory Exam: Clear to Auscultation Bilateral, NORMAL BREATHING PATTERN - Cardiovascular Exam Cardiovascular Exam: Tachycardia, +S1, +S2 - GI/Abdominal Exam GI & Abdominal Exam: Normal Bowel Sounds, Soft. absent: Tenderness Additional comments: abdominal dressing - Extremities Exam Extremities exam: Positive for: pedal edema. Negative for: joint swelling - Neurological Exam Neurological exam: Alert, Oriented x3 - Psychiatric Exam Psychiatric exam: Normal Affect, Normal Mood - Skin Skin Exam: Normal Color Results - Vital Signs Recent Vital Signs: Last Vital Signs Temp 101.6 F H 05/25/18 22:10 Pulse 115 H 05/25/18 22:10 Resp 16 05/25/18 22:10 BP 153/71 H 05/25/18 22:10 Pulse Ox 94 L 05/25/18 22:10 - Labs Result Diagrams: 05/25/18 19:39 05/25/18 19:39 Labs: Laboratory Results - last 24 hr 05/25/18 05/25/18 05/25/18 19:39 19:39 19:39 WBC 15.1 H D RBC 3.95 Hgb 10.3 L Hct 31.2 L MCV 79.2 L MCH 26.1 L MCHC 32.9 L RDW 15.9 H Plt Count 381 D MPV 6.8 L Neut % (Auto) 91.2 H Lymph % (Auto) 3.3 L [place] % (Auto) 3.7 Eos % (Auto) 1.6 Baso % (Auto) 0.2 Neut # (Auto) 13.8 H Lymph # (Auto) 0.5 L [place] # (Auto) 0.6 Eos # (Auto) 0.2 Baso # (Auto) 0.0 Neutrophils % (Manual) 87 H Band Neutrophils % 4 H Lymphocytes % (Manual) 5 L Monocytes % (Manual) 3 Eosinophils % (Manual) 1 Platelet Estimate Normal Poikilocytosis (manual Slight Anisocytosis (manual) Slight PT 32.3 H* INR 2.9 APTT 51 H Puncture Site pCO2 pO2 HCO3 ABG pH ABG Total CO2 ABG O2 Saturation ABG Base Excess ABG Hemoglobin ABG Carboxyhemoglobin POC ABG HHb (Measured) ABG Methemoglobin Marcell Test A-a O2 Difference Respiratory Index Hgb O2 Saturation Liter Flow FiO2 Sodium 139 Potassium 3.6 Chloride 100 Carbon Dioxide 30 Anion Gap 13 BUN 14 Creatinine 0.8 Est GFR ( Amer) > 60 Est GFR (Non-Af Amer) > 60 Random Glucose 113 H Lactic Acid Calcium 8.5 L Total Bilirubin 0.5 AST 25 ALT 27 Alkaline Phosphatase 67 Total Protein 6.6 Albumin 3.6 Globulin 3.0 Albumin/Globulin Ratio 1.2 Urine Color Urine Clarity Urine pH Ur Specific [place] Urine Protein Urine Glucose (UA) Urine Ketones Urine Blood Urine Nitrate Urine Bilirubin Urine Urobilinogen Ur Leukocyte Esterase Urine WBC (Auto) Urine RBC (Auto) Ur Squamous Epith Cells 05/25/18 05/25/18 05/25/18 20:18 21:40 22:09 WBC RBC Hgb Hct MCV MCH MCHC RDW Plt Count MPV Neut % (Auto) Lymph % (Auto) [place] % (Auto) Eos % (Auto) Baso % (Auto) Neut # (Auto) Lymph # (Auto) [place] # (Auto) Eos # (Auto) Baso # (Auto) Neutrophils % (Manual) Band Neutrophils % Lymphocytes % (Manual) Monocytes % (Manual) Eosinophils % (Manual) Platelet Estimate Poikilocytosis (manual Anisocytosis (manual) PT INR APTT Puncture Site Rradial pCO2 37 pO2 51 L HCO3 27.3 ABG pH 7.47 H ABG Total CO2 28.0 ABG O2 Saturation 94.4 L ABG Base Excess 3.1 H ABG Hemoglobin 8.8 L ABG Carboxyhemoglobin 2.7 H POC ABG HHb (Measured) 5.4 H ABG Methemoglobin 1.4 Marcell Test Pos A-a O2 Difference 159.0 Respiratory Index 3.1 Hgb O2 Saturation 90.6 L Liter Flow 4.0 FiO2 36.0 Sodium Potassium Chloride Carbon Dioxide Anion Gap BUN Creatinine Est GFR ( Amer) Est GFR (Non-Af Amer) Random Glucose Lactic Acid 0.6 L Calcium Total Bilirubin AST ALT Alkaline Phosphatase Total Protein Albumin Globulin Albumin/Globulin Ratio Urine Color Yellow Urine Clarity Clear Urine pH 6.0 Ur Specific [place] 1.011 Urine Protein Negative Urine Glucose (UA) Normal Urine Ketones Negative Urine Blood Negative Urine Nitrate Negative Urine Bilirubin Negative Urine Urobilinogen Normal Ur Leukocyte Esterase 1+ H Urine WBC (Auto) 1 Urine RBC (Auto) 2 Ur Squamous Epith Cells 1 Assessment & Plan - Assessment and Plan (Free Text) Assessment: Shortness of breath - secondary to possible Pneumonia - Critical Care Consult - Patient admitted to ICU - CT chest: No pulmonary embolism; extensive non-specific ground-glass appearance which could represent multi-focal pneumonia (please see full report). - f/u blood culture - WBC 15.1 (patient was also recently on a 5 day course of steroids.) - Febrile - Medications: * Solumedrol 40mg q12h * Vanco daily * Zosyn q8h Dilated Esophagus - CT chest: distension of esophagus - gastric band procedure 2009 History of Lupus - diagnosed 2011 - Plaquenil 200mg po bid History of DVT/PE 2011 - Warfarin 5mg daily - IVC filter placed 2011 - INR 2.9 - Continue to monitor Colonic perforation 04/2018 - s/p (05/03/18) exploratoy laparotomy R hemicolectomy with anastomosis - Keep Dressing clean dry - Patient was home on Levofloxacin 750mg daily not in the hospital --> patient is now on Doxycycline 100mg bid History of Sleep apnea - hold CPAP History of HTN - Amlodipine 5mg daily - Hydrochlorthiazide 25mg po daily History of Asthma - Symbicort - Sinngulair 10mg daily - Advair - Duonebs q6prn History of fibromyalgia - Lyrica 75mg bid Prophylaxis - Aspiration precautions - Head elevation 45 degrees - Heart Healthy diet - Florator - warfarin 5mg daily (INR to be checked daily) - SCD contraindication due to chronic LE edema Case discussed with Dr. Cassie Beckman PGY-2 <Carlos Matthews P - Last Filed: 05/26/18 07:48> Results - Vital Signs Recent Vital Signs: Last Vital Signs Temp 98.6 F 05/25/18 23:51 Pulse 86 05/26/18 03:00 Resp 21 05/26/18 03:00 BP 112/66 05/26/18 02:07 Pulse Ox 77 L 05/26/18 04:05 - Labs Result Diagrams: 05/26/18 06:18 05/26/18 06:19 Labs: Laboratory Results - last 24 hr 05/25/18 05/25/18 05/25/18 19:39 19:39 19:39 WBC 15.1 H D RBC 3.95 Hgb 10.3 L Hct 31.2 L MCV 79.2 L MCH 26.1 L MCHC 32.9 L RDW 15.9 H Plt Count 381 D MPV 6.8 L Neut % (Auto) 91.2 H Lymph % (Auto) 3.3 L [place] % (Auto) 3.7 Eos % (Auto) 1.6 Baso % (Auto) 0.2 Neut # (Auto) 13.8 H Lymph # (Auto) 0.5 L [place] # (Auto) 0.6 Eos # (Auto) 0.2 Baso # (Auto) 0.0 Neutrophils % (Manual) 87 H Band Neutrophils % 4 H Lymphocytes % (Manual) 5 L Monocytes % (Manual) 3 Eosinophils % (Manual) 1 Platelet Estimate Normal Poikilocytosis (manual Slight Anisocytosis (manual) Slight PT 32.3 H* INR 2.9 APTT 51 H Puncture Site pCO2 pO2 HCO3 ABG pH ABG Total CO2 ABG O2 Saturation ABG Base Excess ABG Hemoglobin ABG Carboxyhemoglobin POC ABG HHb (Measured) ABG Methemoglobin Marcell Test A-a O2 Difference Respiratory Index Hgb O2 Saturation Liter Flow FiO2 Sodium 139 Potassium 3.6 Chloride 100 Carbon Dioxide 30 Anion Gap 13 BUN 14 Creatinine 0.8 Est GFR ( Amer) > 60 Est GFR (Non-Af Amer) > 60 Random Glucose 113 H Lactic Acid Calcium 8.5 L Phosphorus Magnesium Total Bilirubin 0.5 AST 25 ALT 27 Alkaline Phosphatase 67 Total Protein 6.6 Albumin 3.6 Globulin 3.0 Albumin/Globulin Ratio 1.2 Urine Color Urine Clarity Urine pH Ur Specific [place] Urine Protein Urine Glucose (UA) Urine Ketones Urine Blood Urine Nitrate Urine Bilirubin Urine Urobilinogen Ur Leukocyte Esterase Urine WBC (Auto) Urine RBC (Auto) Ur Squamous Epith Cells 05/25/18 05/25/18 05/25/18 20:18 21:40 22:09 WBC RBC Hgb Hct MCV MCH MCHC RDW Plt Count MPV Neut % (Auto) Lymph % (Auto) [place] % (Auto) Eos % (Auto) Baso % (Auto) Neut # (Auto) Lymph # (Auto) [place] # (Auto) Eos # (Auto) Baso # (Auto) Neutrophils % (Manual) Band Neutrophils % Lymphocytes % (Manual) Monocytes % (Manual) Eosinophils % (Manual) Platelet Estimate Poikilocytosis (manual Anisocytosis (manual) PT INR APTT Puncture Site Rradial pCO2 37 pO2 51 L HCO3 27.3 ABG pH 7.47 H ABG Total CO2 28.0 ABG O2 Saturation 94.4 L ABG Base Excess 3.1 H ABG Hemoglobin 8.8 L ABG Carboxyhemoglobin 2.7 H POC ABG HHb (Measured) 5.4 H ABG Methemoglobin 1.4 Marcell Test Pos A-a O2 Difference 159.0 Respiratory Index 3.1 Hgb O2 Saturation 90.6 L Liter Flow 4.0 FiO2 36.0 Sodium Potassium Chloride Carbon Dioxide Anion Gap BUN Creatinine Est GFR ( Amer) Est GFR (Non-Af Amer) Random Glucose Lactic Acid 0.6 L Calcium Phosphorus Magnesium Total Bilirubin AST ALT Alkaline Phosphatase Total Protein Albumin Globulin Albumin/Globulin Ratio Urine Color Yellow Urine Clarity Clear Urine pH 6.0 Ur Specific [place] 1.011 Urine Protein Negative Urine Glucose (UA) Normal Urine Ketones Negative Urine Blood Negative Urine Nitrate Negative Urine Bilirubin Negative Urine Urobilinogen Normal Ur Leukocyte Esterase 1+ H Urine WBC (Auto) 1 Urine RBC (Auto) 2 Ur Squamous Epith Cells 1 05/26/18 05/26/18 05/26/18 05:23 06:18 06:19 WBC 14.7 H RBC 3.76 L Hgb 9.8 L Hct 29.8 L MCV 79.2 L MCH 26.1 L MCHC 32.9 L RDW 16.0 H Plt Count 340 MPV 7.1 L Neut % (Auto) 97.0 H Lymph % (Auto) 1.8 L [place] % (Auto) 1.2 Eos % (Auto) 0.0 Baso % (Auto) 0.0 Neut # (Auto) 14.3 H Lymph # (Auto) 0.3 L [place] # (Auto) 0.2 Eos # (Auto) 0.0 Baso # (Auto) 0.0 Neutrophils % (Manual) Band Neutrophils % Lymphocytes % (Manual) Monocytes % (Manual) Eosinophils % (Manual) Platelet Estimate Poikilocytosis (manual Anisocytosis (manual) PT 28.0 H INR 2.6 APTT 49 H Puncture Site R brac pCO2 45 pO2 97 HCO3 28.2 H ABG pH 7.42 ABG Total CO2 30.6 H ABG O2 Saturation 98.8 H ABG Base Excess 4.2 H ABG Hemoglobin 9.9 L ABG Carboxyhemoglobin 1.9 H POC ABG HHb (Measured) 1.2 ABG Methemoglobin 1.0 Marcell Test Na A-a O2 Difference Respiratory Index Hgb O2 Saturation 95.9 Liter Flow 4.0 FiO2 Sodium Potassium Chloride Carbon Dioxide Anion Gap BUN Creatinine Est GFR ( Amer) Est GFR (Non-Af Amer) Random Glucose Lactic Acid Calcium Phosphorus Magnesium Total Bilirubin AST ALT Alkaline Phosphatase Total Protein Albumin Globulin Albumin/Globulin Ratio Urine Color Urine Clarity Urine pH Ur Specific [place] Urine Protein Urine Glucose (UA) Urine Ketones Urine Blood Urine Nitrate Urine Bilirubin Urine Urobilinogen Ur Leukocyte Esterase Urine WBC (Auto) Urine RBC (Auto) Ur Squamous Epith Cells 05/26/18 06:19 WBC RBC Hgb Hct MCV MCH MCHC RDW Plt Count MPV Neut % (Auto) Lymph % (Auto) [place] % (Auto) Eos % (Auto) Baso % (Auto) Neut # (Auto) Lymph # (Auto) [place] # (Auto) Eos # (Auto) Baso # (Auto) Neutrophils % (Manual) Band Neutrophils % Lymphocytes % (Manual) Monocytes % (Manual) Eosinophils % (Manual) Platelet Estimate Poikilocytosis (manual Anisocytosis (manual) PT INR APTT Puncture Site pCO2 pO2 HCO3 ABG pH ABG Total CO2 ABG O2 Saturation ABG Base Excess ABG Hemoglobin ABG Carboxyhemoglobin POC ABG HHb (Measured) ABG Methemoglobin Marcell Test A-a O2 Difference Respiratory Index Hgb O2 Saturation Liter Flow FiO2 Sodium 142 Potassium 3.7 Chloride 102 Carbon Dioxide 29 Anion Gap 14 BUN 11 Creatinine 0.7 Est GFR ( Amer) > 60 Est GFR (Non-Af Amer) > 60 Random Glucose 145 H Lactic Acid Calcium 8.3 L Phosphorus 3.7 Magnesium 1.8 Total Bilirubin 0.6 AST 21 ALT 28 Alkaline Phosphatase 61 Total Protein 6.1 L Albumin 3.3 L Globulin 2.8 Albumin/Globulin Ratio 1.2 Urine Color Urine Clarity Urine pH Ur Specific [place] Urine Protein Urine Glucose (UA) Urine Ketones Urine Blood Urine Nitrate Urine Bilirubin Urine Urobilinogen Ur Leukocyte Esterase Urine WBC (Auto) Urine RBC (Auto) Ur Squamous Epith Cells Attending/Attestation - Attestation I have personally seen and examined this patient.: Yes I have fully participated in the care of the patient.: Yes I have reviewed all pertinent clinical information: Yes Notes (Text): B/l multilobar pna, high suspicion that she is aspirating from dilated esophagus. Dilated esophagus from gastric band, will need to be adjusted H/o PE/DVT, s/p ivc filter therapeutic INR, cta negative for pe H/o lupus Recent colonic resection for perforation, still has dressing on the incision H/o sleep apnea, cpap and sleep apnea both increase risk of aspiration. Plan Aspiration precautions, small, bland, frequent meals Vanco, Zosyn, Doxycycline, Steroids to reduce reaction of the lungs Observe in icu till we know which direction patient is going Home meds Suggest gradual decrease in lyrica Surgery consult Plan to adjust gastric band See orders for detail.
[2018-05-25] MEDS ORDERED: Piperacill/Tazo 3.375gm in Dex 3.375 GM/50 ML BAG IVPB SCH (23:00)
--- NOTE | 2018-05-25 23:12 | CP.PCM.CON ---
History of Present Illness - History of Present Illness History of Present Illness: Attending: Dr Matthews Pulmonogist: Dr Quiñones Reason for Consult: Critical care Management Chief Complaint: SOB /Severe Hypoxemia The Patient was seen and examined in the ED HPI: 52 years old female with hx of Lupus Disease; DVT/PE and Asthma was last admitted to the [facility] on 04/29/18 and discharged 05/08/18 with diagnosis of Acute Cecal Peroration s/p Hemicolectomy with Anastomosis and gastric banding. She now comes referring few hours hx of sudden unset of SOB that persisted after sleeping, then becoming worse. This was associated with nonproductive cough. No chest Pain, nausea, vomits, no wheezes. In the ED she had labored breathing but speaking full sentences. PMH: Asthma; Lupus Disease; Hypercoagulable state; DVT/PE 2011; Fibromyalgia; Arthritis; Back problem; Post Depression; Sleep Apnia; peripheral edema; HTN; migraine PSH: IVC filter placed; Appendectomy; C Section; Umbilical Hernia repair; Colonic Perforation s/p Hemicolectomy with anastamosis and gastric banding; SH: Never smoked; No illegal drug use; No Alcohol FH: State: No known family hx Allergies: NKDA Medication: Reviewed Review of Systems - Constitutional Constitutional: Fever. absent: Anorexia, Chills, Fatigue, Headache - EENT Eyes: Requires Corrective Lenses. absent: Diplopia Ears: absent: Decreased Hearing, Ear Discharge, Tinnitus Nose/Mouth/Throat: absent: Epistaxis, Nasal Congestion, Sinus Pain - Cardiovascular Cardiovascular: Chest Pain, Dyspnea, Edema, Leg Edema. absent: Diaphoresis - Respiratory Respiratory: Cough, Dyspnea, Dyspnea on Exertion. absent: Wheezing, Stridor, Chest Congestion - Gastrointestinal Gastrointestinal: Abdominal Pain, Nausea, Vomiting. absent: Bloating - Genitourinary Genitourinary: absent: Dysuria, Flank Pain, Hematuria, Urinary Frequency - Musculoskeletal Musculoskeletal: Arthralgias, Joint Swelling - Integumentary Integumentary: Swelling. absent: Skin Pain, Skin Ulcer, Sores, Striae - Neurological Neurological: absent: Confusion, Dizziness, Focal Weakness, Weakness - Psychiatric Psychiatric: Anxiety. absent: Irritability, Suicidal Ideation - Endocrine Endocrine: absent: Palpitations, Polydipsia, Polyphagia, Polyuria - Hematologic/Lymphatic Hematologic: absent: Easy Bleeding, Easy Bruising Past Patient History - Infectious Disease Hx of Infectious Diseases: None - Tetanus Immunizations Tetanus Immunization: Up to Date - Past Medical History & Family History Past Medical History?: Yes - Past Social History Smoking Status: Never Smoked Chewing Tobacco Use: No Cigar Use: No Alcohol: None - CARDIAC Hx Hypertension: Yes Hx Peripheral Edema: Yes - PULMONARY Hx Asthma: Yes Hx Bronchitis: Yes Hx Pneumonia: Yes ("multiple times") Hx Pulmonary Embolism: Yes (2011) Hx Sleep Apnea: Yes - NEUROLOGICAL Hx Migraine: Yes - HEENT Hx HEENT Problems: Yes Other/Comment: wear glasses for vision - RENAL Hx Chronic Kidney Disease: No - ENDOCRINE/METABOLIC Hx Endocrine Disorders: Yes Hx Systemic Lupus Erythematosus: Yes (w/ antibody) - HEMATOLOGICAL/ONCOLOGICAL Hx Blood Disorders: No - INTEGUMENTARY Hx Dermatological Problems: Yes Other/Comment: discoploration of lower legs/pigmentation - MUSCULOSKELETAL/RHEUMATOLOGICAL Hx Arthritis: Yes - GASTROINTESTINAL Hx Gastrointestinal Disorders: Yes Hx Gastroesophageal Reflux: Yes - GENITOURINARY/GYNECOLOGICAL Hx Genitourinary Disorders: Yes Hx Incontinence: Yes (OVER ACTIVE BLADDER) - PSYCHIATRIC Hx Depression: Yes (post depression) Hx Substance Use: No - SURGICAL HISTORY Hx Appendectomy: Yes Hx Section: Yes Hx Gastric Bypass Surgery: Yes (Gastric Banding) Hx Herniorrhaphy: Yes Other/Comment: IVC filter. Hemicolectomy - ANESTHESIA Hx Anesthesia: Yes Hx Anesthesia Reactions: No Hx Malignant Hyperthermia: No Meds Allergies/Adverse Reactions: Allergies Allergy/AdvReac Type Severity Reaction Status Date / Time No Known Allergies Allergy Verified 05/25/18 19:03 - Medications Medications: Current Medications Acetaminophen (Tylenol 325mg Tab) 650 mg PO Q6 PRN PRN Reason: Fever >100.4 F Last Admin: 05/25/18 22:51 Dose: 650 mg Albuterol/Ipratropium (Duoneb 3 Mg/0.5 Mg (3 Ml) Ud) 3 ml INH RQ6 PRN PRN Reason: Shortness of Breath Amitriptyline HCl (Elavil) 100 mg PO DAILY [facility] Amlodipine Besylate (Norvasc) 5 mg PO DAILY [facility] Doxycycline Hyclate (Doryx) 100 mg PO Q12H [facility] PRN Reason: Protocol Hydrochlorothiazide (Hydrodiuril) 25 mg PO DAILY [facility] Hydroxychloroquine Sulfate (Plaquenil) 200 mg PO BID [facility] PRN Reason: Protocol Piperacillin Sod/Tazobactam Sod (Zosyn 3.375 Gm Iv Premix) 3.375 gm in 50 mls @ 200 mls/hr IVPB Q8H [facility] PRN Reason: Protocol Vancomycin/Sodium Chloride (Vancomycin 1 Gm/Ns 200 Ml) 1 gm in 200 mls @ 133 mls/hr IVPB Q24H [facility] PRN Reason: Protocol Stop: 05/30/18 23:01 Methylprednisolone (Solu-Medrol) 40 mg IV Q12 [facility] Last Admin: 05/25/18 22:51 Dose: 40 mg Montelukast Sodium (Singulair) 10 mg PO HS [facility] Ondansetron HCl (Zofran Inj) 4 mg IVP Q6 PRN PRN Reason: Nausea/Vomiting Oxybutynin Chloride (Ditropan Xl) 10 mg PO DAILY [facility] Pantoprazole Sodium (Protonix Ec Tab) 40 mg PO BID [facility] Pregabalin (Lyrica) 75 mg PO BID [facility] Fluticasone/Salmeterol (Advair Diskus 250/50) 1 puff INH RQ12 [facility] Physical Exam - Constitutional Appears: In Acute Distress - Head Exam Head Exam: ATRAUMATIC, NORMAL INSPECTION, NORMOCEPHALIC - Eye Exam Eye Exam: EOMI, Normal appearance Pupil Exam: NORMAL ACCOMODATION, PERRL - ENT Exam ENT Exam: Mucous Membranes Dry, Normal Exam, Normal External Ear Exam - Neck Exam Neck exam: Positive for: Full Rom, Normal Inspection. Negative for: Tenderness - Respiratory Exam Respiratory Exam: absent: Rhonchi, Wheezes Additional comments: Distant rales in whole of both lung hawkins - Cardiovascular Exam Cardiovascular Exam: Tachycardia, REGULAR RHYTHM, +S1, +S2. absent: Gallop, Systolic Murmur - GI/Abdominal Exam Additional comments: Obese with Post surgical dressing infraumbilical to mid pelvic region. There is some drainage still as the mid upper dressing is still wet Decreased Bowel sounds - Rectal Exam Rectal Exam: Deferred - Extremities Exam Extremities exam: Positive for: full ROM, pedal edema Additional comments: 1+ edema to the right lower extremity with trace edema to the left side. - Back Exam Back exam: NORMAL INSPECTION. absent: CVA tenderness (L), CVA tenderness (R) - Neurological Exam Neurological exam: Alert, CN II-XII Intact, Oriented x3, Reflexes Normal - Psychiatric Exam Psychiatric exam: Normal Affect, Normal Mood - Skin Skin Exam: Dry, Intact, Warm Additional comments: Right leg distal half with hyperpigmented skin. Results - Vital Signs Recent Vital Signs: Last Vital Signs Temp 101.6 F H 05/25/18 22:51 Pulse 115 H 05/25/18 22:10 Resp 16 05/25/18 22:10 BP 153/71 H 05/25/18 22:10 Pulse Ox 94 L 05/25/18 22:10 - Labs Result Diagrams: 05/25/18 19:39 05/25/18 19:39 Labs: Laboratory Results - last 24 hr 05/25/18 05/25/18 05/25/18 19:39 19:39 19:39 WBC 15.1 H D RBC 3.95 Hgb 10.3 L Hct 31.2 L MCV 79.2 L MCH 26.1 L MCHC 32.9 L RDW 15.9 H Plt Count 381 D MPV 6.8 L Neut % (Auto) 91.2 H Lymph % (Auto) 3.3 L Harvey % (Auto) 3.7 Eos % (Auto) 1.6 Baso % (Auto) 0.2 Neut # (Auto) 13.8 H Lymph # (Auto) 0.5 L Harvey # (Auto) 0.6 Eos # (Auto) 0.2 Baso # (Auto) 0.0 Neutrophils % (Manual) 87 H Band Neutrophils % 4 H Lymphocytes % (Manual) 5 L Monocytes % (Manual) 3 Eosinophils % (Manual) 1 Platelet Estimate Normal Poikilocytosis (manual Slight Anisocytosis (manual) Slight PT 32.3 H* INR 2.9 APTT 51 H Puncture Site pCO2 pO2 HCO3 ABG pH ABG Total CO2 ABG O2 Saturation ABG Base Excess ABG Hemoglobin ABG Carboxyhemoglobin POC ABG HHb (Measured) ABG Methemoglobin Marcell Test A-a O2 Difference Respiratory Index Hgb O2 Saturation Liter Flow FiO2 Sodium 139 Potassium 3.6 Chloride 100 Carbon Dioxide 30 Anion Gap 13 BUN 14 Creatinine 0.8 Est GFR ( Amer) > 60 Est GFR (Non-Af Amer) > 60 Random Glucose 113 H Lactic Acid Calcium 8.5 L Total Bilirubin 0.5 AST 25 ALT 27 Alkaline Phosphatase 67 Total Protein 6.6 Albumin 3.6 Globulin 3.0 Albumin/Globulin Ratio 1.2 Urine Color Urine Clarity Urine pH Ur Specific [place] Urine Protein Urine Glucose (UA) Urine Ketones Urine Blood Urine Nitrate Urine Bilirubin Urine Urobilinogen Ur Leukocyte Esterase Urine WBC (Auto) Urine RBC (Auto) Ur Squamous Epith Cells 05/25/18 05/25/18 05/25/18 20:18 21:40 22:09 WBC RBC Hgb Hct MCV MCH MCHC RDW Plt Count MPV Neut % (Auto) Lymph % (Auto) Harvey % (Auto) Eos % (Auto) Baso % (Auto) Neut # (Auto) Lymph # (Auto) Harvey # (Auto) Eos # (Auto) Baso # (Auto) Neutrophils % (Manual) Band Neutrophils % Lymphocytes % (Manual) Monocytes % (Manual) Eosinophils % (Manual) Platelet Estimate Poikilocytosis (manual Anisocytosis (manual) PT INR APTT Puncture Site Rradial pCO2 37 pO2 51 L HCO3 27.3 ABG pH 7.47 H ABG Total CO2 28.0 ABG O2 Saturation 94.4 L ABG Base Excess 3.1 H ABG Hemoglobin 8.8 L ABG Carboxyhemoglobin 2.7 H POC ABG HHb (Measured) 5.4 H ABG Methemoglobin 1.4 Marcell Test Pos A-a O2 Difference 159.0 Respiratory Index 3.1 Hgb O2 Saturation 90.6 L Liter Flow 4.0 FiO2 36.0 Sodium Potassium Chloride Carbon Dioxide Anion Gap BUN Creatinine Est GFR ( Amer) Est GFR (Non-Af Amer) Random Glucose Lactic Acid 0.6 L Calcium Total Bilirubin AST ALT Alkaline Phosphatase Total Protein Albumin Globulin Albumin/Globulin Ratio Urine Color Yellow Urine Clarity Clear Urine pH 6.0 Ur Specific [place] 1.011 Urine Protein Negative Urine Glucose (UA) Normal Urine Ketones Negative Urine Blood Negative Urine Nitrate Negative Urine Bilirubin Negative Urine Urobilinogen Normal Ur Leukocyte Esterase 1+ H Urine WBC (Auto) 1 Urine RBC (Auto) 2 Ur Squamous Epith Cells 1 - Imaging and Cardiology Chest x-ray Status: Image reviewed by me Additional comment: Bilateral lung consolidation> at left lung CT scan - chest Status: Image reviewed by me, Report reviewed by me Additional comment: No PE Extensive non specific ground glass changes which could represent multifocal Pneumonitis vs [id number] Pneumonia or edema Airspace disease involving the lingula which could represent lobar pneumonia. Distention of esophagus. Recent Gastric banding procedure Assessment & Plan - Assessment and Plan (Free Text) Assessment: #. Bilateral Multilobar Pneumonia #. Sepsis #. Severe Hypoxemia #. HTN #. Asthma #. Leukocytosis #. Hx of Recent Colon Perforation s/p Hemicolectomy and gastric banding Plan: 52 years old female with hx of Lupus Disease; DVT/PE and Asthma was last admitted to the [facility] on 04/29/18 and discharged 05/08/18 with diagnosis of Acute Cecal Peroration s/p Hemicolectomy with Anastomosis and gastric banding. She now comes referring few hours hx of sudden unset of SOB that persisted after sleeping, then becoming worse. This was associated with nonproductive cough. No chest Pain, nausea, vomits, no wheezes. In the ED she had labored breathing but speaking full sentences. #. Bilateral Multilobar Pneumonia with Pneumonitis vs BOOP vs ARDS - Consult Pulomonary - Cover Atypical Pneumonias - Vancomycin - Zosyn - Albuterol - Mucinex #. Sepsis with Temp of 101.6 and HR of 115 and the Pneumonia - Follow Blood Culture - Follow Sputum Culture - Antibiotics #. Severe Hypoxemia - Oxygen via NC to maintain SpO2>94% - Follow ABG #. HTN -Continue Home medication - Follow Blood pressures #. Asthma - Duoneb - Advair #. Leukocytosis - Follow WBC #. Hx of Recent Colon Perforation s/p Hemicolectomy and gastric banding - Wound care consult for dressings #. Lupus disease - Plaquenil #. Hx of DVT/PE - Continue Coumadin #. DVT Prophylaxis: Pte is on Coumadin #. Code Status: Full - Date & Time Date: 05/25/18 Time: 23:12
[2018-05-26] MEDS: Vancomycin 1 gm/NS 200 ml 1 GM/200 ML BAG IVPB SCH ×2 (00:30→22:06)
[2018-05-26 06:13] LABS: ARTERIAL BLOOD GAS HCO3 28.2 mmol/L (21-28); ARTERIAL BLOOD GAS HEMOGLOBIN 9.9 g/dL (11.7-17.4); ARTERIAL BLOOD GAS O2 SAT 98.8 % (95-98); ARTERIAL BLOOD GAS PCO2 45 mm/Hg (35-45); ARTERIAL BLOOD GAS PH 7.42 (7.35-7.45); ARTERIAL BLOOD GAS PO2 97 mm/Hg (80-100); ARTERIAL BLOOD GAS TCO2 30.6 mmol/L (22-28)
[2018-05-26 06:23] LABS: HEMOGLOBIN 9.8 g/dL (11.0-16.0); LYMPH # 0.3 K/uL (1.0-4.3); LYMPH % 1.8 % (20.0-40.0); MEAN CELL VOLUME 79.2 fL (81.0-99.0); MEAN CORPUSCULAR HEMOGLOBIN 26.1 pg (27.0-31.0); MEAN CORPUSCULAR HGB CONC 32.9 g/dL (33.0-37.0); MEAN PLATELET VOLUME 7.1 fL (7.2-11.7); MONO # 0.2 K/uL (0.0-0.8); MONO % 1.2 % (0.0-10.0); NEUT # 14.3 K/uL (1.8-7.0); PLATELET COUNT 340 K/uL (130-400); RBC 3.76 Mil/uL (3.80-5.20); WHITE BLOOD COUNT 14.7 K/uL (4.8-10.8)
[2018-05-26 06:36] LABS: ALB/GLOB RATIO 1.2 (1.0-2.1); ALBUMIN 3.3 g/dL (3.5-5.0); ALT/SGPT 28 U/L (9-52); AST/SGOT 21 U/L (14-36); BLOOD UREA NITROGEN 11 mg/dL (7-17); CALCIUM 8.3 mg/dl (8.6-10.4); GFR AFRICAN-AMERICAN > 60; GFR NON-AFRICAN AMERICAN > 60
[2018-05-26 06:53] LABS: INR 2.6
--- NOTE | 2018-05-26 08:19 | CP.CCUPN ---
<Janki Velasquez - Last Filed: 05/26/18 15:13> CCU Subjective - Physician Review Subjective (Free Text): Patient seen and examined at bedside. Patient reports she is breathing better today, but only with NC on. CCU Objective - Vital Signs / Intake & Output Vital Signs (Last 4 hours): Vital Signs Pulse Resp BP Pulse Ox 05/26/18 08:10 89 22 92 L 05/26/18 08:07 87 21 112/59 L 94 L 05/26/18 08:00 88 26 H 95 05/26/18 07:50 96 H 21 92 L 05/26/18 07:40 74 17 99 05/26/18 07:30 85 18 97 05/26/18 07:20 81 20 98 05/26/18 07:10 81 19 98 05/26/18 07:07 79 16 114/69 98 05/26/18 07:00 80 17 98 05/26/18 06:50 81 18 98 05/26/18 06:40 83 17 98 05/26/18 06:30 82 18 98 05/26/18 06:20 82 19 98 05/26/18 06:10 82 19 97 05/26/18 06:07 82 18 112/73 98 05/26/18 06:00 79 20 98 05/26/18 05:50 81 23 98 05/26/18 05:40 77 21 99 05/26/18 05:30 80 17 98 05/26/18 05:20 82 19 98 05/26/18 05:10 84 21 98 05/26/18 05:07 82 19 117/76 98 05/26/18 05:00 83 19 98 05/26/18 04:50 83 19 98 05/26/18 04:40 80 19 98 05/26/18 04:30 81 20 98 05/26/18 04:20 82 21 98 Intake and Output (Last 8hrs): Intake & Output 05/25/18 05/26/18 05/26/18 22:59 06:59 14:59 Intake Total 200 0 Output Total 700 0 Balance -500 0 Weight 206 lb Intake: Intake, IV Amount 200 0 Left Wrist 200 0 Oral 0 0 Output: Urine 700 0 Urine, Voided 700 0 Other: Voiding Method Bedside Commode - Physical Exam Head: Positive for: Atraumatic, Normocephalic Pupils: Positive for: PERRL Extroacular Muscles: Positive for: EOMI Conjunctiva: Positive for: Normal Mouth: Positive for: Moist Mucous Membranes Neck: Positive for: Normal Range of Motion Respiratory/Chest: Positive for: Wheezes, Decreased Breath Sounds Cardiovascular: Positive for: Regular Rate and Rhythm Abdomen: Negative for: Tenderness, Distention Upper Extremity: Positive for: Normal Inspection, NORMAL PULSES, Neurovascularly Intact, Capillary Refill < 2s Lower Extremity: Positive for: Normal Inspection, NORMAL PULSES, Neurovascularly Intact, Capillary Refill < 2 s. Negative for: Edema Neurological: Positive for: GCS=15, CN II-XII Intact Skin: Positive for: Warm, Dry Psychiatric: Positive for: Alert, Oriented x 3 - Medications Active Medications: Active Medications Generic Name Dose Route Start Last Admin Trade Name Freq PRN Reason Stop Dose Admin Acetaminophen 650 mg 05/25/18 22:31 05/25/18 22:51 Tylenol 325mg Tab PO 650 mg Q6 PRN Administration Fever >100.4 F Albuterol/Ipratropium 3 ml 05/25/18 22:40 Duoneb 3 Mg/0.5 Mg (3 Ml) Ud INH RQ6 PRN Shortness of Breath Amitriptyline HCl 100 mg 05/26/18 10:00 Elavil PO DAILY [facility] Amlodipine Besylate 5 mg 05/26/18 10:00 Norvasc PO DAILY [facility] Doxycycline Hyclate 100 mg 05/25/18 22:45 05/25/18 23:34 Doryx PO 100 mg Q12H [facility] Administration Protocol Hydrochlorothiazide 25 mg 05/26/18 10:00 Hydrodiuril PO DAILY [facility] Hydroxychloroquine Sulfate 200 mg 05/26/18 10:00 Plaquenil PO BID [facility] Protocol Vancomycin/Sodium Chloride 1 gm in 200 mls @ 133 mls/hr 05/25/18 23:00 Vancomycin 1 Gm/Ns 200 Ml IVPB 05/30/18 23:01 Q24H [facility] Protocol Piperacillin Sod/Tazobactam Sod 3.375 gm in 50 mls @ 200 mls/hr 05/26/18 08: 00 Zosyn 3.375 Gm Iv Premix IVPB Q8H [facility] Protocol Methylprednisolone 40 mg 05/26/18 10:00 Solu-Medrol IVP DAILY [facility] Montelukast Sodium 10 mg 05/26/18 22:00 Singulair PO HS [facility] Ondansetron HCl 4 mg 05/25/18 22:31 Zofran Inj IVP Q6 PRN Nausea/Vomiting Oxybutynin Chloride 10 mg 05/26/18 10:00 Ditropan Xl PO DAILY [facility] Pantoprazole Sodium 40 mg 05/26/18 10:00 Protonix Ec Tab PO DAILY [facility] Pregabalin 75 mg 05/26/18 10:00 Lyrica PO BID [facility] Saccharomyces Boulardii 250 mg 05/26/18 08:30 Florastor PO BID [facility] Fluticasone/Salmeterol 1 puff 05/26/18 08:00 Advair Diskus 250/50 INH RQ12 [facility] - Patient Studies Lab Studies: Lab Studies 05/26/18 05/26/18 05/26/18 Range/Units 06:19 06:19 06:18 WBC 14.7 H (4.8-10.8) K/uL RBC 3.76 L (3.80-5.20) Mil/uL Hgb 9.8 L (11.0-16.0) g/dL Hct 29.8 L (34.0-47.0) % MCV 79.2 L (81.0-99.0) fL MCH 26.1 L (27.0-31.0) pg MCHC 32.9 L (33.0-37.0) g/dL RDW 16.0 H (11.5-14.5) % Plt Count 340 (130-400) K/uL MPV 7.1 L (7.2-11.7) fL Neut % (Auto) 97.0 H (50.0-75.0) % Lymph % (Auto) 1.8 L (20.0-40.0) % Mcdonough % (Auto) 1.2 (0.0-10.0) % Eos % (Auto) 0.0 (0.0-4.0) % Baso % (Auto) 0.0 (0.0-2.0) % Neut # (Auto) 14.3 H (1.8-7.0) K/uL Lymph # (Auto) 0.3 L (1.0-4.3) K/uL Mcdonough # (Auto) 0.2 (0.0-0.8) K/uL Eos # (Auto) 0.0 (0.0-0.7) K/uL Baso # (Auto) 0.0 (0.0-0.2) K/uL Neutrophils % (Manual) (50-75) % Band Neutrophils % (0-2) % Lymphocytes % (Manual) (20-40) % Monocytes % (Manual) (0-10) % Eosinophils % (Manual) (0-4) % Platelet Estimate (NORMAL) Poikilocytosis (manual Anisocytosis (manual) PT 28.0 H (9.7-12.2) SECONDS INR 2.6 APTT 49 H (21-34) SECONDS Puncture Site pCO2 (35-45) mm/Hg pO2 (80-100) mm/Hg HCO3 (21-28) mmol/L ABG pH (7.35-7.45) ABG Total CO2 (22-28) mmol/L ABG O2 Saturation (95-98) % ABG Base Excess (-2.0-3.0) mmol/L ABG Hemoglobin (11.7-17.4) g/dL ABG Carboxyhemoglobin (0.5-1.5) % POC ABG HHb (Measured) (0.0-5.0) % ABG Methemoglobin (0.0-3.0) % Marcell Test A-a O2 Difference mm/Hg Respiratory Index Hgb O2 Saturation (95.0-98.0) % Liter Flow FiO2 % Sodium 142 (132-148) mmol/L Potassium 3.7 (3.6-5.2) mmol/L Chloride 102 (98-107) mmol/L Carbon Dioxide 29 (22-30) mmol/L Anion Gap 14 (10-20) BUN 11 (7-17) mg/dL Creatinine 0.7 (0.7-1.2) mg/dL Est GFR ( Amer) > 60 Est GFR (Non-Af Amer) > 60 Random Glucose 145 H (65-105) mg/dL Lactic Acid (0.7-2.1) mmol/L Calcium 8.3 L (8.6-10.4) mg/dl Phosphorus 3.7 (2.5-4.5) mg/dL Magnesium 1.8 (1.6-2.3) mg/dL Total Bilirubin 0.6 (0.2-1.3) mg/dL AST 21 (14-36) U/L ALT 28 (9-52) U/L Alkaline Phosphatase 61 (38-126) U/L Total Protein 6.1 L (6.3-8.3) g/dL Albumin 3.3 L (3.5-5.0) g/dL Globulin 2.8 (2.2-3.9) gm/dL Albumin/Globulin Ratio 1.2 (1.0-2.1) Urine Color (YELLOW) Urine Clarity (Clear) Urine pH (5.0-8.0) Ur Specific Cosby (1.003-1.030) Urine Protein (NEGATIVE) mg/dL Urine Glucose (UA) (Normal) mg/dL Urine Ketones (NEGATIVE) mg/dL Urine Blood (NEGATIVE) Urine Nitrate (NEGATIVE) Urine Bilirubin (NEGATIVE) Urine Urobilinogen (0.2-1.0) mg/dL Ur Leukocyte Esterase (Negative) Rufino/uL Urine WBC (Auto) (0-5) /hpf Urine RBC (Auto) (0-3) /hpf Ur Squamous Epith Cells (0-5) /hpf 05/26/18 05/25/18 05/25/18 Range/Units 05:23 22:09 21:40 WBC (4.8-10.8) K/uL RBC (3.80-5.20) Mil/uL Hgb (11.0-16.0) g/dL Hct (34.0-47.0) % MCV (81.0-99.0) fL MCH (27.0-31.0) pg MCHC (33.0-37.0) g/dL RDW (11.5-14.5) % Plt Count (130-400) K/uL MPV (7.2-11.7) fL Neut % (Auto) (50.0-75.0) % Lymph % (Auto) (20.0-40.0) % Mcdonough % (Auto) (0.0-10.0) % Eos % (Auto) (0.0-4.0) % Baso % (Auto) (0.0-2.0) % Neut # (Auto) (1.8-7.0) K/uL Lymph # (Auto) (1.0-4.3) K/uL Mcdonough # (Auto) (0.0-0.8) K/uL Eos # (Auto) (0.0-0.7) K/uL Baso # (Auto) (0.0-0.2) K/uL Neutrophils % (Manual) (50-75) % Band Neutrophils % (0-2) % Lymphocytes % (Manual) (20-40) % Monocytes % (Manual) (0-10) % Eosinophils % (Manual) (0-4) % Platelet Estimate (NORMAL) Poikilocytosis (manual Anisocytosis (manual) PT (9.7-12.2) SECONDS INR APTT (21-34) SECONDS Puncture Site R brac Rradial pCO2 45 37 (35-45) mm/Hg pO2 97 51 L (80-100) mm/Hg HCO3 28.2 H 27.3 (21-28) mmol/L ABG pH 7.42 7.47 H (7.35-7.45) ABG Total CO2 30.6 H 28.0 (22-28) mmol/L ABG O2 Saturation 98.8 H 94.4 L (95-98) % ABG Base Excess 4.2 H 3.1 H (-2.0-3.0) mmol/L ABG Hemoglobin 9.9 L 8.8 L (11.7-17.4) g/dL ABG Carboxyhemoglobin 1.9 H 2.7 H (0.5-1.5) % POC ABG HHb (Measured) 1.2 5.4 H (0.0-5.0) % ABG Methemoglobin 1.0 1.4 (0.0-3.0) % Marcell Test Na Pos A-a O2 Difference 159.0 mm/Hg Respiratory Index 3.1 Hgb O2 Saturation 95.9 90.6 L (95.0-98.0) % Liter Flow 4.0 4.0 FiO2 36.0 % Sodium (132-148) mmol/L Potassium (3.6-5.2) mmol/L Chloride (98-107) mmol/L Carbon Dioxide (22-30) mmol/L Anion Gap (10-20) BUN (7-17) mg/dL Creatinine (0.7-1.2) mg/dL Est GFR ( Amer) Est GFR (Non-Af Amer) Random Glucose (65-105) mg/dL Lactic Acid 0.6 L (0.7-2.1) mmol/L Calcium (8.6-10.4) mg/dl Phosphorus (2.5-4.5) mg/dL Magnesium (1.6-2.3) mg/dL Total Bilirubin (0.2-1.3) mg/dL AST (14-36) U/L ALT (9-52) U/L Alkaline Phosphatase (38-126) U/L Total Protein (6.3-8.3) g/dL Albumin (3.5-5.0) g/dL Globulin (2.2-3.9) gm/dL Albumin/Globulin Ratio (1.0-2.1) Urine Color (YELLOW) Urine Clarity (Clear) Urine pH (5.0-8.0) Ur Specific Cosby (1.003-1.030) Urine Protein (NEGATIVE) mg/dL Urine Glucose (UA) (Normal) mg/dL Urine Ketones (NEGATIVE) mg/dL Urine Blood (NEGATIVE) Urine Nitrate (NEGATIVE) Urine Bilirubin (NEGATIVE) Urine Urobilinogen (0.2-1.0) mg/dL Ur Leukocyte Esterase (Negative) Rufino/uL Urine WBC (Auto) (0-5) /hpf Urine RBC (Auto) (0-3) /hpf Ur Squamous Epith Cells (0-5) /hpf 05/25/18 05/25/18 05/25/18 Range/Units 20:18 19:39 19:39 WBC (4.8-10.8) K/uL RBC (3.80-5.20) Mil/uL Hgb (11.0-16.0) g/dL Hct (34.0-47.0) % MCV (81.0-99.0) fL MCH (27.0-31.0) pg MCHC (33.0-37.0) g/dL RDW (11.5-14.5) % Plt Count (130-400) K/uL MPV (7.2-11.7) fL Neut % (Auto) (50.0-75.0) % Lymph % (Auto) (20.0-40.0) % Mcdonough % (Auto) (0.0-10.0) % Eos % (Auto) (0.0-4.0) % Baso % (Auto) (0.0-2.0) % Neut # (Auto) (1.8-7.0) K/uL Lymph # (Auto) (1.0-4.3) K/uL Mcdonough # (Auto) (0.0-0.8) K/uL Eos # (Auto) (0.0-0.7) K/uL Baso # (Auto) (0.0-0.2) K/uL Neutrophils % (Manual) (50-75) % Band Neutrophils % (0-2) % Lymphocytes % (Manual) (20-40) % Monocytes % (Manual) (0-10) % Eosinophils % (Manual) (0-4) % Platelet Estimate (NORMAL) Poikilocytosis (manual Anisocytosis (manual) PT 32.3 H* (9.7-12.2) SECONDS INR 2.9 APTT 51 H (21-34) SECONDS Puncture Site pCO2 (35-45) mm/Hg pO2 (80-100) mm/Hg HCO3 (21-28) mmol/L ABG pH (7.35-7.45) ABG Total CO2 (22-28) mmol/L ABG O2 Saturation (95-98) % ABG Base Excess (-2.0-3.0) mmol/L ABG Hemoglobin (11.7-17.4) g/dL ABG Carboxyhemoglobin (0.5-1.5) % POC ABG HHb (Measured) (0.0-5.0) % ABG Methemoglobin (0.0-3.0) % Marcell Test A-a O2 Difference mm/Hg Respiratory Index Hgb O2 Saturation (95.0-98.0) % Liter Flow FiO2 % Sodium 139 (132-148) mmol/L Potassium 3.6 (3.6-5.2) mmol/L Chloride 100 (98-107) mmol/L Carbon Dioxide 30 (22-30) mmol/L Anion Gap 13 (10-20) BUN 14 (7-17) mg/dL Creatinine 0.8 (0.7-1.2) mg/dL Est GFR ( Amer) > 60 Est GFR (Non-Af Amer) > 60 Random Glucose 113 H (65-105) mg/dL Lactic Acid (0.7-2.1) mmol/L Calcium 8.5 L (8.6-10.4) mg/dl Phosphorus (2.5-4.5) mg/dL Magnesium (1.6-2.3) mg/dL Total Bilirubin 0.5 (0.2-1.3) mg/dL AST 25 (14-36) U/L ALT 27 (9-52) U/L Alkaline Phosphatase 67 (38-126) U/L Total Protein 6.6 (6.3-8.3) g/dL Albumin 3.6 (3.5-5.0) g/dL Globulin 3.0 (2.2-3.9) gm/dL Albumin/Globulin Ratio 1.2 (1.0-2.1) Urine Color Yellow (YELLOW) Urine Clarity Clear (Clear) Urine pH 6.0 (5.0-8.0) Ur Specific Cosby 1.011 (1.003-1.030) Urine Protein Negative (NEGATIVE) mg/dL Urine Glucose (UA) Normal (Normal) mg/dL Urine Ketones Negative (NEGATIVE) mg/dL Urine Blood Negative (NEGATIVE) Urine Nitrate Negative (NEGATIVE) Urine Bilirubin Negative (NEGATIVE) Urine Urobilinogen Normal (0.2-1.0) mg/dL Ur Leukocyte Esterase 1+ H (Negative) Rufino/uL Urine WBC (Auto) 1 (0-5) /hpf Urine RBC (Auto) 2 (0-3) /hpf Ur Squamous Epith Cells 1 (0-5) /hpf 05/25/18 Range/Units 19:39 WBC 15.1 H D (4.8-10.8) K/uL RBC 3.95 (3.80-5.20) Mil/uL Hgb 10.3 L (11.0-16.0) g/dL Hct 31.2 L (34.0-47.0) % MCV 79.2 L (81.0-99.0) fL MCH 26.1 L (27.0-31.0) pg MCHC 32.9 L (33.0-37.0) g/dL RDW 15.9 H (11.5-14.5) % Plt Count 381 D (130-400) K/uL MPV 6.8 L (7.2-11.7) fL Neut % (Auto) 91.2 H (50.0-75.0) % Lymph % (Auto) 3.3 L (20.0-40.0) % Mcdonough % (Auto) 3.7 (0.0-10.0) % Eos % (Auto) 1.6 (0.0-4.0) % Baso % (Auto) 0.2 (0.0-2.0) % Neut # (Auto) 13.8 H (1.8-7.0) K/uL Lymph # (Auto) 0.5 L (1.0-4.3) K/uL Mcdonough # (Auto) 0.6 (0.0-0.8) K/uL Eos # (Auto) 0.2 (0.0-0.7) K/uL Baso # (Auto) 0.0 (0.0-0.2) K/uL Neutrophils % (Manual) 87 H (50-75) % Band Neutrophils % 4 H (0-2) % Lymphocytes % (Manual) 5 L (20-40) % Monocytes % (Manual) 3 (0-10) % Eosinophils % (Manual) 1 (0-4) % Platelet Estimate Normal (NORMAL) Poikilocytosis (manual Slight Anisocytosis (manual) Slight PT (9.7-12.2) SECONDS INR APTT (21-34) SECONDS Puncture Site pCO2 (35-45) mm/Hg pO2 (80-100) mm/Hg HCO3 (21-28) mmol/L ABG pH (7.35-7.45) ABG Total CO2 (22-28) mmol/L ABG O2 Saturation (95-98) % ABG Base Excess (-2.0-3.0) mmol/L ABG Hemoglobin (11.7-17.4) g/dL ABG Carboxyhemoglobin (0.5-1.5) % POC ABG HHb (Measured) (0.0-5.0) % ABG Methemoglobin (0.0-3.0) % Marcell Test A-a O2 Difference mm/Hg Respiratory Index Hgb O2 Saturation (95.0-98.0) % Liter Flow FiO2 % Sodium (132-148) mmol/L Potassium (3.6-5.2) mmol/L Chloride (98-107) mmol/L Carbon Dioxide (22-30) mmol/L Anion Gap (10-20) BUN (7-17) mg/dL Creatinine (0.7-1.2) mg/dL Est GFR ( Amer) Est GFR (Non-Af Amer) Random Glucose (65-105) mg/dL Lactic Acid (0.7-2.1) mmol/L Calcium (8.6-10.4) mg/dl Phosphorus (2.5-4.5) mg/dL Magnesium (1.6-2.3) mg/dL Total Bilirubin (0.2-1.3) mg/dL AST (14-36) U/L ALT (9-52) U/L Alkaline Phosphatase (38-126) U/L Total Protein (6.3-8.3) g/dL Albumin (3.5-5.0) g/dL Globulin (2.2-3.9) gm/dL Albumin/Globulin Ratio (1.0-2.1) Urine Color (YELLOW) Urine Clarity (Clear) Urine pH (5.0-8.0) Ur Specific Cosby (1.003-1.030) Urine Protein (NEGATIVE) mg/dL Urine Glucose (UA) (Normal) mg/dL Urine Ketones (NEGATIVE) mg/dL Urine Blood (NEGATIVE) Urine Nitrate (NEGATIVE) Urine Bilirubin (NEGATIVE) Urine Urobilinogen (0.2-1.0) mg/dL Ur Leukocyte Esterase (Negative) Rufino/uL Urine WBC (Auto) (0-5) /hpf Urine RBC (Auto) (0-3) /hpf Ur Squamous Epith Cells (0-5) /hpf Laboratory Results - last 24 hr 05/25/18 05/25/18 05/25/18 19:39 19:39 19:39 WBC 15.1 H D RBC 3.95 Hgb 10.3 L Hct 31.2 L MCV 79.2 L MCH 26.1 L MCHC 32.9 L RDW 15.9 H Plt Count 381 D MPV 6.8 L Neut % (Auto) 91.2 H Lymph % (Auto) 3.3 L Mcdonough % (Auto) 3.7 Eos % (Auto) 1.6 Baso % (Auto) 0.2 Neut # (Auto) 13.8 H Lymph # (Auto) 0.5 L Mcdonough # (Auto) 0.6 Eos # (Auto) 0.2 Baso # (Auto) 0.0 Neutrophils % (Manual) 87 H Band Neutrophils % 4 H Lymphocytes % (Manual) 5 L Monocytes % (Manual) 3 Eosinophils % (Manual) 1 Platelet Estimate Normal Poikilocytosis (manual Slight Anisocytosis (manual) Slight PT 32.3 H* INR 2.9 APTT 51 H Puncture Site pCO2 pO2 HCO3 ABG pH ABG Total CO2 ABG O2 Saturation ABG Base Excess ABG Hemoglobin ABG Carboxyhemoglobin POC ABG HHb (Measured) ABG Methemoglobin Marcell Test A-a O2 Difference Respiratory Index Hgb O2 Saturation Liter Flow FiO2 Sodium 139 Potassium 3.6 Chloride 100 Carbon Dioxide 30 Anion Gap 13 BUN 14 Creatinine 0.8 Est GFR ( Amer) > 60 Est GFR (Non-Af Amer) > 60 Random Glucose 113 H Lactic Acid Calcium 8.5 L Phosphorus Magnesium Total Bilirubin 0.5 AST 25 ALT 27 Alkaline Phosphatase 67 Total Protein 6.6 Albumin 3.6 Globulin 3.0 Albumin/Globulin Ratio 1.2 Urine Color Urine Clarity Urine pH Ur Specific Cosby Urine Protein Urine Glucose (UA) Urine Ketones Urine Blood Urine Nitrate Urine Bilirubin Urine Urobilinogen Ur Leukocyte Esterase Urine WBC (Auto) Urine RBC (Auto) Ur Squamous Epith Cells 05/25/18 05/25/18 05/25/18 20:18 21:40 22:09 WBC RBC Hgb Hct MCV MCH MCHC RDW Plt Count MPV Neut % (Auto) Lymph % (Auto) Mcdonough % (Auto) Eos % (Auto) Baso % (Auto) Neut # (Auto) Lymph # (Auto) Mcdonough # (Auto) Eos # (Auto) Baso # (Auto) Neutrophils % (Manual) Band Neutrophils % Lymphocytes % (Manual) Monocytes % (Manual) Eosinophils % (Manual) Platelet Estimate Poikilocytosis (manual Anisocytosis (manual) PT INR APTT Puncture Site Rradial pCO2 37 pO2 51 L HCO3 27.3 ABG pH 7.47 H ABG Total CO2 28.0 ABG O2 Saturation 94.4 L ABG Base Excess 3.1 H ABG Hemoglobin 8.8 L ABG Carboxyhemoglobin 2.7 H POC ABG HHb (Measured) 5.4 H ABG Methemoglobin 1.4 Marcell Test Pos A-a O2 Difference 159.0 Respiratory Index 3.1 Hgb O2 Saturation 90.6 L Liter Flow 4.0 FiO2 36.0 Sodium Potassium Chloride Carbon Dioxide Anion Gap BUN Creatinine Est GFR ( Amer) Est GFR (Non-Af Amer) Random Glucose Lactic Acid 0.6 L Calcium Phosphorus Magnesium Total Bilirubin AST ALT Alkaline Phosphatase Total Protein Albumin Globulin Albumin/Globulin Ratio Urine Color Yellow Urine Clarity Clear Urine pH 6.0 Ur Specific Cosby 1.011 Urine Protein Negative Urine Glucose (UA) Normal Urine Ketones Negative Urine Blood Negative Urine Nitrate Negative Urine Bilirubin Negative Urine Urobilinogen Normal Ur Leukocyte Esterase 1+ H Urine WBC (Auto) 1 Urine RBC (Auto) 2 Ur Squamous Epith Cells 1 05/26/18 05/26/18 05/26/18 05:23 06:18 06:19 WBC 14.7 H RBC 3.76 L Hgb 9.8 L Hct 29.8 L MCV 79.2 L MCH 26.1 L MCHC 32.9 L RDW 16.0 H Plt Count 340 MPV 7.1 L Neut % (Auto) 97.0 H Lymph % (Auto) 1.8 L Mcdonough % (Auto) 1.2 Eos % (Auto) 0.0 Baso % (Auto) 0.0 Neut # (Auto) 14.3 H Lymph # (Auto) 0.3 L Mcdonough # (Auto) 0.2 Eos # (Auto) 0.0 Baso # (Auto) 0.0 Neutrophils % (Manual) Band Neutrophils % Lymphocytes % (Manual) Monocytes % (Manual) Eosinophils % (Manual) Platelet Estimate Poikilocytosis (manual Anisocytosis (manual) PT 28.0 H INR 2.6 APTT 49 H Puncture Site R brac pCO2 45 pO2 97 HCO3 28.2 H ABG pH 7.42 ABG Total CO2 30.6 H ABG O2 Saturation 98.8 H ABG Base Excess 4.2 H ABG Hemoglobin 9.9 L ABG Carboxyhemoglobin 1.9 H POC ABG HHb (Measured) 1.2 ABG Methemoglobin 1.0 Marcell Test Na A-a O2 Difference Respiratory Index Hgb O2 Saturation 95.9 Liter Flow 4.0 FiO2 Sodium Potassium Chloride Carbon Dioxide Anion Gap BUN Creatinine Est GFR ( Amer) Est GFR (Non-Af Amer) Random Glucose Lactic Acid Calcium Phosphorus Magnesium Total Bilirubin AST ALT Alkaline Phosphatase Total Protein Albumin Globulin Albumin/Globulin Ratio Urine Color Urine Clarity Urine pH Ur Specific Cosby Urine Protein Urine Glucose (UA) Urine Ketones Urine Blood Urine Nitrate Urine Bilirubin Urine Urobilinogen Ur Leukocyte Esterase Urine WBC (Auto) Urine RBC (Auto) Ur Squamous Epith Cells 05/26/18 06:19 WBC RBC Hgb Hct MCV MCH MCHC RDW Plt Count MPV Neut % (Auto) Lymph % (Auto) Mcdonough % (Auto) Eos % (Auto) Baso % (Auto) Neut # (Auto) Lymph # (Auto) Mcdonough # (Auto) Eos # (Auto) Baso # (Auto) Neutrophils % (Manual) Band Neutrophils % Lymphocytes % (Manual) Monocytes % (Manual) Eosinophils % (Manual) Platelet Estimate Poikilocytosis (manual Anisocytosis (manual) PT INR APTT Puncture Site pCO2 pO2 HCO3 ABG pH ABG Total CO2 ABG O2 Saturation ABG Base Excess ABG Hemoglobin ABG Carboxyhemoglobin POC ABG HHb (Measured) ABG Methemoglobin Marcell Test A-a O2 Difference Respiratory Index Hgb O2 Saturation Liter Flow FiO2 Sodium 142 Potassium 3.7 Chloride 102 Carbon Dioxide 29 Anion Gap 14 BUN 11 Creatinine 0.7 Est GFR ( Amer) > 60 Est GFR (Non-Af Amer) > 60 Random Glucose 145 H Lactic Acid Calcium 8.3 L Phosphorus 3.7 Magnesium 1.8 Total Bilirubin 0.6 AST 21 ALT 28 Alkaline Phosphatase 61 Total Protein 6.1 L Albumin 3.3 L Globulin 2.8 Albumin/Globulin Ratio 1.2 Urine Color Urine Clarity Urine pH Ur Specific Cosby Urine Protein Urine Glucose (UA) Urine Ketones Urine Blood Urine Nitrate Urine Bilirubin Urine Urobilinogen Ur Leukocyte Esterase Urine WBC (Auto) Urine RBC (Auto) Ur Squamous Epith Cells EKG/Cardiology Studies: Cardiology / EKG Studies 05/25/18 19:34 ELECTROCARDIOGRAM Stat Comment: Mode Of Transportation: Reason For Exam: Sepsis Patient Critical Care Progress Note - Nutrition Nutrition: Nutrition Category Date Time Status Heart Healthy Diet [DIET] Diets 05/25/18 Dinner Active Assessment/Plan - Assessment and Plan (Free Text) Assessment: This is a 52 year old female with PMHx of HTN, HLD, Lupus, DVT and PE with IVC filter and on Coumadin daily, SANJANA, Fibromyalgia, Obesity, Bronchial Asthma, Hypercoagulable she is 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 She is admitted to the ICU for Multilobar Pneumonia with Hypoxia. Plan: Neuro: GCS15 Cardio: A: A: HTN, HLD - Restarted Norvasc, HCTZ Pulm: A: Multilobar Pneumonia with Hypoxemia - CTA - NEGATIVE FOR PE * No evidence of acute central pulmonary embolism. Motion artifact limits evaluation of the segmental and subsegmental branches for example in the right lower lobe on series 2, image 148 a questionable filling defect in the right lower lobe pulmonary artery may represent artifact. Clinical correlation. 2. Extensive nonspecific ground-glass changes which may represent multifocal pneumonitis versus atelectasis versus atypical pneumonia versus edema. Clinical correlation. Post treatment interval followup may helpful for further evaluation if clinically indicated. 3. Airspace disease and air bronchograms are seen throughout the lingula which may represent lobar pneumonia. Clinical correlation. 4. Distention of the esophagus. Recent gastric banding procedure. Please correlate with angle or constrictive strength of the gastric banding apparatus which may explain the esophageal distention. 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 Mendez consulted - Packing in place, for post - op wound care A: Gastric Banding - Enlarged esophagus - concern for aspiration? - Band will need to be adjusted;??? MSK: A: Fibromyalgia - Lyrica 75mg PO BID - will reduce 2/2 current respiratory status Heme/Onc: A: Hx DVT and PE - IVC filter and Coumadin daily - INR check daily - Coumadin daily A: Lupus - Plaquenil 200mg PO BID ID: A: Bilateral Multilobar Pneumonia, concern for Aspiration Pneumonia - Aspiration Precautions - Hypoxic on ABG - Currently on 2L NC - Will have PT work with patient to determine if home o2 necessary - Started on vanco, doxy, and zosyn, florastor - Started on Mepron, Svetlana flu - Pending fish cultures, pneumonia workup Prophylaxis: - PPX - SCDs c/i due to LLE swelling, patient is on coumadin - PT/OT - eval for home O2? DW Janki Reed DO, PGY-1 <Oma Da Silva M - Last Filed: 05/26/18 17:10> CCU Objective - Vital Signs / Intake & Output Vital Signs (Last 4 hours): Vital Signs Temp Pulse Resp BP Pulse Ox 05/26/18 16:25 98.4 F 95 05/26/18 16:07 89 20 148/75 94 L 05/26/18 16:00 88 20 94 L 05/26/18 15:07 87 23 161/82 H 93 L 05/26/18 15:00 88 17 92 L 05/26/18 14:07 89 22 158/86 H 94 L 05/26/18 14:00 90 23 94 L 05/26/18 13:07 92 H 27 H 135/72 92 L Intake and Output (Last 8hrs): Intake & Output 05/26/18 05/26/18 05/26/18 06:59 14:59 22:59 Intake Total 200 620 300 Output Total 700 800 0 Balance -500 -180 300 Weight 231 lb 7.766 oz Intake: Intake, IV Amount 200 0 Left Wrist 200 0 Oral 0 620 300 Output: Urine 700 800 0 Urine, Voided 700 800 0 Emesis 0 0 Other: Voiding Method Bedside Commode # Bowel Movements 0 0 - Medications Active Medications: Active Medications Generic Name Dose Route Start Last Admin Trade Name Freq PRN Reason Stop Dose Admin Acetaminophen 650 mg 05/25/18 22:31 05/25/18 22:51 Tylenol 325mg Tab PO 650 mg Q6 PRN Administration Fever >100.4 F Albuterol/Ipratropium 3 ml 05/26/18 17:00 Duoneb 3 Mg/0.5 Mg (3 Ml) Ud INH RQ4 ENOC Amitriptyline HCl 100 mg 05/26/18 10:00 05/26/18 11:56 Elavil PO 100 mg DAILY ENOC Administration Amlodipine Besylate 5 mg 05/26/18 10:00 05/26/18 11:55 Norvasc PO 5 mg DAILY ENOC Administration Atovaquone 750 mg 05/26/18 10:00 05/26/18 11:57 Mepron PO 750 mg BID ENOC Administration Protocol Benzocaine/Menthol 1 lauro 05/26/18 09:00 Cepacol Sore Throat MT QID PRN Sore Throat Doxycycline Hyclate 100 mg 05/25/18 22:45 05/26/18 11:55 Doryx PO 100 mg Q12H ENOC Administration Protocol Hydrochlorothiazide 25 mg 05/26/18 10:00 05/26/18 11:54 Hydrodiuril PO 25 mg DAILY ENOC Administration Hydroxychloroquine Sulfate 200 mg 05/26/18 10:00 05/26/18 11:56 Plaquenil PO 200 mg BID ENOC Administration Protocol Vancomycin/Sodium Chloride 1 gm in 200 mls @ 133 mls/hr 05/25/18 23:00 Vancomycin 1 Gm/Ns 200 Ml IVPB 05/30/18 23:01 Q24H ENOC Protocol Piperacillin Sod/Tazobactam Sod 3.375 gm in 50 mls @ 200 mls/hr 05/26/18 08: 00 05/26/18 09:30 Zosyn 3.375 Gm Iv Premix IVPB 200 mls/hr Q8H ENOC Administration Protocol Methylprednisolone 40 mg 05/26/18 10:00 05/26/18 11:55 Solu-Medrol IVP 40 mg DAILY ENOC Administration Montelukast Sodium 10 mg 05/26/18 22:00 Singulair PO HS [facility] Ondansetron HCl 4 mg 05/25/18 22:31 Zofran Inj IVP Q6 PRN Nausea/Vomiting Oseltamivir Phosphate 75 mg 05/26/18 10:00 05/26/18 12:00 Tamiflu Cap PO 05/31/18 10:01 75 mg BID ENOC Administration Protocol Oxybutynin Chloride 10 mg 05/26/18 10:00 05/26/18 11:56 Ditropan Xl PO 10 mg DAILY ENOC Administration Pantoprazole Sodium 40 mg 05/26/18 10:00 05/26/18 11:55 Protonix Ec Tab PO 40 mg DAILY ENOC Administration Pregabalin 75 mg 05/27/18 10:00 Lyrica PO 05/28/18 10:01 DAILY [facility] Saccharomyces Boulardii 250 mg 05/26/18 10:00 05/26/18 11:54 Florastor PO 250 mg BID ENOC Administration Fluticasone/Salmeterol 1 puff 05/26/18 08:00 Advair Diskus 250/50 INH RQ12 [facility] Warfarin Sodium 2 mg 05/26/18 18:00 Coumadin PO 05/26/18 18:01 1800 [facility] - Patient Studies Lab Studies: Microbiology Studies 05/26/18 06:19 MRSA Culture (Admit) - Final Naris MRSA NOT DETECTED Lab Studies 05/26/18 05/26/18 05/26/18 Range/Units 10:28 10:28 06:19 WBC (4.8-10.8) K/uL RBC (3.80-5.20) Mil/uL Hgb (11.0-16.0) g/dL Hct (34.0-47.0) % MCV (81.0-99.0) fL MCH (27.0-31.0) pg MCHC (33.0-37.0) g/dL RDW (11.5-14.5) % Plt Count (130-400) K/uL MPV (7.2-11.7) fL Neut % (Auto) (50.0-75.0) % Lymph % (Auto) (20.0-40.0) % Mcdonough % (Auto) (0.0-10.0) % Eos % (Auto) (0.0-4.0) % Baso % (Auto) (0.0-2.0) % Neut # (Auto) (1.8-7.0) K/uL Lymph # (Auto) (1.0-4.3) K/uL Mcdonough # (Auto) (0.0-0.8) K/uL Eos # (Auto) (0.0-0.7) K/uL Baso # (Auto) (0.0-0.2) K/uL Neutrophils % (Manual) (50-75) % Band Neutrophils % (0-2) % Lymphocytes % (Manual) (20-40) % Monocytes % (Manual) (0-10) % Eosinophils % (Manual) (0-4) % Platelet Estimate (NORMAL) Poikilocytosis (manual Anisocytosis (manual) PT (9.7-12.2) SECONDS INR APTT (21-34) SECONDS Puncture Site pCO2 (35-45) mm/Hg pO2 (80-100) mm/Hg HCO3 (21-28) mmol/L ABG pH (7.35-7.45) ABG Total CO2 (22-28) mmol/L ABG O2 Saturation (95-98) % ABG Base Excess (-2.0-3.0) mmol/L ABG Hemoglobin (11.7-17.4) g/dL ABG Carboxyhemoglobin (0.5-1.5) % POC ABG HHb (Measured) (0.0-5.0) % ABG Methemoglobin (0.0-3.0) % Marcell Test A-a O2 Difference mm/Hg Respiratory Index Hgb O2 Saturation (95.0-98.0) % Liter Flow FiO2 % Sodium (132-148) mmol/L Potassium (3.6-5.2) mmol/L Chloride (98-107) mmol/L Carbon Dioxide (22-30) mmol/L Anion Gap (10-20) BUN (7-17) mg/dL Creatinine (0.7-1.2) mg/dL Est GFR ( Amer) Est GFR (Non-Af Amer) Random Glucose (65-105) mg/dL Lactic Acid (0.7-2.1) mmol/L Calcium (8.6-10.4) mg/dl Phosphorus (2.5-4.5) mg/dL Magnesium (1.6-2.3) mg/dL Total Bilirubin (0.2-1.3) mg/dL AST (14-36) U/L ALT (9-52) U/L Alkaline Phosphatase (38-126) U/L Lactate Dehydrogenase 717 H (313-618) U/L Total Protein (6.3-8.3) g/dL Albumin (3.5-5.0) g/dL Globulin (2.2-3.9) gm/dL Albumin/Globulin Ratio (1.0-2.1) Urine Color (YELLOW) Urine Clarity (Clear) Urine pH (5.0-8.0) Ur Specific Cosby (1.003-1.030) Urine Protein (NEGATIVE) mg/dL Urine Glucose (UA) (Normal) mg/dL Urine Ketones (NEGATIVE) mg/dL Urine Blood (NEGATIVE) Urine Nitrate (NEGATIVE) Urine Bilirubin (NEGATIVE) Urine Urobilinogen (0.2-1.0) mg/dL Ur Leukocyte Esterase (Negative) Rufino/uL Urine WBC (Auto) (0-5) /hpf Urine RBC (Auto) (0-3) /hpf Ur Squamous Epith Cells (0-5) /hpf Ur L.pneumophila Ag Negative (NEGATIVE) Mycoplasma pneumon IgM Negative (NEGATIVE) 05/26/18 05/26/18 05/26/18 Range/Units 06:19 06:19 06:18 WBC 14.7 H (4.8-10.8) K/uL RBC 3.76 L (3.80-5.20) Mil/uL Hgb 9.8 L (11.0-16.0) g/dL Hct 29.8 L (34.0-47.0) % MCV 79.2 L (81.0-99.0) fL MCH 26.1 L (27.0-31.0) pg MCHC 32.9 L (33.0-37.0) g/dL RDW 16.0 H (11.5-14.5) % Plt Count 340 (130-400) K/uL MPV 7.1 L (7.2-11.7) fL Neut % (Auto) 97.0 H (50.0-75.0) % Lymph % (Auto) 1.8 L (20.0-40.0) % Mcdonough % (Auto) 1.2 (0.0-10.0) % Eos % (Auto) 0.0 (0.0-4.0) % Baso % (Auto) 0.0 (0.0-2.0) % Neut # (Auto) 14.3 H (1.8-7.0) K/uL Lymph # (Auto) 0.3 L (1.0-4.3) K/uL Mcdonough # (Auto) 0.2 (0.0-0.8) K/uL Eos # (Auto) 0.0 (0.0-0.7) K/uL Baso # (Auto) 0.0 (0.0-0.2) K/uL Neutrophils % (Manual) 89 H (50-75) % Band Neutrophils % 8 H (0-2) % Lymphocytes % (Manual) 2 L (20-40) % Monocytes % (Manual) 1 (0-10) % Eosinophils % (Manual) (0-4) % Platelet Estimate Normal (NORMAL) Poikilocytosis (manual Anisocytosis (manual) Slight PT 28.0 H (9.7-12.2) SECONDS INR 2.6 APTT 49 H (21-34) SECONDS Puncture Site pCO2 (35-45) mm/Hg pO2 (80-100) mm/Hg HCO3 (21-28) mmol/L ABG pH (7.35-7.45) ABG Total CO2 (22-28) mmol/L ABG O2 Saturation (95-98) % ABG Base Excess (-2.0-3.0) mmol/L ABG Hemoglobin (11.7-17.4) g/dL ABG Carboxyhemoglobin (0.5-1.5) % POC ABG HHb (Measured) (0.0-5.0) % ABG Methemoglobin (0.0-3.0) % Marcell Test A-a O2 Difference mm/Hg Respiratory Index Hgb O2 Saturation (95.0-98.0) % Liter Flow FiO2 % Sodium 142 (132-148) mmol/L Potassium 3.7 (3.6-5.2) mmol/L Chloride 102 (98-107) mmol/L Carbon Dioxide 29 (22-30) mmol/L Anion Gap 14 (10-20) BUN 11 (7-17) mg/dL Creatinine 0.7 (0.7-1.2) mg/dL Est GFR ( Amer) > 60 Est GFR (Non-Af Amer) > 60 Random Glucose 145 H (65-105) mg/dL Lactic Acid (0.7-2.1) mmol/L Calcium 8.3 L (8.6-10.4) mg/dl Phosphorus 3.7 (2.5-4.5) mg/dL Magnesium 1.8 (1.6-2.3) mg/dL Total Bilirubin 0.6 (0.2-1.3) mg/dL AST 21 (14-36) U/L ALT 28 (9-52) U/L Alkaline Phosphatase 61 (38-126) U/L Lactate Dehydrogenase (313-618) U/L Total Protein 6.1 L (6.3-8.3) g/dL Albumin 3.3 L (3.5-5.0) g/dL Globulin 2.8 (2.2-3.9) gm/dL Albumin/Globulin Ratio 1.2 (1.0-2.1) Urine Color (YELLOW) Urine Clarity (Clear) Urine pH (5.0-8.0) Ur Specific Cosby (1.003-1.030) Urine Protein (NEGATIVE) mg/dL Urine Glucose (UA) (Normal) mg/dL Urine Ketones (NEGATIVE) mg/dL Urine Blood (NEGATIVE) Urine Nitrate (NEGATIVE) Urine Bilirubin (NEGATIVE) Urine Urobilinogen (0.2-1.0) mg/dL Ur Leukocyte Esterase (Negative) Rufino/uL Urine WBC (Auto) (0-5) /hpf Urine RBC (Auto) (0-3) /hpf Ur Squamous Epith Cells (0-5) /hpf Ur L.pneumophila Ag (NEGATIVE) Mycoplasma pneumon IgM (NEGATIVE) 05/26/18 05/25/18 05/25/18 Range/Units 05:23 22:09 21:40 WBC (4.8-10.8) K/uL RBC (3.80-5.20) Mil/uL Hgb (11.0-16.0) g/dL Hct (34.0-47.0) % MCV (81.0-99.0) fL MCH (27.0-31.0) pg MCHC (33.0-37.0) g/dL RDW (11.5-14.5) % Plt Count (130-400) K/uL MPV (7.2-11.7) fL Neut % (Auto) (50.0-75.0) % Lymph % (Auto) (20.0-40.0) % Mcdonough % (Auto) (0.0-10.0) % Eos % (Auto) (0.0-4.0) % Baso % (Auto) (0.0-2.0) % Neut # (Auto) (1.8-7.0) K/uL Lymph # (Auto) (1.0-4.3) K/uL Mcdonough # (Auto) (0.0-0.8) K/uL Eos # (Auto) (0.0-0.7) K/uL Baso # (Auto) (0.0-0.2) K/uL Neutrophils % (Manual) (50-75) % Band Neutrophils % (0-2) % Lymphocytes % (Manual) (20-40) % Monocytes % (Manual) (0-10) % Eosinophils % (Manual) (0-4) % Platelet Estimate (NORMAL) Poikilocytosis (manual Anisocytosis (manual) PT (9.7-12.2) SECONDS INR APTT (21-34) SECONDS Puncture Site R brac Rradial pCO2 45 37 (35-45) mm/Hg pO2 97 51 L (80-100) mm/Hg HCO3 28.2 H 27.3 (21-28) mmol/L ABG pH 7.42 7.47 H (7.35-7.45) ABG Total CO2 30.6 H 28.0 (22-28) mmol/L ABG O2 Saturation 98.8 H 94.4 L (95-98) % ABG Base Excess 4.2 H 3.1 H (-2.0-3.0) mmol/L ABG Hemoglobin 9.9 L 8.8 L (11.7-17.4) g/dL ABG Carboxyhemoglobin 1.9 H 2.7 H (0.5-1.5) % POC ABG HHb (Measured) 1.2 5.4 H (0.0-5.0) % ABG Methemoglobin 1.0 1.4 (0.0-3.0) % Marcell Test Na Pos A-a O2 Difference 159.0 mm/Hg Respiratory Index 3.1 Hgb O2 Saturation 95.9 90.6 L (95.0-98.0) % Liter Flow 4.0 4.0 FiO2 36.0 % Sodium (132-148) mmol/L Potassium (3.6-5.2) mmol/L Chloride (98-107) mmol/L Carbon Dioxide (22-30) mmol/L Anion Gap (10-20) BUN (7-17) mg/dL Creatinine (0.7-1.2) mg/dL Est GFR ( Amer) Est GFR (Non-Af Amer) Random Glucose (65-105) mg/dL Lactic Acid 0.6 L (0.7-2.1) mmol/L Calcium (8.6-10.4) mg/dl Phosphorus (2.5-4.5) mg/dL Magnesium (1.6-2.3) mg/dL Total Bilirubin (0.2-1.3) mg/dL AST (14-36) U/L ALT (9-52) U/L Alkaline Phosphatase (38-126) U/L Lactate Dehydrogenase (313-618) U/L Total Protein (6.3-8.3) g/dL Albumin (3.5-5.0) g/dL Globulin (2.2-3.9) gm/dL Albumin/Globulin Ratio (1.0-2.1) Urine Color (YELLOW) Urine Clarity (Clear) Urine pH (5.0-8.0) Ur Specific Cosby (1.003-1.030) Urine Protein (NEGATIVE) mg/dL Urine Glucose (UA) (Normal) mg/dL Urine Ketones (NEGATIVE) mg/dL Urine Blood (NEGATIVE) Urine Nitrate (NEGATIVE) Urine Bilirubin (NEGATIVE) Urine Urobilinogen (0.2-1.0) mg/dL Ur Leukocyte Esterase (Negative) Rufino/uL Urine WBC (Auto) (0-5) /hpf Urine RBC (Auto) (0-3) /hpf Ur Squamous Epith Cells (0-5) /hpf Ur L.pneumophila Ag (NEGATIVE) Mycoplasma pneumon IgM (NEGATIVE) 05/25/18 05/25/18 05/25/18 Range/Units 20:18 19:39 19:39 WBC (4.8-10.8) K/uL RBC (3.80-5.20) Mil/uL Hgb (11.0-16.0) g/dL Hct (34.0-47.0) % MCV (81.0-99.0) fL MCH (27.0-31.0) pg MCHC (33.0-37.0) g/dL RDW (11.5-14.5) % Plt Count (130-400) K/uL MPV (7.2-11.7) fL Neut % (Auto) (50.0-75.0) % Lymph % (Auto) (20.0-40.0) % Mcdonough % (Auto) (0.0-10.0) % Eos % (Auto) (0.0-4.0) % Baso % (Auto) (0.0-2.0) % Neut # (Auto) (1.8-7.0) K/uL Lymph # (Auto) (1.0-4.3) K/uL Mcdonough # (Auto) (0.0-0.8) K/uL Eos # (Auto) (0.0-0.7) K/uL Baso # (Auto) (0.0-0.2) K/uL Neutrophils % (Manual) (50-75) % Band Neutrophils % (0-2) % Lymphocytes % (Manual) (20-40) % Monocytes % (Manual) (0-10) % Eosinophils % (Manual) (0-4) % Platelet Estimate (NORMAL) Poikilocytosis (manual Anisocytosis (manual) PT 32.3 H* (9.7-12.2) SECONDS INR 2.9 APTT 51 H (21-34) SECONDS Puncture Site pCO2 (35-45) mm/Hg pO2 (80-100) mm/Hg HCO3 (21-28) mmol/L ABG pH (7.35-7.45) ABG Total CO2 (22-28) mmol/L ABG O2 Saturation (95-98) % ABG Base Excess (-2.0-3.0) mmol/L ABG Hemoglobin (11.7-17.4) g/dL ABG Carboxyhemoglobin (0.5-1.5) % POC ABG HHb (Measured) (0.0-5.0) % ABG Methemoglobin (0.0-3.0) % Marcell Test A-a O2 Difference mm/Hg Respiratory Index Hgb O2 Saturation (95.0-98.0) % Liter Flow FiO2 % Sodium 139 (132-148) mmol/L Potassium 3.6 (3.6-5.2) mmol/L Chloride 100 (98-107) mmol/L Carbon Dioxide 30 (22-30) mmol/L Anion Gap 13 (10-20) BUN 14 (7-17) mg/dL Creatinine 0.8 (0.7-1.2) mg/dL Est GFR ( Amer) > 60 Est GFR (Non-Af Amer) > 60 Random Glucose 113 H (65-105) mg/dL Lactic Acid (0.7-2.1) mmol/L Calcium 8.5 L (8.6-10.4) mg/dl Phosphorus (2.5-4.5) mg/dL Magnesium (1.6-2.3) mg/dL Total Bilirubin 0.5 (0.2-1.3) mg/dL AST 25 (14-36) U/L ALT 27 (9-52) U/L Alkaline Phosphatase 67 (38-126) U/L Lactate Dehydrogenase (313-618) U/L Total Protein 6.6 (6.3-8.3) g/dL Albumin 3.6 (3.5-5.0) g/dL Globulin 3.0 (2.2-3.9) gm/dL Albumin/Globulin Ratio 1.2 (1.0-2.1) Urine Color Yellow (YELLOW) Urine Clarity Clear (Clear) Urine pH 6.0 (5.0-8.0) Ur Specific Cosby 1.011 (1.003-1.030) Urine Protein Negative (NEGATIVE) mg/dL Urine Glucose (UA) Normal (Normal) mg/dL Urine Ketones Negative (NEGATIVE) mg/dL Urine Blood Negative (NEGATIVE) Urine Nitrate Negative (NEGATIVE) Urine Bilirubin Negative (NEGATIVE) Urine Urobilinogen Normal (0.2-1.0) mg/dL Ur Leukocyte Esterase 1+ H (Negative) Rufino/uL Urine WBC (Auto) 1 (0-5) /hpf Urine RBC (Auto) 2 (0-3) /hpf Ur Squamous Epith Cells 1 (0-5) /hpf Ur L.pneumophila Ag (NEGATIVE) Mycoplasma pneumon IgM (NEGATIVE) 05/25/18 Range/Units 19:39 WBC 15.1 H D (4.8-10.8) K/uL RBC 3.95 (3.80-5.20) Mil/uL Hgb 10.3 L (11.0-16.0) g/dL Hct 31.2 L (34.0-47.0) % MCV 79.2 L (81.0-99.0) fL MCH 26.1 L (27.0-31.0) pg MCHC 32.9 L (33.0-37.0) g/dL RDW 15.9 H (11.5-14.5) % Plt Count 381 D (130-400) K/uL MPV 6.8 L (7.2-11.7) fL Neut % (Auto) 91.2 H (50.0-75.0) % Lymph % (Auto) 3.3 L (20.0-40.0) % Mcdonough % (Auto) 3.7 (0.0-10.0) % Eos % (Auto) 1.6 (0.0-4.0) % Baso % (Auto) 0.2 (0.0-2.0) % Neut # (Auto) 13.8 H (1.8-7.0) K/uL Lymph # (Auto) 0.5 L (1.0-4.3) K/uL Mcdonough # (Auto) 0.6 (0.0-0.8) K/uL Eos # (Auto) 0.2 (0.0-0.7) K/uL Baso # (Auto) 0.0 (0.0-0.2) K/uL Neutrophils % (Manual) 87 H (50-75) % Band Neutrophils % 4 H (0-2) % Lymphocytes % (Manual) 5 L (20-40) % Monocytes % (Manual) 3 (0-10) % Eosinophils % (Manual) 1 (0-4) % Platelet Estimate Normal (NORMAL) Poikilocytosis (manual Slight Anisocytosis (manual) Slight PT (9.7-12.2) SECONDS INR APTT (21-34) SECONDS Puncture Site pCO2 (35-45) mm/Hg pO2 (80-100) mm/Hg HCO3 (21-28) mmol/L ABG pH (7.35-7.45) ABG Total CO2 (22-28) mmol/L ABG O2 Saturation (95-98) % ABG Base Excess (-2.0-3.0) mmol/L ABG Hemoglobin (11.7-17.4) g/dL ABG Carboxyhemoglobin (0.5-1.5) % POC ABG HHb (Measured) (0.0-5.0) % ABG Methemoglobin (0.0-3.0) % Marcell Test A-a O2 Difference mm/Hg Respiratory Index Hgb O2 Saturation (95.0-98.0) % Liter Flow FiO2 % Sodium (132-148) mmol/L Potassium (3.6-5.2) mmol/L Chloride (98-107) mmol/L Carbon Dioxide (22-30) mmol/L Anion Gap (10-20) BUN (7-17) mg/dL Creatinine (0.7-1.2) mg/dL Est GFR ( Amer) Est GFR (Non-Af Amer) Random Glucose (65-105) mg/dL Lactic Acid (0.7-2.1) mmol/L Calcium (8.6-10.4) mg/dl Phosphorus (2.5-4.5) mg/dL Magnesium (1.6-2.3) mg/dL Total Bilirubin (0.2-1.3) mg/dL AST (14-36) U/L ALT (9-52) U/L Alkaline Phosphatase (38-126) U/L Lactate Dehydrogenase (313-618) U/L Total Protein (6.3-8.3) g/dL Albumin (3.5-5.0) g/dL Globulin (2.2-3.9) gm/dL Albumin/Globulin Ratio (1.0-2.1) Urine Color (YELLOW) Urine Clarity (Clear) Urine pH (5.0-8.0) Ur Specific Cosby (1.003-1.030) Urine Protein (NEGATIVE) mg/dL Urine Glucose (UA) (Normal) mg/dL Urine Ketones (NEGATIVE) mg/dL Urine Blood (NEGATIVE) Urine Nitrate (NEGATIVE) Urine Bilirubin (NEGATIVE) Urine Urobilinogen (0.2-1.0) mg/dL Ur Leukocyte Esterase (Negative) Rufino/uL Urine WBC (Auto) (0-5) /hpf Urine RBC (Auto) (0-3) /hpf Ur Squamous Epith Cells (0-5) /hpf Ur L.pneumophila Ag (NEGATIVE) Mycoplasma pneumon IgM (NEGATIVE) Laboratory Results - last 24 hr 05/25/18 05/25/18 05/25/18 19:39 19:39 19:39 WBC 15.1 H D RBC 3.95 Hgb 10.3 L Hct 31.2 L MCV 79.2 L MCH 26.1 L MCHC 32.9 L RDW 15.9 H Plt Count 381 D MPV 6.8 L Neut % (Auto) 91.2 H Lymph % (Auto) 3.3 L Mcdonough % (Auto) 3.7 Eos % (Auto) 1.6 Baso % (Auto) 0.2 Neut # (Auto) 13.8 H Lymph # (Auto) 0.5 L Mcdonough # (Auto) 0.6 Eos # (Auto) 0.2 Baso # (Auto) 0.0 Neutrophils % (Manual) 87 H Band Neutrophils % 4 H Lymphocytes % (Manual) 5 L Monocytes % (Manual) 3 Eosinophils % (Manual) 1 Platelet Estimate Normal Poikilocytosis (manual Slight Anisocytosis (manual) Slight PT 32.3 H* INR 2.9 APTT 51 H Puncture Site pCO2 pO2 HCO3 ABG pH ABG Total CO2 ABG O2 Saturation ABG Base Excess ABG Hemoglobin ABG Carboxyhemoglobin POC ABG HHb (Measured) ABG Methemoglobin Marcell Test A-a O2 Difference Respiratory Index Hgb O2 Saturation Liter Flow FiO2 Sodium 139 Potassium 3.6 Chloride 100 Carbon Dioxide 30 Anion Gap 13 BUN 14 Creatinine 0.8 Est GFR ( Amer) > 60 Est GFR (Non-Af Amer) > 60 Random Glucose 113 H Lactic Acid Calcium 8.5 L Phosphorus Magnesium Total Bilirubin 0.5 AST 25 ALT 27 Alkaline Phosphatase 67 Lactate Dehydrogenase Total Protein 6.6 Albumin 3.6 Globulin 3.0 Albumin/Globulin Ratio 1.2 Urine Color Urine Clarity Urine pH Ur Specific Cosby Urine Protein Urine Glucose (UA) Urine Ketones Urine Blood Urine Nitrate Urine Bilirubin Urine Urobilinogen Ur Leukocyte Esterase Urine WBC (Auto) Urine RBC (Auto) Ur Squamous Epith Cells Ur L.pneumophila Ag Mycoplasma pneumon IgM 05/25/18 05/25/18 05/25/18 20:18 21:40 22:09 WBC RBC Hgb Hct MCV MCH MCHC RDW Plt Count MPV Neut % (Auto) Lymph % (Auto) Mcdonough % (Auto) Eos % (Auto) Baso % (Auto) Neut # (Auto) Lymph # (Auto) Mcdonough # (Auto) Eos # (Auto) Baso # (Auto) Neutrophils % (Manual) Band Neutrophils % Lymphocytes % (Manual) Monocytes % (Manual) Eosinophils % (Manual) Platelet Estimate Poikilocytosis (manual Anisocytosis (manual) PT INR APTT Puncture Site Rradial pCO2 37 pO2 51 L HCO3 27.3 ABG pH 7.47 H ABG Total CO2 28.0 ABG O2 Saturation 94.4 L ABG Base Excess 3.1 H ABG Hemoglobin 8.8 L ABG Carboxyhemoglobin 2.7 H POC ABG HHb (Measured) 5.4 H ABG Methemoglobin 1.4 Marcell Test Pos A-a O2 Difference 159.0 Respiratory Index 3.1 Hgb O2 Saturation 90.6 L Liter Flow 4.0 FiO2 36.0 Sodium Potassium Chloride Carbon Dioxide Anion Gap BUN Creatinine Est GFR ( Amer) Est GFR (Non-Af Amer) Random Glucose Lactic Acid 0.6 L Calcium Phosphorus Magnesium Total Bilirubin AST ALT Alkaline Phosphatase Lactate Dehydrogenase Total Protein Albumin Globulin Albumin/Globulin Ratio Urine Color Yellow Urine Clarity Clear Urine pH 6.0 Ur Specific Cosby 1.011 Urine Protein Negative Urine Glucose (UA) Normal Urine Ketones Negative Urine Blood Negative Urine Nitrate Negative Urine Bilirubin Negative Urine Urobilinogen Normal Ur Leukocyte Esterase 1+ H Urine WBC (Auto) 1 Urine RBC (Auto) 2 Ur Squamous Epith Cells 1 Ur L.pneumophila Ag Mycoplasma pneumon IgM 05/26/18 05/26/18 05/26/18 05:23 06:18 06:19 WBC 14.7 H RBC 3.76 L Hgb 9.8 L Hct 29.8 L MCV 79.2 L MCH 26.1 L MCHC 32.9 L RDW 16.0 H Plt Count 340 MPV 7.1 L Neut % (Auto) 97.0 H Lymph % (Auto) 1.8 L Mcdonough % (Auto) 1.2 Eos % (Auto) 0.0 Baso % (Auto) 0.0 Neut # (Auto) 14.3 H Lymph # (Auto) 0.3 L Mcdonough # (Auto) 0.2 Eos # (Auto) 0.0 Baso # (Auto) 0.0 Neutrophils % (Manual) 89 H Band Neutrophils % 8 H Lymphocytes % (Manual) 2 L Monocytes % (Manual) 1 Eosinophils % (Manual) Platelet Estimate Normal Poikilocytosis (manual Anisocytosis (manual) Slight PT 28.0 H INR 2.6 APTT 49 H Puncture Site R brac pCO2 45 pO2 97 HCO3 28.2 H ABG pH 7.42 ABG Total CO2 30.6 H ABG O2 Saturation 98.8 H ABG Base Excess 4.2 H ABG Hemoglobin 9.9 L ABG Carboxyhemoglobin 1.9 H POC ABG HHb (Measured) 1.2 ABG Methemoglobin 1.0 Marcell Test Na A-a O2 Difference Respiratory Index Hgb O2 Saturation 95.9 Liter Flow 4.0 FiO2 Sodium Potassium Chloride Carbon Dioxide Anion Gap BUN Creatinine Est GFR ( Amer) Est GFR (Non-Af Amer) Random Glucose Lactic Acid Calcium Phosphorus Magnesium Total Bilirubin AST ALT Alkaline Phosphatase Lactate Dehydrogenase Total Protein Albumin Globulin Albumin/Globulin Ratio Urine Color Urine Clarity Urine pH Ur Specific Cosby Urine Protein Urine Glucose (UA) Urine Ketones Urine Blood Urine Nitrate Urine Bilirubin Urine Urobilinogen Ur Leukocyte Esterase Urine WBC (Auto) Urine RBC (Auto) Ur Squamous Epith Cells Ur L.pneumophila Ag Mycoplasma pneumon IgM 05/26/1818 05/26/18 06:19 06:19 10:28 WBC RBC Hgb Hct MCV MCH MCHC RDW Plt Count MPV Neut % (Auto) Lymph % (Auto) Mcdonough % (Auto) Eos % (Auto) Baso % (Auto) Neut # (Auto) Lymph # (Auto) Mcdonough # (Auto) Eos # (Auto) Baso # (Auto) Neutrophils % (Manual) Band Neutrophils % Lymphocytes % (Manual) Monocytes % (Manual) Eosinophils % (Manual) Platelet Estimate Poikilocytosis (manual Anisocytosis (manual) PT INR APTT Puncture Site pCO2 pO2 HCO3 ABG pH ABG Total CO2 ABG O2 Saturation ABG Base Excess ABG Hemoglobin ABG Carboxyhemoglobin POC ABG HHb (Measured) ABG Methemoglobin Marcell Test A-a O2 Difference Respiratory Index Hgb O2 Saturation Liter Flow FiO2 Sodium 142 Potassium 3.7 Chloride 102 Carbon Dioxide 29 Anion Gap 14 BUN 11 Creatinine 0.7 Est GFR ( Amer) > 60 Est GFR (Non-Af Amer) > 60 Random Glucose 145 H Lactic Acid Calcium 8.3 L Phosphorus 3.7 Magnesium 1.8 Total Bilirubin 0.6 AST 21 ALT 28 Alkaline Phosphatase 61 Lactate Dehydrogenase Total Protein 6.1 L Albumin 3.3 L Globulin 2.8 Albumin/Globulin Ratio 1.2 Urine Color Urine Clarity Urine pH Ur Specific Cosby Urine Protein Urine Glucose (UA) Urine Ketones Urine Blood Urine Nitrate Urine Bilirubin Urine Urobilinogen Ur Leukocyte Esterase Urine WBC (Auto) Urine RBC (Auto) Ur Squamous Epith Cells Ur L.pneumophila Ag Negative Mycoplasma pneumon IgM Negative 05/26/18 10:28 WBC RBC Hgb Hct MCV MCH MCHC RDW Plt Count MPV Neut % (Auto) Lymph % (Auto) Mcdonough % (Auto) Eos % (Auto) Baso % (Auto) Neut # (Auto) Lymph # (Auto) Mcdonough # (Auto) Eos # (Auto) Baso # (Auto) Neutrophils % (Manual) Band Neutrophils % Lymphocytes % (Manual) Monocytes % (Manual) Eosinophils % (Manual) Platelet Estimate Poikilocytosis (manual Anisocytosis (manual) PT INR APTT Puncture Site pCO2 pO2 HCO3 ABG pH ABG Total CO2 ABG O2 Saturation ABG Base Excess ABG Hemoglobin ABG Carboxyhemoglobin POC ABG HHb (Measured) ABG Methemoglobin Marcell Test A-a O2 Difference Respiratory Index Hgb O2 Saturation Liter Flow FiO2 Sodium Potassium Chloride Carbon Dioxide Anion Gap BUN Creatinine Est GFR ( Amer) Est GFR (Non-Af Amer) Random Glucose Lactic Acid Calcium Phosphorus Magnesium Total Bilirubin AST ALT Alkaline Phosphatase Lactate Dehydrogenase 717 H Total Protein Albumin Globulin Albumin/Globulin Ratio Urine Color Urine Clarity Urine pH Ur Specific Cos[place] Urine Protein Urine Glucose (UA) Urine Ketones Urine Blood Urine Nitrate Urine Bilirubin Urine Urobilinogen Ur Leukocyte Esterase Urine WBC (Auto) Urine RBC (Auto) Ur Squamous Epith Cells Ur L.pneumophila Ag Mycoplasma pneumon IgM EKG/Cardiology Studies: Cardiology / EKG Studies 05/25/18 19:34 ELECTROCARDIOGRAM Stat Comment: Mode Of Transportation: Reason For Exam: Sepsis Patient Critical Care Progress Note - Nutrition Nutrition: Nutrition Category Date Time Status Heart Healthy Diet [DIET] Diets 05/25/18 Dinner Active Assessment/Plan - Assessment and Plan (Free Text) Plan: Above patient seen and examined at bedside. Patient has underlying PE on coumadin, has been treated on/off by outpatient mercury recoverer with combintaion of abx/steroids. Patient presents to [facility] with chronic cough, hypoxia. -CT reveals ground glass opacity: continue rx for PNA, ppx for PJP, bnp low, -PE: continue coumadin -lupus: continue plaquinel -h/o exploaratory lap: continue as per surgery team -Patient remains hemodynamically stable -at baseline requires 2 liters NC. -continue to monitor - Date & Time Date: 05/26/18 Time: 17:10
[2018-05-26 08:22] LABS: BANDS 8 % (0-2); LYMPHOCYTE 2 % (20-40); MONOCYTE 1 % (0-10); NEUTROPHIL 89 % (50-75); PLATELET ESTIMATE NORMAL (NORMAL); TOTAL CELLS COUNTED 100
[2018-05-26 08:23] LABS: ANISOCYTOSIS SLIGHT
[2018-05-26] MEDS: Piperacill/Tazo 3.375gm in Dex 3.375 GM/50 ML BAG IVPB SCH ×3 (09:30→23:23)
[2018-05-26] MEDS ORDERED: Saccharomyces Boulardi 250 mg Cap PO SCH (10:00)
[2018-05-26] MEDS ORDERED: Pantoprazole 40 mg EC Tab PO SCH ×2 (10:00)
--- NOTE | 2018-05-26 10:30 | CT ---
CT chest pulmonary angiogram History: Shortness of breath. Comparison: Chest x-ray dated 01/18/2016 Technique: Multiple contiguous axial computed tomographic angiographic images of the chest were performed with intravenous contrast utilizing pulmonary embolism protocol. Subsequently, sagittal and coronal reformatted images as well as MIPS reconstructed images were created and reviewed. This CT exam was performed using one or more of the following dose reduction techniques: Automated exposure control, adjustment of the mA and/or kV according to patient size, and/or use of iterative reconstruction technique. Findings: No evidence of acute central pulmonary embolism. Motion artifact limits evaluation of the segmental and subsegmental branches for example in the right lower lobe on series 2, image 148 a questionable filling defect in the right lower lobe pulmonary artery may represent artifact. Visualized aorta and great vessels are grossly preserved. IVC filter is partially visualized. Heterogeneity of the thyroid gland. Extensive bilateral airspace disease involving multiple segmental areas of ground-glass disease as well. Air bronchograms in the lingula. Right apical pleural thickening. Cardiac chambers are mildly enlarged without pericardial thickening or effusion. No evidence of right ventricular dysfunction. Distal esophagus appears moderately dilated measuring up to 3.8 centimeters. Degenerative changes in the osseous structures. Abdominal wall surgical defect is seen. Numerous prominent lymph nodes in the mediastinum. For example a prevascular lymph node measures 1.8 centimeters. A precarinal lymph node measures 2.1 centimeters. Right hilar adenopathy measures 2.2 centimeters. Multiple nonspecific bilateral hilar lymph nodes. Prior gastric banding procedure. 8.4 millimeter lobulated calcification within the anterior upper pole of the liver. Impression: 1. No evidence of acute central pulmonary embolism. Motion artifact limits evaluation of the segmental and subsegmental branches for example in the right lower lobe on series 2, image 148 a questionable filling defect in the right lower lobe pulmonary artery may represent artifact. Clinical correlation. 2. Extensive nonspecific ground-glass changes which may represent multifocal pneumonitis versus atelectasis versus atypical pneumonia versus edema. Clinical correlation. Post treatment interval followup may helpful for further evaluation if clinically indicated. 3. Airspace disease and air bronchograms are seen throughout the lingula which may represent lobar pneumonia. Clinical correlation. 4. Distention of the esophagus. Recent gastric banding procedure. Please correlate with angle or constrictive strength of the gastric banding apparatus which may explain the esophageal distention. These findings were preliminarily reported at 10:05 p.m. on 05/25/[address] Edilberto Kaplan from [facility].
[2018-05-26 10:58] LABS: LEGIONELLA AG URINE NEGATIVE (NEGATIVE)
--- NOTE | 2018-05-26 11:38 | RAD ---
HISTORY: Sepsis Patient COMPARISON: 04/29/2018. FINDINGS: LUNGS: The lungs are well inflated. There is confluent airspace disease in both lungs, worse in the left upper lobe. PLEURA: No significant pleural effusion identified, no pneumothorax apparent. CARDIOVASCULAR: Normal. OSSEOUS STRUCTURES: No significant abnormalities. VISUALIZED UPPER ABDOMEN: Normal. OTHER FINDINGS: None. IMPRESSION: Worsening confluent airspace disease in the lungs, worse in the left upper lobe, most consistent with multifocal pneumonia.Follow-up after medical management is recommended to ensure complete resolution.
[2018-05-26] MEDS: Saccharomyces Boulardi 250 mg Cap PO SCH ×2 (11:54→18:16)
[2018-05-26] MEDS: Pantoprazole 40 mg EC Tab PO SCH (11:55)
[2018-05-26] MEDS: MethylPREDNISolone 40 mg Vial IVP SCH (11:55)
[2018-05-26] MEDS: Oxybutynin XL 10 mg Tab PO SCH (11:56)
[2018-05-26] MEDS: Atovaquone 750 mg/5 ml Susp UD PO SCH ×2 (11:57→18:16)
--- NOTE | 2018-05-26 16:19 | CP.PCM.CON ---
<Yoni Corona - Last Filed: 05/26/18 16:24> History of Present Illness - History of Present Illness History of Present Illness: SURGERY CONSULT NOTE FOR DR. BROWN 52F presents to hospital after checking her O2 saturation at home. Patient states O2 sat was in the 40s. She admits to having cough symptoms for the past week. She states the cough is non-productive. She denies shortness of breathe and chest pain. States she has been walking without respiratory exhaustion. She also denies abdominal pain, nausea, vomiting, she has been tolerating diet at home. She continues to pass flatus and continues to have bowel movements. Past Medical History: Lupus disease (diagnosed in 2011); DVT (2011), PE (2011), status post IVC filter (2011); Hypercoagulable state; Sleep apnea, fibromyalgia ; Obesity, bronchial asthma, recurrent pneumonia; Colonic perforation 04/2018 Surgical history: (04/2018) exploratoy laparotomy R hemicolectomy with anastomosis, omentectomy. Cholecystectomy, appendectomy. Gastric-BAND placed in [place] 2009. x2. Umbilical hernia repair. Colonoscopy Allergies: NKDA Past Patient History - Infectious Disease Hx of Infectious Diseases: None - Tetanus Immunizations Tetanus Immunization: Up to Date - Past Medical History & Family History Past Medical History?: Yes - Past Social History Smoking Status: Never Smoked Chewing Tobacco Use: No Cigar Use: No Alcohol: None - CARDIAC Hx Hypertension: Yes Hx Peripheral Edema: Yes - PULMONARY Hx Asthma: Yes Hx Bronchitis: Yes Hx Pneumonia: Yes ("multiple times") Hx Pulmonary Embolism: Yes (2011) Hx Sleep Apnea: Yes - NEUROLOGICAL Hx Migraine: Yes - HEENT Hx HEENT Problems: Yes Other/Comment: wear glasses for vision - RENAL Hx Chronic Kidney Disease: No - ENDOCRINE/METABOLIC Hx Endocrine Disorders: Yes Hx Systemic Lupus Erythematosus: Yes (w/ antibody) - HEMATOLOGICAL/ONCOLOGICAL Hx Blood Disorders: No - INTEGUMENTARY Hx Dermatological Problems: Yes Other/Comment: discoploration of lower legs/pigmentation - MUSCULOSKELETAL/RHEUMATOLOGICAL Hx Arthritis: Yes - GASTROINTESTINAL Hx Gastrointestinal Disorders: Yes Hx Gastroesophageal Reflux: Yes - GENITOURINARY/GYNECOLOGICAL Hx Genitourinary Disorders: Yes Hx Incontinence: Yes (OVER ACTIVE BLADDER) - PSYCHIATRIC Hx Depression: Yes (post depression) Hx Substance Use: No - SURGICAL HISTORY Hx Appendectomy: Yes - ANESTHESIA Hx Anesthesia: Yes Hx Anesthesia Reactions: No Hx Malignant Hyperthermia: No Meds Allergies/Adverse Reactions: Allergies Allergy/AdvReac Type Severity Reaction Status Date / Time No Known Allergies Allergy Verified 05/25/18 19:03 - Medications Medications: Current Medications Acetaminophen (Tylenol 325mg Tab) 650 mg PO Q6 PRN PRN Reason: Fever >100.4 F Last Admin: 05/25/18 22:51 Dose: 650 mg Albuterol/Ipratropium (Duoneb 3 Mg/0.5 Mg (3 Ml) Ud) 3 ml INH RQ4 [facility] Amitriptyline HCl (Elavil) 100 mg PO DAILY [facility] Last Admin: 05/26/18 11:56 Dose: 100 mg Amlodipine Besylate (Norvasc) 5 mg PO DAILY [facility] Last Admin: 05/26/18 11:55 Dose: 5 mg Atovaquone (Mepron) 750 mg PO BID [facility] PRN Reason: Protocol Last Admin: 05/26/18 11:57 Dose: 750 mg Benzocaine/Menthol (Cepacol Sore Throat) 1 lauro MT QID PRN PRN Reason: Sore Throat Doxycycline Hyclate (Doryx) 100 mg PO Q12H [facility] PRN Reason: Protocol Last Admin: 05/26/18 11:55 Dose: 100 mg Hydrochlorothiazide (Hydrodiuril) 25 mg PO DAILY [facility] Last Admin: 05/26/18 11:54 Dose: 25 mg Hydroxychloroquine Sulfate (Plaquenil) 200 mg PO BID [facility] PRN Reason: Protocol Last Admin: 05/26/18 11:56 Dose: 200 mg Vancomycin/Sodium Chloride (Vancomycin 1 Gm/Ns 200 Ml) 1 gm in 200 mls @ 133 mls/hr IVPB Q24H [facility] PRN Reason: Protocol Stop: 05/30/18 23:01 Piperacillin Sod/Tazobactam Sod (Zosyn 3.375 Gm Iv Premix) 3.375 gm in 50 mls @ 200 mls/hr IVPB Q8H [facility] PRN Reason: Protocol Last Admin: 05/26/18 09:30 Dose: 200 mls/hr Methylprednisolone (Solu-Medrol) 40 mg IVP DAILY [facility] Last Admin: 05/26/18 11:55 Dose: 40 mg Montelukast Sodium (Singulair) 10 mg PO HS [facility] Ondansetron HCl (Zofran Inj) 4 mg IVP Q6 PRN PRN Reason: Nausea/Vomiting Oseltamivir Phosphate (Tamiflu Cap) 75 mg PO BID [facility] PRN Reason: Protocol Stop: 05/31/18 10:01 Last Admin: 05/26/18 12:00 Dose: 75 mg Oxybutynin Chloride (Ditropan Xl) 10 mg PO DAILY [facility] Last Admin: 05/26/18 11:56 Dose: 10 mg Pantoprazole Sodium (Protonix Ec Tab) 40 mg PO DAILY [facility] Last Admin: 05/26/18 11:55 Dose: 40 mg Pregabalin (Lyrica) 75 mg PO DAILY [facility] Stop: 05/28/18 10:01 Saccharomyces Boulardii (Florastor) 250 mg PO BID [facility] Last Admin: 05/26/18 11:54 Dose: 250 mg Fluticasone/Salmeterol (Advair Diskus 250/50) 1 puff INH RQ12 [facility] Warfarin Sodium (Coumadin) 2 mg PO 1800 [facility] Stop: 05/26/18 18:01 Physical Exam - Constitutional Appears: Non-toxic, No Acute Distress - Eye Exam Eye Exam: EOMI, PERRL - Respiratory Exam Respiratory Exam: Rhonchi (bilaterally), NORMAL BREATHING PATTERN - Cardiovascular Exam Cardiovascular Exam: REGULAR RHYTHM, +S1, +S2 - GI/Abdominal Exam GI & Abdominal Exam: Soft. absent: Distended, Firm, Guarding, Rebound, Rigid, Tenderness Additional comments: midline wound superior portion packed with iodoform packing wounds draining serosanguinous fluid - Extremities Exam Extremities exam: Negative for: pedal edema, tenderness - Neurological Exam Neurological exam: Alert, Oriented x3 - Psychiatric Exam Psychiatric exam: Normal Affect, Normal Mood - Skin Skin Exam: Dry, Intact, Normal Color, Warm Results - Vital Signs Recent Vital Signs: Last Vital Signs Temp 98.1 F 05/26/18 04:00 Pulse 89 05/26/18 14:07 Resp 22 05/26/18 14:07 BP 158/86 H 05/26/18 14:07 Pulse Ox 94 L 05/26/18 14:07 - Labs Result Diagrams: 05/26/18 06:18 05/26/18 06:19 Labs: Laboratory Results - last 24 hr 05/25/18 05/25/18 05/25/18 19:39 19:39 19:39 WBC 15.1 H D RBC 3.95 Hgb 10.3 L Hct 31.2 L MCV 79.2 L MCH 26.1 L MCHC 32.9 L RDW 15.9 H Plt Count 381 D MPV 6.8 L Neut % (Auto) 91.2 H Lymph % (Auto) 3.[address] [place] % (Auto) 3.7 Eos % (Auto) 1.6 Baso % (Auto) 0.2 Neut # (Auto) 13.8 H Lymph # (Auto) 0.[address] # (Auto) 0.6 Eos # (Auto) 0.2 Baso # (Auto) 0.0 Neutrophils % (Manual) 87 H Band Neutrophils % 4 H Lymphocytes % (Manual) 5 L Monocytes % (Manual) 3 Eosinophils % (Manual) 1 Platelet Estimate Normal Poikilocytosis (manual Slight Anisocytosis (manual) Slight PT 32.3 H* INR 2.9 APTT 51 H Puncture Site pCO2 pO2 HCO3 ABG pH ABG Total CO2 ABG O2 Saturation ABG Base Excess ABG Hemoglobin ABG Carboxyhemoglobin POC ABG HHb (Measured) ABG Methemoglobin Marcell Test A-a O2 Difference Respiratory Index Hgb O2 Saturation Liter Flow FiO2 Sodium 139 Potassium 3.6 Chloride 100 Carbon Dioxide 30 Anion Gap 13 BUN 14 Creatinine 0.8 Est GFR ( Amer) > 60 Est GFR (Non-Af Amer) > 60 Random Glucose 113 H Lactic Acid Calcium 8.5 L Phosphorus Magnesium Total Bilirubin 0.5 AST 25 ALT 27 Alkaline Phosphatase 67 Lactate Dehydrogenase Total Protein 6.6 Albumin 3.6 Globulin 3.0 Albumin/Globulin Ratio 1.2 Urine Color Urine Clarity Urine pH Ur Specific [place] Urine Protein Urine Glucose (UA) Urine Ketones Urine Blood Urine Nitrate Urine Bilirubin Urine Urobilinogen Ur Leukocyte Esterase Urine WBC (Auto) Urine RBC (Auto) Ur Squamous Epith Cells Ur L.pneumophila Ag Mycoplasma pneumon IgM 05/25/18 05/25/18 05/25/18 20:18 21:40 22:09 WBC RBC Hgb Hct MCV MCH MCHC RDW Plt Count MPV Neut % (Auto) Lymph % (Auto) [place] % (Auto) Eos % (Auto) Baso % (Auto) Neut # (Auto) Lymph # (Auto) [place] # (Auto) Eos # (Auto) Baso # (Auto) Neutrophils % (Manual) Band Neutrophils % Lymphocytes % (Manual) Monocytes % (Manual) Eosinophils % (Manual) Platelet Estimate Poikilocytosis (manual Anisocytosis (manual) PT INR APTT Puncture Site Rradial pCO2 37 pO2 51 L HCO3 27.3 ABG pH 7.47 H ABG Total CO2 28.0 ABG O2 Saturation 94.4 L ABG Base Excess 3.1 H ABG Hemoglobin 8.8 L ABG Carboxyhemoglobin 2.7 H POC ABG HHb (Measured) 5.4 H ABG Methemoglobin 1.4 Marcell Test Pos A-a O2 Difference 159.0 Respiratory Index 3.1 Hgb O2 Saturation 90.6 L Liter Flow 4.0 FiO2 36.0 Sodium Potassium Chloride Carbon Dioxide Anion Gap BUN Creatinine Est GFR ( Amer) Est GFR (Non-Af Amer) Random Glucose Lactic Acid 0.6 L Calcium Phosphorus Magnesium Total Bilirubin AST ALT Alkaline Phosphatase Lactate Dehydrogenase Total Protein Albumin Globulin Albumin/Globulin Ratio Urine Color Yellow Urine Clarity Clear Urine pH 6.0 Ur Specific [place] 1.011 Urine Protein Negative Urine Glucose (UA) Normal Urine Ketones Negative Urine Blood Negative Urine Nitrate Negative Urine Bilirubin Negative Urine Urobilinogen Normal Ur Leukocyte Esterase 1+ H Urine WBC (Auto) 1 Urine RBC (Auto) 2 Ur Squamous Epith Cells 1 Ur L.pneumophila Ag Mycoplasma pneumon IgM 05/26/18 05/26/18 05/26/18 05:23 06:18 06:19 WBC 14.7 H RBC 3.76 L Hgb 9.8 L Hct 29.8 L MCV 79.2 L MCH 26.1 L MCHC 32.9 L RDW 16.0 H Plt Count 340 MPV 7.1 L Neut % (Auto) 97.0 H Lymph % (Auto) 1.[address] % (Auto) 1.2 Eos % (Auto) 0.0 Baso % (Auto) 0.0 Neut # (Auto) 14.3 H Lymph # (Auto) 0.[address] # (Auto) 0.2 Eos # (Auto) 0.0 Baso # (Auto) 0.0 Neutrophils % (Manual) 89 H Band Neutrophils % 8 H Lymphocytes % (Manual) 2 L Monocytes % (Manual) 1 Eosinophils % (Manual) Platelet Estimate Normal Poikilocytosis (manual Anisocytosis (manual) Slight PT 28.0 H INR 2.6 APTT 49 H Puncture Site R brac pCO2 45 pO2 97 HCO3 28.2 H ABG pH 7.42 ABG Total CO2 30.6 H ABG O2 Saturation 98.8 H ABG Base Excess 4.2 H ABG Hemoglobin 9.9 L ABG Carboxyhemoglobin 1.9 H POC ABG HHb (Measured) 1.2 ABG Methemoglobin 1.0 Marcell Test Na A-a O2 Difference Respiratory Index Hgb O2 Saturation 95.9 Liter Flow 4.0 FiO2 Sodium Potassium Chloride Carbon Dioxide Anion Gap BUN Creatinine Est GFR ( Amer) Est GFR (Non-Af Amer) Random Glucose Lactic Acid Calcium Phosphorus Magnesium Total Bilirubin AST ALT Alkaline Phosphatase Lactate Dehydrogenase Total Protein Albumin Globulin Albumin/Globulin Ratio Urine Color Urine Clarity Urine pH Ur Specific [place] Urine Protein Urine Glucose (UA) Urine Ketones Urine Blood Urine Nitrate Urine Bilirubin Urine Urobilinogen Ur Leukocyte Esterase Urine WBC (Auto) Urine RBC (Auto) Ur Squamous Epith Cells Ur L.pneumophila Ag Mycoplasma pneumon IgM 05/26/18 05/26/18 05/26/18 06:19 06:19 10:28 WBC RBC Hgb Hct MCV MCH MCHC RDW Plt Count MPV Neut % (Auto) Lymph % (Auto) [place] % (Auto) Eos % (Auto) Baso % (Auto) Neut # (Auto) Lymph # (Auto) [place] # (Auto) Eos # (Auto) Baso # (Auto) Neutrophils % (Manual) Band Neutrophils % Lymphocytes % (Manual) Monocytes % (Manual) Eosinophils % (Manual) Platelet Estimate Poikilocytosis (manual Anisocytosis (manual) PT INR APTT Puncture Site pCO2 pO2 HCO3 ABG pH ABG Total CO2 ABG O2 Saturation ABG Base Excess ABG Hemoglobin ABG Carboxyhemoglobin POC ABG HHb (Measured) ABG Methemoglobin Marcell Test A-a O2 Difference Respiratory Index Hgb O2 Saturation Liter Flow FiO2 Sodium 142 Potassium 3.7 Chloride 102 Carbon Dioxide 29 Anion Gap 14 BUN 11 Creatinine 0.7 Est GFR ( Amer) > 60 Est GFR (Non-Af Amer) > 60 Random Glucose 145 H Lactic Acid Calcium 8.3 L Phosphorus 3.7 Magnesium 1.8 Total Bilirubin 0.6 AST 21 ALT 28 Alkaline Phosphatase 61 Lactate Dehydrogenase Total Protein 6.1 L Albumin 3.3 L Globulin 2.8 Albumin/Globulin Ratio 1.2 Urine Color Urine Clarity Urine pH Ur Specific [place] Urine Protein Urine Glucose (UA) Urine Ketones Urine Blood Urine Nitrate Urine Bilirubin Urine Urobilinogen Ur Leukocyte Esterase Urine WBC (Auto) Urine RBC (Auto) Ur Squamous Epith Cells Ur L.pneumophila Ag Negative Mycoplasma pneumon IgM Negative 05/26/18 10:28 WBC RBC Hgb Hct MCV MCH MCHC RDW Plt Count MPV Neut % (Auto) Lymph % (Auto) [place] % (Auto) Eos % (Auto) Baso % (Auto) Neut # (Auto) Lymph # (Auto) [place] # (Auto) Eos # (Auto) Baso # (Auto) Neutrophils % (Manual) Band Neutrophils % Lymphocytes % (Manual) Monocytes % (Manual) Eosinophils % (Manual) Platelet Estimate Poikilocytosis (manual Anisocytosis (manual) PT INR APTT Puncture Site pCO2 pO2 HCO3 ABG pH ABG Total CO2 ABG O2 Saturation ABG Base Excess ABG Hemoglobin ABG Carboxyhemoglobin POC ABG HHb (Measured) ABG Methemoglobin Marcell Test A-a O2 Difference Respiratory Index Hgb O2 Saturation Liter Flow FiO2 Sodium Potassium Chloride Carbon Dioxide Anion Gap BUN Creatinine Est GFR ( Amer) Est GFR (Non-Af Amer) Random Glucose Lactic Acid Calcium Phosphorus Magnesium Total Bilirubin AST ALT Alkaline Phosphatase Lactate Dehydrogenase 717 H Total Protein Albumin Globulin Albumin/Globulin Ratio Urine Color Urine Clarity Urine pH Ur Specific [place] Urine Protein Urine Glucose (UA) Urine Ketones Urine Blood Urine Nitrate Urine Bilirubin Urine Urobilinogen Ur Leukocyte Esterase Urine WBC (Auto) Urine RBC (Auto) Ur Squamous Epith Cells Ur L.pneumophila Ag Mycoplasma pneumon IgM Assessment & Plan - Assessment and Plan (Free Text) Assessment: 52F s/p right hemicolectomy with anastomosis POD#13 presents with bilateral diffuse pneumonia Plan: - continue diet - abdominal wound care - ICU management - continue antibiotics - Chest physiotherapy - monitor vitals closely Further recs discuss with Dr. Cy Corona, PGY2 <Karlos Brown - Last Filed: 05/29/18 20:13> Meds - Medications Medications: Current Medications Acetaminophen (Tylenol 325mg Tab) 650 mg PO Q6 PRN PRN Reason: Fever >100.4 F Last Admin: 05/28/18 11:37 Dose: 650 mg Albuterol/Ipratropium (Duoneb 3 Mg/0.5 Mg (3 Ml) Ud) 3 ml INH RQ4 [facility] Last Admin: 05/29/18 20:09 Dose: 3 ml Amitriptyline HCl (Elavil) 100 mg PO DAILY [facility] Last Admin: 05/29/18 10:57 Dose: 100 mg Amlodipine Besylate (Norvasc) 5 mg PO DAILY [facility] Last Admin: 05/29/18 10:55 Dose: 5 mg Atovaquone (Mepron) 750 mg PO BID [facility] PRN Reason: Protocol Last Admin: 05/29/18 17:23 Dose: 750 mg Benzocaine/Menthol (Cepacol Sore Throat) 1 lauro MT QID PRN PRN Reason: Sore Throat Last Admin: 05/28/18 11:26 Dose: 1 lauro Doxycycline Hyclate (Doryx) 100 mg PO Q12H [facility] PRN Reason: Protocol Last Admin: 05/29/18 10:57 Dose: 100 mg Guaifenesin (Mucinex La) 600 mg PO BID [facility] Last Admin: 05/29/18 17:26 Dose: 600 mg Hydrochlorothiazide (Hydrodiuril) 25 mg PO DAILY [facility] Last Admin: 05/29/18 10:55 Dose: 25 mg Hydroxychloroquine Sulfate (Plaquenil) 200 mg PO BID [facility] PRN Reason: Protocol Last Admin: 05/29/18 17:23 Dose: 200 mg Vancomycin/Sodium Chloride (Vancomycin 1 Gm/Ns 200 Ml) 1 gm in 200 mls @ 133 mls/hr IVPB Q24H [facility] PRN Reason: Protocol Stop: 05/30/18 23:01 Last Admin: 05/28/18 22:01 Dose: 133 mls/hr Piperacillin Sod/Tazobactam Sod (Zosyn 3.375 Gm Iv Premix) 3.375 gm in 50 mls @ 200 mls/hr IVPB Q8H [facility] PRN Reason: Protocol Last Admin: 05/29/18 16:29 Dose: 200 mls/hr Montelukast Sodium (Singulair) 10 mg PO HS [facility] Last Admin: 05/28/18 22:00 Dose: 10 mg Ondansetron HCl (Zofran Inj) 4 mg IVP Q6 PRN PRN Reason: Nausea/Vomiting Oxybutynin Chloride (Ditropan Xl) 10 mg PO DAILY [facility] Last Admin: 05/29/18 10:57 Dose: 10 mg Pantoprazole Sodium (Protonix Ec Tab) 40 mg PO DAILY [facility] Last Admin: 05/29/18 10:55 Dose: 40 mg Saccharomyces Boulardii (Florastor) 250 mg PO BID [facility] Last Admin: 05/29/18 17:22 Dose: 250 mg Results - Vital Signs Recent Vital Signs: Last Vital Signs Temp 97.9 F 05/29/18 15:00 Pulse 98 H 05/29/18 15:00 Resp 20 05/29/18 15:00 BP 143/84 05/29/18 15:00 Pulse Ox 97 05/29/18 15:00 - Labs Result Diagrams: 05/29/18 06:45 05/29/18 06:45 Labs: Laboratory Results - last 24 hr 05/29/18 05/29/18 05/29/18 06:45 06:45 06:45 WBC 12.9 H RBC 3.62 L Hgb 9.5 L Hct 28.6 L MCV 79.0 L MCH 26.2 L MCHC 33.2 RDW 16.3 H Plt Count 331 MPV 6.8 L Neut % (Auto) 85.5 H Lymph % (Auto) 6.[address] % (Auto) 7.2 Eos % (Auto) 0.5 Baso % (Auto) 0.4 Neut # (Auto) 11.0 H Lymph # (Auto) 0.[address] # (Auto) 0.9 H Eos # (Auto) 0.1 Baso # (Auto) 0.0 Neutrophils % (Manual) 81 H Band Neutrophils % 3 H Lymphocytes % (Manual) 6 L Monocytes % (Manual) 8 Eosinophils % (Manual) 1 Metamyelocytes % 1 H Toxic Granulation Present Platelet Estimate Normal Large Platelets Present Polychromasia Slight Hypochromasia (manual) Slight Anisocytosis (manual) Slight Microcytosis (manual) Slight PT 28.1 H D INR 2.6 D APTT 38 H Sodium 141 Potassium 3.7 Chloride 101 Carbon Dioxide 30 Anion Gap 14 BUN 13 Creatinine 0.8 Est GFR ( Amer) > 60 Est GFR (Non-Af Amer) > 60 Random Glucose 100 Calcium 9.2 Phosphorus 5.1 H Magnesium 1.8 Total Bilirubin 0.3 AST 22 ALT 27 Alkaline Phosphatase 57 Total Protein 6.1 L Albumin 3.3 L Globulin 2.9 Albumin/Globulin Ratio 1.1 Attending/Attestation - Attestation I have personally seen and examined this patient.: Yes I have fully participated in the care of the patient.: Yes I have reviewed all pertinent clinical information: Yes Notes (Text): Pt was seen and examined at bedside Agree with above note and assessment Pt with Chronic Steroid with B/L pneumonia with post op wound infection Labs and radiology reviewed Ass: Post op wound infeciton Plan : C/W IV antibiotics Local wound care with packing c.w current mx Plan d.w pt in detail Risk and benefit explained in detail
[2018-05-26] MEDS: Albuterol-Ipratrop 3 mg / 0.5 (3 ml) UD INH SCH (19:17)
[2018-05-27] MEDS: Albuterol-Ipratrop 3 mg / 0.5 (3 ml) UD INH SCH ×6 (01:05→19:41)
[2018-05-27 06:23] LABS: HEMOGLOBIN 9.9 g/dL (11.0-16.0); LYMPH # 0.5 K/uL (1.0-4.3); MEAN CELL VOLUME 79.8 fL (81.0-99.0); MEAN CORPUSCULAR HEMOGLOBIN 26.5 pg (27.0-31.0); MEAN CORPUSCULAR HGB CONC 33.3 g/dL (33.0-37.0); MEAN PLATELET VOLUME 6.9 fL (7.2-11.7); MONO # 0.9 K/uL (0.0-0.8); NEUT # 16.1 K/uL (1.8-7.0); PLATELET COUNT 360 K/uL (130-400); RBC 3.75 Mil/uL (3.80-5.20); RED CELL DISTRIBUTION WIDTH 16.1 % (11.5-14.5); WHITE BLOOD COUNT 17.5 K/uL (4.8-10.8)
[2018-05-27 06:39] LABS: PROTHROMBIN TIME 33.3 SECONDS (9.7-12.2)
[2018-05-27 06:41] LABS: ALB/GLOB RATIO 1.1 (1.0-2.1); ALBUMIN 3.4 g/dL (3.5-5.0); ALT/SGPT 28 U/L (9-52); AST/SGOT 23 U/L (14-36); BLOOD UREA NITROGEN 13 mg/dL (7-17); GFR AFRICAN-AMERICAN > 60; GFR NON-AFRICAN AMERICAN > 60
[2018-05-27] MEDS: Fluticasone-Salmeterol 250-50mcg Diskus INH SCH ×2 (07:45→19:41)
[2018-05-27] MEDS: Piperacill/Tazo 3.375gm in Dex 3.375 GM/50 ML BAG IVPB SCH ×3 (07:46→23:45)
[2018-05-27 08:29] LABS: ANISOCYTOSIS SLIGHT; LYMPHOCYTE 3 % (20-40); MONOCYTE 6 % (0-10); NEUTROPHIL 91 % (50-75); PLATELET ESTIMATE NORMAL (NORMAL); TOTAL CELLS COUNTED 100
[2018-05-27 08:30] LABS: HYPOCHROMIC SLIGHT
[2018-05-27 08:31] LABS: POLYCHROMIC SLIGHT
--- NOTE | 2018-05-27 08:42 | CP.CCUPN ---
<Janki Velasquez - Last Filed: 05/27/18 09:18> CCU Subjective - Physician Review Subjective (Free Text): Patient seen and examined at bedside. Patient reports she is breathing better today, she was able to use the bedside commode and ambulate in the room without any issues. Today she will ambulate with PT to monitor O2 levels. Shes instructed to use incentive spirometer Q1H. CCU Objective - Vital Signs / Intake & Output Vital Signs (Last 4 hours): Vital Signs Pulse Resp BP Pulse Ox 05/27/18 07:00 79 21 99 05/27/18 06:07 89 23 105/59 L 98 05/27/18 06:00 89 25 H 96 05/27/18 05:07 113/59 L Intake and Output (Last 8hrs): Intake & Output 05/26/18 05/27/18 05/27/18 22:59 06:59 14:59 Intake Total 670 100 0 Output Total 620 300 Balance 50 -200 0 Weight 214 lb 8 oz Intake: Intake, IV Amount 250 100 0 Left Wrist 50 Right Hand 200 100 0 Oral 420 Output: Urine 620 300 Urine, Voided 620 300 Emesis 0 Other: # Bowel Movements 0 1 - Physical Exam Head: Positive for: Atraumatic, Normocephalic Pupils: Positive for: PERRL Extroacular Muscles: Positive for: EOMI Conjunctiva: Positive for: Normal Mouth: Positive for: Moist Mucous Membranes Neck: Positive for: Normal Range of Motion Respiratory/Chest: Positive for: Wheezes, Decreased Breath Sounds Cardiovascular: Positive for: Regular Rate and Rhythm Abdomen: Negative for: Tenderness, Distention Upper Extremity: Positive for: Normal Inspection, NORMAL PULSES, Neurovascularly Intact, Capillary Refill < 2s Lower Extremity: Positive for: Normal Inspection, NORMAL PULSES, Neurovascularly Intact, Capillary Refill < 2 s. Negative for: Edema Neurological: Positive for: GCS=15, CN II-XII Intact Skin: Positive for: Warm, Dry Psychiatric: Positive for: Alert, Oriented x 3 - Medications Active Medications: Active Medications Generic Name Dose Route Start Last Admin Trade Name Freq PRN Reason Stop Dose Admin Acetaminophen 650 mg 05/25/18 22:31 05/25/18 22:51 Tylenol 325mg Tab PO 650 mg Q6 PRN Administration Fever >100.4 F Albuterol/Ipratropium 3 ml 05/26/18 17:00 05/27/18 07:45 Duoneb 3 Mg/0.5 Mg (3 Ml) Ud INH 3 ml RQ4 ENOC Administration Amitriptyline HCl 100 mg 05/26/18 10:00 05/26/18 11:56 Elavil PO 100 mg DAILY ENOC Administration Amlodipine Besylate 5 mg 05/26/18 10:00 05/26/18 11:55 Norvasc PO 5 mg DAILY ENOC Administration Atovaquone 750 mg 05/26/18 10:00 05/26/18 18:16 Mepron PO 750 mg BID ENOC Administration Protocol Benzocaine/Menthol 1 lauro 05/26/18 09:00 Cepacol Sore Throat MT QID PRN Sore Throat Doxycycline Hyclate 100 mg 05/25/18 22:45 05/26/18 22:05 Doryx PO 100 mg Q12H ENOC Administration Protocol Hydrochlorothiazide 25 mg 05/26/18 10:00 05/26/18 11:54 Hydrodiuril PO 25 mg DAILY ENOC Administration Hydroxychloroquine Sulfate 200 mg 05/26/18 10:00 05/26/18 18:17 Plaquenil PO 200 mg BID ENOC Administration Protocol Vancomycin/Sodium Chloride 1 gm in 200 mls @ 133 mls/hr 05/25/18 23:00 22:06 Vancomycin 1 Gm/Ns 200 Ml IVPB 05/30/18 23:01 133 mls/hr Q24H ENOC Administration Protocol Piperacillin Sod/Tazobactam Sod 3.375 gm in 50 mls @ 200 mls/hr 05/26/18 08: 00 05/27/18 07:46 Zosyn 3.375 Gm Iv Premix IVPB 200 mls/hr Q8H ENOC Administration Protocol Methylprednisolone 40 mg 05/26/18 10:00 05/26/18 11:55 Solu-Medrol IVP 40 mg DAILY ENOC Administration Montelukast Sodium 10 mg 05/26/18 22:00 05/26/18 22:05 Singulair PO 10 mg HS ENOC Administration Ondansetron HCl 4 mg 05/25/18 22:31 Zofran Inj IVP Q6 PRN Nausea/Vomiting Oseltamivir Phosphate 75 mg 05/26/18 10:00 05/26/18 18:18 Tamiflu Cap PO 05/31/18 10:01 75 mg BID ENOC Administration Protocol Oxybutynin Chloride 10 mg 05/26/18 10:00 05/26/18 11:56 Ditropan Xl PO 10 mg DAILY ENOC Administration Pantoprazole Sodium 40 mg 05/26/18 10:00 05/26/18 11:55 Protonix Ec Tab PO 40 mg DAILY ENOC Administration Pregabalin 75 mg 05/27/18 10:00 Lyrica PO 05/28/18 10:01 DAILY ENOC Saccharomyces Boulardii 250 mg 05/26/18 10:00 05/26/18 18:16 Florastor PO 250 mg BID ENOC Administration Fluticasone/Salmeterol 1 puff 05/26/18 08:00 05/27/18 07:45 Advair Diskus 250/50 INH 1 puff RQ12 ENOC Administration - Patient Studies Lab Studies: Microbiology Studies 05/25/18 19:45 Blood Culture - Preliminary Blood NO GROWTH AFTER 24 HOURS 05/25/18 19:30 Blood Culture - Preliminary Blood NO GROWTH AFTER 24 HOURS 05/26/18 06:19 MRSA Culture (Admit) - Final Naris MRSA NOT DETECTED Lab Studies 05/27/18 05/27/18 05/27/18 Range/Units 06:14 06:14 06:14 WBC 17.5 H (4.8-10.8) K/uL RBC 3.75 L (3.80-5.20) Mil/uL Hgb 9.9 L (11.0-16.0) g/dL Hct 29.9 L (34.0-47.0) % MCV 79.8 L (81.0-99.0) fL MCH 26.5 L (27.0-31.0) pg MCHC 33.3 (33.0-37.0) g/dL RDW 16.1 H (11.5-14.5) % Plt Count 360 (130-400) K/uL MPV 6.9 L (7.2-11.7) fL Neut % (Auto) 92.0 H (50.0-75.0) % Lymph % (Auto) 3.0 L (20.0-40.0) % [place] % (Auto) 5.0 (0.0-10.0) % Eos % (Auto) 0.0 (0.0-4.0) % Baso % (Auto) 0.0 (0.0-2.0) % Neut # (Auto) 16.1 H (1.8-7.0) K/uL Lymph # (Auto) 0.5 L (1.0-4.3) K/uL [place] # (Auto) 0.9 H (0.0-0.8) K/uL Eos # (Auto) 0.0 (0.0-0.7) K/uL Baso # (Auto) 0.0 (0.0-0.2) K/uL Neutrophils % (Manual) 91 H (50-75) % Lymphocytes % (Manual) 3 L (20-40) % Monocytes % (Manual) 6 (0-10) % Platelet Estimate Normal (NORMAL) Polychromasia Slight Hypochromasia (manual) Slight Anisocytosis (manual) Slight PT 33.3 H* D (9.7-12.2) SECONDS INR 3.0 APTT 47 H (21-34) SECONDS Sodium 143 (132-148) mmol/L Potassium 3.7 (3.6-5.2) mmol/L Chloride 104 (98-107) mmol/L Carbon Dioxide 28 (22-30) mmol/L Anion Gap 15 (10-20) BUN 13 (7-17) mg/dL Creatinine 0.7 (0.7-1.2) mg/dL Est GFR ( Amer) > 60 Est GFR (Non-Af Amer) > 60 Random Glucose 122 H (65-105) mg/dL Calcium 9.0 (8.6-10.4) mg/dl Phosphorus 4.3 (2.5-4.5) mg/dL Magnesium 2.0 (1.6-2.3) mg/dL Total Bilirubin 0.5 (0.2-1.3) mg/dL AST 23 (14-36) U/L ALT 28 (9-52) U/L Alkaline Phosphatase 69 (38-126) U/L Lactate Dehydrogenase (313-618) U/L Total Protein 6.5 (6.3-8.3) g/dL Albumin 3.4 L (3.5-5.0) g/dL Globulin 3.1 (2.2-3.9) gm/dL Albumin/Globulin Ratio 1.1 (1.0-2.1) Ur L.pneumophila Ag (NEGATIVE) Mycoplasma pneumon IgM (NEGATIVE) 05/26/18 05/26/18 05/26/18 Range/Units 10:28 10:28 06:19 WBC (4.8-10.8) K/uL RBC (3.80-5.20) Mil/uL Hgb (11.0-16.0) g/dL Hct (34.0-47.0) % MCV (81.0-99.0) fL MCH (27.0-31.0) pg MCHC (33.0-37.0) g/dL RDW (11.5-14.5) % Plt Count (130-400) K/uL MPV (7.2-11.7) fL Neut % (Auto) (50.0-75.0) % Lymph % (Auto) (20.0-40.0) % [place] % (Auto) (0.0-10.0) % Eos % (Auto) (0.0-4.0) % Baso % (Auto) (0.0-2.0) % Neut # (Auto) (1.8-7.0) K/uL Lymph # (Auto) (1.0-4.3) K/uL [place] # (Auto) (0.0-0.8) K/uL Eos # (Auto) (0.0-0.7) K/uL Baso # (Auto) (0.0-0.2) K/uL Neutrophils % (Manual) (50-75) % Lymphocytes % (Manual) (20-40) % Monocytes % (Manual) (0-10) % Platelet Estimate (NORMAL) Polychromasia Hypochromasia (manual) Anisocytosis (manual) PT (9.7-12.2) SECONDS INR APTT (21-34) SECONDS Sodium (132-148) mmol/L Potassium (3.6-5.2) mmol/L Chloride (98-107) mmol/L Carbon Dioxide (22-30) mmol/L Anion Gap (10-20) BUN (7-17) mg/dL Creatinine (0.7-1.2) mg/dL Est GFR ( Amer) Est GFR (Non-Af Amer) Random Glucose (65-105) mg/dL Calcium (8.6-10.4) mg/dl Phosphorus (2.5-4.5) mg/dL Magnesium (1.6-2.3) mg/dL Total Bilirubin (0.2-1.3) mg/dL AST (14-36) U/L ALT (9-52) U/L Alkaline Phosphatase (38-126) U/L Lactate Dehydrogenase 717 H (313-618) U/L Total Protein (6.3-8.3) g/dL Albumin (3.5-5.0) g/dL Globulin (2.2-3.9) gm/dL Albumin/Globulin Ratio (1.0-2.1) Ur L.pneumophila Ag Negative (NEGATIVE) Mycoplasma pneumon IgM Negative (NEGATIVE) Laboratory Results - last 24 hr 05/26/18 05/26/18 05/26/18 06:19 10:28 10:28 WBC RBC Hgb Hct MCV MCH MCHC RDW Plt Count MPV Neut % (Auto) Lymph % (Auto) [place] % (Auto) Eos % (Auto) Baso % (Auto) Neut # (Auto) Lymph # (Auto) [place] # (Auto) Eos # (Auto) Baso # (Auto) Neutrophils % (Manual) Lymphocytes % (Manual) Monocytes % (Manual) Platelet Estimate Polychromasia Hypochromasia (manual) Anisocytosis (manual) PT INR APTT Sodium Potassium Chloride Carbon Dioxide Anion Gap BUN Creatinine Est GFR ( Amer) Est GFR (Non-Af Amer) Random Glucose Calcium Phosphorus Magnesium Total Bilirubin AST ALT Alkaline Phosphatase Lactate Dehydrogenase 717 H Total Protein Albumin Globulin Albumin/Globulin Ratio Ur L.pneumophila Ag Negative Mycoplasma pneumon IgM Negative 05/27/18 05/27/18 05/27/18 06:14 06:14 06:14 WBC 17.5 H RBC 3.75 L Hgb 9.9 L Hct 29.9 L MCV 79.8 L MCH 26.5 L MCHC 33.3 RDW 16.1 H Plt Count 360 MPV 6.9 L Neut % (Auto) 92.0 H Lymph % (Auto) 3.0 L [place] % (Auto) 5.0 Eos % (Auto) 0.0 Baso % (Auto) 0.0 Neut # (Auto) 16.1 H Lymph # (Auto) 0.5 L [place] # (Auto) 0.9 H Eos # (Auto) 0.0 Baso # (Auto) 0.0 Neutrophils % (Manual) 91 H Lymphocytes % (Manual) 3 L Monocytes % (Manual) 6 Platelet Estimate Normal Polychromasia Slight Hypochromasia (manual) Slight Anisocytosis (manual) Slight PT 33.3 H* D INR 3.0 APTT 47 H Sodium 143 Potassium 3.7 Chloride 104 Carbon Dioxide 28 Anion Gap 15 BUN 13 Creatinine 0.7 Est GFR ( Amer) > 60 Est GFR (Non-Af Amer) > 60 Random Glucose 122 H Calcium 9.0 Phosphorus 4.3 Magnesium 2.0 Total Bilirubin 0.5 AST 23 ALT 28 Alkaline Phosphatase 69 Lactate Dehydrogenase Total Protein 6.5 Albumin 3.4 L Globulin 3.1 Albumin/Globulin Ratio 1.1 Ur L.pneumophila Ag Mycoplasma pneumon IgM Critical Care Progress Note - Nutrition Nutrition: Nutrition Category Date Time Status Heart Healthy Diet [DIET] Diets 05/25/18 Dinner Active Assessment/Plan - Assessment and Plan (Free Text) Assessment: This is a 52 year old female with PMHx of HTN, HLD, Lupus, DVT and PE with IVC filter and on Coumadin daily, SANJANA, Fibromyalgia, Obesity, Bronchial Asthma, Hypercoagulable she is 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 She is admitted to the ICU for Multilobar Pneumonia with Hypoxia. Plan: Neuro: GCS15 Cardio: A: A: HTN, HLD - Restarted Norvasc, HCTZ Pulm: A: Multilobar Pneumonia with Hypoxemia - CTA - NEGATIVE FOR PE * No evidence of acute central pulmonary embolism. Motion artifact limits evaluation of the segmental and subsegmental branches for example in the right lower lobe on series 2, image 148 a questionable filling defect in the right lower lobe pulmonary artery may represent artifact. Clinical correlation. 2. Extensive nonspecific ground-glass changes which may represent multifocal pneumonitis versus atelectasis versus atypical pneumonia versus edema. Clinical correlation. Post treatment interval followup may helpful for further evaluation if clinically indicated. 3. Airspace disease and air bronchograms are seen throughout the lingula which may represent lobar pneumonia. Clinical correlation. 4. Distention of the esophagus. Recent gastric banding procedure. Please correlate with angle or constrictive strength of the gastric banding apparatus which may explain the esophageal distention. 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 Mendez consulted - Packing in place, for post - op wound care A: Gastric Banding - Enlarged esophagus - concern for recurrent aspiration pneumonia - Band will need to be adjusted - as outpatient MSK: A: Fibromyalgia - Lyrica 75mg PO BID - will reduce 2/2 current respiratory status Heme/Onc: A: Hx DVT and PE - IVC filter and Coumadin daily - INR check daily - Coumadin daily A: Lupus - Plaquenil 200mg PO BID ID: A: Bilateral Multilobar Pneumonia, concern for Aspiration Pneumonia - Aspiration Precautions - Hypoxic on ABG - Currently on 2L NC - Will have PT work with patient to determine if home o2 necessary - Started on vanco, doxy, and zosyn, florastor - Started on Mepron, Svetlana flu - Pending fish cultures, pneumonia workup Prophylaxis: - PPX - SCDs c/i due to LLE swelling, patient is on coumadin - PT/OT - eval for home O2? Disposition: Patient will need to be evaluated by PT for eval of home o2. She will need to follow up with GI/ surgery as outpatient to address the gastric banding. She will need to eat smaller portions of food to help prevent aspiration pneumonia. Patient is downgraded to med/surg DW Janki Reed DO, PGY-1 <Oma Da Silva M - Last Filed: 05/27/18 16:16> CCU Objective - Vital Signs / Intake & Output Vital Signs (Last 4 hours): Vital Signs Pulse BP Pulse Ox 05/27/18 15:35 94 H 137/74 99 Intake and Output (Last 8hrs): Intake & Output 05/27/18 05/27/18 05/27/18 06:59 14:59 22:59 Intake Total 100 500 Output Total 300 Balance -200 500 Weight 214 lb 8 oz Intake: Intake, IV Amount 100 100 Right Hand 100 100 Oral 400 Output: Urine 300 Urine, Voided 300 Other: # Voids Urine, Voided 1 # Bowel Movements 1 0 - Medications Active Medications: Active Medications Generic Name Dose Route Start Last Admin Trade Name Freq PRN Reason Stop Dose Admin Acetaminophen 650 mg 05/25/18 22:31 05/25/18 22:51 Tylenol 325mg Tab PO 650 mg Q6 PRN Administration Fever >100.4 F Albuterol/Ipratropium 3 ml 05/26/18 17:00 05/27/18 15:58 Duoneb 3 Mg/0.5 Mg (3 Ml) Ud INH 3 ml RQ4 ENOC Administration Amitriptyline HCl 100 mg 05/26/18 10:00 05/27/18 11:00 Elavil PO 100 mg DAILY ENOC Administration Amlodipine Besylate 5 mg 05/26/18 10:00 05/27/18 11:00 Norvasc PO 5 mg DAILY ENOC Administration Atovaquone 750 mg 05/26/18 10:00 05/27/18 11:00 Mepron PO 750 mg BID ENOC Administration Protocol Benzocaine/Menthol 1 lauro 05/26/18 09:00 Cepacol Sore Throat MT QID PRN Sore Throat Doxycycline Hyclate 100 mg 05/25/18 22:45 05/27/18 10:59 Doryx PO 100 mg Q12H ENOC Administration Protocol Hydrochlorothiazide 25 mg 05/26/18 10:00 05/27/18 11:00 Hydrodiuril PO 25 mg DAILY ENOC Administration Hydroxychloroquine Sulfate 200 mg 05/26/18 10:00 05/27/18 10:59 Plaquenil PO 200 mg BID ENOC Administration Protocol Vancomycin/Sodium Chloride 1 gm in 200 mls @ 133 mls/hr 05/25/18 23:00 22:06 Vancomycin 1 Gm/Ns 200 Ml IVPB 05/30/18 23:01 133 mls/hr Q24H ENOC Administration Protocol Piperacillin Sod/Tazobactam Sod 3.375 gm in 50 mls @ 200 mls/hr 05/26/18 08: 00 05/27/18 07:46 Zosyn 3.375 Gm Iv Premix IVPB 200 mls/hr Q8H ENOC Administration Protocol Methylprednisolone 40 mg 05/26/18 10:00 05/27/18 11:00 Solu-Medrol IVP 40 mg DAILY ENOC Administration Montelukast Sodium 10 mg 05/26/18 22:00 05/26/18 22:05 Singulair PO 10 mg HS ENOC Administration Ondansetron HCl 4 mg 05/25/18 22:31 Zofran Inj IVP Q6 PRN Nausea/Vomiting Oseltamivir Phosphate 75 mg 05/26/18 10:00 05/27/18 10:59 Tamiflu Cap PO 05/31/18 10:01 75 mg BID ENOC Administration Protocol Oxybutynin Chloride 10 mg 05/26/18 10:00 05/27/18 10:59 Ditropan Xl PO 10 mg DAILY ENOC Administration Pantoprazole Sodium 40 mg 05/26/18 10:00 05/27/18 11:00 Protonix Ec Tab PO 40 mg DAILY ENOC Administration Pregabalin 75 mg 05/27/18 10:00 05/27/18 10:59 Lyrica PO 05/28/18 10:01 75 mg DAILY ENOC Administration Saccharomyces Boulardii 250 mg 05/26/18 10:00 05/27/18 10:59 Florastor PO 250 mg BID ENOC Administration Fluticasone/Salmeterol 1 puff 05/26/18 08:00 05/27/18 07:45 Advair Diskus 250/50 INH 1 puff RQ12 ENOC Administration Warfarin Sodium 1 mg 05/27/18 18:00 Coumadin PO 05/27/18 18:01 1800 [facility] - Patient Studies Lab Studies: Microbiology Studies 05/27/18 08:01 Gram Stain - Final Skin - Abdominal 05/26/18 10:28 Group A Strep Throat Culture - Final Throat NO BETA STREP GROUP A ISOLATED. 05/25/18 19:45 Blood Culture - Preliminary Blood NO GROWTH AFTER 24 HOURS 05/25/18 19:30 Blood Culture - Preliminary Blood NO GROWTH AFTER 24 HOURS Lab Studies 05/27/18 05/27/18 05/27/18 Range/Units 06:14 06:14 06:14 WBC 17.5 H (4.8-10.8) K/uL RBC 3.75 L (3.80-5.20) Mil/uL Hgb 9.9 L (11.0-16.0) g/dL Hct 29.9 L (34.0-47.0) % MCV 79.8 L (81.0-99.0) fL MCH 26.5 L (27.0-31.0) pg MCHC 33.3 (33.0-37.0) g/dL RDW 16.1 H (11.5-14.5) % Plt Count 360 (130-400) K/uL MPV 6.9 L (7.2-11.7) fL Neut % (Auto) 92.0 H (50.0-75.0) % Lymph % (Auto) 3.0 L (20.0-40.0) % [place] % (Auto) 5.0 (0.0-10.0) % Eos % (Auto) 0.0 (0.0-4.0) % Baso % (Auto) 0.0 (0.0-2.0) % Neut # (Auto) 16.1 H (1.8-7.0) K/uL Lymph # (Auto) 0.5 L (1.0-4.3) K/uL [place] # (Auto) 0.9 H (0.0-0.8) K/uL Eos # (Auto) 0.0 (0.0-0.7) K/uL Baso # (Auto) 0.0 (0.0-0.2) K/uL Neutrophils % (Manual) 91 H (50-75) % Lymphocytes % (Manual) 3 L (20-40) % Monocytes % (Manual) 6 (0-10) % Platelet Estimate Normal (NORMAL) Polychromasia Slight Hypochromasia (manual) Slight Anisocytosis (manual) Slight PT 33.3 H* D (9.7-12.2) SECONDS INR 3.0 APTT 47 H (21-34) SECONDS Sodium 143 (132-148) mmol/L Potassium 3.7 (3.6-5.2) mmol/L Chloride 104 (98-107) mmol/L Carbon Dioxide 28 (22-30) mmol/L Anion Gap 15 (10-20) BUN 13 (7-17) mg/dL Creatinine 0.7 (0.7-1.2) mg/dL Est GFR ( Amer) > 60 Est GFR (Non-Af Amer) > 60 Random Glucose 122 H (65-105) mg/dL Calcium 9.0 (8.6-10.4) mg/dl Phosphorus 4.3 (2.5-4.5) mg/dL Magnesium 2.0 (1.6-2.3) mg/dL Total Bilirubin 0.5 (0.2-1.3) mg/dL AST 23 (14-36) U/L ALT 28 (9-52) U/L Alkaline Phosphatase 69 (38-126) U/L Total Protein 6.5 (6.3-8.3) g/dL Albumin 3.4 L (3.5-5.0) g/dL Globulin 3.1 (2.2-3.9) gm/dL Albumin/Globulin Ratio 1.1 (1.0-2.1) H.influenzae Type B Ag (NEGATIVE) Ur L.pneumophila Ag (NEGATIVE) N.meningitidis ACY/W135 (NEGATIVE) N.meningi B/E.coli K1 Ag (NEGATIVE) Group B Strep Antigen (NEGATIVE) S. pneumoniae Antigen (NEGATIVE) 05/26/18 Range/Units 10:28 WBC (4.8-10.8) K/uL RBC (3.80-5.20) Mil/uL Hgb (11.0-16.0) g/dL Hct (34.0-47.0) % MCV (81.0-99.0) fL MCH (27.0-31.0) pg MCHC (33.0-37.0) g/dL RDW (11.5-14.5) % Plt Count (130-400) K/uL MPV (7.2-11.7) fL Neut % (Auto) (50.0-75.0) % Lymph % (Auto) (20.0-40.0) % [place] % (Auto) (0.0-10.0) % Eos % (Auto) (0.0-4.0) % Baso % (Auto) (0.0-2.0) % Neut # (Auto) (1.8-7.0) K/uL Lymph # (Auto) (1.0-4.3) K/uL [place] # (Auto) (0.0-0.8) K/uL Eos # (Auto) (0.0-0.7) K/uL Baso # (Auto) (0.0-0.2) K/uL Neutrophils % (Manual) (50-75) % Lymphocytes % (Manual) (20-40) % Monocytes % (Manual) (0-10) % Platelet Estimate (NORMAL) Polychromasia Hypochromasia (manual) Anisocytosis (manual) PT (9.7-12.2) SECONDS INR APTT (21-34) SECONDS Sodium (132-148) mmol/L Potassium (3.6-5.2) mmol/L Chloride (98-107) mmol/L Carbon Dioxide (22-30) mmol/L Anion Gap (10-20) BUN (7-17) mg/dL Creatinine (0.7-1.2) mg/dL Est GFR ( Amer) Est GFR (Non-Af Amer) Random Glucose (65-105) mg/dL Calcium (8.6-10.4) mg/dl Phosphorus (2.5-4.5) mg/dL Magnesium (1.6-2.3) mg/dL Total Bilirubin (0.2-1.3) mg/dL AST (14-36) U/L ALT (9-52) U/L Alkaline Phosphatase (38-126) U/L Total Protein (6.3-8.3) g/dL Albumin (3.5-5.0) g/dL Globulin (2.2-3.9) gm/dL Albumin/Globulin Ratio (1.0-2.1) H.influenzae Type B Ag Negative (NEGATIVE) Ur L.pneumophila Ag Negative (NEGATIVE) N.meningitidis ACY/W135 Negative (NEGATIVE) N.meningi B/E.coli K1 Ag Negative (NEGATIVE) Group B Strep Antigen Negative (NEGATIVE) S. pneumoniae Antigen Negative (NEGATIVE) Laboratory Results - last 24 hr 05/26/18 05/27/18 05/27/18 10:28 06:14 06:14 WBC 17.5 H RBC 3.75 L Hgb 9.9 L Hct 29.9 L MCV 79.8 L MCH 26.5 L MCHC 33.3 RDW 16.1 H Plt Count 360 MPV 6.9 L Neut % (Auto) 92.0 H Lymph % (Auto) 3.0 L [place] % (Auto) 5.0 Eos % (Auto) 0.0 Baso % (Auto) 0.0 Neut # (Auto) 16.1 H Lymph # (Auto) 0.5 L [place] # (Auto) 0.9 H Eos # (Auto) 0.0 Baso # (Auto) 0.0 Neutrophils % (Manual) 91 H Lymphocytes % (Manual) 3 L Monocytes % (Manual) 6 Platelet Estimate Normal Polychromasia Slight Hypochromasia (manual) Slight Anisocytosis (manual) Slight PT 33.3 H* D INR 3.0 APTT 47 H Sodium Potassium Chloride Carbon Dioxide Anion Gap BUN Creatinine Est GFR ( Amer) Est GFR (Non-Af Amer) Random Glucose Calcium Phosphorus Magnesium Total Bilirubin AST ALT Alkaline Phosphatase Total Protein Albumin Globulin Albumin/Globulin Ratio H.influenzae Type B Ag Negative Ur L.pneumophila Ag Negative N.meningitidis ACY/W135 Negative N.meningi B/E.coli K1 Ag Negative Group B Strep Antigen Negative S. pneumoniae Antigen Negative 05/27/18 06:14 WBC RBC Hgb Hct MCV MCH MCHC RDW Plt Count MPV Neut % (Auto) Lymph % (Auto) [place] % (Auto) Eos % (Auto) Baso % (Auto) Neut # (Auto) Lymph # (Auto) [place] # (Auto) Eos # (Auto) Baso # (Auto) Neutrophils % (Manual) Lymphocytes % (Manual) Monocytes % (Manual) Platelet Estimate Polychromasia Hypochromasia (manual) Anisocytosis (manual) PT INR APTT Sodium 143 Potassium 3.7 Chloride 104 Carbon Dioxide 28 Anion Gap 15 BUN 13 Creatinine 0.7 Est GFR ( Amer) > 60 Est GFR (Non-Af Amer) > 60 Random Glucose 122 H Calcium 9.0 Phosphorus 4.3 Magnesium 2.0 Total Bilirubin 0.5 AST 23 ALT 28 Alkaline Phosphatase 69 Total Protein 6.5 Albumin 3.4 L Globulin 3.1 Albumin/Globulin Ratio 1.1 H.influenzae Type B Ag Ur L.pneumophila Ag N.meningitidis ACY/W135 N.meningi B/E.coli K1 Ag Group B Strep Antigen S. pneumoniae Antigen Critical Care Progress Note - Nutrition Nutrition: Nutrition Category Date Time Status Heart Healthy Diet [DIET] Diets 05/25/18 Dinner Active Assessment/Plan - Assessment and Plan (Free Text) Plan: Patient seen and examined at bedside. PAtient feeling better. coughing less. PAtient tolerating abx. Above resident note documents my clinical findings and management. - Date & Time Date: 05/27/18 Time: 16:16
--- NOTE | 2018-05-27 09:08 | CP.PCM.PN ---
Subjective - Date & Time of Evaluation Date of Evaluation: 05/27/18 Time of Evaluation: 08:40 - Subjective Subjective: Hospitalist covering Dr Bull seen and examined by me Patient is feeling much better.Her breathing is better. Has history of reflux after gastric band surgery and she tries to manage with early dinner. Objective - Vital Signs/Intake and Output Vital Signs (last 24 hours): Temp Pulse Resp BP Pulse Ox 98.4 F 79 21 105/59 L 99 05/26/18 16:25 05/27/18 07:00 05/27/18 07:00 05/27/18 06:07 05/27/18 07:00 Intake and Output: 05/27/18 05/27/18 06:59 18:59 Intake Total 300 250 Output Total 600 Balance -300 250 - Medications Medications: Current Medications Acetaminophen (Tylenol 325mg Tab) 650 mg PO Q6 PRN PRN Reason: Fever >100.4 F Last Admin: 05/25/18 22:51 Dose: 650 mg Albuterol/Ipratropium (Duoneb 3 Mg/0.5 Mg (3 Ml) Ud) 3 ml INH RQ4 [facility] Last Admin: 05/27/18 07:45 Dose: 3 ml Amitriptyline HCl (Elavil) 100 mg PO DAILY [facility] Last Admin: 05/26/18 11:56 Dose: 100 mg Amlodipine Besylate (Norvasc) 5 mg PO DAILY [facility] Last Admin: 05/26/18 11:55 Dose: 5 mg Atovaquone (Mepron) 750 mg PO BID [facility] PRN Reason: Protocol Last Admin: 05/26/18 18:16 Dose: 750 mg Benzocaine/Menthol (Cepacol Sore Throat) 1 lauro MT QID PRN PRN Reason: Sore Throat Doxycycline Hyclate (Doryx) 100 mg PO Q12H [facility] PRN Reason: Protocol Last Admin: 05/26/18 22:05 Dose: 100 mg Hydrochlorothiazide (Hydrodiuril) 25 mg PO DAILY [facility] Last Admin: 05/26/18 11:54 Dose: 25 mg Hydroxychloroquine Sulfate (Plaquenil) 200 mg PO BID [facility] PRN Reason: Protocol Last Admin: 05/26/18 18:17 Dose: 200 mg Vancomycin/Sodium Chloride (Vancomycin 1 Gm/Ns 200 Ml) 1 gm in 200 mls @ 133 mls/hr IVPB Q24H [facility] PRN Reason: Protocol Stop: 05/30/18 23:01 Last Admin: 05/26/18 22:06 Dose: 133 mls/hr Piperacillin Sod/Tazobactam Sod (Zosyn 3.375 Gm Iv Premix) 3.375 gm in 50 mls @ 200 mls/hr IVPB Q8H [facility] PRN Reason: Protocol Last Admin: 05/27/18 07:46 Dose: 200 mls/hr Methylprednisolone (Solu-Medrol) 40 mg IVP DAILY [facility] Last Admin: 05/26/18 11:55 Dose: 40 mg Montelukast Sodium (Singulair) 10 mg PO HS [facility] Last Admin: 05/26/18 22:05 Dose: 10 mg Ondansetron HCl (Zofran Inj) 4 mg IVP Q6 PRN PRN Reason: Nausea/Vomiting Oseltamivir Phosphate (Tamiflu Cap) 75 mg PO BID [facility] PRN Reason: Protocol Stop: 05/31/18 10:01 Last Admin: 05/26/18 18:18 Dose: 75 mg Oxybutynin Chloride (Ditropan Xl) 10 mg PO DAILY [facility] Last Admin: 05/26/18 11:56 Dose: 10 mg Pantoprazole Sodium (Protonix Ec Tab) 40 mg PO DAILY [facility] Last Admin: 05/26/18 11:55 Dose: 40 mg Pregabalin (Lyrica) 75 mg PO DAILY [facility] Stop: 05/28/18 10:01 Saccharomyces Boulardii (Florastor) 250 mg PO BID [facility] Last Admin: 05/26/18 18:16 Dose: 250 mg Fluticasone/Salmeterol (Advair Diskus 250/50) 1 puff INH RQ12 [facility] Last Admin: 05/27/18 07:45 Dose: 1 puff - Labs Labs: 05/27/18 06:14 05/27/18 06:14 PT 33.3 SECONDS (9.7-12.2) H* D 05/27/18 06:14 INR 3.0 05/27/18 06:14 APTT 47 SECONDS (21-34) H 05/27/18 06:14 - Constitutional Appears: Non-toxic, No Acute Distress - Head Exam Head Exam: NORMAL INSPECTION - Eye Exam Eye Exam: Normal appearance - Neck Exam Neck Exam: Full ROM - Respiratory Exam Respiratory Exam: Rales (bilateral mid and lower lobes), Rhonchi. absent: Clear to Ausculation Bilateral - Cardiovascular Exam Cardiovascular Exam: REGULAR RHYTHM - GI/Abdominal Exam GI & Abdominal Exam: Soft, Normal Bowel Sounds. absent: Distended (surgical wound dressing on), Tenderness - Extremities Exam Extremities Exam: Full ROM - Back Exam Back Exam: NORMAL INSPECTION - Neurological Exam Neurological Exam: Awake, Oriented x3 - Psychiatric Exam Psychiatric exam: Normal Mood - Skin Skin Exam: Dry Assessment and Plan - Assessment and Plan (Free Text) Assessment: 52 years old female with history of Lupus disease (diagnosed in 2011); DVT (2011 ), PE (2011), status post IVC filter (2011); Hypercoagulable state; Sleep apnea , fibromyalgia; Obesity, bronchial asthma, recurrent pneumonia, Colonic perforation 04/2018 and exploratory laparotomy R hemicolectomy with anastomotic, omentectomy. Cholecystectomy, appendectomy. Gastric-BAND placed in [place] 2009. x2 and Umbilical hernia repair came here for shortness of breath Plan: 1. Shortness of breath /severe Multifocal pneumonia/hypoxia Improving Continue vancomycin and zosyn Continue tamiflu,continue solu medrol,duoneb CT chest showed No pulmonary embolism, extensive non-specific ground-glass appearance which could represent multi-focal pneumonia Patient is out of ICU today. I will get pulmonary consult Dr Ramirez covering Dr Quiñones to see her. 2. Dilated Esophagus CT chest: distension of esophagus gastric band procedure 2009 Discussed about out patient GI/surgery follow up and small meals and early dinner 3. History of Lupus (diagnosed 96002 On Plaquenil 200mg po bid 4. History of DVT/PE 2011 IVC filter placed 2011 INR 3.0 coumadin adjustment and follow INR 5. Colonic perforation 04/2018 s/p (05/03/18) exploratoy laparotomy R hemicolectomy with anastomosis seen by surgery continue antibiotics 6. History of Sleep apnea on CPAP at home 7. History of HTN continue Amlodipine and Hydrochlorthiazide 25mg po daily 8.History of Asthma Symbicort, Sinngulair, Advair , Duonebs q6prn 9. History of fibromyalgia - Lyrica 75mg bid 10. Prophylaxis DVT is on Coumadin GI prophylaxis is on protonix
--- NOTE | 2018-05-27 10:09 | CP.PCM.PN ---
<Kee Strauss - Last Filed: 05/27/18 10:06> Subjective - Date & Time of Evaluation Date of Evaluation: 05/27/18 Time of Evaluation: 10:06 - Subjective Subjective: General Surgery Progress note for Dr. Brown This 52F was seen and examined this AM at bedside no acute events overnight. Her wound packing was changed this AM at bedside. She reports SOB however denies chest pain. Objective - Vital Signs/Intake and Output Vital Signs (last 24 hours): Temp Pulse Resp BP Pulse Ox 98.4 F 107 H 19 134/64 97 05/26/18 16:25 05/27/18 09:08 05/27/18 09:08 05/27/18 09:08 05/27/18 09:08 Intake and Output: 05/27/18 05/27/18 06:59 18:59 Intake Total 300 250 Output Total 600 Balance -300 250 - Medications Medications: Current Medications Acetaminophen (Tylenol 325mg Tab) 650 mg PO Q6 PRN PRN Reason: Fever >100.4 F Last Admin: 05/25/18 22:51 Dose: 650 mg Albuterol/Ipratropium (Duoneb 3 Mg/0.5 Mg (3 Ml) Ud) 3 ml INH RQ4 [facility] Last Admin: 05/27/18 07:45 Dose: 3 ml Amitriptyline HCl (Elavil) 100 mg PO DAILY [facility] Last Admin: 05/26/18 11:56 Dose: 100 mg Amlodipine Besylate (Norvasc) 5 mg PO DAILY [facility] Last Admin: 05/26/18 11:55 Dose: 5 mg Atovaquone (Mepron) 750 mg PO BID [facility] PRN Reason: Protocol Last Admin: 05/26/18 18:16 Dose: 750 mg Benzocaine/Menthol (Cepacol Sore Throat) 1 lauro MT QID PRN PRN Reason: Sore Throat Doxycycline Hyclate (Doryx) 100 mg PO Q12H [facility] PRN Reason: Protocol Last Admin: 05/26/18 22:05 Dose: 100 mg Hydrochlorothiazide (Hydrodiuril) 25 mg PO DAILY [facility] Last Admin: 05/26/18 11:54 Dose: 25 mg Hydroxychloroquine Sulfate (Plaquenil) 200 mg PO BID [facility] PRN Reason: Protocol Last Admin: 05/26/18 18:17 Dose: 200 mg Vancomycin/Sodium Chloride (Vancomycin 1 Gm/Ns 200 Ml) 1 gm in 200 mls @ 133 mls/hr IVPB Q24H [facility] PRN Reason: Protocol Stop: 05/30/18 23:01 Last Admin: 05/26/18 22:06 Dose: 133 mls/hr Piperacillin Sod/Tazobactam Sod (Zosyn 3.375 Gm Iv Premix) 3.375 gm in 50 mls @ 200 mls/hr IVPB Q8H [facility] PRN Reason: Protocol Last Admin: 05/27/18 07:46 Dose: 200 mls/hr Methylprednisolone (Solu-Medrol) 40 mg IVP DAILY [facility] Last Admin: 05/26/18 11:55 Dose: 40 mg Montelukast Sodium (Singulair) 10 mg PO HS [facility] Last Admin: 05/26/18 22:05 Dose: 10 mg Ondansetron HCl (Zofran Inj) 4 mg IVP Q6 PRN PRN Reason: Nausea/Vomiting Oseltamivir Phosphate (Tamiflu Cap) 75 mg PO BID [facility] PRN Reason: Protocol Stop: 05/31/18 10:01 Last Admin: 05/26/18 18:18 Dose: 75 mg Oxybutynin Chloride (Ditropan Xl) 10 mg PO DAILY [facility] Last Admin: 05/26/18 11:56 Dose: 10 mg Pantoprazole Sodium (Protonix Ec Tab) 40 mg PO DAILY [facility] Last Admin: 05/26/18 11:55 Dose: 40 mg Pregabalin (Lyrica) 75 mg PO DAILY [facility] Stop: 05/28/18 10:01 Saccharomyces Boulardii (Florastor) 250 mg PO BID [facility] Last Admin: 05/26/18 18:16 Dose: 250 mg Fluticasone/Salmeterol (Advair Diskus 250/50) 1 puff INH RQ12 [facility] Last Admin: 05/27/18 07:45 Dose: 1 puff Warfarin Sodium (Coumadin) 1 mg PO 1800 [facility] Stop: 05/27/18 18:01 - Labs Labs: 05/27/18 06:14 05/27/18 06:14 PT 33.3 SECONDS (9.7-12.2) H* D 05/27/18 06:14 INR 3.0 05/27/18 06:14 APTT 47 SECONDS (21-34) H 05/27/18 06:14 - Constitutional Appears: Non-toxic, No Acute Distress - Head Exam Head Exam: ATRAUMATIC, NORMOCEPHALIC - ENT Exam ENT Exam: Mucous Membranes Moist - Respiratory Exam Respiratory Exam: absent: Respiratory Distress - Cardiovascular Exam Cardiovascular Exam: REGULAR RHYTHM - GI/Abdominal Exam GI & Abdominal Exam: Soft. absent: Distended, Firm, Guarding, Rigid, Tenderness Additional comments: 3 openings in midline inscision wound packing changed. No purulence noted. - Neurological Exam Neurological Exam: Alert, Awake - Psychiatric Exam Psychiatric exam: Normal Affect, Normal Mood - Skin Skin Exam: Dry, Intact Assessment and Plan - Assessment and Plan (Free Text) Assessment: 52F s/p right hemicolectomy with anastomosis POD#14 presents with bilateral diffuse pneumonia Plan: - continue diet - Daily wound packing changes - ICU management of pneumonia Further recs discuss with Dr. Cy Strauss PGY2 <Karlos Brown B - Last Filed: 05/29/18 20:20> Objective - Vital Signs/Intake and Output Vital Signs (last 24 hours): Temp Pulse Resp BP Pulse Ox 97.9 F 98 H 20 143/84 97 05/29/18 15:00 05/29/18 15:00 05/29/18 15:00 05/29/18 15:00 05/29/18 15:00 Intake and Output: 05/29/18 05/30/18 18:59 06:59 Intake Total 790 Balance 790 - Medications Medications: Current Medications Acetaminophen (Tylenol 325mg Tab) 650 mg PO Q6 PRN PRN Reason: Fever >100.4 F Last Admin: 05/28/18 11:37 Dose: 650 mg Albuterol/Ipratropium (Duoneb 3 Mg/0.5 Mg (3 Ml) Ud) 3 ml INH RQ4 [facility] Last Admin: 05/29/18 20:09 Dose: 3 ml Amitriptyline HCl (Elavil) 100 mg PO DAILY [facility] Last Admin: 05/29/18 10:57 Dose: 100 mg Amlodipine Besylate (Norvasc) 5 mg PO DAILY [facility] Last Admin: 05/29/18 10:55 Dose: 5 mg Atovaquone (Mepron) 750 mg PO BID [facility] PRN Reason: Protocol Last Admin: 05/29/18 17:23 Dose: 750 mg Benzocaine/Menthol (Cepacol Sore Throat) 1 lauro MT QID PRN PRN Reason: Sore Throat Last Admin: 05/28/18 11:26 Dose: 1 lauro Doxycycline Hyclate (Doryx) 100 mg PO Q12H [facility] PRN Reason: Protocol Last Admin: 05/29/18 10:57 Dose: 100 mg Guaifenesin (Mucinex La) 600 mg PO BID [facility] Last Admin: 05/29/18 17:26 Dose: 600 mg Hydrochlorothiazide (Hydrodiuril) 25 mg PO DAILY [facility] Last Admin: 05/29/18 10:55 Dose: 25 mg Hydroxychloroquine Sulfate (Plaquenil) 200 mg PO BID [facility] PRN Reason: Protocol Last Admin: 05/29/18 17:23 Dose: 200 mg Vancomycin/Sodium Chloride (Vancomycin 1 Gm/Ns 200 Ml) 1 gm in 200 mls @ 133 mls/hr IVPB Q24H [facility] PRN Reason: Protocol Stop: 05/30/18 23:01 Last Admin: 05/28/18 22:01 Dose: 133 mls/hr Piperacillin Sod/Tazobactam Sod (Zosyn 3.375 Gm Iv Premix) 3.375 gm in 50 mls @ 200 mls/hr IVPB Q8H [facility] PRN Reason: Protocol Last Admin: 05/29/18 16:29 Dose: 200 mls/hr Montelukast Sodium (Singulair) 10 mg PO HS [facility] Last Admin: 05/28/18 22:00 Dose: 10 mg Ondansetron HCl (Zofran Inj) 4 mg IVP Q6 PRN PRN Reason: Nausea/Vomiting Oxybutynin Chloride (Ditropan Xl) 10 mg PO DAILY [facility] Last Admin: 05/29/18 10:57 Dose: 10 mg Pantoprazole Sodium (Protonix Ec Tab) 40 mg PO DAILY [facility] Last Admin: 05/29/18 10:55 Dose: 40 mg Saccharomyces Boulardii (Florastor) 250 mg PO BID [facility] Last Admin: 05/29/18 17:22 Dose: 250 mg - Labs Labs: 05/29/18 06:45 05/29/18 06:45 PT 28.1 SECONDS (9.7-12.2) H D 05/29/18 06:45 INR 2.6 D 05/29/18 06:45 APTT 38 SECONDS (21-34) H 05/29/18 06:45 Attending/Attestation - Attestation I have personally seen and examined this patient.: Yes I have fully participated in the care of the patient.: Yes I have reviewed all pertinent clinical information, including history, physical exam and plan: Yes Notes (Text): Pt was seen and examined at bedside Agree with above note and assessment Wound care C/W IV antibiotics c.w current mx Plan d.w pt in detail
[2018-05-27] MEDS: Oxybutynin XL 10 mg Tab PO SCH (10:59)
[2018-05-27] MEDS: Saccharomyces Boulardi 250 mg Cap PO SCH ×2 (10:59→17:29)
[2018-05-27] MEDS: Atovaquone 750 mg/5 ml Susp UD PO SCH ×2 (11:00→17:29)
[2018-05-27] MEDS: MethylPREDNISolone 40 mg Vial IVP SCH (11:00)
[2018-05-27] MEDS: Pantoprazole 40 mg EC Tab PO SCH (11:00)
[2018-05-27 11:20] LABS: N MENINGITIS ACY/W135 NEGATIVE (NEGATIVE); N MENINGITIS B/ECOLI K1 NEGATIVE (NEGATIVE); STREP PNEUMONIAE NEGATIVE (NEGATIVE); STREPTOCOCCUS B NEGATIVE (NEGATIVE)
[2018-05-27] MEDS: Benzocaine/Menthol (Cepacol) Lozenge MT PRN (17:28)
[2018-05-27] MEDS: Vancomycin 1 gm/NS 200 ml 1 GM/200 ML BAG IVPB SCH (22:05)
[2018-05-28 01:23] VITALS: RESP 20
[2018-05-28] MEDS: Albuterol-Ipratrop 3 mg / 0.5 (3 ml) UD INH SCH ×6 (01:26→19:56)
[2018-05-28] MEDS: Piperacill/Tazo 3.375gm in Dex 3.375 GM/50 ML BAG IVPB SCH ×2 (07:05→17:00)
[2018-05-28] MEDS: Fluticasone-Salmeterol 250-50mcg Diskus INH SCH (07:54)
[2018-05-28 07:58] LABS: BASO % 0.3 % (0.0-2.0); EOS % 0.2 % (0.0-4.0); LYMPH # 0.8 K/uL (1.0-4.3); LYMPH % 5.9 % (20.0-40.0); MEAN CELL VOLUME 78.7 fL (81.0-99.0); MEAN CORPUSCULAR HEMOGLOBIN 26.1 pg (27.0-31.0); MEAN CORPUSCULAR HGB CONC 33.1 g/dL (33.0-37.0); MEAN PLATELET VOLUME 6.7 fL (7.2-11.7); MONO # 0.7 K/uL (0.0-0.8); MONO % 5.1 % (0.0-10.0); NEUT # 11.8 K/uL (1.8-7.0); NEUT % 88.5 % (50.0-75.0); PLATELET COUNT 319 K/uL (130-400); RBC 3.45 Mil/uL (3.80-5.20); RED CELL DISTRIBUTION WIDTH 16.1 % (11.5-14.5); WHITE BLOOD COUNT 13.3 K/uL (4.8-10.8)
[2018-05-28 08:02] LABS: INR 3.2
[2018-05-28 08:10] LABS: PROTHROMBIN TIME 35.4 SECONDS (9.7-12.2)
--- NOTE | 2018-05-28 08:34 | CP.PCM.PN ---
<Kee Strauss - Last Filed: 05/28/18 08:31> Subjective - Date & Time of Evaluation Date of Evaluation: 05/28/18 Time of Evaluation: 08:31 - Subjective Subjective: General Surgery Progress note for Dr. Brown This 52F was seen and examined this AM at bedside no acute events overnight. Her wound packing was changed this AM at bedside. She reports SOB however denies chest pain. No new complaints at this time. Objective - Vital Signs/Intake and Output Vital Signs (last 24 hours): Temp Pulse Resp BP Pulse Ox 98.5 F 92 H 20 98/61 L 95 05/28/18 08:03 05/28/18 08:03 05/28/18 08:03 05/28/18 08:03 05/28/18 08:03 Intake and Output: 05/28/18 05/28/18 06:59 18:59 Intake Total 450 0 Output Total 300 Balance 150 0 - Medications Medications: Current Medications Acetaminophen (Tylenol 325mg Tab) 650 mg PO Q6 PRN PRN Reason: Fever >100.4 F Last Admin: 05/25/18 22:51 Dose: 650 mg Albuterol/Ipratropium (Duoneb 3 Mg/0.5 Mg (3 Ml) Ud) 3 ml INH RQ4 [facility] Last Admin: 05/28/18 07:54 Dose: 3 ml Amitriptyline HCl (Elavil) 100 mg PO DAILY [facility] Last Admin: 05/27/18 11:00 Dose: 100 mg Amlodipine Besylate (Norvasc) 5 mg PO DAILY [facility] Last Admin: 05/27/18 11:00 Dose: 5 mg Atovaquone (Mepron) 750 mg PO BID [facility] PRN Reason: Protocol Last Admin: 05/27/18 17:29 Dose: 750 mg Benzocaine/Menthol (Cepacol Sore Throat) 1 lauro MT QID PRN PRN Reason: Sore Throat Last Admin: 05/27/18 17:28 Dose: 1 lauro Doxycycline Hyclate (Doryx) 100 mg PO Q12H [facility] PRN Reason: Protocol Last Admin: 05/27/18 22:04 Dose: 100 mg Hydrochlorothiazide (Hydrodiuril) 25 mg PO DAILY [facility] Last Admin: 05/27/18 11:00 Dose: 25 mg Hydroxychloroquine Sulfate (Plaquenil) 200 mg PO BID [facility] PRN Reason: Protocol Last Admin: 05/27/18 17:29 Dose: 200 mg Vancomycin/Sodium Chloride (Vancomycin 1 Gm/Ns 200 Ml) 1 gm in 200 mls @ 133 mls/hr IVPB Q24H [facility] PRN Reason: Protocol Stop: 05/30/18 23:01 Last Admin: 05/27/18 22:05 Dose: 133 mls/hr Piperacillin Sod/Tazobactam Sod (Zosyn 3.375 Gm Iv Premix) 3.375 gm in 50 mls @ 200 mls/hr IVPB Q8H [facility] PRN Reason: Protocol Last Admin: 05/28/18 07:05 Dose: 200 mls/hr Methylprednisolone (Solu-Medrol) 40 mg IVP DAILY [facility] Last Admin: 05/27/18 11:00 Dose: 40 mg Montelukast Sodium (Singulair) 10 mg PO HS [facility] Last Admin: 05/27/18 22:04 Dose: 10 mg Ondansetron HCl (Zofran Inj) 4 mg IVP Q6 PRN PRN Reason: Nausea/Vomiting Oseltamivir Phosphate (Tamiflu Cap) 75 mg PO BID [facility] PRN Reason: Protocol Stop: 05/31/18 10:01 Last Admin: 05/27/18 17:30 Dose: 75 mg Oxybutynin Chloride (Ditropan Xl) 10 mg PO DAILY [facility] Last Admin: 05/27/18 10:59 Dose: 10 mg Pantoprazole Sodium (Protonix Ec Tab) 40 mg PO DAILY [facility] Last Admin: 05/27/18 11:00 Dose: 40 mg Pregabalin (Lyrica) 75 mg PO DAILY [facility] Stop: 05/28/18 10:01 Last Admin: 05/27/18 10:59 Dose: 75 mg Saccharomyces Boulardii (Florastor) 250 mg PO BID [facility] Last Admin: 05/27/18 17:29 Dose: 250 mg Fluticasone/Salmeterol (Advair Diskus 250/50) 1 puff INH RQ12 [facility] Last Admin: 05/28/18 07:54 Dose: 1 puff - Labs Labs: 05/28/18 07:46 05/27/18 06:14 PT 35.4 SECONDS (9.7-12.2) H* 05/28/18 07:46 INR 3.2 06/30/18 07:46 APTT 41 SECONDS (21-34) H D 05/28/18 07:46 - Constitutional Appears: Non-toxic, No Acute Distress - Head Exam Head Exam: ATRAUMATIC, NORMOCEPHALIC - Eye Exam Eye Exam: EOMI - ENT Exam ENT Exam: Mucous Membranes Moist - Respiratory Exam Respiratory Exam: NORMAL BREATHING PATTERN - Cardiovascular Exam Cardiovascular Exam: +S1, +S2 - GI/Abdominal Exam GI & Abdominal Exam: Soft. absent: Firm, Guarding, Rigid, Tenderness - Neurological Exam Neurological Exam: Alert, Awake - Psychiatric Exam Psychiatric exam: Normal Affect, Normal Mood - Skin Skin Exam: Dry, Intact Assessment and Plan - Assessment and Plan (Free Text) Assessment: 52F s/p right hemicolectomy with anastomosis POD#15 presents with bilateral diffuse pneumonia Plan: - continue diet - Daily wound packing changes - Continue medical management per primary team Further recs discuss with Dr. Stephanie Strauss PGY2 <Karlos Brown - Last Filed: 05/29/18 20:38> Objective - Vital Signs/Intake and Output Vital Signs (last 24 hours): Temp Pulse Resp BP Pulse Ox 97.9 F 98 H 20 143/84 97 05/29/18 15:00 05/29/18 15:00 05/29/18 15:00 05/29/18 15:00 05/29/18 15:00 Intake and Output: 05/29/18 05/30/18 18:59 06:59 Intake Total 790 Balance 790 - Medications Medications: Current Medications Acetaminophen (Tylenol 325mg Tab) 650 mg PO Q6 PRN PRN Reason: Fever >100.4 F Last Admin: 05/28/18 11:37 Dose: 650 mg Albuterol/Ipratropium (Duoneb 3 Mg/0.5 Mg (3 Ml) Ud) 3 ml INH RQ4 [facility] Last Admin: 05/29/18 20:09 Dose: 3 ml Amitriptyline HCl (Elavil) 100 mg PO DAILY [facility] Last Admin: 05/29/18 10:57 Dose: 100 mg Amlodipine Besylate (Norvasc) 5 mg PO DAILY [facility] Last Admin: 05/29/18 10:55 Dose: 5 mg Atovaquone (Mepron) 750 mg PO BID [facility] PRN Reason: Protocol Last Admin: 05/29/18 17:23 Dose: 750 mg Benzocaine/Menthol (Cepacol Sore Throat) 1 lauro MT QID PRN PRN Reason: Sore Throat Last Admin: 05/28/18 11:26 Dose: 1 lauro Doxycycline Hyclate (Doryx) 100 mg PO Q12H [facility] PRN Reason: Protocol Last Admin: 05/29/18 10:57 Dose: 100 mg Guaifenesin (Mucinex La) 600 mg PO BID [facility] Last Admin: 05/29/18 17:26 Dose: 600 mg Hydrochlorothiazide (Hydrodiuril) 25 mg PO DAILY [facility] Last Admin: 05/29/18 10:55 Dose: 25 mg Hydroxychloroquine Sulfate (Plaquenil) 200 mg PO BID [facility] PRN Reason: Protocol Last Admin: 05/29/18 17:23 Dose: 200 mg Vancomycin/Sodium Chloride (Vancomycin 1 Gm/Ns 200 Ml) 1 gm in 200 mls @ 133 mls/hr IVPB Q24H [facility] PRN Reason: Protocol Stop: 05/30/18 23:01 Last Admin: 05/28/18 22:01 Dose: 133 mls/hr Piperacillin Sod/Tazobactam Sod (Zosyn 3.375 Gm Iv Premix) 3.375 gm in 50 mls @ 200 mls/hr IVPB Q8H [facility] PRN Reason: Protocol Last Admin: 05/29/18 16:29 Dose: 200 mls/hr Montelukast Sodium (Singulair) 10 mg PO HS [facility] Last Admin: 05/28/18 22:00 Dose: 10 mg Ondansetron HCl (Zofran Inj) 4 mg IVP Q6 PRN PRN Reason: Nausea/Vomiting Oxybutynin Chloride (Ditropan Xl) 10 mg PO DAILY [facility] Last Admin: 05/29/18 10:57 Dose: 10 mg Pantoprazole Sodium (Protonix Ec Tab) 40 mg PO DAILY [facility] Last Admin: 05/29/18 10:55 Dose: 40 mg Saccharomyces Boulardii (Florastor) 250 mg PO BID [facility] Last Admin: 05/29/18 17:22 Dose: 250 mg - Labs Labs: 05/29/18 06:45 05/29/18 06:45 PT 28.1 SECONDS (9.7-12.2) H D 05/29/18 06:45 INR 2.6 D 05/29/18 06:45 APTT 38 SECONDS (21-34) H 05/29/18 06:45 Attending/Attestation - Attestation I have personally seen and examined this patient.: Yes I have fully participated in the care of the patient.: Yes I have reviewed all pertinent clinical information, including history, physical exam and plan: Yes Notes (Text): Pt was seen and examined at bedside Agree with above note and assessment Local wound care C/W IV antibiotics c.w current mx Plan d.w pt in detail
[2018-05-28 08:57] LABS: ALB/GLOB RATIO 1.1 (1.0-2.1); ALBUMIN 3.1 g/dL (3.5-5.0); ALT/SGPT 28 U/L (9-52); AST/SGOT 19 U/L (14-36); BLOOD UREA NITROGEN 13 mg/dL (7-17); CALCIUM 8.8 mg/dl (8.6-10.4); GFR AFRICAN-AMERICAN > 60; GFR NON-AFRICAN AMERICAN > 60
[2018-05-28 09:31] LABS: EOSINOPHIL 1 % (0-4); LYMPHOCYTE 5 % (20-40); MONOCYTE 4 % (0-10); NEUTROPHIL 90 % (50-75); PLATELET ESTIMATE NORMAL (NORMAL); TOTAL CELLS COUNTED 100
[2018-05-28 09:32] LABS: ANISOCYTOSIS SLIGHT; HYPOCHROMIC SLIGHT; MICROCYTOSIS SLIGHT; POLYCHROMIC SLIGHT; TOXIC GRANULATION PRESENT
[2018-05-28 09:33] LABS: LARGE PLATELETS PRESENT
[2018-05-28] MEDS ORDERED: Enoxaparin 30 mg Syringe SC SCH (10:00)
[2018-05-28] MEDS: Pantoprazole 40 mg EC Tab PO SCH (11:00)
[2018-05-28] MEDS: Saccharomyces Boulardi 250 mg Cap PO SCH ×2 (11:00→18:13)
[2018-05-28] MEDS: MethylPREDNISolone 40 mg Vial IVP SCH (11:01)
[2018-05-28] MEDS: Benzocaine/Menthol (Cepacol) Lozenge MT PRN (11:26)
[2018-05-28] MEDS: Oxybutynin XL 10 mg Tab PO SCH (11:27)
[2018-05-28] MEDS: Atovaquone 750 mg/5 ml Susp UD PO SCH ×2 (11:28→18:12)
--- NOTE | 2018-05-28 12:04 | RAD ---
HISTORY: pneumonia COMPARISON: Comparison chest 05/25/2018 FINDINGS: LUNGS: Interval improvement previously noted bilateral infiltrates of right more significantly improve the left as there are persistent residual patchy infiltrate changes seen in the left mid to lower lung zone. . PLEURA: No significant pleural effusion identified, no pneumothorax apparent. CARDIOVASCULAR: Cardiomegaly. OSSEOUS STRUCTURES: No significant abnormalities. VISUALIZED UPPER ABDOMEN: Normal. OTHER FINDINGS: None. IMPRESSION: Interval improvement previously noted bilateral infiltrates of right more significantly improve the left as there are persistent residual patchy infiltrate changes seen in the left mid to lower lung zone. .
--- NOTE | 2018-05-28 12:56 | CP.PCM.CON ---
History of Present Illness - History of Present Illness History of Present Illness: reason for consultation: abnormal CAT scan of the chest and hypoxemia 52-year-old female with a history of lupus diagnosed in 2011/DVT/PE, status post IVC filter, lupus anticoagulant positive, obstructive sleep apnea, fibromyalgia, recurrent pneumonia presented to emergency room for shortness of breath. In the emergency room patient found to be very hypoxic and febrile. Patient placed on BiPAP and admitted to intensive care unit. CAT scan of the chest consistent with bilat infiltrate. Patient started on IV antibiotics And steroids. Patient states she is breathing much better with much less cough. Past Medical History: Lupus disease (diagnosed in 2011); DVT (2011), PE (2011), status post IVC filter (2011); Hypercoagulable state; Sleep apnea, fibromyalgia ; Obesity, bronchial asthma, recurrent pneumonia; Colonic perforation 04/2018 Surgical history: (04/2018) exploratoy laparotomy R hemicolectomy with anastomosis, omentectomy. Cholecystectomy, appendectomy. Gastric-BAND placed in [place] 2009. x2. Umbilical hernia repair. Colonoscopy Medications: Warfarin 5mg daily; Amlodipine 5mg daily; Levocetirizine Dihydrochloride 5mg daily; Amitriptyline 100mg daily; Nasnonex; Proair HFa; Symbicort; Protonix 40mg bid; Hydrochlorthiazide 25mg po daily; Lyrica 75mg bid ; Sinngulair 10mg daily; Plaquenil 200mg po bid; Oxybutyin Chloride 10mg po daily; Levofloxacin 750mg daily; completed 5 day course of steroids on May 13 Allergies: NKDA Social History: denies smoking; illicit drug use; and alcohol. Lives with and 2 kids. 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 Review of Systems - Review of Systems All systems: reviewed and no additional remarkable complaints except (shortness of breath) Past Patient History - Infectious Disease Hx of Infectious Diseases: None - Tetanus Immunizations Tetanus Immunization: Up to Date - Past Medical History & Family History Past Medical History?: Yes - Past Social History Smoking Status: Never Smoked Chewing Tobacco Use: No Cigar Use: No Alcohol: None - CARDIAC Hx Hypertension: Yes - PULMONARY Hx Asthma: Yes Hx Bronchitis: Yes Hx Pneumonia: Yes ("multiple times") Hx Pulmonary Embolism: Yes (2011) Hx Sleep Apnea: Yes - NEUROLOGICAL Hx Migraine: Yes - HEENT Hx HEENT Problems: Yes Other/Comment: wear glasses for vision - RENAL Hx Chronic Kidney Disease: No - ENDOCRINE/METABOLIC Hx Endocrine Disorders: Yes Hx Systemic Lupus Erythematosus: Yes (w/ antibody) - HEMATOLOGICAL/ONCOLOGICAL Hx Blood Disorders: No - INTEGUMENTARY Hx Dermatological Problems: Yes Other/Comment: discoploration of lower legs/pigmentation - MUSCULOSKELETAL/RHEUMATOLOGICAL Hx Arthritis: Yes - GASTROINTESTINAL Hx Gastrointestinal Disorders: Yes Hx Gastroesophageal Reflux: Yes - GENITOURINARY/GYNECOLOGICAL Hx Genitourinary Disorders: Yes Hx Incontinence: Yes (OVER ACTIVE BLADDER) - PSYCHIATRIC Hx Depression: Yes (post depression) Hx Substance Use: No - SURGICAL HISTORY Hx Appendectomy: Yes - ANESTHESIA Hx Anesthesia: Yes Hx Anesthesia Reactions: No Hx Malignant Hyperthermia: No Meds Allergies/Adverse Reactions: Allergies Allergy/AdvReac Type Severity Reaction Status Date / Time No Known Allergies Allergy Verified 05/25/18 19:03 - Medications Medications: Current Medications Acetaminophen (Tylenol 325mg Tab) 650 mg PO Q6 PRN PRN Reason: Fever >100.4 F Last Admin: 05/28/18 11:37 Dose: 650 mg Albuterol/Ipratropium (Duoneb 3 Mg/0.5 Mg (3 Ml) Ud) 3 ml INH RQ4 [facility] Last Admin: 05/28/18 07:54 Dose: 3 ml Amitriptyline HCl (Elavil) 100 mg PO DAILY [facility] Last Admin: 05/28/18 11:27 Dose: 100 mg Amlodipine Besylate (Norvasc) 5 mg PO DAILY [facility] Last Admin: 05/28/18 11:09 Dose: Not Given Atovaquone (Mepron) 750 mg PO BID [facility] PRN Reason: Protocol Last Admin: 05/28/18 11:28 Dose: 750 mg Benzocaine/Menthol (Cepacol Sore Throat) 1 lauro MT QID PRN PRN Reason: Sore Throat Last Admin: 05/28/18 11:26 Dose: 1 lauro Doxycycline Hyclate (Doryx) 100 mg PO Q12H [facility] PRN Reason: Protocol Last Admin: 05/28/18 11:27 Dose: 100 mg Hydrochlorothiazide (Hydrodiuril) 25 mg PO DAILY [facility] Last Admin: 05/28/18 11:09 Dose: 25 mg Hydroxychloroquine Sulfate (Plaquenil) 200 mg PO BID [facility] PRN Reason: Protocol Last Admin: 05/28/18 11:26 Dose: 200 mg Vancomycin/Sodium Chloride (Vancomycin 1 Gm/Ns 200 Ml) 1 gm in 200 mls @ 133 mls/hr IVPB Q24H [facility] PRN Reason: Protocol Stop: 05/30/18 23:01 Last Admin: 05/27/18 22:05 Dose: 133 mls/hr Piperacillin Sod/Tazobactam Sod (Zosyn 3.375 Gm Iv Premix) 3.375 gm in 50 mls @ 200 mls/hr IVPB Q8H [facility] PRN Reason: Protocol Last Admin: 05/28/18 07:05 Dose: 200 mls/hr Methylprednisolone (Solu-Medrol) 40 mg IVP DAILY [facility] Last Admin: 05/28/18 11:01 Dose: 40 mg Montelukast Sodium (Singulair) 10 mg PO HS [facility] Last Admin: 05/27/18 22:04 Dose: 10 mg Ondansetron HCl (Zofran Inj) 4 mg IVP Q6 PRN PRN Reason: Nausea/Vomiting Oxybutynin Chloride (Ditropan Xl) 10 mg PO DAILY [facility] Last Admin: 05/28/18 11:27 Dose: 10 mg Pantoprazole Sodium (Protonix Ec Tab) 40 mg PO DAILY [facility] Last Admin: 05/28/18 11:00 Dose: 40 mg Saccharomyces Boulardii (Florastor) 250 mg PO BID [facility] Last Admin: 05/28/18 11:00 Dose: 250 mg Physical Exam - Head Exam Head Exam: ATRAUMATIC, NORMOCEPHALIC - Eye Exam Eye Exam: Normal appearance - ENT Exam ENT Exam: Mucous Membranes Moist - Neck Exam Neck exam: Positive for: Normal Inspection - Respiratory Exam Respiratory Exam: Clear to Auscultation Bilateral - Cardiovascular Exam Cardiovascular Exam: REGULAR RHYTHM - GI/Abdominal Exam GI & Abdominal Exam: Normal Bowel Sounds, Soft - Extremities Exam Extremities exam: Positive for: normal inspection - Neurological Exam Neurological exam: Alert, Oriented x3 Results - Vital Signs Recent Vital Signs: Last Vital Signs Temp 98.5 F 05/28/18 08:03 Pulse 97 H 05/28/18 11:00 Resp 20 05/28/18 08:03 BP 109/71 05/28/18 11:00 Pulse Ox 95 05/28/18 08:03 - Labs Result Diagrams: 05/29/18 06:45 05/29/18 06:45 Labs: Laboratory Results - last 24 hr 05/28/18 05/28/18 05/28/18 07:46 07:46 07:46 WBC 13.3 H RBC 3.45 L Hgb 9.0 L Hct 27.1 L MCV 78.7 L MCH 26.1 L MCHC 33.1 RDW 16.1 H Plt Count 319 MPV 6.7 L Neut % (Auto) 88.5 H Lymph % (Auto) 5.9 L [place] % (Auto) 5.1 Eos % (Auto) 0.2 Baso % (Auto) 0.3 Neut # (Auto) 11.8 H Lymph # (Auto) 0.8 L [place] # (Auto) 0.7 Eos # (Auto) 0.0 Baso # (Auto) 0.0 Neutrophils % (Manual) 90 H Lymphocytes % (Manual) 5 L Monocytes % (Manual) 4 Eosinophils % (Manual) 1 Toxic Granulation Present Platelet Estimate Normal Large Platelets Present Polychromasia Slight Hypochromasia (manual) Slight Basophilic Stippling Slight Anisocytosis (manual) Slight Microcytosis (manual) Slight PT 35.4 H* INR 3.2 APTT 41 H D Sodium 141 Potassium 3.6 Chloride 102 Carbon Dioxide 30 Anion Gap 13 BUN 13 Creatinine 0.7 Est GFR ( Amer) > 60 Est GFR (Non-Af Amer) > 60 Random Glucose 96 Calcium 8.8 Phosphorus 4.0 Magnesium 1.9 Total Bilirubin 0.5 AST 19 ALT 28 Alkaline Phosphatase 57 Total Protein 6.0 L Albumin 3.1 L Globulin 2.9 Albumin/Globulin Ratio 1.1 Assessment & Plan (1) Pneumonia Status: Acute Comment: multifocal pneumonia. Continue IV antibiotics. Continue IV steroids. Consider lung biopsy (2) Lupus (systemic lupus erythematosus) Status: Acute
--- NOTE | 2018-05-28 14:39 | CP.PCM.PN ---
Subjective - Date & Time of Evaluation Date of Evaluation: 05/28/18 Time of Evaluation: 07:00 - Subjective Subjective: PGY2- Progress Note Patient seen and examined at bedside. Patient says she is feeling much better. Patient says she feels much less short of breath. Patient denies any headache, chest pain, abdominal pain, nausea, vomiting, constipation, or diarrhea. Objective - Vital Signs/Intake and Output Vital Signs (last 24 hours): Temp Pulse Resp BP Pulse Ox 98.5 F 97 H 20 109/71 95 05/28/18 08:03 05/28/18 11:00 05/28/18 08:03 05/28/18 11:00 05/28/18 08:03 Intake and Output: 05/28/18 05/28/18 06:59 18:59 Intake Total 450 0 Output Total 300 Balance 150 0 - Medications Medications: Current Medications Acetaminophen (Tylenol 325mg Tab) 650 mg PO Q6 PRN PRN Reason: Fever >100.4 F Last Admin: 05/28/18 11:37 Dose: 650 mg Albuterol/Ipratropium (Duoneb 3 Mg/0.5 Mg (3 Ml) Ud) 3 ml INH RQ4 [facility] Last Admin: 05/28/18 12:00 Dose: 3 ml Amitriptyline HCl (Elavil) 100 mg PO DAILY [facility] Last Admin: 05/28/18 11:27 Dose: 100 mg Amlodipine Besylate (Norvasc) 5 mg PO DAILY [facility] Last Admin: 05/28/18 11:09 Dose: Not Given Atovaquone (Mepron) 750 mg PO BID [facility] PRN Reason: Protocol Last Admin: 05/28/18 11:28 Dose: 750 mg Benzocaine/Menthol (Cepacol Sore Throat) 1 lauro MT QID PRN PRN Reason: Sore Throat Last Admin: 05/28/18 11:26 Dose: 1 lauro Doxycycline Hyclate (Doryx) 100 mg PO Q12H [facility] PRN Reason: Protocol Last Admin: 05/28/18 11:27 Dose: 100 mg Hydrochlorothiazide (Hydrodiuril) 25 mg PO DAILY [facility] Last Admin: 05/28/18 11:09 Dose: 25 mg Hydroxychloroquine Sulfate (Plaquenil) 200 mg PO BID [facility] PRN Reason: Protocol Last Admin: 05/28/18 11:26 Dose: 200 mg Vancomycin/Sodium Chloride (Vancomycin 1 Gm/Ns 200 Ml) 1 gm in 200 mls @ 133 mls/hr IVPB Q24H [facility] PRN Reason: Protocol Stop: 05/30/18 23:01 Last Admin: 05/27/18 22:05 Dose: 133 mls/hr Piperacillin Sod/Tazobactam Sod (Zosyn 3.375 Gm Iv Premix) 3.375 gm in 50 mls @ 200 mls/hr IVPB Q8H [facility] PRN Reason: Protocol Last Admin: 05/28/18 07:05 Dose: 200 mls/hr Methylprednisolone (Solu-Medrol) 40 mg IVP DAILY [facility] Last Admin: 05/28/18 11:01 Dose: 40 mg Montelukast Sodium (Singulair) 10 mg PO HS [facility] Last Admin: 05/27/18 22:04 Dose: 10 mg Ondansetron HCl (Zofran Inj) 4 mg IVP Q6 PRN PRN Reason: Nausea/Vomiting Oxybutynin Chloride (Ditropan Xl) 10 mg PO DAILY [facility] Last Admin: 05/28/18 11:27 Dose: 10 mg Pantoprazole Sodium (Protonix Ec Tab) 40 mg PO DAILY [facility] Last Admin: 05/28/18 11:00 Dose: 40 mg Saccharomyces Boulardii (Florastor) 250 mg PO BID [facility] Last Admin: 05/28/18 11:00 Dose: 250 mg - Labs Labs: 05/28/18 07:46 05/28/18 07:46 PT 35.4 SECONDS (9.7-12.2) H* 05/28/18 07:46 INR 3.2 05/28/18 07:46 APTT 41 SECONDS (21-34) H D 05/28/18 07:46 Assessment and Plan - Assessment and Plan (Free Text) Assessment: 1. Shortness of breath /severe Multifocal pneumonia/hypoxia Improving Continue vancomycin and zosyn Continue tamiflu,continue solu medrol,duoneb CT chest showed No pulmonary embolism, extensive non-specific ground-glass appearance which could represent multi-focal pneumonia Pulm consult, Dr. Ramirez, help appreciated. 2. Dilated Esophagus CT chest: distension of esophagus gastric band procedure 2009 Discussed about out patient GI/surgery follow up and small meals and early dinner 3. History of Lupus (diagnosed On Plaquenil 200mg po bid 4. History of DVT/PE 2011 IVC filter placed 2011 INR 3.0 coumadin adjustment and follow INR 5. Colonic perforation 04/2018 s/p (05/03/18) exploratoy laparotomy R hemicolectomy with anastomosis seen by surgery continue antibiotics 6. History of Sleep apnea on CPAP at home 7. History of HTN continue Amlodipine and Hydrochlorthiazide 25mg po daily 8.History of Asthma Symbicort, Sinngulair, Advair , Duonebs q6prn 9. History of fibromyalgia - Lyrica 75mg bid 10. Prophylaxis DVT is on Coumadin GI prophylaxis is on protonix
[2018-05-28] MEDS: Vancomycin 1 gm/NS 200 ml 1 GM/200 ML BAG IVPB SCH (22:01)
[2018-05-29] MEDS: Albuterol-Ipratrop 3 mg / 0.5 (3 ml) UD INH SCH ×6 (00:03→20:09)
[2018-05-29] MEDS: Piperacill/Tazo 3.375gm in Dex 3.375 GM/50 ML BAG IVPB SCH ×3 (00:08→16:29)
[2018-05-29 06:55] LABS: BASO % 0.4 % (0.0-2.0); EOS # 0.1 K/uL (0.0-0.7); EOS % 0.5 % (0.0-4.0); HEMOGLOBIN 9.5 g/dL (11.0-16.0); LYMPH # 0.8 K/uL (1.0-4.3); LYMPH % 6.4 % (20.0-40.0); MEAN CORPUSCULAR HEMOGLOBIN 26.2 pg (27.0-31.0); MEAN CORPUSCULAR HGB CONC 33.2 g/dL (33.0-37.0); MEAN PLATELET VOLUME 6.8 fL (7.2-11.7); MONO # 0.9 K/uL (0.0-0.8); MONO % 7.2 % (0.0-10.0); NEUT % 85.5 % (50.0-75.0); NRBC % 0.1 % (0.0-2.0); PLATELET COUNT 331 K/uL (130-400); RBC 3.62 Mil/uL (3.80-5.20); RED CELL DISTRIBUTION WIDTH 16.3 % (11.5-14.5); WHITE BLOOD COUNT 12.9 K/uL (4.8-10.8)
[2018-05-29 07:00] LABS: INR 2.6; PROTHROMBIN TIME 28.1 SECONDS (9.7-12.2)
[2018-05-29 07:11] LABS: ALB/GLOB RATIO 1.1 (1.0-2.1); ALBUMIN 3.3 g/dL (3.5-5.0); ALT/SGPT 27 U/L (9-52); AST/SGOT 22 U/L (14-36); BLOOD UREA NITROGEN 13 mg/dL (7-17); CALCIUM 9.2 mg/dl (8.6-10.4); GFR AFRICAN-AMERICAN > 60; GFR NON-AFRICAN AMERICAN > 60
[2018-05-29 08:34] LABS: ANISOCYTOSIS SLIGHT; BANDS 3 % (0-2); EOSINOPHIL 1 % (0-4); HYPOCHROMIC SLIGHT; LYMPHOCYTE 6 % (20-40); METAMYELOCYTE 1 % (0-0); MICROCYTOSIS SLIGHT; MONOCYTE 8 % (0-10); NEUTROPHIL 81 % (50-75); PLATELET ESTIMATE NORMAL (NORMAL); POLYCHROMIC SLIGHT; TOTAL CELLS COUNTED 100
[2018-05-29 08:35] LABS: LARGE PLATELETS PRESENT; TOXIC GRANULATION PRESENT
--- NOTE | 2018-05-29 08:41 | CP.PCM.PN ---
<Kee Strauss - Last Filed: 05/29/18 08:39> Subjective - Date & Time of Evaluation Date of Evaluation: 05/29/18 Time of Evaluation: 08:39 - Subjective Subjective: General Surgery Progress note for Dr. Brown This 52F was seen and examined this AM at bedside no acute events overnight. Her wound packing was changed this AM at bedside. She has no new complaints at this time. Objective - Vital Signs/Intake and Output Vital Signs (last 24 hours): Temp Pulse Resp BP Pulse Ox 98.3 F 88 20 119/77 100 05/29/18 00:00 05/29/18 00:00 05/29/18 00:00 05/29/18 00:00 05/29/18 00:00 Intake and Output: 05/29/18 05/29/18 06:59 18:59 Intake Total 550 290 Balance 550 290 - Medications Medications: Current Medications Acetaminophen (Tylenol 325mg Tab) 650 mg PO Q6 PRN PRN Reason: Fever >100.4 F Last Admin: 05/28/18 11:37 Dose: 650 mg Albuterol/Ipratropium (Duoneb 3 Mg/0.5 Mg (3 Ml) Ud) 3 ml INH RQ4 [facility] Last Admin: 05/29/18 07:10 Dose: 3 ml Amitriptyline HCl (Elavil) 100 mg PO DAILY [facility] Last Admin: 05/28/18 11:27 Dose: 100 mg Amlodipine Besylate (Norvasc) 5 mg PO DAILY [facility] Last Admin: 05/28/18 11:09 Dose: Not Given Atovaquone (Mepron) 750 mg PO BID [facility] PRN Reason: Protocol Last Admin: 05/28/18 18:12 Dose: 750 mg Benzocaine/Menthol (Cepacol Sore Throat) 1 lauro MT QID PRN PRN Reason: Sore Throat Last Admin: 05/28/18 11:26 Dose: 1 lauro Doxycycline Hyclate (Doryx) 100 mg PO Q12H [facility] PRN Reason: Protocol Last Admin: 05/28/18 22:00 Dose: 100 mg Hydrochlorothiazide (Hydrodiuril) 25 mg PO DAILY [facility] Last Admin: 05/28/18 11:09 Dose: 25 mg Hydroxychloroquine Sulfate (Plaquenil) 200 mg PO BID [facility] PRN Reason: Protocol Last Admin: 05/28/18 18:11 Dose: 200 mg Vancomycin/Sodium Chloride (Vancomycin 1 Gm/Ns 200 Ml) 1 gm in 200 mls @ 133 mls/hr IVPB Q24H [facility] PRN Reason: Protocol Stop: 05/30/18 23:01 Last Admin: 05/28/18 22:01 Dose: 133 mls/hr Piperacillin Sod/Tazobactam Sod (Zosyn 3.375 Gm Iv Premix) 3.375 gm in 50 mls @ 200 mls/hr IVPB Q8H [facility] PRN Reason: Protocol Last Admin: 05/29/18 00:08 Dose: 200 mls/hr Methylprednisolone (Solu-Medrol) 40 mg IVP DAILY [facility] Last Admin: 05/28/18 11:01 Dose: 40 mg Montelukast Sodium (Singulair) 10 mg PO HS [facility] Last Admin: 05/28/18 22:00 Dose: 10 mg Ondansetron HCl (Zofran Inj) 4 mg IVP Q6 PRN PRN Reason: Nausea/Vomiting Oxybutynin Chloride (Ditropan Xl) 10 mg PO DAILY [facility] Last Admin: 05/28/18 11:27 Dose: 10 mg Pantoprazole Sodium (Protonix Ec Tab) 40 mg PO DAILY [facility] Last Admin: 05/28/18 11:00 Dose: 40 mg Saccharomyces Boulardii (Florastor) 250 mg PO BID [facility] Last Admin: 05/28/18 18:13 Dose: 250 mg - Labs Labs: 05/29/18 06:45 05/29/18 06:45 PT 28.1 SECONDS (9.7-12.2) H D 05/29/18 06:45 INR 2.6 D 05/29/18 06:45 APTT 38 SECONDS (21-34) H 05/29/18 06:45 - Constitutional Appears: Non-toxic, No Acute Distress - Head Exam Head Exam: ATRAUMATIC, NORMOCEPHALIC - Eye Exam Eye Exam: EOMI - ENT Exam ENT Exam: Mucous Membranes Moist - Respiratory Exam Respiratory Exam: NORMAL BREATHING PATTERN - Cardiovascular Exam Cardiovascular Exam: +S1, +S2 - GI/Abdominal Exam GI & Abdominal Exam: Soft. absent: Firm, Guarding, Rigid, Tenderness Midline incision with 3 small openings, without purulent drainage - Neurological Exam Neurological Exam: Alert, Awake - Psychiatric Exam Psychiatric exam: Normal Affect, Normal Mood - Skin Skin Exam: Dry, Intact <Karlos Brown - Last Filed: 05/29/18 20:47> Objective - Vital Signs/Intake and Output Vital Signs (last 24 hours): Temp Pulse Resp BP Pulse Ox 97.9 F 98 H 20 143/84 97 05/29/18 15:00 05/29/18 15:00 05/29/18 15:00 05/29/18 15:00 05/29/18 15:00 Intake and Output: 05/29/18 05/30/18 18:59 06:59 Intake Total 790 Balance 790 - Medications Medications: Current Medications Acetaminophen (Tylenol 325mg Tab) 650 mg PO Q6 PRN PRN Reason: Fever >100.4 F Last Admin: 05/28/18 11:37 Dose: 650 mg Albuterol/Ipratropium (Duoneb 3 Mg/0.5 Mg (3 Ml) Ud) 3 ml INH RQ4 [facility] Last Admin: 05/29/18 20:09 Dose: 3 ml Amitriptyline HCl (Elavil) 100 mg PO DAILY [facility] Last Admin: 05/29/18 10:57 Dose: 100 mg Amlodipine Besylate (Norvasc) 5 mg PO DAILY [facility] Last Admin: 05/29/18 10:55 Dose: 5 mg Atovaquone (Mepron) 750 mg PO BID [facility] PRN Reason: Protocol Last Admin: 05/29/18 17:23 Dose: 750 mg Benzocaine/Menthol (Cepacol Sore Throat) 1 lauro MT QID PRN PRN Reason: Sore Throat Last Admin: 05/28/18 11:26 Dose: 1 lauro Doxycycline Hyclate (Doryx) 100 mg PO Q12H [facility] PRN Reason: Protocol Last Admin: 05/29/18 10:57 Dose: 100 mg Guaifenesin (Mucinex La) 600 mg PO BID [facility] Last Admin: 05/29/18 17:26 Dose: 600 mg Hydrochlorothiazide (Hydrodiuril) 25 mg PO DAILY [facility] Last Admin: 05/29/18 10:55 Dose: 25 mg Hydroxychloroquine Sulfate (Plaquenil) 200 mg PO BID [facility] PRN Reason: Protocol Last Admin: 05/29/18 17:23 Dose: 200 mg Vancomycin/Sodium Chloride (Vancomycin 1 Gm/Ns 200 Ml) 1 gm in 200 mls @ 133 mls/hr IVPB Q24H [facility] PRN Reason: Protocol Stop: 05/30/18 23:01 Last Admin: 05/28/18 22:01 Dose: 133 mls/hr Piperacillin Sod/Tazobactam Sod (Zosyn 3.375 Gm Iv Premix) 3.375 gm in 50 mls @ 200 mls/hr IVPB Q8H [facility] PRN Reason: Protocol Last Admin: 05/29/18 16:29 Dose: 200 mls/hr Montelukast Sodium (Singulair) 10 mg PO HS [facility] Last Admin: 05/28/18 22:00 Dose: 10 mg Ondansetron HCl (Zofran Inj) 4 mg IVP Q6 PRN PRN Reason: Nausea/Vomiting Oxybutynin Chloride (Ditropan Xl) 10 mg PO DAILY [facility] Last Admin: 05/29/18 10:57 Dose: 10 mg Pantoprazole Sodium (Protonix Ec Tab) 40 mg PO DAILY [facility] Last Admin: 05/29/18 10:55 Dose: 40 mg Saccharomyces Boulardii (Florastor) 250 mg PO BID [facility] Last Admin: 05/29/18 17:22 Dose: 250 mg - Labs Labs: 05/29/18 06:45 05/29/18 06:45 PT 28.1 SECONDS (9.7-12.2) H D 05/29/18 06:45 INR 2.6 D 05/29/18 06:45 APTT 38 SECONDS (21-34) H 05/29/18 06:45 Attending/Attestation - Attestation I have fully participated in the care of the patient.: Yes I have reviewed all pertinent clinical information, including history, physical exam and plan: Yes Notes (Text): Pt with abdominal wound Local wound care DC plan C/W IV antibiotics Plan d.w pt in detail
[2018-05-29] MEDS: Pantoprazole 40 mg EC Tab PO SCH (10:55)
[2018-05-29] MEDS: Saccharomyces Boulardi 250 mg Cap PO SCH ×2 (10:55→17:22)
[2018-05-29] MEDS: Atovaquone 750 mg/5 ml Susp UD PO SCH ×2 (10:56→17:23)
[2018-05-29] MEDS: MethylPREDNISolone 40 mg Vial IVP SCH (10:56)
[2018-05-29] MEDS: Oxybutynin XL 10 mg Tab PO SCH (10:57)
--- NOTE | 2018-05-29 12:00 | CP.PCM.PN ---
Addendum entered and electronically signed by Alisa Earl DO, DO 14:46: Solumedrol to stop after dose 05/29/18. Starting guaifenesin BID 05/29/18. Original Note: <Alisa Earl DO - Last Filed: 05/29/18 13:10> Subjective - Date & Time of Evaluation Date of Evaluation: 05/29/18 Time of Evaluation: 10:45 - Subjective Subjective: Medicine progress note for Dr. Steward's service (covering Dr. Luna) Patient seen and examined. Patient states she feels breathing has improved but she is having some difficulty expectorating mucous. Objective - Vital Signs/Intake and Output Vital Signs (last 24 hours): Temp Pulse Resp BP Pulse Ox 98.3 F 88 20 119/77 100 05/29/18 00:00 05/29/18 00:00 05/29/18 00:00 05/29/18 00:00 05/29/18 00:00 Intake and Output: 05/29/18 05/29/18 06:59 18:59 Intake Total 550 290 Balance 550 290 - Medications Medications: Current Medications Acetaminophen (Tylenol 325mg Tab) 650 mg PO Q6 PRN PRN Reason: Fever >100.4 F Last Admin: 05/28/18 11:37 Dose: 650 mg Albuterol/Ipratropium (Duoneb 3 Mg/0.5 Mg (3 Ml) Ud) 3 ml INH RQ4 [facility] Last Admin: 05/29/18 07:10 Dose: 3 ml Amitriptyline HCl (Elavil) 100 mg PO DAILY [facility] Last Admin: 05/29/18 10:57 Dose: 100 mg Amlodipine Besylate (Norvasc) 5 mg PO DAILY [facility] Last Admin: 05/29/18 10:55 Dose: 5 mg Atovaquone (Mepron) 750 mg PO BID [facility] PRN Reason: Protocol Last Admin: 05/29/18 10:56 Dose: 750 mg Benzocaine/Menthol (Cepacol Sore Throat) 1 lauro MT QID PRN PRN Reason: Sore Throat Last Admin: 05/28/18 11:26 Dose: 1 lauro Doxycycline Hyclate (Doryx) 100 mg PO Q12H [facility] PRN Reason: Protocol Last Admin: 05/29/18 10:57 Dose: 100 mg Hydrochlorothiazide (Hydrodiuril) 25 mg PO DAILY [facility] Last Admin: 05/29/18 10:55 Dose: 25 mg Hydroxychloroquine Sulfate (Plaquenil) 200 mg PO BID [facility] PRN Reason: Protocol Last Admin: 05/29/18 10:57 Dose: 200 mg Vancomycin/Sodium Chloride (Vancomycin 1 Gm/Ns 200 Ml) 1 gm in 200 mls @ 133 mls/hr IVPB Q24H [facility] PRN Reason: Protocol Stop: 05/30/18 23:01 Last Admin: 05/28/18 22:01 Dose: 133 mls/hr Piperacillin Sod/Tazobactam Sod (Zosyn 3.375 Gm Iv Premix) 3.375 gm in 50 mls @ 200 mls/hr IVPB Q8H [facility] PRN Reason: Protocol Last Admin: 05/29/18 08:45 Dose: 200 mls/hr Methylprednisolone (Solu-Medrol) 40 mg IVP DAILY [facility] Last Admin: 05/29/18 10:56 Dose: 40 mg Montelukast Sodium (Singulair) 10 mg PO HS [facility] Last Admin: 05/28/18 22:00 Dose: 10 mg Ondansetron HCl (Zofran Inj) 4 mg IVP Q6 PRN PRN Reason: Nausea/Vomiting Oxybutynin Chloride (Ditropan Xl) 10 mg PO DAILY [facility] Last Admin: 05/29/18 10:57 Dose: 10 mg Pantoprazole Sodium (Protonix Ec Tab) 40 mg PO DAILY [facility] Last Admin: 05/29/18 10:55 Dose: 40 mg Saccharomyces Boulardii (Florastor) 250 mg PO BID [facility] Last Admin: 05/29/18 10:55 Dose: 250 mg Warfarin Sodium (Coumadin) 1 mg PO 1800 [facility] Stop: 05/29/18 18:01 - Labs Labs: 05/29/18 06:45 05/29/18 06:45 PT 28.1 SECONDS (9.7-12.2) H D 05/29/18 06:45 INR 2.6 D 05/29/18 06:45 APTT 38 SECONDS (21-34) H 05/29/18 06:45 - Constitutional Appears: No Acute Distress - Head Exam Head Exam: ATRAUMATIC, NORMOCEPHALIC - Eye Exam Eye Exam: EOMI - ENT Exam ENT Exam: Mucous Membranes Moist - Respiratory Exam Respiratory Exam: Decreased Breath Sounds, Rales, Rhonchi. absent: Respiratory Distress - Cardiovascular Exam Cardiovascular Exam: +S1, +S2 - GI/Abdominal Exam GI & Abdominal Exam: Soft. absent: Tenderness Additional comments: abdominal wound dressed - Neurological Exam Neurological Exam: Alert, Awake - Skin Skin Exam: Warm Additional comments: venous stasis color changes to bilateral lower extremities Assessment and Plan - Assessment and Plan (Free Text) Assessment: 1.Severe Multifocal pneumonia/hypoxia/Shortness of breath Improving Continue vancomycin, zosyn, doxycycline 100mg PO q12h Tamiflu complete,continue solu medrol,duoneb CT chest showed No pulmonary embolism, extensive non-specific ground-glass appearance which could represent multi-focal pneumonia Pulm consult, Dr. Ramirez, help appreciated. 2. Dilated Esophagus CT chest: distension of esophagus gastric band procedure 2009 Discussed about out patient GI/surgery follow up and small meals and early dinner 3. History of Lupus diagnosed 2011 On Plaquenil 200mg po bid 4. 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 Colonic perforation 04/2018 s/p (05/03/18) exploratoy laparotomy R hemicolectomy with anastomosis seen by surgery continue antibiotics 6. History of Sleep apnea on CPAP at home 7. History of HTN continue Amlodipine 5mg and Hydrochlorthiazide 25mg po daily 8.History of Asthma Symbicort, Singulair, Advair , Duonebs q6prn 9. History of fibromyalgia - Lyrica 75mg bid 10. Overactive bladder continue oxybutynin XL 10mg PO daily 11. Prophylaxis Coumadin GI prophylaxis is on protonix 40mg PO daily <Nellie Steward V - Last Filed: 05/29/18 21:37> Objective - Vital Signs/Intake and Output Vital Signs (last 24 hours): Temp Pulse Resp BP Pulse Ox 97.9 F 98 H 20 143/84 97 05/29/18 15:00 05/29/18 15:00 05/29/18 15:00 05/29/18 15:00 05/29/18 15:00 Intake and Output: 05/29/18 05/29/18 06:59 18:59 Intake Total 550 790 Balance 550 790 - Medications Medications: Current Medications Acetaminophen (Tylenol 325mg Tab) 650 mg PO Q6 PRN PRN Reason: Fever >100.4 F Last Admin: 05/28/18 11:37 Dose: 650 mg Albuterol/Ipratropium (Duoneb 3 Mg/0.5 Mg (3 Ml) Ud) 3 ml INH RQ4 [facility] Last Admin: 05/29/18 15:50 Dose: 3 ml Amitriptyline HCl (Elavil) 100 mg PO DAILY [facility] Last Admin: 05/29/18 10:57 Dose: 100 mg Amlodipine Besylate (Norvasc) 5 mg PO DAILY [facility] Last Admin: 05/29/18 10:55 Dose: 5 mg Atovaquone (Mepron) 750 mg PO BID [facility] PRN Reason: Protocol Last Admin: 05/29/18 17:23 Dose: 750 mg Benzocaine/Menthol (Cepacol Sore Throat) 1 lauro MT QID PRN PRN Reason: Sore Throat Last Admin: 05/28/18 11:26 Dose: 1 lauro Doxycycline Hyclate (Doryx) 100 mg PO Q12H [facility] PRN Reason: Protocol Last Admin: 05/29/18 10:57 Dose: 100 mg Guaifenesin (Mucinex La) 600 mg PO BID [facility] Last Admin: 05/29/18 17:26 Dose: 600 mg Hydrochlorothiazide (Hydrodiuril) 25 mg PO DAILY [facility] Last Admin: 05/29/18 10:55 Dose: 25 mg Hydroxychloroquine Sulfate (Plaquenil) 200 mg PO BID [facility] PRN Reason: Protocol Last Admin: 05/29/18 17:23 Dose: 200 mg Vancomycin/Sodium Chloride (Vancomycin 1 Gm/Ns 200 Ml) 1 gm in 200 mls @ 133 mls/hr IVPB Q24H [facility] PRN Reason: Protocol Stop: 05/30/18 23:01 Last Admin: 05/28/18 22:01 Dose: 133 mls/hr Piperacillin Sod/Tazobactam Sod (Zosyn 3.375 Gm Iv Premix) 3.375 gm in 50 mls @ 200 mls/hr IVPB Q8H [facility] PRN Reason: Protocol Last Admin: 05/29/18 16:29 Dose: 200 mls/hr Montelukast Sodium (Singulair) 10 mg PO HS [facility] Last Admin: 05/28/18 22:00 Dose: 10 mg Ondansetron HCl (Zofran Inj) 4 mg IVP Q6 PRN PRN Reason: Nausea/Vomiting Oxybutynin Chloride (Ditropan Xl) 10 mg PO DAILY [facility] Last Admin: 05/29/18 10:57 Dose: 10 mg Pantoprazole Sodium (Protonix Ec Tab) 40 mg PO DAILY [facility] Last Admin: 05/29/18 10:55 Dose: 40 mg Saccharomyces Boulardii (Florastor) 250 mg PO BID [facility] Last Admin: 05/29/18 17:22 Dose: 250 mg Warfarin Sodium (Coumadin) 1 mg PO 1800 [facility] Stop: 05/29/18 18:01 Last Admin: 05/29/18 17:22 Dose: 1 mg - Labs Labs: 05/29/18 06:45 05/29/18 06:45 PT 28.1 SECONDS (9.7-12.2) H D 05/29/18 06:45 INR 2.6 D 05/29/18 06:45 APTT 38 SECONDS (21-34) H 05/29/18 06:45 Attending/Attestation - Attestation I have personally seen and examined this patient.: Yes I have fully participated in the care of the patient.: Yes I have reviewed all pertinent clinical information, including history, physical exam and plan: Yes Notes (Text): Patient seen, examined, and case discussed with emergency medical technician basic. This is my first-time seen the patient. Patient admitted for multifocal pneumonia on immunosuppression therapy for lupus currently receiving IV antibiotic and pulsatile IV steroid. Patient reports she is feeling better that she is coughing up more phlegm and clinically improving since 2 days ago. Patient denies of any other acute complaints. Patient reports that dressing changed earlier today by surgery resident for prior history of colonic perf. Patient's INR is therapeutic with a known history of both DVT and PE will continue Coumadin overnight. Discussed case with patient's PMD who is aware for possible discharge planning for tomorrow. Patient already has appointment set up with PMD for Wednesday. 1.Severe Multifocal pneumonia/hypoxia/Shortness of breath Healthcare Associated Pneumonia Assessment/Plan * Dr. Ramirez (pulm) on board-->help appreciated * c/w IV steroids/IV Abx/consider lung biopsy * 05/26/18 Chest xray: worsening confluent airspace disease in the lungs, worse in the left upper lobe, most consistent with multifocal pneumonia * 05/26/18 CT Chest: no evidence of acute central pulmonary embolism, entensive nonspecific ground glass changes may represent pneumonitis vs atelectasis versus atypical pneumonia, airspace disease and air bronchograms are seen in lingula, distension of the esophagitis. recent gastric banding procedure. * 05/28/18 Chest xray: interval improvement previously noted bilateral infiltrates of right more significantly improve the left as there are persistent residual patchy infiltrate changes in the left mid to lower lung zone * Vancomycin 1 gram IV Q24 (active since 05/25/18) * Zosyn 3.375 g IVPB Q8H (active since 05/26/18) * Florastor 250mg PO BID * Doxcycyline 100mg PO BID (active since 05/25/18) * Solumedrol 40mg IV qdaily (active since 05/26/18 to finish tomorrow 05/30/18) * Duoneb Q4H scheduled * Cepacol 1 lauro MT QID PRN sore throat 2. Dilated Esophagus Assessment/Plan * 05/26/18 CT Chest: no evidence of acute central pulmonary embolism, entensive nonspecific ground glass changes may represent pneumonitis vs atelectasis versus atypical pneumonia, airspace disease and air bronchograms are seen in lingula, distension of the esophagitis. recent gastric banding procedure. Discussed about out patient GI/surgery follow up and small meals and early dinner 3. History of Lupus Assessment/Plan * Diagnosed in 2011 * On Plaquenil 200mg po bid * Mepron 750mg PO BID as PCP prophylaxis given patient is on immunosuppressant therapy for lupus 4. History of DVT/PE 2011 Assessment/Plan * IVC filter placed 2011 * INR 2.6 * Coumadin dosed for 1mg tonight, currently therapeutic * Monitor INR in the AM 5. Colonic perforation 04/2018 Assessment/Plan * General surgery (Dr. Brown) on case-->help appreciated * s/p (05/03/18) exploratory laparotomy R hemicolectomy with anastomosis * Dressing changes per surgery--Completed this AM 6. History of Sleep apnea Assessment/Plan * on CPAP at home 7. History of HTN Assessment/Plan * continue Amlodipine 5mg PO daily and Hydrochlorthiazide 25mg po daily * Controlled 8.History of Asthma Assessment/Plan * 05/26/18 Chest xray: worsening confluent airspace disease in the lungs, worse in the left upper lobe, most consistent with multifocal pneumonia * 05/26/18 CT Chest: no evidence of acute central pulmonary embolism, entensive nonspecific ground glass changes may represent pneumonitis vs atelectasis versus atypical pneumonia, airspace disease and air bronchograms are seen in lingula, distension of the esophagitis. recent gastric banding procedure. * 05/28/18 Chest xray: interval improvement previously noted bilateral infiltrates of right more significantly improve the left as there are persistent residual patchy infiltrate changes in the left mid to lower lung zone * Singulair 10mg POqHS * Duonebs Q4H scheduled * Advair 250/50 1 puff QBID * Symbicort not available on hospital formular 9. History of fibromyalgia Assessment/Plan * Lyrica 75mg bid 10. Overactive bladder Assessment/Plan * continue oxybutynin XL 10mg PO daily 11. Prophylaxis * Therapuetic with known hx of DVT/PE s/p IVC filter-->Coumadin 1mg PO tonight * GI prophylaxis is on protonix 40mg PO daily while on pulsatile steroids Disposition: c/w IV abx and IV steroids; patient is coughing up sputum, discussed with Dr. luna who will resume care. possible discharge planning tomorrow.
[2018-05-29] MEDS: guaiFENesin 600 mg ER Tab PO SCH (17:26)
--- NOTE | 2018-05-29 17:42 | CP.PCM.PCO ---
Physician Communication Note - Physician Communication Note Physician Communication Note: Dr. Quiñones to resume care tomorrow, 05/30/18.
[2018-05-29] MEDS: Vancomycin 1 gm/NS 200 ml 1 GM/200 ML BAG IVPB SCH (23:00)
[2018-05-30] MEDS: Piperacill/Tazo 3.375gm in Dex 3.375 GM/50 ML BAG IVPB SCH ×2 (00:16→08:44)
[2018-05-30] MEDS: Albuterol-Ipratrop 3 mg / 0.5 (3 ml) UD INH SCH ×4 (03:35→12:47)
[2018-05-30 07:32] LABS: INR 2.2; PROTHROMBIN TIME 24.4 SECONDS (9.7-12.2)
[2018-05-30 07:35] LABS: BASO % 0.1 % (0.0-2.0); EOS # 0.1 K/uL (0.0-0.7); EOS % 0.7 % (0.0-4.0); HEMOGLOBIN 9.8 g/dL (11.0-16.0); LYMPH # 0.8 K/uL (1.0-4.3); LYMPH % 6.5 % (20.0-40.0); MEAN CELL VOLUME 78.8 fL (81.0-99.0); MEAN CORPUSCULAR HEMOGLOBIN 26.7 pg (27.0-31.0); MEAN CORPUSCULAR HGB CONC 33.8 g/dL (33.0-37.0); MEAN PLATELET VOLUME 6.7 fL (7.2-11.7); MONO # 0.8 K/uL (0.0-0.8); MONO % 6.5 % (0.0-10.0); NEUT # 10.7 K/uL (1.8-7.0); NEUT % 86.2 % (50.0-75.0); PLATELET COUNT 361 K/uL (130-400); RBC 3.67 Mil/uL (3.80-5.20); RED CELL DISTRIBUTION WIDTH 16.2 % (11.5-14.5); WHITE BLOOD COUNT 12.4 K/uL (4.8-10.8)
[2018-05-30 07:41] LABS: ALB/GLOB RATIO 1.2 (1.0-2.1); ALBUMIN 3.3 g/dL (3.5-5.0); ALT/SGPT 25 U/L (9-52); AST/SGOT 16 U/L (14-36); BLOOD UREA NITROGEN 12 mg/dL (7-17); CALCIUM 8.9 mg/dl (8.6-10.4); GFR AFRICAN-AMERICAN > 60; GFR NON-AFRICAN AMERICAN > 60
[2018-05-30] MEDS ORDERED: Fluticasone-Salmeterol 250-50mcg Diskus INH SCH (08:00)
[2018-05-30 08:17] VITALS: BP 125/80; PULSE 91; TEMP 98.8; O2SAT 96
--- NOTE | 2018-05-30 08:51 | CP.PCM.PN ---
Subjective - Date & Time of Evaluation Date of Evaluation: 05/29/18 Time of Evaluation: 15:00 - Subjective Subjective: Patient earlier seen by hospitalist team. Patient is feeling much better. Less cough noted. Less shortness of breath. Patient is walking. Room air oxygen saturation is better On examination: Vital signs stable. Chest bilateral good air entry. Regular heart sound. Abdominal tenderness negative. Postoperative abdominal wound minimal drainage noted. Assessment and recommendation: 52-year-old female with multiple medical history, lupus, lupus lung disease, pneumonia. On antibiotic, and steroid. Responding now. We'll continue the treatment for now, for possible discharge tomorrow Objective - Vital Signs/Intake and Output Vital Signs (last 24 hours): Temp Pulse Resp BP Pulse Ox 98.8 F 91 H 20 125/80 96 05/30/18 07:16 05/30/18 07:16 05/30/18 07:16 05/30/18 07:16 05/30/18 07:16 Intake and Output: 05/30/18 05/30/18 06:59 18:59 Intake Total 690 Balance 690 - Medications Medications: Current Medications Acetaminophen (Tylenol 325mg Tab) 650 mg PO Q6 PRN PRN Reason: Fever >100.4 F Last Admin: 05/29/18 20:51 Dose: 650 mg Albuterol/Ipratropium (Duoneb 3 Mg/0.5 Mg (3 Ml) Ud) 3 ml INH RQ4 [facility] Last Admin: 05/30/18 07:14 Dose: 3 ml Amitriptyline HCl (Elavil) 100 mg PO DAILY [facility] Last Admin: 05/29/18 10:57 Dose: 100 mg Amlodipine Besylate (Norvasc) 5 mg PO DAILY [facility] Last Admin: 05/29/18 10:55 Dose: 5 mg Atovaquone (Mepron) 750 mg PO BID [facility] PRN Reason: Protocol Last Admin: 05/29/18 17:23 Dose: 750 mg Benzocaine/Menthol (Cepacol Sore Throat) 1 lauro MT QID PRN PRN Reason: Sore Throat Last Admin: 05/28/18 11:26 Dose: 1 lauro Doxycycline Hyclate (Doryx) 100 mg PO Q12H [facility] PRN Reason: Protocol Last Admin: 05/29/18 22:03 Dose: 100 mg Guaifenesin (Mucinex La) 600 mg PO BID [facility] Last Admin: 05/29/18 17:26 Dose: 600 mg Hydrochlorothiazide (Hydrodiuril) 25 mg PO DAILY [facility] Last Admin: 05/29/18 10:55 Dose: 25 mg Hydroxychloroquine Sulfate (Plaquenil) 200 mg PO BID [facility] PRN Reason: Protocol Last Admin: 05/29/18 17:23 Dose: 200 mg Vancomycin/Sodium Chloride (Vancomycin 1 Gm/Ns 200 Ml) 1 gm in 200 mls @ 133 mls/hr IVPB Q24H [facility] PRN Reason: Protocol Stop: 05/30/18 23:01 Last Admin: 05/29/18 23:00 Dose: 133 mls/hr Piperacillin Sod/Tazobactam Sod (Zosyn 3.375 Gm Iv Premix) 3.375 gm in 50 mls @ 200 mls/hr IVPB Q8H [facility] PRN Reason: Protocol Last Admin: 05/30/18 08:44 Dose: 200 mls/hr Methylprednisolone (Solu-Medrol) 40 mg IVP DAILY [facility] Stop: 05/30/18 10:01 Montelukast Sodium (Singulair) 10 mg PO HS [facility] Last Admin: 05/29/18 22:03 Dose: 10 mg Ondansetron HCl (Zofran Inj) 4 mg IVP Q6 PRN PRN Reason: Nausea/Vomiting Oxybutynin Chloride (Ditropan Xl) 10 mg PO DAILY [facility] Last Admin: 05/29/18 10:57 Dose: 10 mg Pantoprazole Sodium (Protonix Ec Tab) 40 mg PO DAILY [facility] Last Admin: 05/29/18 10:55 Dose: 40 mg Saccharomyces Boulardii (Florastor) 250 mg PO BID [facility] Last Admin: 05/29/18 17:22 Dose: 250 mg Fluticasone/Salmeterol (Advair Diskus 250/50) 1 puff INH RQ12 [facility] Last Admin: 05/30/18 07:14 Dose: 1 puff - Labs Labs: 05/30/18 07:16 05/30/18 07:16 PT 24.4 SECONDS (9.7-12.2) H 05/30/18 07:16 INR 2.2 05/30/18 07:16 APTT 37 SECONDS (21-34) H 05/30/18 07:16
--- NOTE | 2018-05-30 08:52 | CP.PCM.DIS ---
Provider - Provider Date of Admission: 05/25/18 21:53 Attending physician: Myles Quiñones MD Time Spent in preparation of Discharge (in minutes): 45 Hospital Course - Lab Results Lab Results: Micro Results 05/25/18 19:45 Blood Blood Culture - Preliminary NO GROWTH AFTER 4 DAYS 05/25/18 19:30 Blood Blood Culture - Preliminary NO GROWTH AFTER 4 DAYS 05/27/18 08:01 Skin - Abdominal Gram Stain - Final 05/27/18 08:01 Skin - Abdominal Wound Culture - Preliminary No growth. 05/28/18 06:37 Naris MRSA Culture - Final MRSA NOT DETECTED 05/26/18 10:28 Throat Group A Strep Throat Culture - Final NO BETA STREP GROUP A ISOLATED. 05/26/18 06:19 Naris MRSA Culture (Admit) - Final MRSA NOT DETECTED Most Recent Lab Values WBC 12.4 K/uL (4.8-10.8) H 05/30/18 07:16 RBC 3.67 Mil/uL (3.80-5.20) L 05/30/18 07:16 Hgb 9.8 g/dL (11.0-16.0) L 05/30/18 07:16 Hct 28.9 % (34.0-47.0) L 05/30/18 07:16 MCV 78.8 fL (81.0-99.0) L 05/30/18 07:16 MCH 26.7 pg (27.0-31.0) L 05/30/18 07:16 MCHC 33.8 g/dL (33.0-37.0) 05/30/18 07:16 RDW 16.2 % (11.5-14.5) H 05/30/18 07:16 Plt Count 361 K/uL (130-400) 05/30/18 07:16 MPV 6.7 fL (7.2-11.7) L 05/30/18 07:16 Neut % (Auto) 86.2 % (50.0-75.0) H 05/30/18 07:16 Lymph % (Auto) 6.5 % (20.0-40.0) L 05/30/18 07:16 Gregory % (Auto) 6.5 % (0.0-10.0) 05/30/18 07:16 Eos % (Auto) 0.7 % (0.0-4.0) 05/30/18 07:16 Baso % (Auto) 0.1 % (0.0-2.0) 05/30/18 07:16 Neut # (Auto) 10.7 K/uL (1.8-7.0) H 05/30/18 07:16 Lymph # (Auto) 0.8 K/uL (1.0-4.3) L 05/30/18 07:16 Gregory # (Auto) 0.8 K/uL (0.0-0.8) 05/30/18 07:16 Eos # (Auto) 0.1 K/uL (0.0-0.7) 05/30/18 07:16 Baso # (Auto) 0.0 K/uL (0.0-0.2) 05/30/18 07:16 Neutrophils % (Manual) 81 % (50-75) H 05/29/18 06:45 Band Neutrophils % 3 % (0-2) H 05/29/18 06:45 Lymphocytes % (Manual) 6 % (20-40) L 05/29/18 06:45 Monocytes % (Manual) 8 % (0-10) 05/29/18 06:45 Eosinophils % (Manual) 1 % (0-4) 05/29/18 06:45 Metamyelocytes % 1 % (0-0) H 05/29/18 06:45 Toxic Granulation Present 05/29/18 06:45 Platelet Estimate Normal (NORMAL) 05/29/18 06:45 Large Platelets Present 05/29/18 06:45 Polychromasia Slight 05/29/18 06:45 Hypochromasia (manual) Slight 05/29/18 06:45 Poikilocytosis (manual Slight 05/25/18 19:39 Basophilic Stippling Slight 05/28/18 07:46 Anisocytosis (manual) Slight 05/29/18 06:45 Microcytosis (manual) Slight 05/29/18 06:45 PT 24.4 SECONDS (9.7-12.2) H 05/30/18 07:16 INR 2.2 05/30/18 07:16 APTT 37 SECONDS (21-34) H 05/30/18 07:16 Puncture Site R brac 05/26/18 05:23 pCO2 45 mm/Hg (35-45) 05/26/18 05:23 pO2 97 mm/Hg (80-100) 05/26/18 05:23 HCO3 28.2 mmol/L (21-28) H 05/26/18 05:23 ABG pH 7.42 (7.35-7.45) 05/26/18 05:23 ABG Total CO2 30.6 mmol/L (22-28) H 05/26/18 05:23 ABG O2 Saturation 98.8 % (95-98) H 05/26/18 05:23 ABG Base Excess 4.2 mmol/L (-2.0-3.0) H 05/26/18 05:23 ABG Hemoglobin 9.9 g/dL (11.7-17.4) L 05/26/18 05:23 ABG Carboxyhemoglobin 1.9 % (0.5-1.5) H 05/26/18 05:23 POC ABG HHb (Measured) 1.2 % (0.0-5.0) 05/26/18 05:23 ABG Methemoglobin 1.0 % (0.0-3.0) 05/26/18 05:23 Marcell Test Na 05/26/18 05:23 A-a O2 Difference 159.0 mm/Hg 05/25/18 21:40 Respiratory Index 3.1 05/25/18 21:40 Hgb O2 Saturation 95.9 % (95.0-98.0) 05/26/18 05:23 Liter Flow 4.0 05/26/18 05:23 FiO2 36.0 % 05/25/18 21:40 Sodium 140 mmol/L (132-148) 05/30/18 07:16 Potassium 3.7 mmol/L (3.6-5.2) 05/30/18 07:16 Chloride 101 mmol/L (98-107) 05/30/18 07:16 Carbon Dioxide 31 mmol/L (22-30) H 05/30/18 07:16 Anion Gap 12 (10-20) 05/30/18 07:16 BUN 12 mg/dL (7-17) 05/30/18 07:16 Creatinine 0.8 mg/dL (0.7-1.2) 05/30/18 07:16 Est GFR ( Amer) > 60 05/30/18 07:16 Est GFR (Non-Af Amer) > 60 05/30/18 07:16 POC Glucose (mg/dL) 84 mg/dL (65-110) 05/30/18 07:03 Random Glucose 93 mg/dL (65-105) 05/30/18 07:16 Lactic Acid 0.6 mmol/L (0.7-2.1) L 05/25/18 22:09 Calcium 8.9 mg/dl (8.6-10.4) 05/30/18 07:16 Phosphorus 4.7 mg/dL (2.5-4.5) H 05/30/18 07:16 Magnesium 1.8 mg/dL (1.6-2.3) 05/30/18 07:16 Total Bilirubin 0.4 mg/dL (0.2-1.3) 05/30/18 07:16 AST 16 U/L (14-36) 05/30/18 07:16 ALT 25 U/L (9-52) 05/30/18 07:16 Alkaline Phosphatase 58 U/L (38-126) 05/30/18 07:16 Lactate Dehydrogenase 717 U/L (313-618) H 05/26/18 10:28 Total Protein 6.1 g/dL (6.3-8.3) L 05/30/18 07:16 Albumin 3.3 g/dL (3.5-5.0) L 05/30/18 07:16 Globulin 2.8 gm/dL (2.2-3.9) 05/30/18 07:16 Albumin/Globulin Ratio 1.2 (1.0-2.1) 05/30/18 07:16 Urine Color Yellow (YELLOW) 05/25/18 20:18 Urine Clarity Clear (Clear) 05/25/18 20:18 Urine pH 6.0 (5.0-8.0) 05/25/18 20:18 Ur Specific [place] 1.011 (1.003-1.030) 05/25/18 20:18 Urine Protein Negative mg/dL (NEGATIVE) 05/25/18 20:18 Urine Glucose (UA) Normal mg/dL (Normal) 05/25/18 20:18 Urine Ketones Negative mg/dL (NEGATIVE) 05/25/18 20:18 Urine Blood Negative (NEGATIVE) 05/25/18 20:18 Urine Nitrate Negative (NEGATIVE) 05/25/18 20:18 Urine Bilirubin Negative (NEGATIVE) 05/25/18 20:18 Urine Urobilinogen Normal mg/dL (0.2-1.0) 05/25/18 20:18 Ur Leukocyte Esterase 1+ [place]/uL (Negative) H 05/25/18 20:18 Urine WBC (Auto) 1 /hpf (0-5) 05/25/18 20:18 Urine RBC (Auto) 2 /hpf (0-3) 05/25/18 20:18 Ur Squamous Epith Cells 1 /hpf (0-5) 05/25/18 20:18 H.influenzae Type B Ag Negative (NEGATIVE) 05/26/18 10:28 Ur L.pneumophila Ag Negative (NEGATIVE) 05/26/18 10:28 M.pneumoniae IgG Titer 2.05 (<=0.90) H 05/26/18 10:28 Mycoplasma pneumon IgM Negative (NEGATIVE) 05/26/18 06:19 N.meningitidis ACY/W135 Negative (NEGATIVE) 05/26/18 10:28 N.meningi B/E.coli K1 Ag Negative (NEGATIVE) 05/26/18 10:28 Group B Strep Antigen Negative (NEGATIVE) 05/26/18 10:28 S. pneumoniae Antigen Negative (NEGATIVE) 05/26/18 10:28 - Hospital Course Hospital Course: CC: "shortness of breath" HPI: 52 year old female with past medical history as noted before presents to the ER for shortness of breath. She states she was making lunch this afternoon when she felt a bit lightheaded so she decided to lay down and rest. She states she fell asleep and when she woke up she felt like she couldn't breathe. She states her lips were blue and she took her pulse ox which showed it was 50 % on RA. She states at that time her brought her to the ER. When arriving to the ER her pulse ox was 77%RA and patient had a temperature of 101.6. Patient denies chest pain, nausea, vomiting, abdominal pain, fever, chills, diarrhea or constipation. Patient also states she has not been able to use her CPAP machine at home recently because her dog chewed the mask. Past Medical History: Lupus disease (diagnosed in 2011); DVT (2011), PE (2011), status post IVC filter (2011); Hypercoagulable state; Sleep apnea, fibromyalgia ; Obesity, bronchial asthma, recurrent pneumonia; Colonic perforation 04/2018 Surgical history: (04/2018) exploratoy laparotomy R hemicolectomy with anastomosis, omentectomy. Cholecystectomy, appendectomy. Gastric-BAND placed in [place] 2009. x2. Umbilical hernia repair. Colonoscopy Medications: Warfarin 5mg daily; Amlodipine 5mg daily; Levocetirizine Dihydrochloride 5mg daily; Amitriptyline 100mg daily; Nasnonex; Proair HFa; Symbicort; Protonix 40mg bid; Hydrochlorthiazide 25mg po daily; Lyrica 75mg bid ; Sinngulair 10mg daily; Plaquenil 200mg po bid; Oxybutyin Chloride 10mg po daily; Levofloxacin 750mg daily; completed 5 day course of steroids on May 13 Allergies: NKDA Social History: denies smoking; illicit drug use; and alcohol. Lives with and 2 kids. 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 Upon admission: Patient was in severe respiratory distress. Hypoxia noted Patient had a CT scan of the chest, showing evidence of diffuse pneumonia. No pulmonary embolism. Course in the hospital. Patient started on intravenous antibiotic and Solu-Medrol. Bronchodilators. Patient started feeling much better. Patient continued to receive Zosyn, Solu-Medrol. Significant improvement noted. Today patient is feeling better. Vital signs stable. Room air oxygen saturation is 97% Chest bilateral good air entry. Regular heart sound noted. Final diagnoses: Non-resolving pneumonia, possible bronchial, bronchopneumonia, organizing, underlying connective tissue disease including lupus and lupus lung disease cannot be ruled out. The patient will continue to receive prednisone, and also will continue antibiotic. She will need a bronchoscopic biopsy as an outpatient. I will arrange with her this weekend. And also need to discuss with the the operations asst about more aggressive immunosuppressive treatment for possible lupus lung disease. Patient will be discharged home today and I will follow the patient Discharge Exam - Head Exam Head Exam: ATRAUMATIC, NORMOCEPHALIC Discharge Plan - Follow Up Plan Condition: STABLE Disposition: HOME/ ROUTINE
[2018-05-30] MEDS ORDERED: MethylPREDNISolone 40 mg Vial IVP SCH ×2 (10:00→11:30)
[2018-05-30 10:09] LABS: ANISOCYTOSIS SLIGHT; BANDS 1 % (0-2); EOSINOPHIL 2 % (0-4); HYPOCHROMIC SLIGHT; LYMPHOCYTE 7 % (20-40); MONOCYTE 6 % (0-10); MYELOCYTE 2 % (0-0); NEUTROPHIL 82 % (50-75); OVALOCYTES SLIGHT; PLATELET ESTIMATE NORMAL (NORMAL); TOTAL CELLS COUNTED 100
[2018-05-30] MEDS: Saccharomyces Boulardi 250 mg Cap PO SCH (10:30)
[2018-05-30] MEDS: Oxybutynin XL 10 mg Tab PO SCH (10:30)
[2018-05-30] MEDS: Pantoprazole 40 mg EC Tab PO SCH (10:30)
[2018-05-30] MEDS: Atovaquone 750 mg/5 ml Susp UD PO SCH (10:30)
[2018-05-30] MEDS: guaiFENesin 600 mg ER Tab PO SCH (10:35)
[2018-05-30 18:31] LABS: SPECIMEN URINE
--- NOTE | 2018-05-30 23:45 | CARD ---
APPROVED REPORT EKG Measurement Heart [id number] [place] [id number] <Conclusion> Sinus tachycardia Otherwise normal ECG
[2018-05-31 04:37] LABS: TB ANTIGEN MINUS NIL 0.01 IU/mL
== END 2018-05-30 13:30 | disposition home or self-care (01) | DRG 871 ==
LOC: C.ER 19:01 → C.9E 21:53 → C.6T 22:47 → C.9E 22:57 → C.9I 23:03 → C.3T 05-28 00:30 → C.9I 05-28 00:33 → C.3T 05-28 01:10
PROVIDERS: ADMIT Internal Medicine; ATTEND Internal Medicine
DX: A41.9 Sepsis, unspecified organism (principal); J18.9 Pneumonia, unspecified organism; T81.4XXA Infection following a procedure, initial encounter; J45.909 Unspecified asthma, uncomplicated; I10 Essential (primary) hypertension; G47.33 Obstructive sleep apnea (adult) (pediatric); E78.5 Hyperlipidemia, unspecified; K22.8 Other specified diseases of esophagus; K63.89 Other specified diseases of intestine; M32.9 Systemic lupus erythematosus, unspecified; M79.7 Fibromyalgia; R09.02 Hypoxemia; N32.81 Overactive bladder; Z79.01 Long term (current) use of anticoagulants; Z79.52 Long term (current) use of systemic steroids; Z86.711 Personal history of pulmonary embolism; Z98.84 Bariatric surgery status; E66.9 Obesity, unspecified; Z68.38 Body mass index [BMI] 38.0-38.9, adult

== ENCOUNTER 2018-07-19 19:20 | Emergency (ER) | payer MEDICARE, MEDICAID ==
[2018-07-19 19:20] VITALS: BMI 35.4
--- NOTE | 2018-07-19 19:58 | C.PDOC ---
History Of Present Illness 52-year-old female with multiple medical history including lupus, HTN, HLD, DVT , IVC filter and on Coumadin daily presents to ED with complaints of pain, swelling, and rash to both her legs. She reports her legs are usually swollen but lately has become more red and noticed her legs started weeping today. Patient was recently hospitalized last month for pneumonia and had finished course of antibiotics and steroids. She otherwise denies any fever, chills, chest pain or shortness of breath. Time Seen by Provider: 07/19/18 19:38 Chief Complaint (Nursing): Abnormal Skin Integrity History Per: Patient History/Exam Limitations: no limitations Onset/Duration Of Symptoms: Days Current Symptoms Are (Timing): Still Present Additional History Per: Patient Past Medical History Reviewed: Historical Data, Nursing Documentation, Vital Signs Vital Signs: Last Vital Signs Temp 997.9 F H 07/19/18 23:20 Pulse 92 H 07/19/18 23:20 Resp 18 07/19/18 23:20 BP 150/81 07/19/18 23:20 Pulse Ox 96 07/20/18 01:30 - Medical History PMH: Arthritis, Asthma, Back Problems, Bronchitis, Colonic Polyps, Depression ( post depression), Deep Vein Thrombosis (2011), Fibromyalgia, HTN, Migraine, Peripheral Edema, Pneumonia ("multiple times"), Pulmonary Embolism ( 2011), Sleep Apnea Denies: Chronic Kidney Disease Surgical History: Appendectomy, Endoscopy - [facility] Procedures (04/30/18) ARTIF RUPT MEMBRANES NEC (05/12/99) DIATHER/CRYO TURBINECTOM (11/10/13) ESOPHAGOGASTRODUODENOSCOPY [EGD] W/CLOSED BIOPSY (03/28/14) ETHMOIDECTOMY (11/10/13) FASCIOTOMY (01/19/14) INSERTION OF INFUSION DEV INTO SUP VENA CAVA, PERC APPROACH (04/30/18) INTRANASAL ANTROTOMY (11/10/13) LAPAROSCOP APPENDECTOMY (03/16/05) LOW CERVICAL (05/12/99) RELEASE PERITONEUM, OPEN APPROACH (04/30/18) REMOVAL OF SYNTHETIC SUBSTITUTE FROM ABD WALL, OPEN APPROACH (04/30/18) RESECTION OF LEFT LARGE INTESTINE, OPEN APPROACH (04/30/18) TRANSFUSE NONAUT FROZEN PLASMA IN PERIPH VEIN, PERC (04/30/18) ULTRASONOGRAPHY OF SUPERIOR VENA CAVA, GUIDANCE (04/30/18) UMBIL HERNIA REPAIR-GRFT (03/16/05) Family History: States: No Known Family Hx - Social History Hx Tobacco Use: No Hx Alcohol Use: No Hx Substance Use: No - Immunization History Hx Tetanus Toxoid Vaccination: No Hx Influenza Vaccination: Yes Hx Pneumococcal Vaccination: Yes (2017) Review Of Systems Except As Marked, All Systems Reviewed And Found Negative. Constitutional: Negative for: Fever, Chills Cardiovascular: Negative for: Chest Pain Respiratory: Negative for: Shortness of Breath Musculoskeletal: Positive for: Leg Pain (pain and swelling bilaterally) Skin: Positive for: Rash (bilateral lower extremities) Physical Exam - Physical Exam Appears: Non-toxic Skin: Warm, Other (hyperpigmentation and chronic vascular changes to bilateral legs) Head: Atraumatic, Normacephalic Eye(s): bilateral: Normal Inspection Neck: Supple Chest: Symmetrical Cardiovascular: Rhythm Regular Respiratory: Normal Breath Sounds Extremity: Pedal Edema (pitting edema to bilateral legs), Other (left lower extremity with bright erythema and superficial weeping wounds) Neurological/Psych: Oriented x3 ED Course And Treatment - Laboratory Results Result Diagrams: 07/19/18 20:15 07/19/18 20:54 O2 Sat by Pulse Oximetry: 96 (RA) Pulse Ox Interpretation: Normal Medical Decision Making Medical Decision Making: Impression: Lower extremity edema, vascular changes Plan: Case discussed with DR Rene who also examined patient and states the changes are from chronic venous stasis, and nothing further to do in ER. [address] Quiñones, he will come evaluated in ED. He recommends dose of IV potassiumx2 in addition to oral dose. Also wants Rocephin and lasix. On re-examination, patient is resting comfortably in no acute distress. Patient reports improvement of symptoms. Patient feels comfortable going home and will be discharged. Patient instructed to follow up with PMD in 2-5 days and to return to ER if symptoms worsen or new symptoms arise. Disposition Counseled Patient/Family Regarding: Studies Performed, Diagnosis, Need For Followup, Rx Given - Disposition Referrals: Myles Quiñones MD [Staff Provider] - Disposition: HOME/ ROUTINE Disposition Time: 01:00 Condition: STABLE Additional Instructions: Follow up with your primary medical doctor in 2-5 days for further evaluation. Take medications as prescribed. Return to the emergency department at any time if symptoms persist or worsen. Prescriptions: Cephalexin [cephalexin] 500 mg PO Q12 #14 cap Instructions: Hypokalemia (DC), Cellulitis (Skin Infection), Adult (DC) Forms: [facility] ([place]) - POA Present On Arrival: None - Clinical Impression Clinical Impression: Hypokalemia, Venous stasis dermatitis - PA / OVERWEAVER / Resident Statement MD/DO has reviewed & agrees with the documentation as recorded. - Scribe Statement The provider has reviewed the documentation as recorded by the Jaquan Cameron Provider Attestation: All medical record entries made by the Jaquan were at my direction and personally dictated by me. I have reviewed the chart and agree that the record accurately reflects my personal performance of the history, physical exam, medical decision making, and the department course for this patient. I have also personally directed, reviewed, and agree with the discharge instructions and disposition.
[2018-07-19 20:20] LABS: BASO % 0.3 % (0.0-2.0); EOS # 0.3 K/uL (0.0-0.7); EOS % 3.2 % (0.0-4.0); HEMOGLOBIN 11.3 g/dL (11.0-16.0); LYMPH # 0.6 K/uL (1.0-4.3); LYMPH % 5.5 % (20.0-40.0); MEAN CELL VOLUME 79.5 fL (81.0-99.0); MEAN CORPUSCULAR HEMOGLOBIN 26.3 pg (27.0-31.0); MEAN PLATELET VOLUME 6.7 fL (7.2-11.7); MONO # 0.9 K/uL (0.0-0.8); MONO % 8.8 % (0.0-10.0); NEUT # 8.9 K/uL (1.8-7.0); NEUT % 82.2 % (50.0-75.0); PLATELET COUNT 375 K/uL (130-400); RBC 4.32 Mil/uL (3.80-5.20); RED CELL DISTRIBUTION WIDTH 16.5 % (11.5-14.5); WHITE BLOOD COUNT 10.8 K/uL (4.8-10.8)
[2018-07-19 20:34] LABS: INR 2.5; PROTHROMBIN TIME 27.9 SECONDS (9.7-12.2)
[2018-07-19 21:09] LABS: INR 2.7; PROTHROMBIN TIME 29.2 SECONDS (9.7-12.2)
[2018-07-19 21:19] LABS: ANISOCYTOSIS SLIGHT; EOSINOPHIL 2 % (0-4); HYPOCHROMIC SLIGHT; LYMPHOCYTE 4 % (20-40); MONOCYTE 5 % (0-10); NEUTROPHIL 89 % (50-75); OVALOCYTES SLIGHT; PLATELET ESTIMATE NORMAL (NORMAL); POIKILOCYTOSIS SLIGHT; TOTAL CELLS COUNTED 100
[2018-07-19 21:36] LABS: ALB/GLOB RATIO 1.3 (1.0-2.1); ALBUMIN 3.6 g/dL (3.5-5.0); ALT/SGPT 32 U/L (9-52); AST/SGOT 23 U/L (14-36); BLOOD UREA NITROGEN 13 mg/dL (7-17); CALCIUM 8.7 mg/dl (8.6-10.4); GFR NON-AFRICAN AMERICAN > 60
[2018-07-19] MEDS ORDERED: Potassium Chloride 20 mEq ER Tab PO STA (21:41)
[2018-07-19] MEDS ORDERED: Potassium Chloride 20 mEq ER Tab PO ONE (21:50)
[2018-07-19] MEDS ORDERED: cefTRIAXone IV 1 gm in Dextros 50 ML IV ONE (22:12)
[2018-07-19] MEDS ORDERED: cefTRIAXone IV 1 gm in Dextros 50 ML IVPB ONE (22:32)
[2018-07-19 23:20] VITALS: BP 150/81; PULSE 92; RESP 18; TEMP 997.9
[2018-07-20 00:51] VITALS: O2SAT 96
== END 2018-07-20 01:02 | disposition home or self-care (01) ==
LOC: C.ER 19:20
DX: E87.6 Hypokalemia (principal); I87.2 Venous insufficiency (chronic) (peripheral); I10 Essential (primary) hypertension; M79.7 Fibromyalgia
CPT/HCPCS: 36415; 80053; 85025; 85378; 85610; 85730; 96361; 96365; 96375; 99283; J0696; J1940; J3480

== ENCOUNTER 2018-08-09 04:17 | Inpatient (IN) | payer MEDICARE, MEDICAID ==
[2018-08-09 04:17] VITALS: BMI 35.4
[~2018-08-09 04:17] MED LIST: Albuterol-Ipratrop 3 mg / 0.5 (3 ml) UD INH STA
[2018-08-09] MEDS ORDERED: Albuterol-Ipratrop 3 mg / 0.5 (3 ml) UD ONE (04:33)
[2018-08-09] MEDS ORDERED: Magnesium Sulfate 1 gm in D5W 1 GM/100 ML BAG IVPB ONE (04:33)
--- NOTE | 2018-08-09 04:37 | C.PDOC ---
History Of Present Illness 53 year old female with PMHx of lupus, DVT, PE, pneumonia is brought to the ED, upon arrival patient needed my immediate medical attention for hypoxia. Patient was satting at 865 on room air. Patient has been seen in the ED for similar presentation and has been admitted for pneumonia. Patient's last admission was on 05/30/2018, patient was admitted for pneumonia. Patient had a CT of the chest that showed diffuse pneumonia but no pulmonary embolism. Patient was treated with Zosyn and solumedrol with improvement at that time. Patient was D/ C then with a diagnosis of non resolving pneumonia and follow up with Dr. Quiñones and rheumathologist for possible lupus lung disease treatment. Time Seen by Provider: 08/09/18 04:31 Chief Complaint (Nursing): Respiratory Distress History Per: Patient History/Exam Limitations: no limitations Onset/Duration Of Symptoms: Hrs Current Symptoms Are (Timing): Still Present Initiating Event: Upper Respiratory Illness Quality: Tightness Exacerbating Factor(s): Exertion Current Respiratory Medications: See Home Med List Reports Recently: Hospitalized (05/30/2018) Recent travel outside of the [place]: No Additional History Per: Patient Past Medical History Reviewed: Historical Data, Nursing Documentation, Vital Signs Vital Signs: Last Vital Signs Temp 100.7 F H 08/09/18 05:24 Pulse 107 H 08/09/18 05:49 Resp 27 H 08/09/18 05:49 BP 132/66 08/09/18 05:49 Pulse Ox 92 L 08/09/18 06:53 - Medical History PMH: Arthritis, Asthma, Back Problems, Bronchitis, Colonic Polyps, Depression ( post depression), Deep Vein Thrombosis (2011), Fibromyalgia, HTN, Migraine, Peripheral Edema, Pneumonia ("multiple times"), Pulmonary Embolism ( 2011), Sleep Apnea Denies: Chronic Kidney Disease Surgical History: Appendectomy, Endoscopy - [facility] Procedures (04/30/18) ARTIF RUPT MEMBRANES NEC (05/12/99) DIATHER/CRYO TURBINECTOM (11/10/13) ESOPHAGOGASTRODUODENOSCOPY [EGD] W/CLOSED BIOPSY (03/28/14) ETHMOIDECTOMY (11/10/13) FASCIOTOMY (01/19/14) INSERTION OF INFUSION DEV INTO SUP VENA CAVA, PERC APPROACH (04/30/18) INTRANASAL ANTROTOMY (11/10/13) LAPAROSCOP APPENDECTOMY (03/16/05) LOW CERVICAL (05/12/99) RELEASE PERITONEUM, OPEN APPROACH (04/30/18) REMOVAL OF SYNTHETIC SUBSTITUTE FROM ABD WALL, OPEN APPROACH (04/30/18) RESECTION OF LEFT LARGE INTESTINE, OPEN APPROACH (04/30/18) TRANSFUSE NONAUT FROZEN PLASMA IN PERIPH VEIN, PERC (04/30/18) ULTRASONOGRAPHY OF SUPERIOR VENA CAVA, GUIDANCE (04/30/18) UMBIL HERNIA REPAIR-GRFT (03/16/05) Family History: States: Unknown Family Hx - Social History Hx Tobacco Use: No Hx Alcohol Use: No Hx Substance Use: No - Immunization History Hx Tetanus Toxoid Vaccination: No Hx Influenza Vaccination: Yes Hx Pneumococcal Vaccination: Yes (2017) Review Of Systems Constitutional: Negative for: Fever, Chills Cardiovascular: Negative for: Chest Pain, Palpitations Respiratory: Positive for: Shortness of Breath. Negative for: Cough, Sputum Gastrointestinal: Negative for: Nausea, Vomiting, Abdominal Pain Skin: Negative for: Rash Neurological: Negative for: Weakness, Numbness, Headache, Dizziness Physical Exam - Physical Exam Appears: Non-toxic, In Acute Distress Skin: Normal Color, Warm, Dry Head: Atraumatic, Normacephalic Eye(s): bilateral: Normal Inspection Oral Mucosa: Moist Neck: Normal ROM, Supple Chest: Symmetrical Cardiovascular: Rhythm Regular Respiratory: Normal Breath Sounds, No Rales, No Rhonchi, No Wheezing Gastrointestinal/Abdominal: Soft, No Tenderness, No Guarding, No Rebound Extremity: Normal ROM, No Tenderness, Pedal Edema (chronic ) Neurological/Psych: Oriented x3, Normal Speech Gait: Steady ED Course And Treatment - Laboratory Results Result Diagrams: 08/09/18 05:52 08/09/18 05:20 ECG: Interpreted By Me, Viewed By Me ECG Rhythm: Sinus Tachycardia (106) Interpretation Of ECG: CO - 168. QRS - 82. Qt/QTc 332/441. P R t 33 60 8 Rate From EC (BPM) O2 Sat by Pulse Oximetry: 92 - Radiology CXR: Interpreted by Me, Viewed By Me CXR Interpretation: Yes: Other (right sided pneumonia ) Critical Care Time - Critical Care Note Total Time (in mins): 30 Documented critical care: time excludes all time spent performing seperately billable procedures. Medical Decision Making Medical Decision Making: Plan: * EKG * Labs * white count - 21,000 * bicarb 28 * VBG * 7.37 * Pco2 - 53 * CXR- significant mulit lobar right side pneumonia - pt with hypoxia on room air to 86% * Solumedrol 125 mg IV * Magnesium sulfate IVPB * Zosyn * Vancomycin after duoneb and oxygen tx patients O2 sat improved to 99% case discussed for admission Disposition Counseled Patient/Family Regarding: Diagnosis - Disposition Disposition: HOSPITALIZED Disposition Time: 06:54 Condition: GUARDED - Clinical Impression Clinical Impression: Asthma with status asthmaticus, Dyspnea, Hypoxia, Acute bronchopneumonia - Scribe Statement The provider has reviewed the documentation as recorded by the Scribe James Rahman All medical record entries made by the Scribe were at my direction and personally dictated by me. I have reviewed the chart and agree that the record accurately reflects my personal performance of the history, physical exam, medical decision making, and the department course for this patient. I have also personally directed, reviewed, and agree with the discharge instructions and disposition.
[2018-08-09] MEDS ORDERED: Magnesium Sulfate 1 gm in D5W 2 GM/200 ML BAG IVPB ONE (04:45)
[2018-08-09 05:31] LABS: INR 2.7; PROTHROMBIN TIME 29.3 SECONDS (9.7-12.2); VENOUS BLOOD GAS PCO2 53 mmHg (40-60); VENOUS BLOOD GAS PO2 20 mm/Hg (30-55); VENOUS BLOOD PH 7.37 (7.32-7.43)
[2018-08-09] MEDS ORDERED: Piperacill/Tazo 4.5gm in Dex 4.5 GM/100 ML BAG IVPB STA (05:34)
[2018-08-09] MEDS ORDERED: Vancomycin 500 mg Inj IVPB STA (05:34)
[2018-08-09 05:56] LABS: BASO # 0.1 K/uL (0.0-0.2); BASO % 0.5 % (0.0-2.0); EOS # 0.3 K/uL (0.0-0.7); EOS % 1.4 % (0.0-4.0); HEMOGLOBIN 10.7 g/dL (11.0-16.0); LYMPH # 0.6 K/uL (1.0-4.3); LYMPH % 2.9 % (20.0-40.0); MEAN CELL VOLUME 77.9 fL (81.0-99.0); MEAN CORPUSCULAR HEMOGLOBIN 25.3 pg (27.0-31.0); MEAN CORPUSCULAR HGB CONC 32.5 g/dL (33.0-37.0); MEAN PLATELET VOLUME 6.8 fL (7.2-11.7); MONO # 0.7 K/uL (0.0-0.8); MONO % 3.3 % (0.0-10.0); NEUT # 19.4 K/uL (1.8-7.0); NEUT % 91.9 % (50.0-75.0); PLATELET COUNT 418 K/uL (130-400); RBC 4.23 Mil/uL (3.80-5.20); RED CELL DISTRIBUTION WIDTH 16.6 % (11.5-14.5); WHITE BLOOD COUNT 21.1 K/uL (4.8-10.8)
[2018-08-09 06:03] LABS: B-TYPE NATRIURETIC PEPTIDE 73.7 pg/mL (0-900)
[2018-08-09 06:04] LABS: ALB/GLOB RATIO 1.3 (1.0-2.1); ALBUMIN 4.5 g/dL (3.5-5.0); ALT/SGPT 29 U/L (9-52); AST/SGOT 71 U/L (14-36); BLOOD UREA NITROGEN 15 mg/dL (7-17); CALCIUM 9.2 mg/dl (8.6-10.4); GFR NON-AFRICAN AMERICAN 58
[2018-08-09 06:42] LABS: BANDS 1 % (0-2); LYMPHOCYTE 5 % (20-40); MONOCYTE 6 % (0-10); NEUTROPHIL 88 % (50-75); PLATELET ESTIMATE NORMAL (NORMAL); TOTAL CELLS COUNTED 100
--- NOTE | 2018-08-09 09:44 | RAD ---
Date of service: 08/09/2018 PROCEDURE: CHEST RADIOGRAPH, 1 VIEW HISTORY: SOB COMPARISON: Comparison chest 08/05/2018 FINDINGS: LUNGS: Patchy infiltrate changes seen throughout the right upper and right lower lobes. Previously noted diffuse bilateral interstitial thickening slightly improved PLEURA: No pneumothorax or pleural fluid seen. CARDIOVASCULAR: Normal. OSSEOUS STRUCTURES: No significant abnormalities. VISUALIZED UPPER ABDOMEN: Normal. OTHER FINDINGS: None. IMPRESSION: Patchy infiltrate changes seen throughout the right upper and right lower lobes. Previously noted diffuse bilateral interstitial thickening slightly improved
[2018-08-09] MEDS: Cefepime IV 1 gm in Dextrose 1 GM/50 ML BAG IVPB SCH ×2 (11:09→22:50)
[2018-08-09] MEDS: Fluticasone Nasal 50 mcg/Spray NAS SCH (12:58)
--- NOTE | 2018-08-09 13:09 | CT ---
Date of service: 08/09/2018 PROCEDURE: CT Chest without contrast HISTORY: Pneumonia. COMPARISON: Comparison made with prior CTA chest dated 05/25/2018. TECHNIQUE: Contiguous axial images were obtained through the chest without intravenous contrast enhancement. Sagittal and coronal reconstructions were performed. Radiation dose (DLP): 598.4 mGy-cm. This CT exam was performed using one or more of the following dose reduction techniques: Automated exposure control, adjustment of the mA and/or kV according to patient size, and/or use of iterative reconstruction technique. FINDINGS: LUNGS: There are residual patchy infiltrate changes seen throughout the right upper including the middle lobe and to a lesser degree right lower lobe although improved from prior exam. Previously noted infiltrate left upper and lower lobes improved however there are some residual atelectasis and/or scarring seen in the also seen in superior aspect left lower lobe extending to the posterior pleural surface. Minor atelectasis seen in the lingular region as well as right middle lobe. Mild compressive atelectasis both posterior sulci. MEDIASTINUM: Heart size is borderline/ mildly enlarged. No significant pericardial effusion. Ascending thoracic aorta measures approximately 3.4 cm and descending thoracic aorta measures approximately 2.7 cm. Pulmonary trunk is mildly dilated measuring approximate 3.9 cm. Rule out underlying pulmonary arterial hypertension. There are multiple small to mildly enlarged mediastinal lymph nodes, the largest right paratracheal lymph node measuring approximately 1.95 cm. Evaluation for hilar adenopathy is somewhat limited due to lack circulating contrast material. Central airways midline and patent. No large central endoluminal lesions. There is a large hiatal hernia fluid seen throughout the mid and lower esophagus possibly secondary to gastroesophageal reflux. PLEURA: No evidence of effusion or pneumothorax. BONES: Mild multilevel degenerative spondylosis of the thoracic spine. There are no acute compression fractures nor retropulsed fragments. UPPER ABDOMEN: Re- demonstrated is gastric band hardware. OTHER FINDINGS: None. IMPRESSION: residual patchy infiltrate changes seen throughout the right upper including the middle lobe and to a lesser degree right lower lobe although improved from prior exam. Previously noted infiltrate left upper and lower lobes improved however there are some residual atelectasis and/or scarring seen in the also seen in superior aspect left lower lobe extending to the posterior pleural surface. Minor atelectasis seen in the lingular region as well as right middle lobe. Mild compressive atelectasis both posterior sulci. .Multiple small to mildly enlarged mediastinal lymph nodes, the largest right paratracheal lymph node measuring approximately 1.95 cm. Evaluation for hilar adenopathy is somewhat limited due to lack circulating contrast material. Mild mild cardiomegaly. Dilated main pulmonary trunk ; rule out underlying pulmonary arterial hypertension. There is moderately large hiatal hernia with large air-fluid levels seen throughout most of the mid to lower esophagus consistent possibly secondary to gastroesophageal reflux. In situ gastric band hardware. .
[2018-08-09] MEDS: Albuterol-Ipratrop 3 mg / 0.5 (3 ml) UD INH SCH ×2 (14:40→19:46)
[2018-08-09] MEDS: Vancomycin 1 gm/NS 200 ml 1 GM/200 ML BAG IVPB SCH (19:00)
[2018-08-09] MEDS: Pantoprazole 40 mg EC Tab PO SCH (19:00)
--- NOTE | 2018-08-09 20:09 | CARD ---
APPROVED REPORT Date of service: 08/09/2018 EKG Measurement Heart [id number] <Conclusion> Sinus tachycardia Otherwise normal ECG
--- NOTE | 2018-08-09 21:49 | CP.PCM.HP ---
History of Present Illness - History of Present Illness History of Present Illness: Patient came to the emergency room with sudden onset of worsening respiratory distress. HPI: 53-year-old female with a history of lupus, hypertension, DVT, IVC filter, hypercoagulable state, on Coumadin. Fibromyalgia. Bronchial asthma. Bronchial asthma. Patient was recently hospitalized with the cellulitis of the right leg. Also had a perforated colon, status post hemicolectomy. For the last 6 months patient is having ongoing chronic pneumonia resolving with prednisone, but when there is tapering doses condition get worse. Patient was seen by java lead architect. Currently being managed steroid sparing treatment CellCept, but no improvement noted. She started having worsening cough for the last 1 week. Few days ago patient came to the office with increasing cough. X-ray showing worsening infiltrative changes. As the patient started having worsening cough, shortness of breath, she came into the emergency room. In the emergency room patient was having severe severe hypoxia, and also coughing. Evaluation was noted to have worsening pneumonia Past medical history as noted above Surgical history right hemicolectomy. Cholecystectomy, appendectomy, gastric band procedure, C-sections 2 and a colonoscopy in the past Medications reviewed Allergies no known drug allergy Review of system noted from the chart. On examination: Vital signs noted, hypoxia present. Chest bilateral diffuse rhonchi and wheezing noted irregular heart sounds nontender abdomen extremities bilateral pedal edema noted Chest x-ray showing worsening right lung infiltrative changes. Patient also has a pain over the left shoulder. CAT scan of the chest was done, showing evidence of diffuse bilateral infiltrative changes worsening, associate with the pleural-based disease also noted. More on the right side. Assessment: 52-year-old female with a history of systemic lupus erythematosus, and hypercoagulable state, anticardiolipin antibody positive. Patient is currently on anticoagulation. Now possibly patient has a recurrent organizing pneumonia, likely related to lupus disease, underlying infectious process cannot be ruled out. Steroid dependent. We will continue to monitor the patient Plan: Antibiotic ordered. On steroid. Will hold off the Coumadin. Lovenox 100 twice a day. On evening we will plan for the bronchoscopic possibly to evaluate any infectious process. Patient may need a lung biopsy, which I explained to her in detail. But initially patient was reluctant, and also she was responding to steroid treatment. We will continue the current treatment I also spoke to the patient's in detail. Present on Admission - Present on Admission Any Indicators Present on Admission: No History of DVT/PE: No History of Uncontrolled Diabetes: No Urinary Catheter: No Decubitus Ulcer Present: No Past Patient History - Infectious Disease Hx of Infectious Diseases: None - Tetanus Immunizations Tetanus Immunization: Up to Date - Past Medical History & Family History Past Medical History?: Yes - Past Social History Smoking Status: Never Smoked - CARDIAC Hx Hypertension: Yes Hx Peripheral Edema: Yes - PULMONARY Hx Asthma: Yes Hx Bronchitis: Yes Hx Pneumonia: Yes ("multiple times") Hx Pulmonary Embolism: Yes (2011) Hx Sleep Apnea: Yes - NEUROLOGICAL Hx Migraine: Yes - HEENT Hx HEENT Problems: Yes - RENAL Hx Chronic Kidney Disease: No - ENDOCRINE/METABOLIC Hx Endocrine Disorders: Yes Hx Systemic Lupus Erythematosus: Yes (w/ antibody) - HEMATOLOGICAL/ONCOLOGICAL Hx Blood Disorders: No - INTEGUMENTARY Hx Dermatological Problems: Yes Other/Comment: discoploration of lower legs/pigmentation - MUSCULOSKELETAL/RHEUMATOLOGICAL Hx Falls: No - GASTROINTESTINAL Hx Gastrointestinal Disorders: Yes Hx Gastroesophageal Reflux: Yes - GENITOURINARY/GYNECOLOGICAL Hx Genitourinary Disorders: Yes Hx Incontinence: Yes (OVER ACTIVE BLADDER) - PSYCHIATRIC Hx Substance Use: No - SURGICAL HISTORY Hx Appendectomy: Yes Other/Comment: Partial colon Resection - ANESTHESIA Hx Anesthesia: Yes Hx Anesthesia Reactions: No Hx Malignant Hyperthermia: No Meds Allergies/Adverse Reactions: Allergies Allergy/AdvReac Type Severity Reaction Status Date / Time No Known Allergies Allergy Verified 08/09/18 04:22 Results - Vital Signs Recent Vital Signs: Last Vital Signs Temp 98.1 F 08/09/18 15:00 Pulse 100 H 08/09/18 15:00 Resp 20 08/09/18 15:00 BP 104/66 08/09/18 15:00 Pulse Ox 96 08/09/18 15:00 - Labs Result Diagrams: 08/09/18 05:52 08/09/18 05:20 Labs: Laboratory Results - last 24 hr 08/09/18 08/09/18 08/09/18 05:20 05:20 05:20 WBC RBC Hgb Hct MCV MCH MCHC RDW Plt Count MPV Neut % (Auto) Lymph % (Auto) [place] % (Auto) Eos % (Auto) Baso % (Auto) Neut # (Auto) Lymph # (Auto) [place] # (Auto) Eos # (Auto) Baso # (Auto) Neutrophils % (Manual) Band Neutrophils % Lymphocytes % (Manual) Monocytes % (Manual) Platelet Estimate PT 29.3 H INR 2.7 APTT 50 H pO2 20 L VBG pH 7.37 VBG pCO2 53 VBG HCO3 26.2 VBG Total CO2 32.2 H VBG O2 Sat (Calc) 34.2 L VBG Base Excess 4.0 H VBG Potassium 2.6 L Sodium 138 137.0 Chloride 95 L 99.0 Glucose 109 H Lactate 2.5 H Potassium 4.2 Carbon Dioxide 28 Anion Gap 19 BUN 15 Creatinine 1.0 Est GFR ( Amer) > 60 Est GFR (Non-Af Amer) 58 Random Glucose 117 H Calcium 9.2 Magnesium 1.7 Total Bilirubin 0.9 AST 71 H D ALT 29 Alkaline Phosphatase 63 Troponin I < 0.0120 NT-Pro-B Natriuret Pep 73.7 Total Protein 7.9 Albumin 4.5 Globulin 3.4 Albumin/Globulin Ratio 1.3 Venous Blood Potassium 2.6 L 08/09/18 05:52 WBC 21.1 H D RBC 4.23 Hgb 10.7 L Hct 32.9 L MCV 77.9 L MCH 25.3 L MCHC 32.5 L RDW 16.6 H Plt Count 418 H MPV 6.8 L Neut % (Auto) 91.9 H Lymph % (Auto) 2.9 L [place] % (Auto) 3.3 Eos % (Auto) 1.4 Baso % (Auto) 0.5 Neut # (Auto) 19.4 H Lymph # (Auto) 0.6 L [place] # (Auto) 0.7 Eos # (Auto) 0.3 Baso # (Auto) 0.1 Neutrophils % (Manual) 88 H Band Neutrophils % 1 Lymphocytes % (Manual) 5 L Monocytes % (Manual) 6 Platelet Estimate Normal PT INR APTT pO2 VBG pH VBG pCO2 VBG HCO3 VBG Total CO2 VBG O2 Sat (Calc) VBG Base Excess VBG Potassium Sodium Chloride Glucose Lactate Potassium Carbon Dioxide Anion Gap BUN Creatinine Est GFR ( Amer) Est GFR (Non-Af Amer) Random Glucose Calcium Magnesium Total Bilirubin AST ALT Alkaline Phosphatase Troponin I NT-Pro-B Natriuret Pep Total Protein Albumin Globulin Albumin/Globulin Ratio Venous Blood Potassium
[2018-08-09] MEDS: MethylPREDNISolone 40 mg Vial IVP SCH (22:54)
[2018-08-10] MEDS: Albuterol-Ipratrop 3 mg / 0.5 (3 ml) UD INH SCH ×4 (01:09→19:08)
[2018-08-10 08:36] LABS: BASO % 0.2 % (0.0-2.0); LYMPH # 0.4 K/uL (1.0-4.3); LYMPH % 1.4 % (20.0-40.0); MEAN CELL VOLUME 78.5 fL (81.0-99.0); MEAN CORPUSCULAR HEMOGLOBIN 25.5 pg (27.0-31.0); MEAN CORPUSCULAR HGB CONC 32.5 g/dL (33.0-37.0); MEAN PLATELET VOLUME 7.1 fL (7.2-11.7); MONO # 0.4 K/uL (0.0-0.8); MONO % 1.6 % (0.0-10.0); NEUT # 27.2 K/uL (1.8-7.0); NEUT % 96.8 % (50.0-75.0); PLATELET COUNT 411 K/uL (130-400); RBC 3.93 Mil/uL (3.80-5.20); RED CELL DISTRIBUTION WIDTH 16.5 % (11.5-14.5)
[2018-08-10 08:38] LABS: INR 2.4
[2018-08-10 09:03] LABS: ALB/GLOB RATIO 1.2 (1.0-2.1); ALBUMIN 3.6 g/dL (3.5-5.0); ALT/SGPT 18 U/L (9-52); AST/SGOT 21 U/L (14-36); BLOOD UREA NITROGEN 14 mg/dL (7-17); CALCIUM 9.1 mg/dl (8.6-10.4); GFR NON-AFRICAN AMERICAN > 60
[2018-08-10] MEDS: Pantoprazole 40 mg EC Tab PO SCH ×2 (09:50→18:02)
[2018-08-10] MEDS: Oxybutynin XL 10 mg Tab PO SCH (09:51)
[2018-08-10] MEDS: MethylPREDNISolone 40 mg Vial IVP SCH ×2 (09:51→21:11)
[2018-08-10] MEDS ORDERED: Enoxaparin 100 mg Syringe SC SCH ×2 (10:00→11:30)
[2018-08-10] MEDS: Fluticasone Nasal 50 mcg/Spray NAS SCH (10:00)
[2018-08-10 10:54] LABS: ANISOCYTOSIS SLIGHT; BANDS 4 % (0-2); HYPOCHROMIC SLIGHT; LYMPHOCYTE 1 % (20-40); MONOCYTE 2 % (0-10); NEUTROPHIL 93 % (50-75); OVALOCYTES SLIGHT; PLATELET ESTIMATE SLIGHTLY INCREASED (NORMAL); TOTAL CELLS COUNTED 100
[2018-08-10] MEDS: Cefepime IV 1 gm in Dextrose 1 GM/50 ML BAG IVPB SCH ×2 (11:43→22:00)
[2018-08-10] MEDS ORDERED: Potassium Chloride 20 mEq ER Tab PO ONE (12:45)
--- NOTE | 2018-08-10 13:01 | RAD ---
HISTORY: PICC placement COMPARISON: Chest x-ray performed 08/09/18 TECHNIQUE: Chest, one view. FINDINGS: Right-sided PICC extends expected location of the cavoatrial junction. LUNGS: Mild to moderate interstitial prominence may reflect infection or edema. Please note that chest x-ray has limited sensitivity for the detection of pulmonary masses. PLEURA: No significant pleural effusion identified. No definite pneumothorax . CARDIOVASCULAR: Heart size appears within normal limits. OSSEOUS STRUCTURES: No acute osseous abnormality identified. VISUALIZED UPPER ABDOMEN: Unremarkable. OTHER FINDINGS: None. IMPRESSION: Right-sided PICC. Improving mild to moderate interstitial prominence may reflect infection or edema.
[2018-08-10] MEDS: Vancomycin 1 gm/NS 200 ml 1 GM/200 ML BAG IVPB SCH (18:02)
[2018-08-10] MEDS: Promethazine/Cod 6.25mg-10mg/5ml Syr UD PO PRN (20:47)
[2018-08-11] MEDS: Promethazine/Cod 6.25mg-10mg/5ml Syr UD PO PRN ×3 (02:03→19:50)
[2018-08-11] MEDS: Albuterol-Ipratrop 3 mg / 0.5 (3 ml) UD INH SCH ×4 (02:20→20:27)
[2018-08-11 08:24] LABS: BASO # 0.1 K/uL (0.0-0.2); BASO % 0.6 % (0.0-2.0); HEMOGLOBIN 9.6 g/dL (11.0-16.0); LYMPH # 0.6 K/uL (1.0-4.3); LYMPH % 2.5 % (20.0-40.0); MEAN CELL VOLUME 77.9 fL (81.0-99.0); MEAN CORPUSCULAR HEMOGLOBIN 25.5 pg (27.0-31.0); MEAN CORPUSCULAR HGB CONC 32.8 g/dL (33.0-37.0); MONO # 0.9 K/uL (0.0-0.8); MONO % 3.7 % (0.0-10.0); NEUT # 21.8 K/uL (1.8-7.0); NEUT % 93.2 % (50.0-75.0); PLATELET COUNT 420 K/uL (130-400); RBC 3.76 Mil/uL (3.80-5.20); RED CELL DISTRIBUTION WIDTH 16.5 % (11.5-14.5); WHITE BLOOD COUNT 23.4 K/uL (4.8-10.8)
[2018-08-11 08:27] LABS: INR 1.7; PROTHROMBIN TIME 19.1 SECONDS (9.7-12.2)
[2018-08-11 08:55] LABS: ALB/GLOB RATIO 1.2 (1.0-2.1); ALBUMIN 3.6 g/dL (3.5-5.0); ALT/SGPT 23 U/L (9-52); AST/SGOT 17 U/L (14-36); BLOOD UREA NITROGEN 15 mg/dL (7-17); CALCIUM 8.5 mg/dl (8.6-10.4); GFR NON-AFRICAN AMERICAN > 60
[2018-08-11] MEDS: Oxybutynin XL 10 mg Tab PO SCH (09:34)
[2018-08-11] MEDS: Pantoprazole 40 mg EC Tab PO SCH ×2 (09:34→19:50)
[2018-08-11] MEDS: MethylPREDNISolone 40 mg Vial IVP SCH ×2 (09:35→22:20)
[2018-08-11] MEDS: Fluticasone Nasal 50 mcg/Spray NAS SCH (09:35)
[2018-08-11 11:18] LABS: ANISOCYTOSIS SLIGHT; BANDS 1 % (0-2); HYPOCHROMIC SLIGHT; LYMPHOCYTE 2 % (20-40); MONOCYTE 2 % (0-10); NEUTROPHIL 95 % (50-75); OVALOCYTES SLIGHT; PLATELET ESTIMATE SLIGHTLY INCREASED (NORMAL); TOTAL CELLS COUNTED 100
[2018-08-11] MEDS: Cefepime IV 1 gm in Dextrose 1 GM/50 ML BAG IVPB SCH ×2 (11:45→22:23)
[2018-08-11] MEDS ORDERED: EPINEPHrine 1 mg/ml (1:1000) Inj ONE (14:10)
[2018-08-11] MEDS ORDERED: Lidocaine 2% MPF (5 ml) Inj ONE (14:10)
[2018-08-11] MEDS: Vancomycin 1 gm/NS 200 ml 1 GM/200 ML BAG IVPB SCH (19:47)
[2018-08-11] MEDS ORDERED: Enoxaparin 60 mg Syringe SC STA (20:27)
--- NOTE | 2018-08-11 20:27 | CP.PCM.PN ---
Subjective - Date & Time of Evaluation Date of Evaluation: 08/11/18 Time of Evaluation: 20:27 - Subjective Subjective: Patient still having increasing coughing. Still produces mucus with the blood. Left-sided chest pain present. No nausea no vomiting, no diarrhea noted. Clinical examination is remarkable for bilateral rales in the lower lung hawkins. Mild hypoxia noted room air oxygen saturation is 92% Patient chest x-ray showing at some improvement. Currently she is on Solu-Medrol. Maxipime. Most likely the disease is related to the Lupus lung disease. Bronchoscopy is being done to rule out any infectious process. But I explained to the patient that before further diagnosis patient will need open lung biopsy. We will plan for bronchoscopy tomorrow Assessment: 53-year-old female with lupus chronic, anticardiolipin antibody positive, with a hypercoagulable state, chronic lung disease now with the possible Lupus lung disease. Patient probably will need bronchoscopy. I discussed with the patient regarding the procedure. Once INR is stable, will plan for bronchoscopy Objective - Vital Signs/Intake and Output Vital Signs (last 24 hours): Temp Pulse Resp BP Pulse Ox 98.2 F 106 H 20 159/77 H 96 08/11/18 15:00 08/11/18 15:00 08/11/18 15:00 08/11/18 15:00 08/11/18 15:00 - Medications Medications: Current Medications Acetaminophen (Tylenol 325mg Tab) 650 mg PO Q6 PRN PRN Reason: Pain, Mild (1-3) Last Admin: 08/10/18 21:58 Dose: 650 mg Albuterol/Ipratropium (Duoneb 3 Mg/0.5 Mg (3 Ml) Ud) 3 ml INH RQ6 [facility] Last Admin: 08/11/18 13:17 Dose: 3 ml Amlodipine Besylate (Norvasc) 5 mg PO DAILY [facility] Last Admin: 08/11/18 10:00 Dose: 5 mg Duloxetine HCl (Cymbalta) 60 mg PO DAILY [facility] Last Admin: 08/11/18 09:34 Dose: 60 mg Enoxaparin Sodium (Lovenox) 100 mg SC Q12 [facility] Last Admin: 08/10/18 12:36 Dose: 100 mg Fluticasone Propionate (Flonase) 1 spr VIRGILIO DAILY [facility] Last Admin: 08/11/18 09:35 Dose: 1 spr Hydrochlorothiazide (Hydrodiuril) 25 mg PO DAILY [facility] Last Admin: 08/11/18 09:37 Dose: 25 mg Cefepime HCl (Maxipime Iv 1 Gm Premix) 1 gm in 50 mls @ 100 mls/hr IVPB Q12H [facility] PRN Reason: Protocol Last Admin: 08/11/18 11:45 Dose: 100 mls/hr Vancomycin/Sodium Chloride (Vancomycin 1 Gm/Ns 200 Ml) 1 gm in 200 mls @ 133.333 mls/hr IVPB Q24H [facility] PRN Reason: Protocol Stop: 08/14/18 18:31 Last Admin: 08/11/18 19:47 Dose: 133.333 mls/hr Loratadine (Claritin) 10 mg PO DAILY [facility] Last Admin: 08/11/18 09:35 Dose: 10 mg Methylprednisolone (Solu-Medrol) 40 mg IVP Q12 [facility] Last Admin: 08/11/18 09:35 Dose: 40 mg Montelukast Sodium (Singulair) 10 mg PO DAILY [facility] Last Admin: 08/11/18 09:35 Dose: 10 mg Mycophenolate Mofetil (Cellcept) 500 mg PO BID [facility] Last Admin: 08/11/18 19:55 Dose: 500 mg Oxybutynin Chloride (Ditropan Xl) 10 mg PO DAILY [facility] Last Admin: 08/11/18 09:34 Dose: 10 mg Pantoprazole Sodium (Protonix Ec Tab) 40 mg PO BID [facility] Last Admin: 08/11/18 19:50 Dose: 40 mg Pregabalin (Lyrica) 75 mg PO TID [facility] Last Admin: 08/11/18 19:50 Dose: 75 mg Promethazine HCl/Codeine (Phenergan/Codeine Oral Syrup) 5 ml PO Q4 PRN PRN Reason: Cough Last Admin: 08/11/18 19:50 Dose: 5 ml Sucralfate (Carafate Tab) 1 gm PO QID [facility] Last Admin: 08/11/18 19:51 Dose: 1 gm - Labs Labs: 08/11/18 08:09 08/11/18 08:09 PT 19.1 SECONDS (9.7-12.2) H D 08/11/18 08:09 INR 1.7 D 08/11/18 08:09 APTT 50 SECONDS (21-34) H 08/09/18 05:20
[2018-08-12] MEDS: Albuterol-Ipratrop 3 mg / 0.5 (3 ml) UD INH SCH ×4 (01:07→19:18)
[2018-08-12 08:08] LABS: BASO % 0.2 % (0.0-2.0); HEMOGLOBIN 10.1 g/dL (11.0-16.0); LYMPH # 0.4 K/uL (1.0-4.3); LYMPH % 2.7 % (20.0-40.0); MEAN CELL VOLUME 78.4 fL (81.0-99.0); MEAN CORPUSCULAR HEMOGLOBIN 25.8 pg (27.0-31.0); MEAN CORPUSCULAR HGB CONC 32.9 g/dL (33.0-37.0); MEAN PLATELET VOLUME 6.8 fL (7.2-11.7); MONO # 0.5 K/uL (0.0-0.8); MONO % 3.3 % (0.0-10.0); NEUT % 93.8 % (50.0-75.0); PLATELET COUNT 364 K/uL (130-400); RBC 3.93 Mil/uL (3.80-5.20); RED CELL DISTRIBUTION WIDTH 16.7 % (11.5-14.5)
[2018-08-12 08:55] LABS: INR 1.5; PROTHROMBIN TIME 15.9 SECONDS (9.7-12.2)
[2018-08-12 09:43] LABS: ALB/GLOB RATIO 1.3 (1.0-2.1); ALBUMIN 3.6 g/dL (3.5-5.0); ALT/SGPT 26 U/L (9-52); AST/SGOT 18 U/L (14-36); BLOOD UREA NITROGEN 16 mg/dL (7-17); CALCIUM 9.2 mg/dl (8.6-10.4); GFR NON-AFRICAN AMERICAN > 60
[2018-08-12 10:11] LABS: ANISOCYTOSIS SLIGHT; BANDS 1 % (0-2); HYPOCHROMIC SLIGHT; LYMPHOCYTE 1 % (20-40); MONOCYTE 5 % (0-10); NEUTROPHIL 93 % (50-75); OVALOCYTES SLIGHT; PLATELET ESTIMATE NORMAL (NORMAL); POIKILOCYTOSIS SLIGHT; TARGET CELLS SLIGHT; TOTAL CELLS COUNTED 100
--- NOTE | 2018-08-12 10:12 | CP.PCM.PN ---
Subjective - Date & Time of Evaluation Date of Evaluation: 08/10/18 Time of Evaluation: 10:12 - Subjective Subjective: Patient still having increasing coughing. Still produces mucus with the blood. Left-sided chest pain present. No nausea no vomiting, no diarrhea noted. Clinical examination is remarkable for bilateral rales in the lower lung hawkins. Mild hypoxia noted room air oxygen saturation is 92% Assessment: 53-year-old female with lupus chronic, anticardiolipin antibody positive, with a hypercoagulable state, chronic lung disease now with the possible Lupus lung disease. Patient probably will need bronchoscopy. I discussed with the patient regarding the procedure. Once INR is stable, will plan for bronchoscopy Objective - Vital Signs/Intake and Output Vital Signs (last 24 hours): Temp Pulse Resp BP Pulse Ox 97.9 F 87 20 151/87 H 93 L 08/12/18 07:00 08/12/18 07:00 08/12/18 07:00 08/12/18 07:00 08/12/18 07:00 - Medications Medications: Current Medications Acetaminophen (Tylenol 325mg Tab) 650 mg PO Q6 PRN PRN Reason: Pain, Mild (1-3) Last Admin: 08/10/18 21:58 Dose: 650 mg Albuterol/Ipratropium (Duoneb 3 Mg/0.5 Mg (3 Ml) Ud) 3 ml INH RQ6 [facility] Last Admin: 08/12/18 07:38 Dose: 3 ml Amlodipine Besylate (Norvasc) 5 mg PO DAILY [facility] Last Admin: 08/11/18 10:00 Dose: 5 mg Duloxetine HCl (Cymbalta) 60 mg PO DAILY [facility] Last Admin: 08/11/18 09:34 Dose: 60 mg Enoxaparin Sodium (Lovenox) 100 mg SC Q12 [facility] Last Admin: 08/10/18 12:36 Dose: 100 mg Fluticasone Propionate (Flonase) 1 spr VIRGILIO DAILY [facility] Last Admin: 08/11/18 09:35 Dose: 1 spr Hydrochlorothiazide (Hydrodiuril) 25 mg PO DAILY [facility] Last Admin: 08/11/18 09:37 Dose: 25 mg Cefepime HCl (Maxipime Iv 1 Gm Premix) 1 gm in 50 mls @ 100 mls/hr IVPB Q12H [facility] PRN Reason: Protocol Last Admin: 08/11/18 22:23 Dose: 100 mls/hr Vancomycin/Sodium Chloride (Vancomycin 1 Gm/Ns 200 Ml) 1 gm in 200 mls @ 133.333 mls/hr IVPB Q24H [facility] PRN Reason: Protocol Stop: 08/14/18 18:31 Last Admin: 08/11/18 19:47 Dose: 133.333 mls/hr Loratadine (Claritin) 10 mg PO DAILY [facility] Last Admin: 08/11/18 09:35 Dose: 10 mg Methylprednisolone (Solu-Medrol) 40 mg IVP Q12 [facility] Last Admin: 08/11/18 22:20 Dose: 40 mg Montelukast Sodium (Singulair) 10 mg PO DAILY [facility] Last Admin: 08/11/18 09:35 Dose: 10 mg Mycophenolate Mofetil (Cellcept) 500 mg PO BID [facility] Last Admin: 08/11/18 19:55 Dose: 500 mg Oxybutynin Chloride (Ditropan Xl) 10 mg PO DAILY [facility] Last Admin: 08/11/18 09:34 Dose: 10 mg Pantoprazole Sodium (Protonix Ec Tab) 40 mg PO BID [facility] Last Admin: 08/11/18 19:50 Dose: 40 mg Pregabalin (Lyrica) 75 mg PO TID [facility] Last Admin: 08/11/18 19:50 Dose: 75 mg Promethazine HCl/Codeine (Phenergan/Codeine Oral Syrup) 5 ml PO Q4 PRN PRN Reason: Cough Last Admin: 08/11/18 19:50 Dose: 5 ml Sucralfate (Carafate Tab) 1 gm PO QID [facility] Last Admin: 08/11/18 22:20 Dose: Not Given - Labs Labs: 08/12/18 07:40 08/12/18 07:40 PT 15.9 SECONDS (9.7-12.2) H 08/12/18 07:40 INR 1.5 08/12/18 07:40 APTT 35 SECONDS (21-34) H 08/12/18 07:40
--- NOTE | 2018-08-12 10:12 | CP.PCM.PN ---
Subjective - Date & Time of Evaluation Date of Evaluation: 08/12/18 Time of Evaluation: 10:12 - Subjective Subjective: Patient is still having cough. This morning less cough than yesterday. Wheezing also present. Room air oxygen saturation is 92%. Chest good air entry Regular heart sound Mild tachycardia noted. WBC is better. We will continue to monitor. For bronchoscopy today Objective - Vital Signs/Intake and Output Vital Signs (last 24 hours): Temp Pulse Resp BP Pulse Ox 97.9 F 87 20 151/87 H 93 L 08/12/18 07:00 08/12/18 07:00 08/12/18 07:00 08/12/18 07:00 08/12/18 07:00 - Medications Medications: Current Medications Acetaminophen (Tylenol 325mg Tab) 650 mg PO Q6 PRN PRN Reason: Pain, Mild (1-3) Last Admin: 08/10/18 21:58 Dose: 650 mg Albuterol/Ipratropium (Duoneb 3 Mg/0.5 Mg (3 Ml) Ud) 3 ml INH RQ6 [facility] Last Admin: 08/12/18 07:38 Dose: 3 ml Amlodipine Besylate (Norvasc) 5 mg PO DAILY [facility] Last Admin: 08/11/18 10:00 Dose: 5 mg Duloxetine HCl (Cymbalta) 60 mg PO DAILY [facility] Last Admin: 08/11/18 09:34 Dose: 60 mg Enoxaparin Sodium (Lovenox) 100 mg SC Q12 [facility] Last Admin: 08/10/18 12:36 Dose: 100 mg Fluticasone Propionate (Flonase) 1 spr VIRGILIO DAILY [facility] Last Admin: 08/11/18 09:35 Dose: 1 spr Hydrochlorothiazide (Hydrodiuril) 25 mg PO DAILY [facility] Last Admin: 08/11/18 09:37 Dose: 25 mg Cefepime HCl (Maxipime Iv 1 Gm Premix) 1 gm in 50 mls @ 100 mls/hr IVPB Q12H [facility] PRN Reason: Protocol Last Admin: 08/11/18 22:23 Dose: 100 mls/hr Vancomycin/Sodium Chloride (Vancomycin 1 Gm/Ns 200 Ml) 1 gm in 200 mls @ 133.333 mls/hr IVPB Q24H [facility] PRN Reason: Protocol Stop: 08/14/18 18:31 Last Admin: 08/11/18 19:47 Dose: 133.333 mls/hr Loratadine (Claritin) 10 mg PO DAILY [facility] Last Admin: 08/11/18 09:35 Dose: 10 mg Methylprednisolone (Solu-Medrol) 40 mg IVP Q12 [facility] Last Admin: 08/11/18 22:20 Dose: 40 mg Montelukast Sodium (Singulair) 10 mg PO DAILY [facility] Last Admin: 08/11/18 09:35 Dose: 10 mg Mycophenolate Mofetil (Cellcept) 500 mg PO BID [facility] Last Admin: 08/11/18 19:55 Dose: 500 mg Oxybutynin Chloride (Ditropan Xl) 10 mg PO DAILY [facility] Last Admin: 08/11/18 09:34 Dose: 10 mg Pantoprazole Sodium (Protonix Ec Tab) 40 mg PO BID [facility] Last Admin: 08/11/18 19:50 Dose: 40 mg Pregabalin (Lyrica) 75 mg PO TID [facility] Last Admin: 08/11/18 19:50 Dose: 75 mg Promethazine HCl/Codeine (Phenergan/Codeine Oral Syrup) 5 ml PO Q4 PRN PRN Reason: Cough Last Admin: 08/11/18 19:50 Dose: 5 ml Sucralfate (Carafate Tab) 1 gm PO QID [facility] Last Admin: 08/11/18 22:20 Dose: Not Given - Labs Labs: 08/12/18 07:40 08/12/18 07:40 PT 15.9 SECONDS (9.7-12.2) H 08/12/18 07:40 INR 1.5 08/12/18 07:40 APTT 35 SECONDS (21-34) H 08/12/18 07:40
[2018-08-12] MEDS: MethylPREDNISolone 40 mg Vial IVP SCH ×2 (11:13→21:10)
[2018-08-12] MEDS: Pantoprazole 40 mg EC Tab PO SCH ×2 (11:14→18:46)
[2018-08-12] MEDS: Promethazine/Cod 6.25mg-10mg/5ml Syr UD PO PRN ×2 (11:15→21:26)
[2018-08-12] MEDS: Oxybutynin XL 10 mg Tab PO SCH (11:16)
[2018-08-12] MEDS: Fluticasone Nasal 50 mcg/Spray NAS SCH (11:18)
[2018-08-12] MEDS: Cefepime IV 1 gm in Dextrose 1 GM/50 ML BAG IVPB SCH ×2 (11:23→22:24)
[2018-08-12] MEDS ORDERED: Enoxaparin 80 mg Syringe SC STA (21:34)
[2018-08-13] MEDS: Albuterol-Ipratrop 3 mg / 0.5 (3 ml) UD INH SCH ×3 (02:39→13:09)
[2018-08-13] MEDS ORDERED: Acetylcysteine 20% Inhal Soln (4ml) INH STA (08:05)
[2018-08-13] MEDS ORDERED: EPINEPHrine 1 mg/ml (1:1000) Inj ONE (08:32)
[2018-08-13] MEDS ORDERED: Lidocaine 2% MPF (5 ml) Inj ONE ×3 (08:33→09:08)
--- NOTE | 2018-08-13 09:06 | RAD ---
Date of service: 08/12/2018 HISTORY: pneumonia COMPARISON: Chest radiograph dated 08/10/2018. TECHNIQUE: Chest PA and lateral FINDINGS: LUNGS: No active pulmonary disease. PLEURA: No significant pleural effusion identified. No pneumothorax apparent. CARDIOVASCULAR: Cardiomediastinal silhouette stably prominent. OSSEOUS STRUCTURES: Unchanged. VISUALIZED UPPER ABDOMEN: Normal. OTHER FINDINGS: None. IMPRESSION: No active disease.
[2018-08-13] MEDS ORDERED: Midazolam 2 MG/2 ML VIAL ONE ×2 (09:09→10:21)
[2018-08-13] MEDS ORDERED: Succinylcholine Chloride 20 mg/ml Syr (5 ml) IV ONE (09:09)
[2018-08-13] MEDS ORDERED: Etomidate 20 mg/10ml Inj IV ONE (09:09)
[2018-08-13] MEDS ORDERED: Propofol 10 mg/ml Inj (20 ML) ONE (10:27)
[2018-08-13] MEDS ORDERED: Albuterol-Ipratrop 3 mg / 0.5 (3 ml) UD INH STA (10:47)
[2018-08-13] MEDS ORDERED: Albuterol-Ipratrop 3 mg / 0.5 (3 ml) UD ONE (10:56)
--- NOTE | 2018-08-13 11:12 | RAD ---
Date of service: 08/13/2018 HISTORY: post brochi COMPARISON: Chest radiograph dated 08/12/2018 FINDINGS: LUNGS: No active pulmonary disease. PLEURA: No significant pleural effusion identified, no pneumothorax apparent. CARDIOVASCULAR: Atherosclerotic aortic calcifications. Cardiomediastinal silhouette stably enlarged. OSSEOUS STRUCTURES: Unchanged. VISUALIZED UPPER ABDOMEN: Inferior vena cava filter redemonstrated. OTHER FINDINGS: Right upper extremity PICC, unchanged. IMPRESSION: No active disease.
[2018-08-13] MEDS: Cefepime IV 1 gm in Dextrose 1 GM/50 ML BAG IVPB SCH (12:46)
[2018-08-13] MEDS: Pantoprazole 40 mg EC Tab PO SCH (12:48)
[2018-08-13] MEDS: Oxybutynin XL 10 mg Tab PO SCH (12:50)
[2018-08-13] MEDS: Fluticasone Nasal 50 mcg/Spray NAS SCH (12:51)
[2018-08-13] MEDS: MethylPREDNISolone 40 mg Vial IVP SCH (12:51)
--- NOTE | 2018-08-13 15:10 | CP.PCM.PN ---
Subjective - Date & Time of Evaluation Date of Evaluation: 08/13/18 Time of Evaluation: 12:00 - Subjective Subjective: Patient seen today after bronchoscopy , denies any chest pain, sob, throat pain , , tolerating diet vss and stable Objective - Vital Signs/Intake and Output Vital Signs (last 24 hours): Temp Pulse Resp BP Pulse Ox 97.6 F 94 H 17 140/84 97 08/13/18 10:39 08/13/18 11:50 08/13/18 11:50 08/13/18 11:50 08/13/18 11:50 Intake and Output: 08/13/18 08/13/18 06:59 18:59 Intake Total 250 600 Balance 250 600 - Medications Medications: Current Medications Acetaminophen (Tylenol 325mg Tab) 650 mg PO Q6 PRN PRN Reason: Pain, Mild (1-3) Last Admin: 08/10/18 21:58 Dose: 650 mg Albuterol/Ipratropium (Duoneb 3 Mg/0.5 Mg (3 Ml) Ud) 3 ml INH RQ6 [facility] Last Admin: 08/13/18 13:09 Dose: 3 ml Amlodipine Besylate (Norvasc) 5 mg PO DAILY [facility] Last Admin: 08/13/18 12:48 Dose: 5 mg Duloxetine HCl (Cymbalta) 60 mg PO DAILY [facility] Last Admin: 08/13/18 12:49 Dose: 60 mg Enoxaparin Sodium (Lovenox) 100 mg SC Q12 [facility] Last Admin: 08/10/18 12:36 Dose: 100 mg Fluticasone Propionate (Flonase) 1 spr VIRGILIO DAILY [facility] Last Admin: 08/13/18 12:51 Dose: 1 spr Hydrochlorothiazide (Hydrodiuril) 25 mg PO DAILY [facility] Last Admin: 08/13/18 13:04 Dose: 25 mg Cefepime HCl (Maxipime Iv 1 Gm Premix) 1 gm in 50 mls @ 100 mls/hr IVPB Q12H [facility] PRN Reason: Protocol Last Admin: 08/13/18 12:46 Dose: 100 mls/hr Loratadine (Claritin) 10 mg PO DAILY [facility] Last Admin: 08/13/18 12:48 Dose: 10 mg Methylprednisolone (Solu-Medrol) 40 mg IVP Q12 [facility] Last Admin: 08/13/18 12:51 Dose: Not Given Montelukast Sodium (Singulair) 10 mg PO DAILY [facility] Last Admin: 08/13/18 12:47 Dose: 10 mg Mycophenolate Mofetil (Cellcept) 500 mg PO BID [facility] Last Admin: 08/13/18 12:49 Dose: 500 mg Oxybutynin Chloride (Ditropan Xl) 10 mg PO DAILY [facility] Last Admin: 08/13/18 12:50 Dose: 10 mg Pantoprazole Sodium (Protonix Ec Tab) 40 mg PO BID [facility] Last Admin: 08/13/18 12:48 Dose: 40 mg Pregabalin (Lyrica) 75 mg PO TID [facility] Last Admin: 08/13/18 13:04 Dose: 75 mg Promethazine HCl/Codeine (Phenergan/Codeine Oral Syrup) 5 ml PO Q4 PRN PRN Reason: Cough Last Admin: 08/12/18 21:26 Dose: 5 ml Sucralfate (Carafate Tab) 1 gm PO QID [facility] Last Admin: 08/13/18 13:05 Dose: 1 gm - Labs Labs: 08/12/18 07:40 08/12/18 07:40 PT 15.9 SECONDS (9.7-12.2) H 08/12/18 07:40 INR 1.5 08/12/18 07:40 APTT 35 SECONDS (21-34) H 08/12/18 07:40 Assessment and Plan - Assessment and Plan (Free Text) Assessment: A/P 53 year old female with PMHx of lupus, DVT, PE, presented to the ER with resp. distress and admitted for Asthma with status asthmaticus, Dyspnea, Hypoxia, Acute bronchopneumonia s/p bronchoscopy today CXR today- No active disease D/w Dr. Quiñones, cleared or discharge home today and continue prednisone 40 mg daily and ceftin for 7 more days , and f/u with Dr. Quiñones office in 1 week Discharge plan discussed with pateint who understands and agrees with plan Patient instructed to restart lovenox on Wednesday Patient instructed to returns to ED or call Dr. Quiñones, if symptoms get worse or any other concerning symptoms
--- NOTE | 2018-08-13 16:21 | CP.PCM.PN ---
Subjective - Date & Time of Evaluation Date of Evaluation: 08/13/18 Time of Evaluation: 16:20 - Subjective Subjective: PICC line removed from Left upper arm. Patient is to be discharged today. Tip intact. Patient tolerated. No blood loss. Pressure held and dressing applied. Regina Travis DO PGY3 Objective - Vital Signs/Intake and Output Vital Signs (last 24 hours): Temp Pulse Resp BP Pulse Ox 97.6 F 94 H 17 140/84 97 08/13/18 10:39 08/13/18 11:50 08/13/18 11:50 08/13/18 11:50 08/13/18 11:50 Intake and Output: 08/13/18 08/13/18 06:59 18:59 Intake Total 250 600 Balance 250 600 - Medications Medications: Current Medications Acetaminophen (Tylenol 325mg Tab) 650 mg PO Q6 PRN PRN Reason: Pain, Mild (1-3) Last Admin: 08/10/18 21:58 Dose: 650 mg Albuterol/Ipratropium (Duoneb 3 Mg/0.5 Mg (3 Ml) Ud) 3 ml INH RQ6 [facility] Last Admin: 08/13/18 13:09 Dose: 3 ml Amlodipine Besylate (Norvasc) 5 mg PO DAILY [facility] Last Admin: 08/13/18 12:48 Dose: 5 mg Duloxetine HCl (Cymbalta) 60 mg PO DAILY [facility] Last Admin: 08/13/18 12:49 Dose: 60 mg Enoxaparin Sodium (Lovenox) 100 mg SC Q12 [facility] Last Admin: 08/10/18 12:36 Dose: 100 mg Fluticasone Propionate (Flonase) 1 spr VIRGILIO DAILY [facility] Last Admin: 08/13/18 12:51 Dose: 1 spr Hydrochlorothiazide (Hydrodiuril) 25 mg PO DAILY [facility] Last Admin: 08/13/18 13:04 Dose: 25 mg Cefepime HCl (Maxipime Iv 1 Gm Premix) 1 gm in 50 mls @ 100 mls/hr IVPB Q12H [facility] PRN Reason: Protocol Last Admin: 08/13/18 12:46 Dose: 100 mls/hr Loratadine (Claritin) 10 mg PO DAILY [facility] Last Admin: 08/13/18 12:48 Dose: 10 mg Methylprednisolone (Solu-Medrol) 40 mg IVP Q12 [facility] Last Admin: 08/13/18 12:51 Dose: Not Given Montelukast Sodium (Singulair) 10 mg PO DAILY [facility] Last Admin: 08/13/18 12:47 Dose: 10 mg Mycophenolate Mofetil (Cellcept) 500 mg PO BID [facility] Last Admin: 08/13/18 12:49 Dose: 500 mg Oxybutynin Chloride (Ditropan Xl) 10 mg PO DAILY [facility] Last Admin: 08/13/18 12:50 Dose: 10 mg Pantoprazole Sodium (Protonix Ec Tab) 40 mg PO BID [facility] Last Admin: 08/13/18 12:48 Dose: 40 mg Pregabalin (Lyrica) 75 mg PO TID [facility] Last Admin: 08/13/18 13:04 Dose: 75 mg Promethazine HCl/Codeine (Phenergan/Codeine Oral Syrup) 5 ml PO Q4 PRN PRN Reason: Cough Last Admin: 08/12/18 21:26 Dose: 5 ml Sucralfate (Carafate Tab) 1 gm PO QID [facility] Last Admin: 08/13/18 13:05 Dose: 1 gm - Labs Labs: 08/12/18 07:40 08/12/18 07:40 PT 15.9 SECONDS (9.7-12.2) H 08/12/18 07:40 INR 1.5 08/12/18 07:40 APTT 35 SECONDS (21-34) H 08/12/18 07:40
[2018-08-13 16:43] VITALS: BP 114/71; PULSE 91; RESP 20; TEMP 98; O2SAT 94
--- NOTE | 2018-10-22 19:39 | OP ---
PROCEDURE DATE: 08/13/2018 PROCEDURE: Bronchoscopic evaluation and possible biopsy. CONSENT: Informed consent from the patient. INDICATIONS: Lung fibrosis; pneumonia, recurrent. DESCRIPTION OF PROCEDURE: The patient was brought to the endoscopy suite. Under conscious sedation, the bronchoscope was introduced through the right nostril. After infiltrating with topical lidocaine over the oral and nasal mucosa, bronchoscope was advanced to the vocal cord, verified. Vocal cord is moving very well. After entering into the trachea, significant mucosal redness and thickening of the mucosa noted with easy bleeding. It was advanced through both sides of the bronchus, both right and left. Upon entering into the left bronchial tree, significant mucosal bleeding was noted. Saline was instilled into the left upper lung bronchus, and also left lower lung. Secretions were collected. Because of the bleeding, it was decided not to do any biopsy. The patient also had a history of bleeding disorders in the past and currently on anticoagulation. Right bronchial tree was also visualized. Significant erythematous changes noted in the bronchial tree. Easy bleeding was noted. Secretions were collected. After the end of the procedure, BAL collected was sent for microbiology. Postoperatively, the patient was feeling well, but significant cough noted. Postoperative x-ray was done. Fluoroscopy was used also at the time. The patient clinically stable. She will be monitored in the PACU. Myles Quiñones MD
--- NOTE | 2018-10-23 02:46 | DS ---
HISTORY: This is a 53-year-old female with a history of chronic lupus disorder, hypertension, DVT, IVC filter, hypercoagulable state, on Coumadin. Admitted to the hospital with suddenly worsening respiratory distress, severe hypoxia and also worsening cough. The patient as on outpatient was receiving significant immunosuppressive treatment for ongoing chronic lupus lung disease. Initially, the patient was receiving prednisone which was changed into CellCept by the jet piercer operator following the complications related to steroids. The patient was also receiving antibiotics as an outpatient but in spite of that, no improvement. Upon admission, the patient's vital signs, low-grade fever noted, temperature 98.1, blood pressure 104/96, saturation is 96%. Labs were reviewed otherwise except WBC 21.1. The patient was hospitalized with acute worsening respiratory symptoms, possible respiratory failure and pneumonia and worsening lupus lung disease. COURSE IN THE HOSPITAL: The patient continued receiving intravenous antibiotics and intravenous corticosteroid. Significant improvement was noted. I discussed with the patient that she will need a bronchoscopic evaluation for possible rule out any pneumonia or to identify the pathological organisms. It was decided to have a bronchoscopic evaluation. The patient underwent a bronchoscopic evaluation on 08/13/2018. Postoperatively, the patient had a minimal bleeding, but otherwise tolerated the procedure well. Cultures were negative. The patient is clinically stable. She will be discharged to home. She will follow up in the outpatient. She will continue the bronchodilator. She will also continue the antibiotic, steroids and CellCept. She will follow up with jet piercer operator for further treatment. Myles Quiñones MD
== END 2018-08-13 19:45 | disposition home or self-care (01) | DRG 166 ==
LOC: C.ER 04:17 → SUPCPDRO 04:17 → C.9E 05:37 → C.6T 12:42
PROVIDERS: ADMIT Internal Medicine; ATTEND Internal Medicine
PROC: 02HV33Z Insertion of Infusion Device into Superior Vena Cava, Percutaneous Approach (ICD-10-PCS; principal; 2018-08-10)
PROC: 0B9L8ZX Drainage of Left Lung, Via Natural or Artificial Opening Endoscopic, Diagnostic (ICD-10-PCS; 2018-08-13)
DX: J84.89 Other specified interstitial pulmonary diseases (principal); J18.0 Bronchopneumonia, unspecified organism; J45.902 Unspecified asthma with status asthmaticus; M32.13 Lung involvement in systemic lupus erythematosus; J84.10 Pulmonary fibrosis, unspecified; R09.02 Hypoxemia; D68.59 Other primary thrombophilia; I10 Essential (primary) hypertension; G47.30 Sleep apnea, unspecified; K21.9 Gastro-esophageal reflux disease without esophagitis; M79.7 Fibromyalgia; N32.81 Overactive bladder; Z79.52 Long term (current) use of systemic steroids; Z90.49 Acquired absence of other specified parts of digestive tract; Z87.01 Personal history of pneumonia (recurrent); Z86.718 Personal history of other venous thrombosis and embolism; Z86.711 Personal history of pulmonary embolism; Z86.010 Personal history of colon polyps

== ENCOUNTER 2019-02-22 14:12 | Outpatient (CLI) | payer MEDICARE, MEDICAID | END 2019-02-22 14:13 | disposition home or self-care (01) | LOC: C.RADIC 14:12 | DX: R05 Cough (principal) ==

== ENCOUNTER 2019-02-26 06:03 | Emergency (ER) | payer MEDICARE, MEDICAID ==
[2019-02-26 06:04] VITALS: BMI 35.4
[2019-02-26] MEDS ORDERED: Albuterol-Ipratrop 3 mg / 0.5 (3 ml) UD ONE ×2 (06:10→06:47)
[2019-02-26] MEDS ORDERED: Albuterol-Ipratrop 3 mg / 0.5 (3 ml) UD INH STA ×2 (06:30→06:41)
--- NOTE | 2019-02-26 06:44 | C.PDOC ---
History Of Present Illness 53 year old female with asthma exacerbation for the past few days. Patient has been on prednisone 20mg daily over the last few months for her asthma related to lupus. She had CXR done by Dr. Velasquez on 02/22/19 which was normal. Patient does 1-2 breathing treatments daily at home with 1 amp of duonebs. <Dave Martin - Last Filed: 02/26/19 06:56> History Per: Patient History/Exam Limitations: no limitations Onset/Duration Of Symptoms: Days Current Symptoms Are (Timing): Still Present Current Respiratory Medications: See Home Med List Recent travel outside of the [place]: No <Dave Martin - Last Filed: 02/26/19 06:56> <Lucy Campos - Last Filed: 02/26/19 11:19> Time Seen by Provider: 02/26/19 06:36 Chief Complaint (Nursing): Shortness Of Breath Past Medical History Reviewed: Historical Data, Nursing Documentation, Vital Signs Vital Signs: Last Vital Signs Temp 97.9 F 02/26/19 06:05 Pulse 104 H 02/26/19 06:05 Resp 28 H 02/26/19 06:36 BP 125/71 02/26/19 06:05 Pulse Ox 96 02/26/19 06:36 - Medical History PMH: Arthritis, Asthma, Back Problems, Bronchitis, Colonic Polyps, Deep Vein Thrombosis, Fibromyalgia, HTN, Migraine, Peripheral Edema, Pneumonia ("multiple times"), Pulmonary Embolism (2011), Sleep Apnea Denies: Chronic Kidney Disease Comment Only: Depression (post depression) Other PMH: Lupus (with lung and DVT) Surgical History: Appendectomy, Endoscopy - [facility] Procedures (04/30/18) ARTIF RUPT MEMBRANES NEC (05/12/99) DIATHER/CRYO TURBINECTOM (11/10/13) DRAINAGE OF LEFT LUNG, ENDO, DIAGN (08/09/18) ESOPHAGOGASTRODUODENOSCOPY [EGD] W/CLOSED BIOPSY (03/28/14) ETHMOIDECTOMY (11/10/13) FASCIOTOMY (01/19/14) INSERTION OF INFUSION DEV INTO SUP VENA CAVA, PERC APPROACH (08/09/18) INTRANASAL ANTROTOMY (11/10/13) LAPAROSCOP APPENDECTOMY (03/16/05) LOW CERVICAL (05/12/99) RELEASE PERITONEUM, OPEN APPROACH (04/30/18) REMOVAL OF SYNTHETIC SUBSTITUTE FROM ABD WALL, OPEN APPROACH (04/30/18) RESECTION OF LEFT LARGE INTESTINE, OPEN APPROACH (04/30/18) TRANSFUSE NONAUT FROZEN PLASMA IN PERIPH VEIN, PERC (04/30/18) ULTRASONOGRAPHY OF SUPERIOR VENA CAVA, GUIDANCE (04/30/18) UMBIL HERNIA REPAIR-GRFT (03/16/05) Family History: States: Unknown Family Hx - Social History Hx Tobacco Use: No Hx Alcohol Use: No Hx Substance Use: No - Immunization History Hx Tetanus Toxoid Vaccination: No Hx Influenza Vaccination: Yes Hx Pneumococcal Vaccination: Yes (2016) <Dave Martin - Last Filed: 02/26/19 06:56> Vital Signs: Last Vital Signs Temp 98.7 F 02/26/19 07:10 Pulse 107 H 02/26/19 07:10 Resp 22 02/26/19 07:10 BP 117/59 L 02/26/19 07:10 Pulse Ox 95 02/26/19 07:10 - [facility] Procedures (04/30/18) ARTIF RUPT MEMBRANES NEC (05/12/99) DIATHER/CRYO TURBINECTOM (11/10/13) DRAINAGE OF LEFT LUNG, ENDO, DIAGN (08/09/18) ESOPHAGOGASTRODUODENOSCOPY [EGD] W/CLOSED BIOPSY (03/28/14) ETHMOIDECTOMY (11/10/13) FASCIOTOMY (01/19/14) INSERTION OF INFUSION DEV INTO SUP VENA CAVA, PERC APPROACH (08/09/18) INTRANASAL ANTROTOMY (11/10/13) LAPAROSCOP APPENDECTOMY (03/16/05) LOW CERVICAL (05/12/99) RELEASE PERITONEUM, OPEN APPROACH (04/30/18) REMOVAL OF SYNTHETIC SUBSTITUTE FROM ABD WALL, OPEN APPROACH (04/30/18) RESECTION OF LEFT LARGE INTESTINE, OPEN APPROACH (04/30/18) TRANSFUSE NONAUT FROZEN PLASMA IN PERIPH VEIN, PERC (04/30/18) ULTRASONOGRAPHY OF SUPERIOR VENA CAVA, GUIDANCE (04/30/18) UMBIL HERNIA REPAIR-GRFT (03/16/05) <Lucy Campos - Last Filed: 02/26/19 11:19> Review Of Systems Constitutional: Positive for: Other (Unintentional weight gain since she has been on prednisone). Negative for: Fever, Chills Cardiovascular: Negative for: Chest Pain, Palpitations Respiratory: Positive for: Shortness of Breath, Wheezing Gastrointestinal: Negative for: Nausea, Vomiting Neurological: Negative for: Weakness, Numbness <Dave Martin - Last Filed: 02/26/19 06:56> Physical Exam - Physical Exam Appears: Non-toxic, Other (Central obesity, buffalo hump) Skin: Normal Color, Warm Head: Atraumatic, Normacephalic Eye(s): bilateral: Normal Inspection Oral Mucosa: Moist Neck: Normal, Supple Chest: Symmetrical, No Tenderness Cardiovascular: Rhythm Regular Respiratory: No Rales, No Rhonchi, Wheezing (Mild-moderate) Gastrointestinal/Abdominal: Soft, No Tenderness, Other (No striae) Neurological/Psych: Oriented x3, Normal Speech <Dave Martin - Last Filed: 02/26/19 06:56> ED Course And Treatment O2 Sat by Pulse Oximetry: 96 <Dave Martin - Last Filed: 02/26/19 06:56> Progress Note: 7:45am- On reassessment, patient is still wheezing B/L and coughing, Pox 88-89% on RA. Patient feeling tremulous after nebs. Already s/p Prednisone 40mg total (20mg at home, 20mg here). Will given IV solumedrol 60mg and Magnesium sulfate 2G, then reassess. 11:15AM- Patient currently sleeping, POx 85% on RA, goes up to 89-90% on RA when awake. On exam, patient has B/L expiratory wheezing, cough has improved. Patient does not want to be admitted, and will sign out against my medical advice. She understands that by doing so she risks worsening of current condition and possible even . Patient given Rxs for prednisone and albuterol, and she understands she should return to ED if symptoms worsen. <Lucy Campos - Last Filed: 02/26/19 11:19> Medical Decision Making Medical Decision Making: asthma poorly managed with 1-2 neb treatments per day (only 1 ampule each tx) CXR 02/22 as opt neg steroid burst of +20 mg now only already on Prednisone 20 mg daily- planning to taper off over the next 2 weeks increase nebs to 2 ampules 5-7 x/day <Dave Martin - Last Filed: 02/26/19 06:56> Disposition Doctor Will See Patient In The: Office Counseled Patient/Family Regarding: Studies Performed, Diagnosis - Disposition Disposition Time: 06:51 <Dave Martin - Last Filed: 02/26/19 06:56> Counseled Patient/Family Regarding: Diagnosis, Need For Followup, Rx Given - Disposition Disposition Time: 11:20 <Lucy Campos - Last Filed: 02/26/19 11:19> - Disposition Referrals: Melva Velasquez MD [Staff Provider] - Disposition: AGAINST MEDICAL ADVICE Condition: STABLE Additional Instructions: FOLLOW UP WITH YOUR DOCTOR IN 1-2 DAYS USE MEDICATIONS DIRECTED RETURN TO ER IMMEDIATELY IF SYMPTOMS WORSEN Prescriptions: Albuterol 0.5% [Albuterol 0.5% Inhal Zulma (2.5 mg/0.5 ml) UD] 2.5 mg IH Q6 PRN #1 bottle PRN Reason: Wheezing predniSONE [predniSONE Tab] 40 mg PO DAILY #6 tab Instructions: Asthma in Adults, Leaving Against Medical Advice Forms: [employer] (Luxembourger), (AMA) Informed Refusal Print Language: UGANDAN - Clinical Impression Clinical Impression: Asthma exacerbation, Left against medical advice - Scribe Statement The provider has reviewed the documentation as recorded by the Scribmary ellen Brumfield All medical record entries made by the Scribe were at my direction and personally dictated by me. I have reviewed the chart and agree that the record accurately reflects my personal performance of the history, physical exam, medi deyvi decision making, and the department course for this patient. I have also personally directed, reviewed, and agree with the discharge instructions and disposition. <Dave Martin - Last Filed: 02/26/19 06:56>
[2019-02-26] MEDS ORDERED: MethylPREDNISolone 40 mg Vial IVP STA (07:57)
[2019-02-26] MEDS ORDERED: Magnesium Sulfate 1 gm in D5W 1 GM/100 ML BAG IV ONE (07:57)
[2019-02-26] MEDS ORDERED: Magnesium Sulfate 1 gm in D5W 2 GM/200 ML BAG IVPB ONE (08:18)
[2019-02-26] MEDS ORDERED: MethylPREDNISolone 40 mg Vial ONE (08:18)
[2019-02-26] MEDS ORDERED: Albuterol 0.083% Inhal Sol (2.5 mg/3 mL) UD IH STA ×2 (09:45→09:46)
[2019-02-26] MEDS ORDERED: Albuterol 0.083% Inhal Sol (2.5 mg/3 mL) UD ONE (09:59)
[2019-02-26 11:52] VITALS: BP 129/71; PULSE 110; RESP 24; TEMP 99.1; O2SAT 89
== END 2019-02-26 11:53 | disposition left against medical advice (07) ==
LOC: C.ER 06:03
DX: J45.901 Unspecified asthma with (acute) exacerbation (principal)
CPT/HCPCS: 94640; 96365; 96366; 96372; 96375; 99285; J2920; J3105; J3475

== ENCOUNTER 2019-02-28 04:13 | Observation (INO) | payer MEDICARE, MEDICAID ==
[2019-02-28 04:14] VITALS: BMI 35.4
[2019-02-28] MEDS ORDERED: Magnesium Sulfate 1 gm in D5W 1 GM/100 ML BAG IVPB ONE (04:33)
[2019-02-28] MEDS ORDERED: Albuterol-Ipratrop 3 mg / 0.5 (3 ml) UD INH STA (04:33)
[2019-02-28] MEDS ORDERED: Magnesium Sulfate 1 gm in D5W 1 GM/100 ML BAG IVPB STA (04:38)
--- NOTE | 2019-02-28 04:40 | C.PDOC ---
History Of Present Illness 53 year old female with Hx of lupus and asthma seen here 2 days ago for asthma, was given treatment and discharged home, comes back today wheezing. Patient takes steroids daily for lupus, took some nebs at home with no relief. No other complaints at this time. Time Seen by Provider: 02/28/19 04:33 Chief Complaint (Nursing): Shortness Of Breath History Per: Patient History/Exam Limitations: no limitations Onset/Duration Of Symptoms: Days Current Symptoms Are (Timing): Still Present Current Respiratory Medications: See Home Med List Recent travel outside of the [place]: No Past Medical History Reviewed: Historical Data, Nursing Documentation, Vital Signs Vital Signs: Last Vital Signs Temp 97.4 F L 02/28/19 04:17 Pulse 98 H 02/28/19 04:17 Resp 22 02/28/19 04:27 BP 154/82 H 02/28/19 04:17 Pulse Ox 100 02/28/19 04:27 - Medical History PMH: Arthritis, Asthma, Back Problems, Bronchitis, Colonic Polyps, Deep Vein Thrombosis, Fibromyalgia, HTN, Migraine, Peripheral Edema, Pneumonia ("multiple times"), Pulmonary Embolism (2011), Sleep Apnea Denies: Chronic Kidney Disease Comment Only: Depression (post depression) Surgical History: Appendectomy, Endoscopy - [facility] Procedures (04/30/18) ARTIF RUPT MEMBRANES NEC (05/12/99) DIATHER/CRYO TURBINECTOM (11/10/13) DRAINAGE OF LEFT LUNG, ENDO, DIAGN (08/09/18) ESOPHAGOGASTRODUODENOSCOPY [EGD] W/CLOSED BIOPSY (03/28/14) ETHMOIDECTOMY (11/10/13) FASCIOTOMY (01/19/14) INSERTION OF INFUSION DEV INTO SUP VENA CAVA, PERC APPROACH (08/09/18) INTRANASAL ANTROTOMY (11/10/13) LAPAROSCOP APPENDECTOMY (03/16/05) LOW CERVICAL (05/12/99) RELEASE PERITONEUM, OPEN APPROACH (04/30/18) REMOVAL OF SYNTHETIC SUBSTITUTE FROM ABD WALL, OPEN APPROACH (04/30/18) RESECTION OF LEFT LARGE INTESTINE, OPEN APPROACH (04/30/18) TRANSFUSE NONAUT FROZEN PLASMA IN PERIPH VEIN, PERC (04/30/18) ULTRASONOGRAPHY OF SUPERIOR VENA CAVA, GUIDANCE (04/30/18) UMBIL HERNIA REPAIR-GRFT (03/16/05) Family History: States: Unknown Family Hx - Social History Hx Tobacco Use: No Hx Alcohol Use: No Hx Substance Use: No - Immunization History Hx Tetanus Toxoid Vaccination: No Hx Influenza Vaccination: Yes Hx Pneumococcal Vaccination: Yes (2017) Review Of Systems Constitutional: Negative for: Fever, Chills Eyes: Negative for: Pain, Redness ENT: Negative for: Mouth Swelling Cardiovascular: Negative for: Chest Pain, Palpitations Respiratory: Positive for: Shortness of Breath, Wheezing. Negative for: Cough Gastrointestinal: Negative for: Nausea, Vomiting, Diarrhea Genitourinary: Negative for: Dysuria, Hematuria Musculoskeletal: Negative for: Back Pain Skin: Negative for: Rash Neurological: Negative for: Weakness, Numbness, Dizziness Physical Exam - Physical Exam Appears: Other (Respiratory distress) Skin: Normal Color, Warm, No Rash Head: Atraumatic, Normacephalic Eye(s): bilateral: Normal Inspection, PERRL, EOMI Ear(s): Bilateral: Normal Nose: Normal Oral Mucosa: Moist Throat: Normal (No swelling or injection), No Exudate Neck: Normal ROM, Supple Chest: Symmetrical Cardiovascular: Rhythm Regular Respiratory: No Accessory Muscle Use, Wheezing (Bilaterally) Gastrointestinal/Abdominal: Soft, No Distention Neurological/Psych: Oriented x3, Normal Speech, Normal Cranial Nerves (Grossly intact) Gait: Steady ED Course And Treatment - Laboratory Results Result Diagrams: 02/28/19 05:11 02/28/19 05:11 O2 Sat by Pulse Oximetry: 100 (Room air) Pulse Ox Interpretation: Normal Progress Note: patient reports moderate improvement of her breathing. her O2 sat drops to 90% on room air. she will be kept in OBS for further treatment. Medical Decision Making Medical Decision Making: After several nebs, patient is able to sleep but still has bilateral wheezing, saturation 89-90 on room air, will give mag sulfate and order labs. patient reports only mild improvement after receiving mag sulfate. 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 - Scribe Statement The provider has reviewed the documentation as recorded by the Scribe Richard Brumfield All medical record entries made by the Scribe were at my direction and personally dictated by me. I have reviewed the chart and agree that the record accurately reflects my personal performance of the history, physical exam, medical decision making, and the department course for this patient. I have also personally directed, reviewed, and agree with the discharge instructions and disposition. Decision To Admit - Pt Status Changed To: Hospital Disposition Of: Observation - . Bed Request Type: Regular Admitting Physician: Myles Quiñones Patient Diagnosis: Asthma exacerbation, Pneumonia
[2019-02-28] MEDS ORDERED: Magnesium Sulfate 1 gm in D5W 2 GM/200 ML BAG IVPB ONE (04:46)
[2019-02-28] MEDS ORDERED: Sodium Chloride 0.9% 1,000 ML IV ONE (04:50)
[2019-02-28 05:14] LABS: EOS % 0.1 % (0.0-4.0); HEMOGLOBIN 11.9 g/dL (11.0-16.0); LYMPH # 0.4 K/uL (1.0-4.3); LYMPH % 2.7 % (20.0-40.0); MEAN CELL VOLUME 80.1 fL (81.0-99.0); MEAN CORPUSCULAR HEMOGLOBIN 25.4 pg (27.0-31.0); MEAN CORPUSCULAR HGB CONC 31.8 g/dL (33.0-37.0); MEAN PLATELET VOLUME 7.2 fL (7.2-11.7); MONO # 0.6 K/uL (0.0-0.8); MONO % 4.5 % (0.0-10.0); NEUT % 92.7 % (50.0-75.0); PLATELET COUNT 329 K/uL (130-400); RBC 4.69 Mil/uL (3.80-5.20); RED CELL DISTRIBUTION WIDTH 15.8 % (11.5-14.5)
[2019-02-28 05:28] LABS: BLOOD UREA NITROGEN 22 mg/dL (7-17); GFR NON-AFRICAN AMERICAN > 60
[2019-02-28 05:48] LABS: ALB/GLOB RATIO 1.4 (1.0-2.1); ALBUMIN 4.2 g/dL (3.5-5.0); ALT/SGPT 29 U/L (9-52); AST/SGOT 56 U/L (14-36)
[2019-02-28] MEDS ORDERED: Moxifloxacin IV 400mg/250ml NS 400 MG/250 ML BAG IVPB ONE (06:25)
[2019-02-28 06:57] LABS: LYMPHOCYTE 1 % (20-40); MONOCYTE 5 % (0-10); NEUTROPHIL 94 % (50-75); PLATELET ESTIMATE NORMAL (NORMAL); TOTAL CELLS COUNTED 100
[2019-02-28] MEDS ORDERED: Fluticasone-Vilanterol 200/25mcg Diskus INH SCH (08:00)
[2019-02-28] MEDS ORDERED: Tiotropium 18 mcg Cap For Inhalation INH SCH (08:00)
[2019-02-28 08:04] VITALS: RESP 20
--- NOTE | 2019-02-28 08:12 | CP.PCM.HP ---
History of Present Illness - History of Present Illness History of Present Illness: Chief:: Severe shortness of breath HPI: Patient is a 53-year-old female with a history of chronic lupus, chronic systemic erythematosus, and also has a chronic lupus related lung disease, hypercoagulable state on Coumadin, history of obesity, hypoventilation, history of pulmonary embolism sleep apnea, history of deep venous thrombosis, recent history of intestinal obstruction, status post surgery, came to the office recently, at that time patient was given antibiotic and outpatient corticosteroid. Patient came to the emergency room 2 days ago with worsening symptoms. She did not stay in the hospital that time, patient again came to the hospital now with increasing shortness of breath. She is complaining of worsening is will be, increasing cough coughing spells coughing spells associate with the dizziness. Also complaining of chest pain With the cough. Cough is mostly dry, occasional blood is noted. Patient the past hospitalized with a similar symptoms during the last year Past medical history: As noted above Patient has a history of lupus lung disease, SLE, hypercoagulable state, anticardiolipin antibody positive, history of PE DVT, history of obesity, obstructive sleep apnea, osteoarthritis and osteoporosis, obesity Allergies no known drug allergy Personal history non-smoker nonalcoholic History of appendectomy, intestinal resection. Patient also had a history of lap band surgery done for obesity. Bettie history significant for hypertension and osteoarthritis Review of system: Complaining of increasing headache with cough no visual symptoms. Episodes of ecchymosis noted. Also on Coumadin for DVT and PE. Patient has chest pain, shortness of breath, and associate with a cough. Abdominal pain on and off with the cough noted. Leg swelling also noted. On examination: Vital signs otherwise stable. Oxygen saturation is better today But the patient is a distress with the cough. Oral mucosa dry Chest good air entry, but minimal expiratory bilateral wheezing noted Regular heart sounds noted Abdomen soft. 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 Now admitted with the worsening respiratory symptoms with a possible pneumonia, patient is not improving with outpatient treatment. Patient also has a exposure to sick daughter recently We will start the patient on corticosteroid bronchodilators antibiotic. Sputum culture. Mycoplasma antibody titer evaluation. DVT and GI prophylaxis. On anticoagulation now. Midline recommended for poor venous access. We will get a CT scan of the chest and will follow the patient Present on Admission - Present on Admission Any Indicators Present on Admission: No History of DVT/PE: No History of Uncontrolled Diabetes: No Urinary Catheter: No Decubitus Ulcer Present: No Past Patient History - Infectious Disease Hx of Infectious Diseases: None - Tetanus Immunizations Tetanus Immunization: Up to Date - Past Medical History & Family History Past Medical History?: Yes - Past Social History Smoking Status: Never Smoked - CARDIAC Hx Hypertension: Yes Hx Peripheral Edema: Yes - PULMONARY Hx Asthma: Yes Hx Bronchitis: Yes Hx Pneumonia: Yes ("multiple times") Hx Pulmonary Embolism: Yes (2011) Hx Sleep Apnea: Yes - NEUROLOGICAL Hx Migraine: Yes - HEENT Hx HEENT Problems: Yes - RENAL Hx Chronic Kidney Disease: No - ENDOCRINE/METABOLIC Hx Endocrine Disorders: Yes Hx Systemic Lupus Erythematosus: Yes (w/ antibody) - HEMATOLOGICAL/ONCOLOGICAL Hx Blood Disorders: No - INTEGUMENTARY Hx Dermatological Problems: Yes Other/Comment: discoploration of lower legs/pigmentation - MUSCULOSKELETAL/RHEUMATOLOGICAL Hx Arthritis: Yes - GASTROINTESTINAL Hx Gastrointestinal Disorders: Yes Hx Gastroesophageal Reflux: Yes - GENITOURINARY/GYNECOLOGICAL Hx Genitourinary Disorders: Yes Hx Incontinence: Yes (OVER ACTIVE BLADDER) - PSYCHIATRIC Hx Depression: (post depression) Hx Substance Use: No - SURGICAL HISTORY Hx Appendectomy: Yes - ANESTHESIA Hx Anesthesia: Yes Hx Anesthesia Reactions: No Hx Malignant Hyperthermia: No Meds Allergies/Adverse Reactions: Allergies Allergy/AdvReac Type Severity Reaction Status Date / Time No Known Allergies Allergy Verified 02/28/19 04:24 Results - Vital Signs Recent Vital Signs: Last Vital Signs Temp 98.0 F 02/28/19 07:56 Pulse 90 02/28/19 07:56 Resp 20 02/28/19 07:56 BP 104/68 02/28/19 07:56 Pulse Ox 96 02/28/19 07:56 - Labs Result Diagrams: 02/28/19 05:11 02/28/19 05:11 Labs: Laboratory Results - last 24 hr 02/28/19 02/28/19 02/28/19 05:11 05:11 06:15 WBC 14.0 H RBC 4.69 Hgb 11.9 Hct 37.5 MCV 80.1 L MCH 25.4 L MCHC 31.8 L RDW 15.8 H Plt Count 329 MPV 7.2 Neut % (Auto) 92.7 H Lymph % (Auto) 2.7 L [place] % (Auto) 4.5 Eos % (Auto) 0.1 Baso % (Auto) 0.0 Neut # (Auto) 13.0 H Lymph # (Auto) 0.4 L [place] # (Auto) 0.6 Eos # (Auto) 0.0 Baso # (Auto) 0.0 Neutrophils % (Manual) 94 H Lymphocytes % (Manual) 1 L Monocytes % (Manual) 5 Platelet Estimate Normal Sodium 138 Potassium 3.9 Chloride 102 Carbon Dioxide 27 Anion Gap 13 BUN 22 H Creatinine 0.9 Est GFR ( Amer) > 60 Est GFR (Non-Af Amer) > 60 Random Glucose 107 H D Calcium 9.0 Total Bilirubin 0.6 AST 56 H D ALT 29 Alkaline Phosphatase 57 NT-Pro-B Natriuret Pep 134 Total Protein 7.2 Albumin 4.2 Globulin 3.0 Albumin/Globulin Ratio 1.4
[2019-02-28] MEDS ORDERED: MethylPREDNISolone 40 mg Vial IVP ONE (08:30)
[2019-02-28] MEDS: Albuterol-Ipratrop 3 mg / 0.5 (3 ml) UD INH SCH ×3 (08:54→20:19)
--- NOTE | 2019-02-28 10:00 | RAD ---
Date of service: 02/28/2019 HISTORY: Shortness of breath COMPARISON: None available. TECHNIQUE: 1 view obtained. FINDINGS: LUNGS: Moderate venous congestion. Diffuse increased interstitial lung markings. Patchy increased markings in the right hilar and infrahilar regions. PLEURA: No significant pleural effusion identified, no pneumothorax apparent. CARDIOVASCULAR: No aortic atherosclerotic calcification present. Cardiomegaly. No pulmonary vascular congestion. OSSEOUS STRUCTURES: Degenerative changes in the spine. VISUALIZED UPPER ABDOMEN: Normal. OTHER FINDINGS: None. IMPRESSION: Moderate venous congestion. Diffuse increased interstitial lung markings. Patchy increased markings in the right hilar and infrahilar regions.
[2019-02-28] MEDS: Pantoprazole 40 mg EC Tab PO SCH ×2 (10:17→17:44)
[2019-02-28] MEDS: Oxybutynin XL 10 mg Tab PO SCH (10:20)
[2019-02-28] MEDS: Azithromycin 500 MG in Sodium Chloride 0.9% 250 ML IVPB SCH (10:40)
[2019-02-28] MEDS: cefTRIAXone IV 1 gm in Dextros 50 ML IVPB SCH (10:41)
[2019-02-28] MEDS: Promethazine/Cod 6.25mg-10mg/5ml Syr UD PO PRN ×3 (11:53→20:50)
[2019-02-28 12:13] LABS: PROTHROMBIN TIME 89.4 SECONDS (9.7-12.2)
[2019-02-28 12:14] LABS: INR 8.1
--- NOTE | 2019-02-28 13:49 | CT ---
Date of service: 02/28/2019 CT chest without IV contrast Indication: pna Technique: Contiguous axial images were obtained through the chest without intravenous contrast enhancement. Sagittal and coronal reconstructions were generated and reviewed. This CT exam was performed using 1 or more of the following dose reduction techniques: Automated exposure control, adjustment of the MAA and/or kV according to patient size, and/or use of iterative reconstruction technique. Radiation dose (DLP): 774.06 MGy-cm. Comparison: Chest x-ray performed 02/28/19, CT chest without contrast performed 11/17/18 Findings: Visualized portions of the inferior thyroid gland appear heterogeneous with evidence of calcification in the left inferior pole. The unenhanced mediastinal and hilar vascular structures appear grossly unremarkable. The heart appears within normal limits of size. Numerous sub cm mediastinal/prevascular lymph nodes, nonspecific. Please note that lack of IV contrast limits evaluation for adenopathy, in particular hilar adenopathy. Patchy bilateral ground-glass and nodular infiltrates throughout all lobes suspicious for multifocal pneumonia. No pleural effusion. No pneumothorax. Limited visualization of the noncontrast upper abdomen: Gastric lap band. Large amount of fluid within the esophagus which is distended. Correlate clinically for gastroesophageal reflux. Degenerative changes of the spine. Kyphosis. Impression: Patchy bilateral ground-glass and nodular infiltrates throughout all lobes suspicious for multifocal pneumonia. Recommend chest CT follow-up upon completion of therapy to demonstrate resolution of nodular pattern. Heterogeneous appearance of the included inferior portions of the thyroid gland with calcification in the left inferior pole. Suggest further evaluation with outpatient thyroid ultrasound if indicated. Numerous sub cm mediastinal/prevascular lymph nodes, nonspecific. Large amount of fluid within the esophagus which is distended. Correlate clinically for gastroesophageal reflux. Comment clinical correlation and further evaluation with endoscopy if indicated. Gastric lap band.
[2019-03-01] MEDS: Albuterol-Ipratrop 3 mg / 0.5 (3 ml) UD INH SCH ×4 (01:30→19:53)
[2019-03-01] MEDS: Promethazine/Cod 6.25mg-10mg/5ml Syr UD PO PRN ×4 (07:06→21:44)
[2019-03-01] MEDS: cefTRIAXone IV 1 gm in Dextros 50 ML IVPB SCH (10:30)
[2019-03-01] MEDS: Pantoprazole 40 mg EC Tab PO SCH ×2 (11:00→17:23)
[2019-03-01] MEDS: Azithromycin 500 MG in Sodium Chloride 0.9% 250 ML IVPB SCH (11:00)
[2019-03-01] MEDS: Oxybutynin XL 10 mg Tab PO SCH (11:00)
[2019-03-01 14:04] LABS: INR 5.4; PROTHROMBIN TIME 59.5 SECONDS (9.7-12.2)
--- NOTE | 2019-03-01 18:08 | CARD ---
APPROVED REPORT Date of service: 03/01/2019 EXAM: Two-dimensional and M-mode echocardiogram with Doppler and color Doppler. INDICATION Dyspnea COPD 2D DIMENSIONS IVSd0.8 (0.7-1.1cm)LVDd5.4 (3.9-5.9cm) PWd0.9 (0.7-1.1cm)LA Shyquw45 (18-58mL) LVDs3.2 (2.5-4.0cm)FS (%) 40.5 % LVEF (%)70.7 (>50%)LVEF (Orourke's)66.05 % M-Mode DIMENSIONS Left Atrium (MM)3.77 (2.5-4.0cm)IVSd0.92 (0.7-1.1cm) Aortic Root3.40 (2.2-3.7cm)LVDd5.19 (4.0-5.6cm) Aortic Cusp Exc.2.11 (1.5-2.0cm)PWd0.77 (0.7-1.1cm) FS (%) 34 %LVDs3.44 (2.0-3.8cm) LVEF (%)62 (>50%) Mitral Valve MV E Kipvzzuh40.3cm/sMV A Bbdzgubu77.3cm/sE/A ratio1.1 TDI Lateral E' Peak V12.31cm/sMedial E' Peak V10.05cm/sE/Lateral E'6.2 E/Medial E'7.6 Tricuspid Valve TR Peak Kqiykbri288yq/sTR Peak Gr.[id number] LEFT VENTRICLE The left ventricle is normal size. There is normal left ventricular wall thickness. Left ventricle systolic function is normal. The Ejection Fraction is 65-70%. There is normal LV segmental wall motion. The left ventricular diastolic function is normal. RIGHT VENTRICLE The right ventricle is normal size. There is normal right ventricular wall thickness. The right ventricular systolic function is normal. ATRIA The left atrium size is normal. The right atrium size is normal. The interatrial septum is intact with no evidence for an atrial septal defect. AORTIC VALVE The aortic valve is normal in structure. No aortic regurgitation is present. There is no aortic valvular stenosis. There is no aortic valvular vegetation. MITRAL VALVE The mitral valve is normal in structure. There is no evidence of mitral valve prolapse. There is no mitral valve stenosis. Mitral regurgitation is mild. TRICUSPID VALVE The tricuspid valve is normal in structure. There is mild tricuspid regurgitation. Right ventricular systolic pressure is estimated at 30-40 mmHg. There is mild pulmonary hypertension. PULMONIC VALVE The pulmonary valve is normal in structure. There is mild pulmonic valvular regurgitation. GREAT VESSELS The aortic root is normal in size. PERICARDIAL EFFUSION There is no significant pericardial effusion. <Conclusion> Left ventricle systolic function is normal. The Ejection Fraction is 65-70%. No aortic regurgitation is present. Mitral regurgitation is mild. There is mild tricuspid regurgitation. There is mild pulmonary hypertension. There is mild pulmonic valvular regurgitation.
[2019-03-01 23:12] VITALS: TEMP 97.9
[2019-03-02] MEDS: Albuterol-Ipratrop 3 mg / 0.5 (3 ml) UD INH SCH ×2 (02:20→08:04)
[2019-03-02] MEDS: Promethazine/Cod 6.25mg-10mg/5ml Syr UD PO PRN (05:42)
[2019-03-02 08:15] VITALS: BP 125/83; PULSE 77
[2019-03-02] MEDS: Pantoprazole 40 mg EC Tab PO SCH (09:34)
[2019-03-02] MEDS: Oxybutynin XL 10 mg Tab PO SCH (09:35)
--- NOTE | 2019-03-02 10:02 | CP.PCM.DIS ---
Provider - Provider Date of Admission: 02/28/19 06:28 Attending physician: Myles Quiñones MD Time Spent in preparation of Discharge (in minutes): 45 Hospital Course - Lab Results Lab Results: Micro Results 02/28/19 11:52 Blood Blood Culture - Preliminary NO GROWTH AFTER 24 HOURS 02/28/19 11:15 Blood Blood Culture - Preliminary NO GROWTH AFTER 24 HOURS Most Recent Lab Values WBC 14.0 K/uL (4.8-10.8) H 02/28/19 05:11 RBC 4.69 Mil/uL (3.80-5.20) 02/28/19 05:11 Hgb 11.9 g/dL (11.0-16.0) 02/28/19 05:11 Hct 37.5 % (34.0-47.0) 02/28/19 05:11 MCV 80.1 fL (81.0-99.0) L 02/28/19 05:11 MCH 25.4 pg (27.0-31.0) L 02/28/19 05:11 MCHC 31.8 g/dL (33.0-37.0) L 02/28/19 05:11 RDW 15.8 % (11.5-14.5) H 02/28/19 05:11 Plt Count 329 K/uL (130-400) 02/28/19 05:11 MPV 7.2 fL (7.2-11.7) 02/28/19 05:11 Neut % (Auto) 92.7 % (50.0-75.0) H 02/28/19 05:11 Lymph % (Auto) 2.7 % (20.0-40.0) L 02/28/19 05:11 Russell % (Auto) 4.5 % (0.0-10.0) 02/28/19 05:11 Eos % (Auto) 0.1 % (0.0-4.0) 02/28/19 05:11 Baso % (Auto) 0.0 % (0.0-2.0) 02/28/19 05:11 Neut # (Auto) 13.0 K/uL (1.8-7.0) H 02/28/19 05:11 Lymph # (Auto) 0.4 K/uL (1.0-4.3) L 02/28/19 05:11 Russell # (Auto) 0.6 K/uL (0.0-0.8) 02/28/19 05:11 Eos # (Auto) 0.0 K/uL (0.0-0.7) 02/28/19 05:11 Baso # (Auto) 0.0 K/uL (0.0-0.2) 02/28/19 05:11 Neutrophils % (Manual) 94 % (50-75) H 02/28/19 05:11 Lymphocytes % (Manual) 1 % (20-40) L 02/28/19 05:11 Monocytes % (Manual) 5 % (0-10) 02/28/19 05:11 Platelet Estimate Normal (NORMAL) 02/28/19 05:11 PT 59.5 SECONDS (9.7-12.2) H D 03/01/19 13:44 INR 5.4 H* D 03/01/19 13:44 APTT 68 SECONDS (21-34) H 02/28/19 11:27 Sodium 138 mmol/L (132-148) 02/28/19 05:11 Potassium 3.9 mmol/L (3.6-5.2) 02/28/19 05:11 Chloride 102 mmol/L (98-107) 02/28/19 05:11 Carbon Dioxide 27 mmol/L (22-30) 02/28/19 05:11 Anion Gap 13 (10-20) 02/28/19 05:11 BUN 22 mg/dL (7-17) H 02/28/19 05:11 Creatinine 0.9 mg/dL (0.7-1.2) 02/28/19 05:11 Est GFR ( Amer) > 60 02/28/19 05:11 Est GFR (Non-Af Amer) > 60 02/28/19 05:11 Random Glucose 107 mg/dL (65-105) H D 02/28/19 05:11 Calcium 9.0 mg/dl (8.6-10.4) 02/28/19 05:11 Total Bilirubin 0.6 mg/dL (0.2-1.3) 02/28/19 05:11 AST 56 U/L (14-36) H D 02/28/19 05:11 ALT 29 U/L (9-52) 02/28/19 05:11 Alkaline Phosphatase 57 U/L (38-126) 02/28/19 05:11 Lactate Dehydrogenase 598 U/L (313-618) 02/28/19 11:27 NT-Pro-B Natriuret Pep 134 pg/mL (0-900) 02/28/19 06:15 Total Protein 7.2 g/dL (6.3-8.3) 02/28/19 05:11 Albumin 4.2 g/dL (3.5-5.0) 02/28/19 05:11 Globulin 3.0 gm/dL (2.2-3.9) 02/28/19 05:11 Albumin/Globulin Ratio 1.4 (1.0-2.1) 02/28/19 05:11 - Hospital Course Hospital Course: Chief:: Severe shortness of breath HPI: Patient is a 53-year-old female with a history of chronic lupus, chronic systemic erythematosus, and also has a chronic lupus related lung disease, hypercoagulable state on Coumadin, history of obesity, hypoventilation, history of pulmonary embolism sleep apnea, history of deep venous thrombosis, recent history of intestinal obstruction, status post surgery, came to the office recently, at that time patient was given antibiotic and outpatient corticosteroid. Patient came to the emergency room 2 days ago with worsening symptoms. She did not stay in the hospital that time, patient again came to the hospital now with increasing shortness of breath. She is complaining of worsening is will be, increasing cough coughing spells coughing spells associate with the dizziness. Also complaining of chest pain With the cough. Cough is mostly dry, occasional blood is noted. Patient the past hospitalized with a similar symptoms during the last year Past medical history: As noted above Patient has a history of lupus lung disease, SLE, hypercoagulable state, anticardiolipin antibody positive, history of PE DVT, history of obesity, obstructive sleep apnea, osteoarthritis and osteoporosis, obesity Allergies no known drug allergy Personal history non-smoker nonalcoholic History of appendectomy, intestinal resection. Patient also had a history of lap band surgery done for obesity. Bettie history significant for hypertension and osteoarthritis Review of system: Complaining of increasing headache with cough no visual symptoms. Episodes of ecchymosis noted. Also on Coumadin for DVT and PE. Patient has chest pain, shortness of breath, and associate with a cough. Abdominal pain on and off with the cough noted. Leg swelling also noted. On examination: Vital signs otherwise stable. Oxygen saturation is better today But the patient is a distress with the cough. Oral mucosa dry Chest good air entry, but minimal expiratory bilateral wheezing noted Regular heart sounds noted Abdomen soft. 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 Now admitted with the worsening respiratory symptoms with a possible pneumonia, patient is not improving with outpatient treatment. Patient also has a exposure to sick daughter recently We will start the patient on corticosteroid bronchodilators antibiotic. Sputum culture. Mycoplasma antibody titer evaluation. DVT and GI prophylaxis. On anticoagulation now. Midline recommended for poor venous access. We will get a CT scan of the chest and will follow the patient Course in the hospital: Patient had a CT of the chest without contrast which was showing evidence of diffuse bronchopneumonia bilaterally. Patient also had an echocardiogram, which is showing normal ejection fraction, and normal LV function, mild pulmonary hypertension noted. Patient started on Rocephin, Zithromax and Solu-Medrol. Patient was showing some improvement in the cough and also no fever noted. INR was noted to be highly elevated. Coumadin was on hold. I advised the patient to hold the Coumadin for today also. She will be discharged home today. She will follow-up as an outpatient. I recommended her to continue antibiotic, prednisone, promethazine with codeine cough medicine, and also bronchodilators. Final diagnosis: Acute bronchopneumonia, failed outpatient treatment. Lupus lung disease. On anticoagulation for hypercoagulable state. INR was also elevated, patient is clinically stable at this time she will follow-up as an outpatient Discharge Plan - Follow Up Plan Condition: GOOD Disposition: HOME/ ROUTINE
--- NOTE | 2019-03-02 10:02 | CP.PCM.PN ---
Subjective - Date & Time of Evaluation Date of Evaluation: 03/01/19 Time of Evaluation: 09:59 - Subjective Subjective: Patient is having minimal cough still. Chest tightness still noted. Patient has a mild exertional dyspnea. She denies any nausea. Patient is only able to eat the liquid diet because of the nausea and vomiting. I advised her to continue the liquid diet. Echocardiogram is nonspecific. Normal ejection fraction. We will plan for discharge possibly tomorrow. We will continue the current treatment Objective - Vital Signs/Intake and Output Vital Signs (last 24 hours): Temp Pulse Resp BP Pulse Ox 97.9 F 77 20 125/83 96 03/02/19 08:13 03/02/19 08:13 03/02/19 08:13 03/02/19 08:13 03/02/19 08:13 Intake and Output: 03/02/19 03/02/19 06:59 18:59 Intake Total 540 Balance 540 - Medications Medications: Current Medications Albuterol/Ipratropium (Duoneb 3 Mg/0.5 Mg (3 Ml) Ud) 3 ml INH RQ6 ENOC Last Admin: 03/02/19 08:04 Dose: 3 ml Amlodipine Besylate (Norvasc) 5 mg PO DAILY ENOC Last Admin: 03/02/19 09:34 Dose: 5 mg Fluticasone/Vilanterol (Breo Ellipta 200-25 Mcg Inh) 1 puff INH RQD ENOC Last Admin: 03/02/19 08:04 Dose: 1 puff Ceftriaxone Sodium (Rocephin Iv 1 Gm Duplex) 50 mls @ 100 mls/hr IVPB DAILY ENOC; Protocol Last Admin: 03/01/19 10:30 Dose: 100 mls/hr Azithromycin 500 mg/ Sodium (Chloride) 250 mls @ 167 mls/hr IVPB Q24H ENOC; Protocol Last Admin: 03/01/19 11:00 Dose: 167 mls/hr Montelukast Sodium (Singulair) 10 mg PO HS ENOC Last Admin: 03/01/19 21:44 Dose: 10 mg Mycophenolate Mofetil (Cellcept) 500 mg PO BID ENOC Last Admin: 03/02/19 09:35 Dose: 500 mg Oxybutynin Chloride (Ditropan Xl) 10 mg PO DAILY ENOC Last Admin: 03/02/19 09:35 Dose: 10 mg Pantoprazole Sodium (Protonix Ec Tab) 40 mg PO BID [facility] Last Admin: 03/02/19 09:34 Dose: 40 mg Pregabalin (Lyrica) 75 mg PO TID [facility] Last Admin: 03/02/19 09:34 Dose: 75 mg Promethazine HCl/Codeine (Phenergan/Codeine Oral Syrup) 5 ml PO Q4 PRN PRN Reason: Cough Last Admin: 03/02/19 05:42 Dose: 5 ml Tiotropium Raymond (Spiriva) 18 mcg INH RQ24 [facility] Last Admin: 03/02/19 08:04 Dose: 18 mcg - Labs Labs: 02/28/19 05:11 02/28/19 05:11 PT 59.5 SECONDS (9.7-12.2) H D 03/01/19 13:44 INR 5.4 H* D 03/01/19 13:44 APTT 68 SECONDS (21-34) H 02/28/19 11:27
[2019-03-02] MEDS: cefTRIAXone IV 1 gm in Dextros 50 ML IVPB SCH (10:37)
[2019-03-02] MEDS: Azithromycin 500 MG in Sodium Chloride 0.9% 250 ML IVPB SCH (10:38)
[2019-03-03 02:25] VITALS: O2SAT 100
== END 2019-03-02 14:48 | disposition home or self-care (01) ==
LOC: C.ER 04:13 → C.3T 06:28
PROVIDERS: ADMIT Internal Medicine; ATTEND Internal Medicine
DX: J45.901 Unspecified asthma with (acute) exacerbation (principal); I10 Essential (primary) hypertension; G47.33 Obstructive sleep apnea (adult) (pediatric); M32.9 Systemic lupus erythematosus, unspecified; K21.9 Gastro-esophageal reflux disease without esophagitis; J18.0 Bronchopneumonia, unspecified organism; D68.59 Other primary thrombophilia
CPT/HCPCS: 36415; 36569; 36592; 71045; 71250; 80053; 83615; 83880; 85025; 85610; 85730; 86738; 87040; 87070; 93306; 94150; 94640; 96361; 96365; 96366; 96367; 96368; 96375; 99285; C1751; G0378; J0456; J0696; J2280; J2920; J3475; J7030; J7517